=== PATIENT | female | born 1965 | race Caucasian/White ===

== ENCOUNTER → 2020-01-15 09:38 | Outpatient (BNVA) | payer MEDICAID, SELFPAY | PROVIDERS: PCP Nurse Practitioner Family; Visit Provider Internal Medicine | DX: J30.9 Allergic rhinitis, unspecified (principal); J44.9 Chronic obstructive pulmonary disease, unspecified; Z79.899 Other long term (current) drug therapy | CPT/HCPCS: 99212 ==

== ENCOUNTER 2020-02-03 15:28 | Emergency (ER) | payer MEDICAID, SELFPAY ==
[2020-02-03 15:50] VITALS: BP 129/84; PULSE 96; RESP 20; TEMP 35.9; O2SAT 96; BMI 24.3
--- NOTE | 2020-02-03 16:52 | ED_ITS ---
HPI - Female Genitourinary General Chief complaint: Urogenital-Female Stated complaint: blood in urine Time Seen by Provider: 02/03/20 16:34 Source: patient Mode of arrival: ambulatory Limitations: no limitations History of Present Illness HPI Narrative: patient comes to the emergency room of hematuria. Patient ates she is taking Macrobid to prevent UTIs, it has been over a year since she started prophylactic treatment. Patient stopped approximately 6 days ago her antibiotic to see if she would develop a UTI or not, patient started urinating blood and having discomfort with urination 2 days ago, patient restarted her Macrobid. Patient states that this morning she woke up with bilateral back pain. Patient also complaining of a headache Related Data Home Medications Medication Instructions Recorded Confirmed aclidinium bromide 400 1 inh INHALATION BID 01/15/20 mcg/actuation breath activated powder inhaler albuterol sulfate 2.5 mg CONTINUOUS NEBULIZATION Q6H 01/15/20 albuterol sulfate 90 mcg/actuation 1 inh INHALATION QID 01/15/20 aerosol inhaler cetirizine 10 mg tablet 10 mg PO DAILY 01/15/20 epinephrine 0.3 mg/0.3 mL 0.3 mg IM Q10M PRN 01/15/20 injection, auto-injector fluticasone propionate 50 1 spray INTRANASAL DAILY 01/15/20 mcg/actuation nasal spray,suspension levothyroxine 100 mcg tablet 100 mcg PO DAILY 01/15/20 nitrofurantoin macrocrystal 100 mg 100 mg PO BEDTIME 01/15/20 capsule Previous Rx's Medication Instructions Recorded albuterol sulfate 90 mcg/actuation 2 puff INHALATION Q4-6H PRN 30 01/15/20 aerosol inhaler Days #8.5 g Allergies Allergy/AdvReac Type Severity Reaction Status Date / Time albuterol [From VENTOLIN] Allergy Unknown SHORTNESS Verified 01/15/20 10:02 OF BREATH dicyclomine [Bentyl] Allergy Unknown Unknown Verified 01/15/20 10:02 montelukast [Singulair] Allergy Unknown Unknown Verified 01/15/20 10:02 nut - unspecified [nut] Allergy Unknown SWELLING Verified 01/15/20 10:02 propofol [PROPOFOL] Allergy Unknown SWELLING Verified 01/15/20 10:02 Review of Systems Review of Systems: Constitutional : No Weight loss, No Fever, No Chills, No Night Sweats, No Fatigue, No Malaise ENT/Mouth : No Hearing loss, No Ear Pain, No Nasal Congestion, No Sinus Pain, No Hoarseness, No sore throat, No Rhinorrhea, No Swallowing Difficulty Eyes: No Eye Pain, No Swelling, No Redness, No Foreign Body, No Discharge, No Vision Changes Cardiovascular : No Chest Pain, No SOB, No Dyspnea on Exertion, No Orthopnea, No Edema, No Palpitations Respiratory : No Cough, No Sputum, No Wheezing, No Smoke Exposure, No Dyspnea Gastrointestinal : No Nausea, No Vomiting, No Diarrhea, No Constipation, No abdominal Pain, No Hematochezia, No Melena Genitourinary : Patient complaining of dysuria and hematuria Musculoskeletal : No joint pain, No Myalgias, No Joint Swelling Skin : No Skin Lesions, No rash Neuro : No Weakness, No Numbness, No Paresthesias, No Loss of Consciousness, No Dizziness, No Headache Psych : No Anxiety/Panic, No Depression, No SI/HI/AH/VH, No Social Issues, Heme/Lymph: No Bruising, No Bleeding,No Lymphadenopathy Endocrine : No Polyuria, No Polydipsia, No Temperature Intolerance FOR[facility]LY [facility] Past Medical History Medical History (Updated 02/03/20 @ 22:17 by Maribell Will MD) Allergic rhinitis Arthritis COPD (chronic obstructive pulmonary disease) Hypothyroidism UTI (urinary tract infection) Social History Social History Alcohol intake: never Smoked in Last 30 Days: No Use of substances other than those prescribed or required for medical reasons: No Advance Directives: No Advance Directives Information Provided: No Physical Exam Vital Signs: Vital Signs: Last Vital Signs Temp 96.6 F L 02/03/20 15:50 Pulse 96 02/03/20 15:50 Resp 20 02/03/20 15:50 BP 129/84 02/03/20 15:50 Pulse Ox 96 02/03/20 15:50 Body Mass Index 24.3 Appearance: Alert. Oriented X3. No acute distress. Eyes: Pupils equal, round and reactive to light. ENT: Pharynx normal. Neck: Normal inspection. Neck supple. No lymph nodes noted. No crepitus CVS: Normal heart rate and rhythm. Pulses normal. Normal S1 and S2 Respiratory: No respiratory distress. Breath sounds normal. No Wheezing. No rales Abdomen: Soft and nontender. No rigidity. No distention. good BS x4 Skin: Skin warm and dry. Normal skin color. Normal skin turgor. Extremities: No lower extremity edema. No lower extremity edema. No Lacerations. No Rash Neuro: Oriented X 3. No motor deficit. No sensory deficit. Moving all extermities. No slurred speech. Course Course Course Narrative: I discussed the labs with the patient, patient does have hem aturia but no UTI. I discussed with the patient that she will likely need a cystoscopy, it is possible that she may have cystitis, patient instructed to continue taking her prophylactic antibiotic and follow-up with urology. On discharge patient is well appearing, vitals stable. MDM - Female Genitourinary Lab Data Result diagrams: 02/03/20 17:18 02/03/20 17:18 Labs: Lab Results 02/03/20 02/03/20 02/03/20 Range/Units 17:18 17:18 17:18 WBC 5.8 (4.8-10.8) X10*3/uL RBC 4.19 L (4.20-5.50) X10*6/uL Hgb 12.4 (12.0-16.0) g/dl Hct 38.4 (37-47) % MCV 91.6 (80-98) fL MCH 29.6 (27.0-33.0) pg MCHC 32.3 (31.0-35.0) g/dl RDW 14.7 (11.0-16.0) % Plt Count 280 (160-400) X10*3/uL MPV 10.9 (9.4-12.3) fL Immature Gran % (Auto) 0.2 (0.0-0.4) % Neut % (Auto) 68.6 (45-73) % Lymph % (Auto) 23.2 (20-40) % Creek % (Auto) 7.0 (2-11) % Eos % (Auto) 0.5 (0-4) % Baso % (Auto) 0.5 (0-2) % Lymph # (Auto) 1.4 (1.2-4.9) X10*3/uL Creek # (Auto) 0.4 (0.1-1.2) X10*3/uL Eos # (Auto) 0.0 (0.0-0.4) X10*3/uL Baso # (Auto) 0.0 (0.0-0.2) X10*3/uL Abs Immat Gran (auto) 0.01 (0.00-0.03) X10*3/uL Absolute Neuts (auto) 4.0 (2.0-8.3) X10*3/uL Absolute Nucleated RBC 0.000 (0.0-0.012) X10*3/uL Nucleated RBC % (auto) 0.0 (0.0-0.2) /100WBC Sodium 140 (135-145) mmol/L Potassium 4.0 (3.3-5.1) mmol/l Chloride 105 (96-108) mmol/L Carbon Dioxide 24 (22-29) mmol/L Anion Gap 15 (12-20) BUN 15 (9-16) mg/dL Creatinine 0.66 (0.5-1.4) mg/dL Estim Creat Clear Calc 79.1 Estimated GFR > 60 Random Glucose 96 (60-115) mg/dL Calcium 8.7 (8.4-10.2) mg/dL Urine Color YELLOW Urine Appearance CLEAR Urine pH 6.0 (5.0-8.0) Ur Specific [place] 1.015 (1.005-1.025) Urine Protein NEG (NEG-TRACE) MG/DL Urine Glucose (UA) NEG (NEG) MG/DL Urine Ketones NEG (NEG) MG/DL Urine Blood NEG (NEG) Urine Nitrite NEG (NEG) Ur Leukocyte Esterase NEG (NEG) Discharge Plan Discharge Clinical Impression: Cystitis Patient Disposition: Home, Self-Care Instructions: Interstitial Cystitis (ED) Additional Instructions: please continue taking your prophylactic antibiotics for urinary tract infections. Please follow-up with your primary care physician and with Urology. Prescriptions: No Action albuterol sulfate 2.5 mg /3 mL (0.083 %) solution for nebulization 2.5 mg continuous nebulization Q6H RF: 0 fluticasone propionate [Flonase Allergy Relief] 50 mcg/actuation spray,suspension 1 spray intranasal DAILY RF: 0 cetirizine [Zyrtec] 10 mg tablet 10 mg PO DAILY RF: 0 Tudorza Pressair 400 mcg/actuation aerosol powdr breath activated 1 inh inhalation BID RF: 0 albuterol sulfate [ProAir HFA] 90 mcg/actuation HFA aerosol inhaler 1 inh inhalation QID RF: 0 levothyroxine [Synthroid] 100 mcg tablet 100 mcg PO DAILY RF: 0 epinephrine [EpiPen 2-Kehinde] 0.3 mg/0.3 mL auto-injector 0.3 mg IM Q10M PRN (Reason: Allergic Reaction) RF: 0 nitrofurantoin macrocrystal 100 mg capsule 100 mg PO BEDTIME RF: 0 albuterol sulfate [ProAir HFA] 90 mcg/actuation HFA aerosol inhaler 2 puff inhalation Q4-6H PRN (Reason: shortness of breath or wheezing) 30 Days Qty: 8.5 RF: 5 Referrals: John Brenner MD [Physician] - 2 days
[2020-02-03] MEDS: Acetaminophen 325 MG TABLET 650 MG PO (17:14)
[2020-02-03 17:25] LABS: MANUAL DIFF FLAG NO
[2020-02-03 17:43] LABS: Basophils Percent Auto 0.5 % (0-2); Eosinophils Percent Auto 0.5 % (0-4); Hematocrit 38.4 % (37-47); Hemoglobin 12.4 g/dl (12.0-16.0); Imm Gran Abs Auto 0.01 X10*3/uL (0.00-0.03); Imm Gran Pct Auto 0.2 % (0.0-0.4); Lymphocytes Absolute Auto 1.4 X10*3/uL (1.2-4.9); Lymphocytes Percent Auto 23.2 % (20-40); Mean Corpuscular HGB Conc 32.3 g/dl (31.0-35.0); Mean Corpuscular Hemoglobin 29.6 pg (27.0-33.0); Mean Corpuscular Volume 91.6 fL (80-98); Mean Platelet Volume 10.9 fL (9.4-12.3); Monocytes Absolute Auto 0.4 X10*3/uL (0.1-1.2); Neutrophils Percent Auto 68.6 % (45-73); Platelet Count 280 X10*3/uL (160-400); Red Blood Count 4.19 X10*6/uL (4.20-5.50); Red Cell Distribution Width 14.7 % (11.0-16.0); White Blood Count 5.8 X10*3/uL (4.8-10.8)
[2020-02-03 17:48] LABS: Glucose Urine UA NEG (NEG); Leukocyte Esterase Urine NEG (NEG); Nitrite Urine NEG (NEG); Specific Gravity - Urine 1.015 (1.005-1.025); Urine Blood NEG (NEG); Urine Ketones NEG (NEG); Urine Protein NEG (NEG-TRACE)
[2020-02-03 17:49] LABS: Anion Gap 15 (12-20); Blood Urea Nitrogen 15 mg/dL (9-16); Calcium 8.7 mg/dL (8.4-10.2); Carbon Dioxide 24 mmol/L (22-29); Chloride 105 mmol/L (96-108); Creatinine Clr Calc Pharmacy 79.1; Estimated Glomerular Filt Rate > 60; Glucose Random 96 mg/dL (60-115); Sodium 140 mmol/L (135-145)
[2020-02-03 17:52] LABS: Appearance Urine CLEAR; Color Urine YELLOW
[2020-02-03 22:42] VITALS: BP 119/78; PULSE 98; RESP 15; TEMP 37.1; O2SAT 99
== END 2020-02-03 22:49 | disposition home or self-care (01) ==
PROVIDERS: Emergency Provider Emergency Medicine; PCP Nurse Practitioner Family
DX: N30.00 Acute cystitis without hematuria (principal); Z79.899 Other long term (current) drug therapy
CPT/HCPCS: 36415; 80048; 81003; 85025; 99283; 99284

== ENCOUNTER 2020-03-13 09:36 | Outpatient (REF) | payer MEDICAID, SELFPAY ==
--- NOTE | 2020-03-13 09:41 | MM_ITS ---
EXAMINATION: MM SCREENING DIGITAL BREAST TOMOSYNTHESIS, BILATERAL CLINICAL INFORMATION: Screening. Asymptomatic. The lifetime risk of breast cancer based on the Tyrer-Cuzick Model is 6%. COMPARISON: Mammography: 09/05/2018, 08/29/2017, 08/25/2016 TECHNIQUE: Digital breast tomosynthesis is performed in both the craniocaudal and mediolateral oblique views along with computer-aided detection (CAD). Synthesized 2D images are generated from the tomosynthesis. Additional right MLO view is provided. FINDINGS: There are scattered areas of fibroglandular density (ACR BI-RADS breast composition Category b). There are no significant masses, abnormal calcifications, or other abnormalities. Parenchymal pattern is similar to prior studies. No significant changes. MM/MM tomosynthesis screening BI IMPRESSION: No mammographic evidence of malignancy. ASSESSMENT: BI-RADS 1: Negative RECOMMENDATION: Routine annual mammography screening. This patient's information was entered into a reminder system with a target due date for their next mammogram.
== END 2020-03-13 09:37 | disposition home or self-care (01) ==
LOC: HO.MAMMO 09:36
PROVIDERS: PCP Nurse Practitioner Family; Visit Provider Nurse Practitioner Family
DX: Z12.31 Encounter for screening mammogram for malignant neoplasm of breast (principal)
CPT/HCPCS: 77063; 77067

== ENCOUNTER 2020-04-03 13:31 | Outpatient (REF) | payer MEDICAID, SELFPAY ==
[2020-04-04 14:30] LABS: Urine Cytology See Pathology rpt
== END 2020-04-03 13:32 | disposition home or self-care (01) ==
LOC: CF 13:31
PROVIDERS: PCP Nurse Practitioner Family; Visit Provider Urology
DX: R31.0 Gross hematuria (principal); E03.9 Hypothyroidism, unspecified; Z88.8 Allergy status to other drugs, medicaments and biological substances; Z88.4 Allergy status to anesthetic agent; Z91.018 Allergy to other foods
CPT/HCPCS: 81002; 88112; 99212

== ENCOUNTER 2020-05-02 08:43 | Outpatient (REF) | payer MEDICAID, SELFPAY ==
--- NOTE | ~2020-05-02 | CT_ITS ---
EXAMINATION: CT ABDOMEN AND PELVIS WITHOUT AND WITH CONTRAST CLINICAL INFORMATION: Gross hematuria. COMPARISON: 01/16/2018 TECHNIQUE: Multidetector volumetric imaging was performed of the abdomen and pelvis before and after the IV administration of 85 mL of Omnipaque 300 intravenous contrast. Sagittal and coronal reformatted images were obtained on the technologist's workstation. This CT examination was performed using dose optimization techniques as appropriate, variously including the following: *Automated exposure control. *Adjustment of mA and/or kV according to patient size (this includes techniques or standardized protocols for targeted exams where dose is matched to indication/reason for exam; i.e. extremities or head). *Use of iterative reconstruction technique. DLP: 519 mGy-cm FINDINGS: KIDNEYS AND URETERS: Right kidney measures 10.6 cm, left kidney measures 10.4 cm in craniocaudal length. No renal calculi are seen. No radiodense ureteral calculi are seen on the noncontrast CT. Mild right hydroureteronephrosis. After contrast administration, there is homogeneous enhancement of bilateral kidneys. A 5 mm hypodense lesion in the lower pole of the right kidney, too small to characterize, probable a cyst. No suspicious enhancing solid renal lesions identified. In the postcontrast CT, there is contrast opacification of bilateral collecting systems. There is a filling defect in the yeo-le-afynco right ureter, as it courses along the inferior abdomen and into the pelvis. This extends over a distance of approximately 5.1 cm craniocaudal. Images 8: 31-40; 11:58; 10:40-44. Differential consideration include neoplasm. No filling defect is identified in the left collecting system. BLADDER: Unremarkable. No calculi, urinary bladder wall thickening is seen. LUNG BASES: The visualized lung bases are unremarkable. LIVER, GALLBLADDER, AND BILIARY TREE: Hepatic steatosis. No focal lesion is seen. Of note, only portion of the liver is included in the hbijg-je-eemz in the postcontrast sequences. Gallbladder is unremarkable. PANCREAS: Unremarkable. SPLEEN: Unremarkable. ADRENAL GLANDS: Unremarkable. GASTROINTESTINAL TRACT: Scattered colonic diverticuli. No diverticulitis. Non-obstructive bowel gas. Stomach is nondistended. No dilated small bowel loops. Appendix is normal. ABDOMINAL WALL: No significant hernia is appreciated. LYMPH NODES: No adenopathy is seen. VASCULAR: No aneurysmal dilatation of the aorta. PELVIC VISCERA: Question mass-like appearance within the mid/inferior uterus. This measures approximately 3.7 cm craniocaudal. Reference image 11:57, 10:46-53. Adnexa appear unremarkable. OSSEOUS STRUCTURES: Anterolisthesis of L5 on S1. Severe L5-S1 disc degeneration. Bilateral L5 pars defect. No suspicious osseous abnormality. CT/CT abdomen pelvis wo/w con IMPRESSION: 1. Filling defect in the syy-fw-ucuqde right ureter extending over a distance of approximately 5.1 cm craniocaudal. Differential consideration include neoplasm. Recommend further evaluation. 2. A 5 mm hypodense lesion in the lower pole of the right kidney, too small to characterize, probable a cyst. 3. Question mass-like appearance in the mid/inferior uterus. Recommend further evaluation ultrasound. 4. Bilateral L5 pars defect, L5 anterolisthesis, severe L5-S1 disc degeneration.
[2020-05-02 09:28] LABS: Blood Urea Nitrogen 18 mg/dL (9-16); Estimated Glomerular Filt Rate > 60
[2020-05-02] MEDS: iohexoL 350 MG/ML 100 ML INFUS..BTL 85 ML IV (10:15)
== END 2020-05-02 08:44 | disposition home or self-care (01) ==
LOC: HO.CT 08:43
PROVIDERS: Urology; PCP Nurse Practitioner Family; Visit Provider Urology
DX: R31.0 Gross hematuria (principal)
CPT/HCPCS: 36415; 74178; 82565; 84520; Q9967

== ENCOUNTER → 2020-06-13 10:43 | Outpatient (BNVA) | payer MEDICAID, SELFPAY | PROVIDERS: PCP Nurse Practitioner Family; Visit Provider Urology | DX: R31.0 Gross hematuria (principal); R93.41 Abnormal radiologic findings on diagnostic imaging of renal pelvis, ureter, or bladder | CPT/HCPCS: 52000; 52332; 81002; 99212 ==

== ENCOUNTER 2020-06-30 05:58 | Day surgery (SDC) | payer MEDICAID, SELFPAY ==
[2020-06-25 12:05] VITALS: BMI 24.1
--- NOTE | ~2020-06-30 | FL_ITS ---
EXAMINATION: XR FLUOROSCOPY WITH IMAGES CLINICAL INFORMATION: Right retrograde exam COMPARISON: Previous CT of the abdomen and pelvis April 2020 TECHNIQUE: Fluoroscopy performed by Dr. John Brenner. Fluoroscopy time: 4870 minutes Cumulative dose: 10 mg Images: 2 FINDINGS: Initial image demonstrates contrast opacification of the right renal collecting system and proximal ureter. There is a filling defect in the right UPJ region questionable for a stone versus air bubble.. Second image demonstrates a wire in the right distal ureter. FL/FL guidance in OR IMPRESSION: Fluoroscopic guidance for right retrograde exam.
[2020-06-30 06:19] VITALS: BP 142/83; PULSE 93; RESP 16; TEMP 36.6; O2SAT 95
[2020-06-30] MEDS: Lactated Ringers 1,000 ML 20 ML IVCONT (06:25)
--- NOTE | 2020-06-30 07:30 | MHC.SHP ---
Pre-Procedural Eval Section A The patient is an INPATIENT: No Changes since office visit: No Cold of Flu in the past 2 weeks, No New Medical Problems, No Changes in Medication and No Patient answered all questions The History & Physical has been completed within 30 days and I have reviewed it.: Yes Section B Chief Complaint: Abnormal Findings Allergies: Allergies Allergy/AdvReac Type Severity Reaction Status Date / Time albuterol [From VENTOLIN] Allergy Intermediate SHORTNESS Verified 06/30/20 06:32 OF BREATH nut - unspecified [nut] Allergy Intermediate SWELLING Verified 06/24/20 15:48 propofol [PROPOFOL] Allergy Intermediate SWELLING Verified 06/24/20 15:48 dicyclomine [Bentyl] Allergy Unknown Unknown Verified 01/15/20 10:02 montelukast [Singulair] Allergy Unknown Unknown Verified 01/15/20 10:02 Plan Diagnosis/Plan: Unchanged (right retrorgade, ureteroscopy) I have reviewed the history and physical and performed a pertinent physical examination on my patient. No changes have occurred unless specified.
[2020-06-30] MEDS: levoFLOXacin 500 MG TABLET PO (07:32)
--- NOTE | 2020-06-30 08:03 | HO.ANESPROP2 ---
[facility] [place] Active Problems Active Problems: All Active Problems (Updated 06/13/20 @ 11:50 by John Brenner MD) Ureter filling defect (Acute) Dysuria (Acute) Gross hematuria (Acute) COPD (chronic obstructive pulmonary disease) (Acute) Allergic rhinitis (Acute) Past Medical History Medical History Allergic rhinitis Arthritis COPD (chronic obstructive pulmonary disease) Gross hematuria Hypothyroidism UTI (urinary tract infection) Surgical History Surgical History H/O colonoscopy History of eye surgery Social History Social History Alcohol intake: never Smoking Status: Unknown if ever smoked Advance Directives Information Provided: No Meds Allergies Allergy/AdvReac Type Severity Reaction Status Date / Time albuterol [From VENTOLIN] Allergy Intermediate SHORTNESS Verified 06/30/20 06:32 OF BREATH nut - unspecified [nut] Allergy Intermediate SWELLING Verified 06/24/20 15:48 propofol [PROPOFOL] Allergy Intermediate SWELLING Verified 06/24/20 15:48 dicyclomine [Bentyl] Allergy Unknown Unknown Verified 01/15/20 10:02 montelukast [Singulair] Allergy Unknown Unknown Verified 01/15/20 10:02 Active Medications: Current Medications Generic Name Dose Route Start Last Admin Trade Name Freq PRN Reason Stop Dose Admin Lactated Ringer's 1,000 mls @ 20 mls/hr 06/30/20 07:30 06/30/20 06:25 Lr IVCONT 20 mls/hr .Q24H PATRIC Administration Home Medications Medication Instructions Recorded Confirmed Last Taken Type aclidinium bromide 400 1 inh INHALATION BID 01/15/20 06/25/20 Unknown History mcg/actuation breath activated powder inhaler albuterol sulfate 2.5 mg CONTINUOUS NEBULIZATION Q6H 01/15/20 06/25/20 Unknown History cetirizine 10 mg tablet 10 mg PO DAILY 01/15/20 06/25/20 Unknown History epinephrine 0.3 mg/0.3 mL 0.3 mg IM Q10M PRN 01/15/20 06/25/20 Unknown History injection, auto-injector fluticasone propionate 50 1 spray INTRANASAL DAILY 01/15/20 06/25/20 Unknown History mcg/actuation nasal spray,suspension levothyroxine 100 mcg tablet 100 mcg PO DAILY 01/15/20 06/25/20 Unknown History nitrofurantoin macrocrystal 100 mg 100 mg PO BEDTIME 01/15/20 Unknown History capsule Exam Exam Date and Time: June 30, 2020 0803 Height,Weight and Vital Signs: Height 5 ft 1 in Weight 58.06 kg Last Vital Signs Temp 97.9 F 06/30/20 06:19 Pulse 93 06/30/20 06:19 Resp 16 06/30/20 06:19 BP 142/83 H 06/30/20 06:19 Pulse Ox 95 06/30/20 06:19 Airway Mallampati Class: II TM Dist: >3cm Neck ROM: Full Assessment and Plan Assessment Anesthesia Assessment: Anesthesia Plan Discussed and Chart Reviewed Final Anesthetic Review NPO: Yes ASA Class: III Final Preanesthetic Review: No Changes in Pt Med Stat, Meds/Allgs Chart Reviewed, Consent Obtained/Reviewed and Anes Risks/Benef Reviewed Patient Risk: Intermediate Procedure Risk: Low Assessment/Block/Sedation in SS: Assess/Block/Sedation-SS Anesthetic Plan Anesthetic Plan: GA Disposition: Standard PACU
--- NOTE | 2020-06-30 08:46 | P.OP_ITS ---
Operative Note Operative Note Date of Service: 06/30/20 Narrative: PreOperative Diagnosis: Distal right ureteric dilatation Post Operative Diagnosis: Narrowed urethra, distal right ureteric dilation Procedure: 1. Cystoscopy with dilatation of urethra 2. Bilateral retrogrades 3. Right ureteroscopy Surgeon: Dr John Brenner Anesthesia: General Indications for procedure: 54-year-old female on imaging was found to have dilated right distal ureter. Normal creatinine. No filling defect. Here for examination under anesthesia. Procedure: After informed consent was verified the patient was brought to the operating room and placed in a supine position. Anesthesia was administered per protocol. Patient was placed in modified dorsal lithotomy position and prepped and draped in sterile fashion. Six 4 stent was performed. Antibiotics have been given. Twenty-two Japanese cystoscope inserted per urethra. The urethra was noted to be narrowed. It was dilated using dilators up to 22 Japanese. The 22 Japanese cystoscope was placed. It appeared to be atrophic in nature and may be secondary to low estrogen. Normal bladder. Both ureteric orifices normal positions. Bilateral retrogrades were performed. Left side normal with delicate filling. Right side normal and could be seen to have mild dilatation of the distal portion of the ureter once the ureter was filled with contrast. On fluoroscopy this emptied well. Sensor guidewire placed. Shani dilator used to dilate ureteric orifice under fluoroscopy. Rigid ureteroscopy performed. No lesions noted in the bottom half of the right ureter. It appears that the dilatation is physiologic and has no contributing causation. Hopefully after the dilatation of her urethra this will not be a recurring issue. She tolerated procedure well was extubated in the operating room transferred in stable condition cover area. Estrace cream prescribed. Pathology: Drains:
[2020-06-30 08:57] VITALS: BP 141/81; PULSE 74; RESP 16; TEMP 36.4; O2SAT 98
[2020-06-30 09:02] VITALS: BP 132/79; PULSE 80; RESP 18; O2SAT 97
[2020-06-30 09:07] VITALS: BP 129/82; PULSE 84; RESP 16; O2SAT 96
[2020-06-30 09:12] VITALS: BP 131/86; PULSE 82; RESP 18; O2SAT 96
[2020-06-30 09:27] VITALS: BP 134/82; PULSE 88; RESP 20; O2SAT 96
--- NOTE | 2020-06-30 11:51 | PM.OP ---
Brief Operative Note Date of Service: 06/30/20 Pre-op diagnosis: Right distal ureteric dilatation Post-op diagnosis: same Procedure: Cystoscopy, retrograde, ureteroscopy Surgeon: John Brenner MD Anesthesia: GLMA Estimated blood loss (mL): 0 Pathology: none sent Condition: stable Disposition: same day
== END 2020-06-30 09:59 ==
LOC: HO.SSS 05:58
PROVIDERS: PCP Internal Medicine; Visit Provider Urology
PROC: 0TJ98ZZ Inspection of Ureter, Via Natural or Artificial Opening Endoscopic (ICD-10-PCS; CPT 52351; principal; 2020-06-30 08:00)
DX: N35.92 Unspecified urethral stricture, female (principal); R31.0 Gross hematuria; Z87.440 Personal history of urinary (tract) infections; J44.9 Chronic obstructive pulmonary disease, unspecified; Z79.51 Long term (current) use of inhaled steroids; Z79.899 Other long term (current) drug therapy; Z88.8 Allergy status to other drugs, medicaments and biological substances
CPT/HCPCS: 52281; C1894; J1100; J2405; J3010; Q9967

== ENCOUNTER 2020-07-05 17:54 | Emergency (ER) | payer MEDICAID, SELFPAY ==
--- NOTE | ~2020-07-05 | CT_ITS ---
EXAMINATION: CT ABDOMEN AND PELVIS WITHOUT CONTRAST CLINICAL INFORMATION: Flank pain COMPARISON: None TECHNIQUE: Multidetector volumetric imaging was performed from the superior aspect of the liver through the pubic symphysis. Sagittal and coronal reformatted images were obtained on the technologist's workstation. This CT examination was performed using dose optimization techniques as appropriate, variously including the following: *Automated exposure control *Adjustment of mA and/or kV according to patient size (this includes techniques or standardized protocols for targeted exams where dose is matched to indication/reason for exam; i.e. extremities or head) *Use of iterative reconstruction technique DLP: 378 mGy-cm FINDINGS: LUNG BASES: The visualized lung bases are unremarkable. LIVER, GALLBLADDER, AND BILIARY TREE: The liver is normal in size and shape but demonstrates significantly decreased attenuation system with hepatic steatosis. No focal hepatic lesion or biliary ductal dilatation is present. The gallbladder is unremarkable with no evidence of radiopaque gallstones, gallbladder wall thickening, or obvious pericholecystic inflammatory changes. PANCREAS: Unremarkable. SPLEEN: Unremarkable. ADRENAL GLANDS: Unremarkable. KIDNEYS AND URETERS: The kidneys are normal in size, shape, and attenuation. No hydronephrosis, hydroureter, or calculi seen. No perinephric stranding. BLADDER: Unremarkable. GASTROINTESTINAL TRACT: Colonic diverticula without diverticulitis. The small and large bowel are unremarkable. The appendix is none seen but no evidence of appendicitis.. ABDOMINAL WALL: No significant hernia is appreciated. LYMPH NODES: No retroperitoneal lymphadenopathy. VASCULAR: Unremarkable. PELVIC VISCERA: An anteverted uterus is present. An abnormal adnexal mass is not seen. No free intraperitoneal fluid is present. OSSEOUS STRUCTURES: There is grade 1-2 anterolisthesis with marked disc space narrowing at L5-S1. Bilateral pars interarticularis defects are present in L5. CT/CT abdomen pelvis wo con IMPRESSION: An etiology for the patient's flank pain is not found. Incidental note made of : 1. Hepatic steatosis 2. Colonic diverticula without diverticulitis 3. Degenerative changes L5-S1 with grade 1-2 anterolisthesis with bilateral pars defects
--- NOTE | ~2020-07-05 | XR_ITS ---
EXAMINATION: XR CHEST CLINICAL INFORMATION: Shortness of breath COMPARISON: 06/09/2013 TECHNIQUE: 2 views of the chest were obtained. FINDINGS: No significant abnormality is noted involving the heart, lungs, mediastinum, bony thorax or soft tissues. XR/XR chest 2V IMPRESSION: Unremarkable examination.
[2020-07-05 18:00] VITALS: BP 155/92; PULSE 110; RESP 20; TEMP 37; O2SAT 96; BMI 24.0
--- NOTE | 2020-07-05 18:16 | ED.SOB ---
HPI - SOB/Dyspnea General Chief Complaint: Dyspnea Stated Complaint: asthma Time Seen by Provider: 07/05/20 18:07 Source: patient Mode of arrival: ambulatory Limitations: language barrier History of Present Illness HPI Narrative: 54-year-old female with past medical history of environmental allergies, arthritis, COPD, hypothyroidism, chronic UTIs, recent fluoroscopy with right retrograde exam with Dr. Brenner on 06/30/2020 presents with shortness of breath, pain on inspiration, tachycardia, throat itching, and shortness of breath. She states that she normally has asthma exacerbations during this time of year because of environmental allergies, but states that the pain on inspiration on the right side is not something that she normally experiences. She does have history of chronic UTIs and possible right-sided renal stone. She does not describe any chest pain or pressure, palpitations, abdominal distension, fevers, chills, edema, weakness, lightheadedness, or loss of balance. MD elicited complaint: shortness of breath and pain with inspiration Pertinent past history: COPD and asthma Onset (ago): day(s) (1) Context: allergen exposure Timing: constant Severity: moderate Exacerbating factors: exertion, talking and deep breaths Relieving factors: nothing Known history of: COPD and asthma Associated symptoms: pain with inspiration and abdominal pain Treatment prior to arrival: none Related Data Home oxygen amount: none Home Medications Medication Instructions Recorded Confirmed aclidinium bromide 400 1 inh INHALATION BID 01/15/20 06/25/20 mcg/actuation breath activated powder inhaler albuterol sulfate 2.5 mg CONTINUOUS NEBULIZATION Q6H 01/15/20 06/25/20 cetirizine 10 mg tablet 10 mg PO DAILY 01/15/20 06/25/20 epinephrine 0.3 mg/0.3 mL 0.3 mg IM Q10M PRN 01/15/20 06/25/20 injection, auto-injector fluticasone propionate 50 1 spray INTRANASAL DAILY 01/15/20 06/25/20 mcg/actuation nasal spray,suspension levothyroxine 100 mcg tablet 100 mcg PO DAILY 01/15/20 06/25/20 nitrofurantoin macrocrystal 100 mg 100 mg PO BEDTIME 01/15/20 capsule Previous Rx's Medication Instructions Recorded albuterol sulfate 90 mcg/actuation 2 puff INHALATION Q4-6H PRN 30 01/15/20 aerosol inhaler Days #8.5 g phenazopyridine 100 mg tablet 100 mg PO Q8H PRN 5 Days #14 tab 06/13/20 estradiol [Estrace] See Rx Instructions .ROUTE 06/30/20 .COMPLEX #42.5 g Allergies Allergy/AdvReac Type Severity Reaction Status Date / Time albuterol [From VENTOLIN] Allergy Intermediate SHORTNESS Verified 06/30/20 06:32 OF BREATH nut - unspecified [nut] Allergy Intermediate SWELLING Verified 06/24/20 15:48 propofol [PROPOFOL] Allergy Intermediate SWELLING Verified 06/24/20 15:48 dicyclomine [Bentyl] Allergy Unknown Unknown Verified 01/15/20 10:02 montelukast [Singulair] Allergy Unknown Unknown Verified 01/15/20 10:02 Review of Systems Review of Systems: Constitutional: No Fever, No Chills ENT/Mouth: No Hoarseness, positive sore throat, No Rhinorrhea Eyes: No Redness, No Discharge, No Vision Changes Cardiovascular: No Chest Pain, positive SOB, positive Dyspnea on Exertion, No Edema Respiratory: positive Cough, No Sputum, positive Wheezing, Gastrointestinal: Positive flank pain, No Nausea, No Vomiting, No Diarrhea, No abdominal Pain Genitourinary: Positive Dysuria, No Hematuria Musculoskeletal: No joint pain, No Myalgias Skin: No rash Neuro: No Weakness, No Numbness, No Headache Psych: No anxiety, depression Heme/Lymph: No Bruising, No Bleeding Endocrine: No Polyuria, No Polydipsia Yes all other systems are reviewed and are negative PMFSH Past Medical History Attestation statement: The following information was validated with the patient. Source: old records reviewed Medical History Allergic rhinitis Arthritis COPD (chronic obstructive pulmonary disease) Gross hematuria Hypothyroidism UTI (urinary tract infection) Surgical History H/O colonoscopy History of eye surgery Social History Social History Alcohol intake: never Smoking Status: Unknown if ever smoked Smoked in Last 30 Days: No Use of substances other than those prescribed or required for medical reasons: No Advance Directives: No Advance Directives Information Provided: No Physical Exam Vital Signs: Vital Signs: Last Vital Signs Temp 98.7 F 07/05/20 20:54 Pulse 97 07/05/20 22:00 Resp 18 07/05/20 20:54 BP 138/86 07/05/20 22:00 Pulse Ox 96 07/05/20 22:00 Body Mass Index 24.0 Appearance: Alert. Oriented X3. No acute distress. Head: Normal external exam. Normocephalic. Atraumatic. No Tai signs noted. No raccoon eyes noted Eyes: PERRLA. EOMI. Conjunctiva and sclera normal. Eyelids normal. ENT: TM's Normal. Pharynx normal. Uvula midline. Moist mucous membranes. No trismus noted. No drooling noted. No muffled voice noted. Neck: Normal inspection. Neck supple. No adenopathy. Thyroid Normal. No meningeal signs. No neck mass noted. CVS: Tachycardic heart rate and rhythm. Heart sound normal. No murmurs noted. Pulses equal to all extremities. Brisk capillary refill to all extremities. Respiratory: No respiratory distress. Pain on inspiration to the right flank. Diminished lung sounds, tight, poor air flow. Chest nontender. No accessory muscle usage noted. Abdomen: Soft and nontender. Bowel sounds normal in all 4 quadrants. No distention noted. No organomegaly noted. No visible injury noted. Right-sided CVA tenderness. Back: Full range of motion noted. No vertebral tenderness noted. Skin: Skin warm and dry. Normal skin color. Normal skin turgor. No rashes/lesions/lacerations noted. Extremities: No lower extremity edema. Extremities exhibit normal range of motion. Extremities nontender. Neuro: cranial nerves 2-12 intact, no focal neural deficits, strength 5/5 to all extremities, No motor deficit. No sensory deficit. Course Course Course Narrative: 54-year-old female with past medical history of environmental allergies, arthritis, COPD, hypothyroidism, chronic UTIs, recent fluoroscopy with right retrograde exam with Dr. Brenner on 06/30/2020 presents with shortness of breath, pain on inspiration, tachycardia, throat itching, and shortness of breath. Patient does have a history of asthma, lung sounds are tight with poor air flow. Will workup for asthma, EKG and troponins pending, based on patient's recent retrograde exam, will order CT scan of the abdomen pelvis that she is describing right flank pain. 7:57 p.m[address] labs still pending. CT scan of abdomen pelvis no acute findings requiring emergent intervention, incidental findings are hepatic steatosis, lumbar disc degeneration, and diverticulosis without indication of diverticulitis. Chest x-ray is normal. EKG has no significant changes from prior, no indication of ST elevation or depression. Patient given referral to Dr. Alicia for pulmonology, she does have allergy to albuterol, will need specialist to prescribe asthma medications CT scan of the abdomen is negative for acute findings, no indication of pyelo, urinalysis is negative. Plan of care is to discharge home, patient verbalized understanding of discharge instructions and agrees to plan. 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 Lab Data Attestation: I reviewed the patient's lab results. Result diagrams: 07/05/20 19:49 07/05/20 20:26 Labs: Lab Results 07/05/20 07/05/20 07/05/20 Range/Units 19:48 19:49 19:49 WBC 7.4 (4.8-10.8) X10*3/uL RBC 4.13 L (4.20-5.50) X10*6/uL Hgb 12.9 (12.0-16.0) g/dl Hct 38.2 (37-47) % MCV 92.5 (80-98) fL MCH 31.2 (27.0-33.0) pg MCHC 33.8 (31.0-35.0) g/dl RDW 12.8 (11.0-16.0) % Plt Count 263 (160-400) X10*3/uL MPV 10.8 (9.4-12.3) fL Immature Gran % (Auto) 0.3 (0.0-0.4) % Neut % (Auto) 67.9 (45-73) % Lymph % (Auto) 23.7 (20-40) % Calvert % (Auto) 6.2 (2-11) % Eos % (Auto) 1.6 (0-4) % Baso % (Auto) 0.3 (0-2) % Lymph # (Auto) 1.8 (1.2-4.9) X10*3/uL Calvert # (Auto) 0.5 (0.1-1.2) X10*3/uL Eos # (Auto) 0.1 (0.0-0.4) X10*3/uL Baso # (Auto) 0.0 (0.0-0.2) X10*3/uL Abs Immat Gran (auto) 0.02 (0.00-0.03) X10*3/uL Absolute Neuts (auto) 5.0 (2.0-8.3) X10*3/uL Absolute Nucleated RBC 0.000 (0.0-0.012) X10*3/uL Nucleated RBC % (auto) 0.0 (0.0-0.2) /100WBC Sodium (135-145) mmol/L Potassium (3.3-5.1) mmol/L Chloride (96-108) mmol/L Carbon Dioxide (22-29) mmol/L Anion Gap (12-20) BUN (9-16) mg/dL Creatinine (0.5-1.4) mg/dL Estim Creat Clear Calc Estimated GFR Random Glucose (60-115) mg/dL Calcium (8.4-10.2) mg/dL Magnesium (1.6-2.6) mg/dL Troponin I High Sens < 3.5 (<3.5-17.0) ng/L B-Natriuretic Peptide < 10 (<100) pg/mL Urine Color YELLOW Urine Appearance CLEAR Urine pH 6.0 (5.0-8.0) Ur Specific [place] 1.025 (1.005-1.025) Urine Protein NEG (NEG-TRACE) MG/DL Urine Glucose (UA) NEG (NEG) MG/DL Urine Ketones NEG (NEG) MG/DL Urine Blood 1+ H (NEG) Urine Nitrite NEG (NEG) Ur Leukocyte Esterase NEG (NEG) Urine RBC 5-9 H (0) /HPF Urine WBC 0 (0-4) /HPF Ur Squamous Epith Cells 1+ /LPF Urine Bacteria NONE /LPF Coronavirus (PCR) (Negative) Influenza Type A (PCR) (Negative) Influenza Type B (PCR) (Negative) RSV RNA Qual (PCR) (Negative) 07/05/20 07/05/20 Range/Units 19:49 20:26 WBC (4.8-10.8) X10*3/uL RBC (4.20-5.50) X10*6/uL Hgb (12.0-16.0) g/dl Hct (37-47) % MCV (80-98) fL MCH (27.0-33.0) pg MCHC (31.0-35.0) g/dl RDW (11.0-16.0) % Plt Count (160-400) X10*3/uL MPV (9.4-12.3) fL Immature Gran % (Auto) (0.0-0.4) % Neut % (Auto) (45-73) % Lymph % (Auto) (20-40) % Calvert % (Auto) (2-11) % Eos % (Auto) (0-4) % Baso % (Auto) (0-2) % Lymph # (Auto) (1.2-4.9) X10*3/uL [place]vert # (Auto) (0.1-1.2) X10*3/uL Eos # (Auto) (0.0-0.4) X10*3/uL Baso # (Auto) (0.0-0.2) X10*3/uL Abs Immat Gran (auto) (0.00-0.03) X10*3/uL Absolute Neuts (auto) (2.0-8.3) X10*3/uL Absolute Nucleated RBC (0.0-0.012) X10*3/uL Nucleated RBC % (auto) (0.0-0.2) /100WBC Sodium 142 (135-145) mmol/L Potassium 4.4 (3.3-5.1) mmol/L Chloride 106 (96-108) mmol/L Carbon Dioxide 26 (22-29) mmol/L Anion Gap 14 (12-20) BUN 16 (9-16) mg/dL Creatinine 0.72 (0.5-1.4) mg/dL Estim Creat Clear Calc 72.1 Estimated GFR > 60 Random Glucose 83 (60-115) mg/dL Calcium 8.6 (8.4-10.2) mg/dL Magnesium 2.1 (1.6-2.6) mg/dL Troponin I High Sens (<3.5-17.0) ng/L B-Natriuretic Peptide (<100) pg/mL Urine Color Urine Appearance Urine pH (5.0-8.0) Ur Specific [place] (1.005-1.025) Urine Protein (NEG-TRACE) MG/DL Urine Glucose (UA) (NEG) MG/DL Urine Ketones (NEG) MG/DL Urine Blood (NEG) Urine Nitrite (NEG) Ur Leukocyte Esterase (NEG) Urine RBC (0) /HPF Urine WBC (0-4) /HPF Ur Squamous Epith Cells /LPF Urine Bacteria /LPF Coronavirus (PCR) NEGATIVE (Negative) Influenza Type A (PCR) NEGATIVE (Negative) Influenza Type B (PCR) NEGATIVE (Negative) RSV RNA Qual (PCR) NEGATIVE (Negative) Imaging Data Chest x-ray: Attestation: I personally reviewed and interpreted this imaging study as follows: Radiologist's impression: EXAMINATION: XR CHEST CLINICAL INFORMATION: Shortness of breath COMPARISON: 06/09/2013 TECHNIQUE: 2 views of the chest were obtained. FINDINGS: No significant abnormality is noted involving the heart, lungs, mediastinum, bony thorax or soft tissues. XR/XR chest 2V IMPRESSION: Unremarkable examination. CT scan - abdomen: Attestation: I personally reviewed and interpreted this imaging study as follows: Radiologist's impression: EXAMINATION: CT ABDOMEN AND PELVIS WITHOUT CONTRAST CLINICAL INFORMATION: Flank pain COMPARISON: None TECHNIQUE: Multidetector volumetric imaging was performed from the superior aspect of the liver through the pubic symphysis. Sagittal and coronal reformatted images were obtained on the technologist's workstation. This CT examination was performed using dose optimization techniques as appropriate, variously including the following: *Automated exposure control *Adjustment of mA and/or kV according to patient size (this includes techniques or standardized protocols for targeted exams where dose is matched to indication/reason for exam; i.e. extremities or head) *Use of iterative reconstruction technique DLP: 378 mGy-cm FINDINGS: LUNG BASES: The visualized lung bases are unremarkable. LIVER, GALLBLADDER, AND BILIARY TREE: The liver is normal in size and shape but demonstrates significantly decreased attenuation system with hepatic steatosis. No focal hepatic lesion or biliary ductal dilatation is present. The gallbladder is unremarkable with no evidence of radiopaque gallstones, gallbladder wall thickening, or obvious pericholecystic inflammatory changes. PANCREAS: Unremarkable. SPLEEN: Unremarkable. ADRENAL GLANDS: Unremarkable. KIDNEYS AND URETERS: The kidneys are normal in size, shape, and attenuation. No hydronephrosis, hydroureter, or calculi seen. No perinephric stranding. BLADDER: Unremarkable. GASTROINTESTINAL TRACT: Colonic diverticula without diverticulitis. The small and large bowel are unremarkable. The appendix is none seen but no evidence of appendicitis.. ABDOMINAL WALL: No significant hernia is appreciated. LYMPH NODES: No retroperitoneal lymphadenopathy. VASCULAR: Unremarkable. PELVIC VISCERA: An anteverted uterus is present. An abnormal adnexal mass is not seen. No free intraperitoneal fluid is present. OSSEOUS STRUCTURES: There is grade 1-2 anterolisthesis with marked disc space narrowing at L5-S1. Bilateral pars interarticularis defects are present in L5. CT/CT abdomen pelvis wo con IMPRESSION: An etiology for the patient's flank pain is not found. Incidental note made of : 1. Hepatic steatosis 2. Colonic diverticula without diverticulitis 3. Degenerative changes L5-S1 with grade 1-2 anterolisthesis with bilateral pars defects ECG Data Attestation: I personally reviewed and interpreted this ECG as follows: ECG interpretation date: 07/05/20 ECG interpretation time: 18:50 Interpretation: Vent. rate 102 BPM DE interval 162 ms QRS duration 72 ms QT/QTc 350/456 ms P-R-T axes 76 73 59 Sinus tachycardia Otherwise normal ECG When compared with ECG of 07-MAY-2019 09:40, No significant change was found Discharge Plan Discharge Clinical Impression: Asthma with exacerbation Qualifiers: Asthma severity: moderate Asthma persistence: persistent Qualified Code(s): J45.41 - Moderate persistent asthma with (acute) exacerbation Abdominal pain Qualifiers: Abdominal location: generalized Qualified Code(s): R10.84 - Generalized abdominal pain Patient Disposition: Home, Self-Care Instructions: Asthma (ED), Abdominal Pain (ED) Additional Instructions: Te evaluaron para detectar la exacerbaci?n del asma. La radiograf?a de t?rax es normal. Rodr?guez, tiene un neum?logo. Tienes sensibilidades a los medicamentos est?ndar para el asma. Hicimos ella tomograf?a computarizada del abdomen en busca de dolor abdominal. La tomograf?a computarizada es normal, no hay hallazgos agudos que requieran intervenci?n. No hay infecci?n en los ri?ones, ni c?lculos ni indicaci?n de infecci?n. Emili por elegir maribel departamento de emergencias para pathak evaluaci?n. Por favor, danisha un seguimiento con el m?dico de atenci?n primaria seg?n sea necesario. Regrese al servicio de emergencias para cualquier s?ntoma nuevo, preocupante o que empeore. You were evaluated for asthma exacerbation. Chest x-ray is normal. Please follow-up with Dr. 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 You do have sensitivities to standard asthma medications. We did a CT scan of the abdomen for abdominal pain. CT scan is normal, no acute findings requiring intervention. No infection in your kidneys, no stones or indication of infection. Thank you for choosing this emergency department for evaluation. Please follow-up with primary care physician as needed. Return to the emergency department for any new, concerning, or worsening symptoms. Prescriptions: No Action estradiol [Estrace] 0.01 % (0.1 mg/gram) cream See Rx Instructions .ROUTE .COMPLEX Qty: 42.5 RF: 0 albuterol sulfate 2.5 mg /3 mL (0.083 %) solution for nebulization 2.5 mg continuous nebulization Q6H RF: 0 fluticasone propionate [Flonase Allergy Relief] 50 mcg/actuation spray,suspension 1 spray intranasal DAILY RF: 0 cetirizine [Zyrtec] 10 mg tablet 10 mg PO DAILY RF: 0 Tudorza Pressair 400 mcg/actuation aerosol powdr breath activated 1 inh inhalation BID RF: 0 levothyroxine [Synthroid] 100 mcg tablet 100 mcg PO DAILY RF: 0 epinephrine [EpiPen 2-Kehinde] 0.3 mg/0.3 mL auto-injector 0.3 mg IM Q10M PRN (Reason: Allergic Reaction) RF: 0 nitrofurantoin macrocrystal 100 mg capsule 100 mg PO BEDTIME RF: 0 albuterol sulfate [ProAir HFA] 90 mcg/actuation HFA aerosol inhaler 2 puff inhalation Q4-6H PRN (Reason: shortness of breath or wheezing) 30 Days Qty: 8.5 RF: 5 phenazopyridine [Pyridium] 100 mg tablet 100 mg PO Q8H PRN (Reason: pain) 5 Days Qty: 14 RF: 0 Referrals: Nadir Alicia MD [Physician] - 2 days (Asthma) Interventions: ED Discharge Assessment Last Done: 07/05/20 22:45 Discharge Date/Time: 07/05/20 22:45
--- NOTE | 2020-07-05 18:28 | ECG_ITS ---
Test Reason : SHORTNESS OF BREATH Blood Pressure : / mmHG Vent. Rate : 102 BPM Atrial Rate : 102 BPM P-R Int : 162 ms QRS Dur : 072 ms QT Int : 350 ms P-R-T Axes : 076 073 059 degrees QTc Int : 456 ms Sinus tachycardia Otherwise normal ECG When compared with ECG of 07-MAY-2019 09:40, No significant change was found Referred By: Radha Kelley Electronically Signed By:CHATA KOVACS MD
[2020-07-05 19:03] VITALS: BP 127/82; PULSE 97; RESP 14; TEMP 37.1; O2SAT 95
[2020-07-05] MEDS: diphenhydrAMINE HCL 50 MG/ML VIAL 12.5 MG IVPUSH (19:56)
[2020-07-05] MEDS: methylPREDNISolone Sod Succ 125 MG/2 ML VIAL IVPUSH (19:57)
[2020-07-05 20:04] LABS: MANUAL DIFF FLAG NO
[2020-07-05] MEDS: 0.9 % Sodium Chloride 1,000 ML 999 ML IVCONT (20:05)
[2020-07-05 20:06] LABS: Basophils Percent Auto 0.3 % (0-2); Eosinophils Absolute Auto 0.1 X10*3/uL (0.0-0.4); Eosinophils Percent Auto 1.6 % (0-4); Hematocrit 38.2 % (37-47); Hemoglobin 12.9 g/dl (12.0-16.0); Imm Gran Abs Auto 0.02 X10*3/uL (0.00-0.03); Imm Gran Pct Auto 0.3 % (0.0-0.4); Lymphocytes Absolute Auto 1.8 X10*3/uL (1.2-4.9); Lymphocytes Percent Auto 23.7 % (20-40); Mean Corpuscular HGB Conc 33.8 g/dl (31.0-35.0); Mean Corpuscular Hemoglobin 31.2 pg (27.0-33.0); Mean Corpuscular Volume 92.5 fL (80-98); Mean Platelet Volume 10.8 fL (9.4-12.3); Monocytes Absolute Auto 0.5 X10*3/uL (0.1-1.2); Monocytes Percent Auto 6.2 % (2-11); Neutrophils Percent Auto 67.9 % (45-73); Platelet Count 263 X10*3/uL (160-400); Red Blood Count 4.13 X10*6/uL (4.20-5.50); Red Cell Distribution Width 12.8 % (11.0-16.0); White Blood Count 7.4 X10*3/uL (4.8-10.8)
[2020-07-05 20:08] LABS: Glucose Urine UA NEG (NEG); Leukocyte Esterase Urine NEG (NEG); Nitrite Urine NEG (NEG); Specific Gravity - Urine 1.025 (1.005-1.025); Urine Blood 1+ (NEG); Urine Ketones NEG (NEG); Urine Protein NEG (NEG-TRACE)
[2020-07-05 20:10] LABS: Appearance Urine CLEAR; Color Urine YELLOW
[2020-07-05 20:18] LABS: WBC Urine 0 /HPF (0-4)
[2020-07-05 20:19] LABS: Squamous Epithelial Cell Urine 1+ /LPF
[2020-07-05 20:29] LABS: B Type Natriuretic Peptide < 10 pg/mL (<100); Troponin-I High Sensitivity < 3.5 ng/L (<3.5-17.0)
[2020-07-05 20:45] LABS: Influenza A PCR NEGATIVE (Negative); Influenza B PCR NEGATIVE (Negative); Resp Syncy Virus RNA Qual PCR NEGATIVE (Negative); SARS COV2 PCR INHOUSE NEGATIVE (Negative)
[2020-07-05 20:54] VITALS: BP 134/83; PULSE 93; RESP 18; TEMP 37.1; O2SAT 97
[2020-07-05 21:02] LABS: Anion Gap 14 (12-20); Blood Urea Nitrogen 16 mg/dL (9-16); Calcium 8.6 mg/dL (8.4-10.2); Carbon Dioxide 26 mmol/L (22-29); Chloride 106 mmol/L (96-108); Creatinine Clr Calc Pharmacy 72.1; Estimated Glomerular Filt Rate > 60; Glucose Random 83 mg/dL (60-115); Magnesium 2.1 mg/dL (1.6-2.6); Potassium 4.4 mmol/L (3.3-5.1); Sodium 142 mmol/L (135-145)
[2020-07-05 22:00] VITALS: BP 138/86; PULSE 97; O2SAT 96
== END 2020-07-05 22:45 | disposition home or self-care (01) ==
PROVIDERS: Nurse Practitioner Family; Emergency Provider Emergency Medicine; PCP Internal Medicine
DX: J45.41 Moderate persistent asthma with (acute) exacerbation (principal); R06.00 Dyspnea, unspecified; R10.84 Generalized abdominal pain; Z20.822 Contact with and (suspected) exposure to COVID-19; Z79.899 Other long term (current) drug therapy
CPT/HCPCS: 0241U; 36415; 71046; 74176; 80048; 81001; 83735; 83880; 84484; 85025; 87071; 87880; 93005; 96365; 96375; 99285; J1200; J2930

== ENCOUNTER → 2020-07-09 13:47 | Outpatient (BNVA) | payer MEDICAID, SELFPAY | PROVIDERS: PCP Internal Medicine; Visit Provider Internal Medicine | DX: J30.9 Allergic rhinitis, unspecified (principal); J44.9 Chronic obstructive pulmonary disease, unspecified | CPT/HCPCS: 99212 ==

== ENCOUNTER → 2020-07-15 09:13 | Outpatient (BNVA) | payer MEDICAID, SELFPAY | PROVIDERS: PCP Internal Medicine; Visit Provider Urology ==

== ENCOUNTER → 2020-11-17 09:42 | Outpatient (BNVA) | payer MEDICAID, SELFPAY | PROVIDERS: PCP Internal Medicine; Visit Provider Internal Medicine | DX: J44.9 Chronic obstructive pulmonary disease, unspecified (principal); J30.9 Allergic rhinitis, unspecified | CPT/HCPCS: 99212 ==

== ENCOUNTER 2021-01-27 13:11 | Outpatient (REF) | payer MEDICAID, SELFPAY ==
--- NOTE | ~2021-01-27 | US_ITS ---
EXAMINATION: US RETROPERITONEAL LIMITED (RENAL ONLY) CLINICAL INFORMATION: Unspecified hydronephrosis. COMPARISON: CT abdomen and pelvis 07/05/2020 TECHNIQUE: Real-time imaging of the kidneys. FINDINGS: RIGHT KIDNEY: 10.9 x 4.5 x 5.0 cm (SAG x AP x TRV). The kidney is normal in size, contour, and echogenicity. Renal cortical thickness is normal. There are 2 cysts each measuring 1 cm in the upper and midpole. No renal calculi or hydronephrosis. Visualized right proximal ureter appears slightly dilated. LEFT KIDNEY: 10.8 x 5.2 x 4.8 cm (SAG x AP x TRV). The kidney is normal in size, contour, and echogenicity. Renal cortical thickness is normal. No calculi or focal parenchymal lesions. No hydronephrosis. US/US retroperitoneal limited IMPRESSION: No hydronephrosis seen. The visualized right proximal ureter appears slightly dilated. Small right renal cysts.
== END 2021-01-27 13:12 | disposition home or self-care (01) ==
LOC: HO.US 13:11
PROVIDERS: Visit Provider Urology
DX: N13.30 Unspecified hydronephrosis (principal); N20.0 Calculus of kidney
CPT/HCPCS: 76775; 99212

== ENCOUNTER → 2021-02-11 10:31 | Outpatient (BNVA) | payer MEDICAID, SELFPAY | PROVIDERS: PCP Internal Medicine ==

== ENCOUNTER 2021-02-12 10:23 | Outpatient (REF) | payer MEDICAID, SELFPAY | END 2021-02-12 10:24 | disposition home or self-care (01) | LOC: HO.LAB 10:23 | PROVIDERS: PCP Internal Medicine | DX: N39.0 Urinary tract infection, site not specified (principal) | CPT/HCPCS: 87086 ==

== ENCOUNTER 2021-03-16 09:39 | Outpatient (REF) | payer MEDICAID, SELFPAY ==
--- NOTE | ~2021-03-16 | MM_ITS ---
EXAMINATION: MM SCREENING DIGITAL BREAST TOMOSYNTHESIS, BILATERAL CLINICAL INFORMATION: Screening. Asymptomatic. The lifetime risk of breast cancer based on the Tyrer-Cuzick Model is 5%. COMPARISON: Mammography: 03/13/2020, 09/05/2018, 08/29/2017 TECHNIQUE: Digital breast tomosynthesis is performed in both the craniocaudal and mediolateral oblique views along with computer-aided detection (CAD). Synthesized 2D images are generated from the tomosynthesis. FINDINGS: There are scattered areas of fibroglandular density (ACR BI-RADS breast composition Category b). There are no significant masses, abnormal calcifications, or other abnormalities. There is some fine deodorant artifact overlying the axilla, related to skin on tomography. Parenchymal pattern is similar to prior studies. MM/MM tomosynthesis screening BI IMPRESSION: No mammographic evidence of malignancy. ASSESSMENT: BI-RADS 2: Benign RECOMMENDATION: Routine annual mammography screening. This patient's information was entered into a reminder system with a target due date for their next mammogram.
== END 2021-03-16 09:40 | disposition home or self-care (01) ==
LOC: HO.MAMMO 09:39
PROVIDERS: PCP Internal Medicine; Visit Provider Nurse Practitioner Family
DX: Z12.31 Encounter for screening mammogram for malignant neoplasm of breast (principal)
CPT/HCPCS: 77063; 77067

== ENCOUNTER → 2021-04-06 10:29 | Outpatient (BNVA) | payer MEDICAID, SELFPAY | PROVIDERS: PCP Internal Medicine; Visit Provider Internal Medicine | DX: J44.9 Chronic obstructive pulmonary disease, unspecified (principal); J30.9 Allergic rhinitis, unspecified | CPT/HCPCS: 99212 ==

== ENCOUNTER 2021-04-23 10:45 | Outpatient (REF) | payer MEDICAID, SELFPAY ==
[2021-04-23 11:58] LABS: Appearance Urine CLEAR; Color Urine YELLOW; Glucose Urine UA NEG (NEG); Leukocyte Esterase Urine NEG (NEG); Nitrite Urine NEG (NEG); PH 5.5 (5.0-8.0); Specific Gravity - Urine 1.015 (1.005-1.025); Urine Blood 2+ (NEG); Urine Ketones NEG (NEG); Urine Protein NEG (NEG-TRACE)
[2021-04-23 12:19] LABS: WBC Urine 0 /HPF (0-4)
[2021-04-23 12:20] LABS: Squamous Epithelial Cell Urine TRACE /LPF
== END 2021-04-23 10:46 | disposition home or self-care (01) ==
LOC: HO.LNP 10:45
DX: N39.0 Urinary tract infection, site not specified (principal)
CPT/HCPCS: 81001; 87086

== ENCOUNTER 2021-06-08 12:30 | Outpatient (REF) | payer MEDICAID, SELFPAY ==
--- NOTE | ~2021-06-08 | US_ITS ---
EXAMINATION: US PELVIS CLINICAL INFORMATION: Postmenopausal bleeding COMPARISON: CT 07/05/2020 TECHNIQUE: Ultrasound of the pelvis is performed using both transabdominal and transvaginal transducers along with Doppler. Transvaginal imaging is performed due to inadequate visualization transabdominally. FINDINGS: Uterus: The uterus is anteverted and measures 8.7 x 4.2 x 4.5 cm. The double wall endometrial thickness is 10 mm. The uterus is smooth in contour and has normal myometrial echogenicity. There is a posterior uterine body fibroid measuring 3.5 x 2.8 x 2.4 cm. Adnexa: Both ovaries are visualized. There is normal color flow to the adnexa. There is no ovarian torsion. There is no pelvic ascites or fluid collection. Right ovary measures 3 x 1.5 x 2 cm. Left ovary measures 2.2 x 0.8 x 1.4 cm. US/US pelvic and transvaginal IMPRESSION: There is a single myometrial fibroid of the posterior uterine body measuring 3.5 cm. There is endometrial thickening measuring 1 cm. This is atypical in a postmenopausal patient.
== END 2021-06-08 12:31 | disposition home or self-care (01) ==
LOC: HO.US 12:30
PROVIDERS: PCP Internal Medicine; Visit Provider Student in an Organized Health Care Education/Training Program
DX: N95.0 Postmenopausal bleeding (principal)
CPT/HCPCS: 76830; 76856

== ENCOUNTER 2021-07-30 10:22 | Outpatient (REF) | payer MEDICAID, SELFPAY | END 2021-07-30 10:23 | disposition home or self-care (01) | LOC: HO.LAB 10:22 | PROVIDERS: PCP Internal Medicine; Visit Provider Obstetrics & Gynecology | DX: N95.0 Postmenopausal bleeding (principal); D25.9 Leiomyoma of uterus, unspecified | CPT/HCPCS: 58100; 88305; 99202 ==

== ENCOUNTER → 2021-08-13 10:01 | Outpatient (BNVA) | payer MEDICAID, SELFPAY | PROVIDERS: PCP Internal Medicine; Visit Provider Obstetrics & Gynecology | DX: N95.0 Postmenopausal bleeding (principal) | CPT/HCPCS: 99212 ==

== ENCOUNTER → 2021-09-14 09:42 | Outpatient (BNVA) | payer MEDICAID, SELFPAY | PROVIDERS: PCP Internal Medicine; Visit Provider Internal Medicine | DX: J44.9 Chronic obstructive pulmonary disease, unspecified (principal); J30.9 Allergic rhinitis, unspecified | CPT/HCPCS: 94010; 99212 ==

== ENCOUNTER 2022-01-27 10:26 | Outpatient (REF) | payer MEDICAID, SELFPAY ==
--- NOTE | ~2022-01-27 | US_ITS ---
EXAMINATION: US RETROPERITONEAL LIMITED (RENAL ONLY) CLINICAL INFORMATION: Cystic kidney, acquired. COMPARISON: Ultrasound kidneys 01/27/2021. CT abdomen and pelvis 07/05/2020. Ultrasound abdomen complete 07/06/2017. TECHNIQUE: Real-time imaging of the kidneys. FINDINGS: RIGHT KIDNEY: 11.2 x 3.5 x 4.6 cm (SAG x AP x TRV). The kidney is normal in size, contour, and echogenicity. Renal cortical thickness is normal. There is mild fullness of the right renal pelvis. The visualized right proximal ureter is also slightly dilated. There are 2 cysts measuring 1.1 x 1.2 x 0.9 cm in the midpole and 0.7 x 0.5 x 0.7 cm in the lower pole. No renal calculi. LEFT KIDNEY: 12.2 x 5.2 x 5.1 cm (SAG x AP x TRV). The kidney is normal in size, contour, and echogenicity. Renal cortical thickness is normal. No calculi or focal parenchymal lesions. No hydronephrosis. BLADDER: Bilateral ureteral jets are demonstrated. US/US renal BI IMPRESSION: Small right renal cysts. Mild right proximal ureteral dilatation similar to previous exam.
--- NOTE | ~2022-01-27 | US_ITS ---
EXAMINATION: US PELVIC AND TRANSVAGINAL CLINICAL INFORMATION: Leiomyoma of the uterus. COMPARISON: Ultrasound pelvis 06/08/2021 TECHNIQUE: Ultrasound of the pelvis was performed using both transabdominal and transvaginal transducers along with Doppler. Transvaginal imaging was performed due to inadequate visualization transabdominally. FINDINGS: UTERUS: The uterus is anteverted, anteflexed and measures 8.6 x 3.7 x 4.9 cm. The double wall endometrial thickness is 0.4 cm and slightly distorted secondary to anterior fibroid. There is trace fluid in the endometrial canal. The uterus is smooth in contour and has normal myometrial echogenicity. There is a solitary hypoechoic lesion in the anterior upper body of the uterus measuring 2.5 x 3.6 x 2.8 cm. Previously, it measured 3.5 x 2.8 x 2.4 cm and is consistent with a fibroid. No additional lesions are seen. ADNEXA: Both ovaries are visualized. There is normal color flow to the adnexa. There is no ovarian torsion. There is no pelvic ascites or fluid collection. Right ovary is not visualized. Left ovary is visualized on transvaginal ultrasound only and measures 2.5 x 1.2 x 1.7 cm. It appears unremarkable. Previously, it measured 2.2 x 0.8 x 1.4 cm. US/US pelvic and transvaginal IMPRESSION: 1. Solitary uterine fibroid measuring 2.8 cm, stable 2. Trace fluid in the endometrial canal. 3. The left ovary is unremarkable. The right ovary is not seen. 4. There is no free fluid in the cul-de-sac.
== END 2022-01-27 10:27 | disposition home or self-care (01) ==
LOC: HO.US 10:26
PROVIDERS: Absent Provider Urology; Visit Provider Obstetrics & Gynecology
DX: D25.9 Leiomyoma of uterus, unspecified (principal); N28.1 Cyst of kidney, acquired
CPT/HCPCS: 76775; 76830; 76856

== ENCOUNTER → 2022-02-10 10:07 | Outpatient (BNVA) | payer MEDICAID, SELFPAY | PROVIDERS: PCP Internal Medicine; Visit Provider Obstetrics & Gynecology | DX: N95.0 Postmenopausal bleeding (principal); D25.9 Leiomyoma of uterus, unspecified | CPT/HCPCS: 99212 ==

== ENCOUNTER → 2022-02-22 11:09 | Outpatient (BNVA) | payer MEDICAID, SELFPAY | PROVIDERS: PCP Internal Medicine; Visit Provider Nurse Practitioner Family | DX: N39.0 Urinary tract infection, site not specified (principal); N28.1 Cyst of kidney, acquired; N13.30 Unspecified hydronephrosis | CPT/HCPCS: 51798; 99212 ==

== ENCOUNTER → 2022-03-16 09:36 | Outpatient (BNVA) | payer MEDICAID, SELFPAY | PROVIDERS: PCP Internal Medicine; Visit Provider Internal Medicine | DX: J44.9 Chronic obstructive pulmonary disease, unspecified (principal); J30.9 Allergic rhinitis, unspecified | CPT/HCPCS: 99212 ==

== ENCOUNTER 2022-03-17 11:35 | Outpatient (REF) | payer MEDICAID, SELFPAY ==
--- NOTE | ~2022-03-17 | MM_ITS ---
EXAMINATION: MM SCREENING DIGITAL BREAST TOMOSYNTHESIS, BILATERAL CLINICAL INFORMATION: Screening. Asymptomatic. The lifetime risk of breast cancer based on the Tyrer-Cuzick Model is 5%. COMPARISON: Mammography: 03/16/2021, 03/13/2020, 09/05/2018 TECHNIQUE: Digital breast tomosynthesis is performed in both the craniocaudal and mediolateral oblique views along with computer-aided detection (CAD). Synthesized 2D images are generated from the tomosynthesis. FINDINGS: There are scattered areas of fibroglandular density (ACR BI-RADS breast composition Category b). There are no significant masses, abnormal calcifications, or other abnormalities. Parenchymal pattern is similar to prior studies. There is no developing density or architectural abnormality. The axilla and skin contours are unremarkable. No significant changes. MM/MM tomosynthesis screening BI IMPRESSION: No mammographic evidence of malignancy. ASSESSMENT: BI-RADS 1: Negative RECOMMENDATION: Routine annual mammography screening. This patient's information was entered into a reminder system with a target due date for their next mammogram.
== END 2022-03-17 11:36 | disposition home or self-care (01) ==
LOC: HO.MAMMO 11:35
PROVIDERS: PCP Internal Medicine; Visit Provider Internal Medicine
DX: Z12.31 Encounter for screening mammogram for malignant neoplasm of breast (principal)
CPT/HCPCS: 77063; 77067

== ENCOUNTER 2022-07-05 12:58 | Outpatient (REF) | payer MEDICAID, SELFPAY ==
--- NOTE | ~2022-07-05 | US_ITS ---
EXAMINATION: US PELVIS COMPLETE CLINICAL INFORMATION: Postmenopausal bleeding COMPARISON: Pelvic ultrasound 01/27/2022 TECHNIQUE: Transabdominal and transvaginal imaging was performed. FINDINGS: The uterus is of normal size measuring 8.5 x 3.3 x 4.4 cm. A 2.6 x 3.6 x 2.6 cm transmural fundal myoma, previously 2.5 x 3.6 x 2.8 cm which obscures evaluation of the endometrium. The right ovary was not identified sonographically. The left measures 1.3 x 0.6 x 1.2 cm for a volume of 0.5 mL with a questionable tiny dystrophic calcification. No suspicious adnexal mass. There is no pelvic free fluid. US/US pelvic and transvaginal IMPRESSION: 1. A 3.6 cm transmural myoma which obscures evaluation of the endometrium, therefore given history of postmenopausal bleeding recommend continued gynecologic evaluation and management. 2. The right ovary was not identified sonographically. The left ovary is remarkable for a questionable tiny dystrophic calcification. No suspicious adnexal mass.
== END 2022-07-05 12:59 | disposition home or self-care (01) ==
LOC: HO.US 12:58
PROVIDERS: PCP Internal Medicine; Visit Provider Advanced Practice Midwife
DX: N95.0 Postmenopausal bleeding (principal)
CPT/HCPCS: 76830; 76856

== ENCOUNTER 2022-08-23 11:47 | Outpatient (REF) | payer MEDICAID, SELFPAY | END 2022-08-23 11:48 | disposition home or self-care (01) | LOC: HO.LNP 11:47 | PROVIDERS: PCP Internal Medicine; Visit Provider Obstetrics & Gynecology | DX: N95.0 Postmenopausal bleeding (principal); D25.9 Leiomyoma of uterus, unspecified | CPT/HCPCS: 58100; 88305; 99212 ==

== ENCOUNTER 2022-09-13 10:31 | Outpatient (AMB) | payer MEDICAID, SELFPAY ==
[2022-09-13 10:54] VITALS: BP 114/66; BMI 23.4
--- NOTE | 2022-09-13 10:54 | MHC.OFFVIS ---
Intake Vital Signs 09/13/22 10:54 Height 5 ft 1 in Weight 124 lb BMI 23.4 BP 114/66 Intake Visit Reasons: EMB Follow Up Gate Operator Required: Yes Gate Operator Language: Market Specialist Name: Maddison Information Interpreted: non-clinical & clinical Neonatal Surgeon: Neonatal Surgeon Present (Maddison) Allergies albuterol [From VENTOLIN] Allergy (Intermediate, Verified 09/13/22 10:54) SHORTNESS OF BREATH nut - unspecified [nut] Allergy (Intermediate, Verified 09/13/22 10:54) SWELLING propofol [PROPOFOL] Allergy (Intermediate, Verified 09/13/22 10:54) SWELLING dicyclomine [Bentyl] Allergy (Unknown, Verified 09/13/22 10:54) Unknown montelukast [Singulair] Allergy (Unknown, Verified 09/13/22 10:54) Unknown Is last menstrual period known: No Post menopausal: Yes Patient : No Do you need a note to return to daycare/school/sports/work: Yes (for surgery on tuesday) HPI HPI Comments History of Present Illness Details Presenting post EMB follow-up doing well with no complaints. The pathology showed the following: Endometrium, biopsy:? Superficial fragments of inactive endometrium with breakdown, small fragment with features of endometrial polyp; few strips of endocervical epithelium within normal limits and abundant blood. [facility] Medical History Allergic rhinitis Arthritis COPD (chronic obstructive pulmonary disease) Gross hematuria Hypothyroidism Recurrent UTI Renal cysts, acquired, bilateral UTI (urinary tract infection) Surgical History H/O colonoscopy H/O tubal ligation History of eye surgery Social History Household Members: None Housing: Apartment Alcohol intake: never Patient Tobacco Use Status: Never used Tobacco Sexual orientation: Straight/Heterosexual Gender identity: Female Female Reproductive History Menstrual Age of Menarche: 11 Date of last menstrual period: 01/03/20 control method: permanent sterilization Total pregnancies: 2 Full term: 2 Date of last pap smear: 04/19/18 (negative) Date of Mammogram: 03/17/22 Review of Systems Card Reports as per HPI and Reports no additional complaints Resp Reports as per HPI and Reports no additional complaints GI Reports as per HPI and Reports no additional complaints Reports as per HPI Physical Exam Vital Signs: Last Vital Signs BP 114/66 09/13/22 10:54 BMI result Body Mass Index 23.4 Const General: cooperative, healthy appearing and comfortable Chest Chest palpation & inspection: normal inspection of the chest and normal palpation of entire chest wall Breast/axilla inspection: normal inspection of the breasts and normal inspection of the axillae Breast/axilla palpation: normal palpation of the breasts, normal palpation of the axillae and no axillary lymphadenopathy Resp Effort & Inspection: normal respiratory effort Auscultation: clear to auscultation bilaterally Percussion: percussion normal Cardio Palpation: normal PMI Rate: regular rate Rhythm: regular rhythm Heart sounds: no murmurs and no rubs Peripheral pulses: Peripheral pulses 2+ throughout GI Inspection: Yes normal to inspection Palpation (GI): Soft to palpation, nontender, no guarding, not rigid and No hepatosplenomegaly present Percussion: Yes normal to percussion Auscultation: normal bowel sounds Rectal Exam - Female: deferred Assessment & Plan Assessment & Plan (1) Postmenopausal bleeding: Comment: Endometrial polyp on pathology Code(s): N95.0 - Postmenopausal bleeding Plan: Discussed with the patient the results the pathology showing features of endometrial polyp, recommended hysteroscopy D&C possible polypectomy/myomectomy. Discussed with the patient the procedure , all benefits and risks including but not limited to inability to complete the procedure , bleeding, infection, possible need for blood transfusion with all its risk ( HIV,syphilis, Hepatitis, anaphylaxis shock, others..), injury to bladder, rectum, possible need for laparoscopy/laparotomy or hysterectomy. The patient verbalized understanding and signed the consent. Instructions given the patient to schedule a 2 week postoperative appointment Coding Level of Care Code Est Pt Level 3 (59059) Diagnoses Postmenopausal bleeding N95.0
== END 2022-09-13 13:34 | disposition home or self-care (01) ==
LOC: HO.HWS 10:31
PROVIDERS: PCP Internal Medicine; Visit Provider Obstetrics & Gynecology
DX: N95.0 Postmenopausal bleeding (principal); Z32.02 Encounter for pregnancy test, result negative
CPT/HCPCS: 99213

== ENCOUNTER → 2022-09-13 10:31 | Outpatient (BNVA) | payer MEDICAID, SELFPAY | PROVIDERS: PCP Internal Medicine; Visit Provider Obstetrics & Gynecology | DX: N95.0 Postmenopausal bleeding (principal) | CPT/HCPCS: 81025; 99212 ==

== ENCOUNTER 2022-09-14 08:36 | Outpatient (REF) | payer MEDICAID, SELFPAY ==
[2022-09-14 15:24] LABS: TSH reflex Free T4 1.99 uIU/mL (0.32-4.0)
== END 2022-09-14 08:37 | disposition home or self-care (01) ==
LOC: HO.CHCLDS 08:36
PROVIDERS: Visit Provider Internal Medicine
DX: E03.9 Hypothyroidism, unspecified (principal)
CPT/HCPCS: 36415; 84443

== ENCOUNTER 2022-09-17 08:03 | Day surgery (SDC) | payer MEDICAID, SELFPAY ==
[2022-09-17 09:37] VITALS: BMI 23.6
--- NOTE | 2022-09-17 09:38 | MHC.SHP ---
Pre-Procedural Eval Section A Date of Service: 09/17/22 The patient is an INPATIENT: No Changes since office visit: No Cold of Flu in the past 2 weeks, No New Medical Problems, No Changes in Medication and No Patient answered all questions The History & Physical has been completed within 30 days and I have reviewed it.: Yes Section B Chief Complaint: Postmenopausal bleeding Allergies: Allergies Allergy/AdvReac Type Severity Reaction Status Date / Time albuterol [From VENTOLIN] Allergy Intermediate SHORTNESS Verified 09/13/22 10:54 OF BREATH nut - unspecified [nut] Allergy Intermediate SWELLING Verified 09/13/22 10:54 dicyclomine [Bentyl] Allergy Unknown Unknown Verified 09/13/22 10:54 montelukast [Singulair] Allergy Unknown Unknown Verified 09/13/22 10:54 Plan Diagnosis/Plan: Unchanged I have reviewed the history and physical and performed a pertinent physical examination on my patient. No changes have occurred unless specified. Time Spent With Patient Time: Total time managing care of this patient today ____ minutes.
[2022-09-17 09:40] VITALS: BP 141/77; PULSE 91; RESP 18; TEMP 36.7; O2SAT 97
--- NOTE | 2022-09-17 09:45 | HO.ANESPROP2 ---
[facility] Active Problems Active Problems: All Active Problems (Updated 09/13/22 @ 10:57 by Jagjit Forbes MD) Recurrent UTI (Acute) Postmenopausal bleeding (Acute) Uterine myoma (Acute) Renal cysts, acquired, bilateral (Acute) UTI (urinary tract infection) (Acute) Hydroureteronephrosis (Acute) Vaginal atrophy (Acute) Ureter filling defect (Acute) Dysuria (Acute) Gross hematuria (Acute) COPD (chronic obstructive pulmonary disease) (Acute) Allergic rhinitis (Acute) Past Medical History Medical History Allergic rhinitis Arthritis COPD (chronic obstructive pulmonary disease) Gross hematuria Hypothyroidism Recurrent UTI Renal cysts, acquired, bilateral UTI (urinary tract infection) Family History Family history of problems with anesthesia: No Surgical History Surgical History H/O colonoscopy H/O tubal ligation History of eye surgery History of Problems with Anesthesia: No Social History Social History Household Members: None Housing: Apartment Alcohol intake: never Patient Tobacco Use Status: Never used Tobacco Use of substances other than those prescribed or required for medical reasons: No Are you DNR?: No Advance Directives: No Advance Directives Information Provided: Yes Sexual orientation: Straight/Heterosexual Gender identity: Female Meds Allergies Allergy/AdvReac Type Severity Reaction Status Date / Time albuterol [From VENTOLIN] Allergy Intermediate SHORTNESS Verified 09/13/22 10:54 OF BREATH nut - unspecified [nut] Allergy Intermediate SWELLING Verified 09/13/22 10:54 dicyclomine [Bentyl] Allergy Unknown Unknown Verified 09/13/22 10:54 montelukast [Singulair] Allergy Unknown Unknown Verified 09/13/22 10:54 Home Medications Medication Instructions Recorded Confirmed Last Taken Type aclidinium bromide 400 1 inh inhalation BID 01/15/20 09/17/22 Unknown History mcg/actuation breath activated powder inhaler (Tudorza Pressair) cetirizine 10 mg tablet (Zyrtec) 10 mg PO DAILY 01/15/20 09/17/22 Unknown History epinephrine 0.3 mg/0.3 mL 0.3 mg IM Q10M PRN Allergic 01/15/20 09/17/22 Unknown History injection, auto-injector (EpiPen Reaction 2-Kehinde) fluticasone propionate 50 1 spray intranasal DAILY 01/15/20 09/17/22 Unknown History mcg/actuation nasal spray,suspension (Flonase Allergy Relief) ketotifen fumarate 0.025 % (0.035 1 drp ophthalmic (eye) DAILY 02/11/21 09/17/22 Unknown History %) eye drops (Alaway) loratadine 10 mg disintegrating 10 mg PO DAILY 02/11/21 09/17/22 Unknown History tablet (Alavert) fluticasone furoate 100 1 inh inhalation DAILY 02/22/22 09/17/22 Unknown History mcg-vilanterol 25 mcg/dose inhalation powder (Breo Ellipta) Exam Exam Date and Time: September 17, 2022 0945 Height,Weight and Vital Signs: Height 5 ft 1 in Weight 56.699 kg Last Vital Signs Temp 98.0 F 09/17/22 09:40 Pulse 91 09/17/22 09:40 Resp 18 09/17/22 09:40 BP 141/77 H 09/17/22 09:40 Pulse Ox 97 09/17/22 09:40 O2 Del Method Room Air 09/17/22 09:40 Airway Mallampati Class: I TM Dist: >3cm Neck ROM: Full Assessment and Plan Assessment Anesthesia Assessment: Anesthesia Plan Discussed and Chart Reviewed Final Anesthetic Review Family History of Problems with Anesthesia: No History of Problems with Anesthesia: No NPO: Yes ASA Class: II Final Preanesthetic Review: No Changes in Pt Med Stat, Meds/Allgs Chart Reviewed, Consent Obtained/Reviewed and Anes Risks/Benef Reviewed Patient Risk: Low Procedure Risk: Low Anesthetic Plan Anesthetic Plan: GA Disposition: Standard PACU
[2022-09-17] MEDS: Lactated Ringers 1,000 ML 50 ML IVCONT (09:57)
[2022-09-17 11:44] VITALS: BP 119/79; PULSE 77; RESP 16; TEMP 36.1; O2SAT 99
--- NOTE | 2022-09-17 11:44 | PM.OP ---
Brief Operative Note Date of Service: 09/17/22 Pre-op diagnosis: Postmenopausal bleeding with endometrial polyp by EMB pathology Post-op diagnosis: same Procedure: Hysteroscopy D&C, Polypectomy Surgeon: Jagjit Forbes MD Anesthesia: GLMA Was an Catapult And Arresting Gear Officer used for this Procedure?: No Estimated blood loss (mL): 0 Pathology: other (Endometrial Scrapping. Polyp) Condition: stable Disposition: PACU
--- NOTE | 2022-09-17 11:45 | W.PM.OPN ---
Operative Note Operative Note Date of Service: 09/17/22 Narrative: Preop Diagnosis: Postmenopausal bleeding and Endometrial polyp by EMB pathology Operation: Diagnostic Hysteroscopy, Dilataion & Curettage and polypectomy Post Op Diagnosis: Endometrial Polyp QBL: Minimal Anesthesia: GLMA Surgeon: Jagjit Forbes MD Communication Specialist: None Complication: None Pathology: Endometrial Scrapings, Endometrial polyp Procedure: The patient was put in the dorsal lithotomy position, scrubbed, and draped in the usual manner. A sterile speculum was inserted in the patient's vagina. The anterior lip of the cervix was grasped with a single tooth tenaculum. The cervix was dilated up to 5 mm, then the scope was inserted in the patient's uterus. Inspection revealed endometrial polyp. The Myosure Reach device was used; it was introduced through the operative channel and polypectomy done with no complications. The scope was then taken out from the uterine cavity, sharp curettings was carried on with minimal to moderate amount of tissues retrieved. At the end of the procedure, all instruments were taken out of the patient uterine and vaginal cavity. The single tooth tenaculum was removed and homeostasis was assured using pressure,. The patient tolerated the procedure well and was transferred to the PACU in a stable condition.
[2022-09-17 11:49] VITALS: BP 133/80; PULSE 65; RESP 14; O2SAT 97
[2022-09-17 11:54] VITALS: BP 137/77; PULSE 65; RESP 14; O2SAT 97
[2022-09-17 11:59] VITALS: BP 133/78; PULSE 110; RESP 14; O2SAT 99
[2022-09-17 12:13] VITALS: BP 139/78; PULSE 86; RESP 16; TEMP 36.2; O2SAT 99
== END 2022-09-17 13:38 | disposition home or self-care (01) ==
PROVIDERS: PCP Internal Medicine; Visit Provider Obstetrics & Gynecology
PROC: 0UDB8ZZ Extraction of Endometrium, Via Natural or Artificial Opening Endoscopic (ICD-10-PCS; CPT 58558; principal; 2022-09-17 11:10)
DX: N95.0 Postmenopausal bleeding (principal); N84.0 Polyp of corpus uteri; N28.1 Cyst of kidney, acquired; J44.9 Chronic obstructive pulmonary disease, unspecified; E03.9 Hypothyroidism, unspecified; Z87.440 Personal history of urinary (tract) infections; Z98.51 Tubal ligation status; Z79.51 Long term (current) use of inhaled steroids; Z79.899 Other long term (current) drug therapy; Z88.8 Allergy status to other drugs, medicaments and biological substances
CPT/HCPCS: 58558; 88305; J1100; J1885; J2250; J2405

== ENCOUNTER → 2022-09-17 08:03 | Outpatient (BNV) | payer MEDICAID, SELFPAY | PROVIDERS: PCP Internal Medicine; Visit Provider Obstetrics & Gynecology | DX: N84.0 Polyp of corpus uteri (principal); N95.0 Postmenopausal bleeding | CPT/HCPCS: 58558 ==

== ENCOUNTER 2022-09-28 09:57 | Outpatient (AMB) | payer MEDICAID, SELFPAY ==
[2022-09-28 10:04] VITALS: BP 126/70; PULSE 91; O2SAT 96; BMI 23.7
--- NOTE | 2022-09-28 10:04 | MHC.OFFVIS ---
Intake Vital Signs 09/28/22 10:04 Height 5 ft 1 in Weight 125 lb 10.616 oz BMI 23.7 BP 126/70 Blood Pressure Location Lt brachial Position Sitting Pulse 91 Pulse Source Pulse Oximeter Pulse Oximetry (%) 96 Oxygen Delivery Method Room Air Intake Visit Reasons: COPD Intake Note: Pt presents today for a f/u and reports no concerns but is looking for refills. Allergies albuterol [From VENTOLIN] Allergy (Intermediate, Verified 09/28/22 10:23) SHORTNESS OF BREATH nut - unspecified [nut] Allergy (Intermediate, Verified 09/28/22 10:23) SWELLING dicyclomine [Bentyl] Allergy (Unknown, Verified 09/28/22 10:23) Unknown montelukast [Singulair] Allergy (Unknown, Verified 09/28/22 10:23) Unknown Medication List - Last Reconciled 09/28/22 by Carlos Borrero MD aclidinium bromide 400 mcg/actuation (Tudorza Pressair) 1 inh inhalation BID albuterol sulfate 90 mcg/actuation (ProAir HFA) 2 puffs inhalation Q4-6H PRN 30 days albuterol sulfate 2.5 mg (3 mL) inhalation Q4-6H PRN 30 days cetirizine (Zyrtec) 10 mg PO DAILY epinephrine (EpiPen 2-Kehinde) 0.3 mg IM Q10M PRN fluticasone furoate-vilanterol 100-25 mcg/dose (Breo Ellipta) 1 inh inhalation DAILY fluticasone propionate 50 mcg/actuation (Flonase Allergy Relief) 1 spray intranasal DAILY ketotifen fumarate 0.025%(0.035%) (Alaway) 1 drp ophthalmic (eye) DAILY loratadine (Alavert) 10 mg PO DAILY Do you need a note to return to daycare/school/sports/work: No HPI COPD HPI Details 56 years old female with chronic allergic rhinitis, bronchial asthma and advanced chronic obstructive pulmonary disease comes after 6 months for her routine follow-up. Her pulmonary status has remained very stable without any acute exacerbations. However she continues to have nasal congestion with intermittent postnasal drip and also intermittent cough. She gets short of breath on minimal exertion but remains comfortable at rest. She is totally non smoker. Has upper airway allergies, and remains on immunotherapy. [facility] Medical History Allergic rhinitis Arthritis COPD (chronic obstructive pulmonary disease) Gross hematuria Hypothyroidism Recurrent UTI Renal cysts, acquired, bilateral UTI (urinary tract infection) Surgical History H/O colonoscopy H/O tubal ligation History of eye surgery Social History Household Members: None Housing: Apartment Alcohol intake: never Patient Tobacco Use Status: Never used Tobacco Sexual orientation: Straight/Heterosexual Gender identity: Female Female Reproductive History Menstrual Age of Menarche: 11 Review of Systems Const All systems reviewed & are unremarkable except as noted in HPI and below Eyes Reports no additional complaints ENT Reports nasal congestion (MILD TO MODERATE ALMOST DAILY.) Card Reports no additional complaints Resp Reports as per HPI GI Reports no additional complaints Reports no additional complaints Musc Reports no additional complaints Skin/Breast Reports system reviewed and no additional complaints, except as documented Neuro Reports no additional complaints Psych Reports anxiety (MILD CONTROLLED) Endo Reports no additional complaints Steve/Lymph Reports no additional complaints Physical Exam Vital Signs: Last Vital Signs Pulse 91 09/28/22 10:04 BP 126/70 09/28/22 10:04 Pulse Ox 96 09/28/22 10:04 Oxygen Delivery Method Room Air 09/28/22 10:04 BMI result Body Mass Index 23.7 Const General: comfortable, no acute distress, alert and awake Orientation/consciousness: patient oriented x3 HEENT Head: Yes normal to inspection General nose exam: No nasal polyps present, No nasal discharge present and Other nasal findings present (BILATERAL NASAL CONGESTION) Face and sinus: Yes sinuses nontender Mouth: oropharynx normal Throat: Yes posterior oropharynx normal Eyes General: appearance normal, both eyes and all related structures Neck Neck: Yes normal visual inspection, Yes no lymphadenopathy, Yes trachea midline and Yes no JVD Thyroid: Thyroid normal Chest Chest palpation & inspection: normal inspection of the chest, normal palpation of entire chest wall and no tenderness Resp Other: PERCUSSION NOTE RESONANT, BREATH SOUNDS ARE EQUAL ON BOTH SIDES WITH SLIGHTLY PROLONGED EXPIRATORY PHASE. NO WHEEZES, RHONCHI OR CREPS ARE HEARD. Cardio Palpation: normal PMI Rate: regular rate Rhythm: regular rhythm Heart sounds: no gallops and no murmurs Peripheral pulses: Peripheral pulses 2+ throughout GI Palpation (GI): Soft to palpation, Tenderness to palpation present (GI), No hepatosplenomegaly present and Palpable mass present Auscultation: normal bowel sounds Back/Spine/Pelvis Thoracic/Lumbar Spine: thoracic and lumbar spine normal to inspection Skin General skin exam: no rashes or lesions noted Neuro General: patient oriented x3 and no focal motor deficits Cranial nerves: Yes CN's II-XII intact bilaterally Extrem General: Yes normal to inspection, Yes no clubbing, cyanosis or edema and Yes no calf tenderness Psych Appearance: grossly normal and well kempt Speech and movement: Normal speech and movement present Office Procedures Spirometry Testing Spirometry Comments: Spirometry done in the office, [place] [address]- Spirometry Results Reviewed Results Reviewed: SPIROMETRY 09/14/21 FVC' 76 % FEV1 53 % FEF 25-75 28 % 09/28/22 67 % 53 % 33 % c/w severe COPD , but stable Assessment & Plan Assessment & Plan (1) Allergic rhinitis: Comment: CHRONIC, CONTROLLED WITH : FLONASE NASAL SPRAY 2 SPRAYS IN EACH NARE DAILY AND ZYRTEC 10 MG PER DAY P.R.N.. * STOPPED ALLERGY SHOTS , SINCE LAST YEAR SHE WAS GETTING LOCAL REACTION FROM THE SHOTS . Code(s): J30.9 - Allergic rhinitis, unspecified (2) COPD (chronic obstructive pulmonary disease): Comment: MODERTAELY SEVERE ,, STABLE . TX: CONT. TUDORZA PRESSAIR ONE INH BID ( ADVISED TO RINSE MOUTH THOROUGHLY AFTER USING TUDORZA WELL ADVAIR ) CONT. ADVAIR 250-50 ONE INH BID . PRO AIR 2 PUFFS Q 4-6 HRS PRN , SHE TO USE MOSTLY WHEN SHE IS OUTDOORS. ALSO PRESCRIBED TO HAVE A NEBULIZER, AND MAY USE ALBUTEROL SOLUTION Q 4-6 HOURS P.R.N. All scripts are renewed . REVISIT EVERY 6 MONTHS AND ALSO NEEDED. Code(s): J44.9 - Chronic obstructive pulmonary disease, unspecified Orders: Orders AMB Spirometry Testing Today J44.9 - Chronic obstructive pulmonary disease, unspecified Medications: Changed From fluticasone furoate-vilanterol 100-25 mcg/dose (Breo Ellipta) 1 inh inhalation DAILY To fluticasone furoate-vilanterol 100-25 mcg/dose (Breo Ellipta) 1 inh inhalation DAILY 30 days 1 ea 5RF COPD Coding Level of Care Code Est Pt Level 3 (23043) Diagnoses Allergic rhinitis J30.9 COPD (chronic obstructive pulmonary disease) J44.9 CPT Codes Spirometry - CPT: 67708- Spirometry ([id number])
== END 2022-09-28 10:34 | disposition home or self-care (01) ==
PROVIDERS: PCP Internal Medicine; Visit Provider Internal Medicine
DX: J44.9 Chronic obstructive pulmonary disease, unspecified (principal)
CPT/HCPCS: 94010; 99213

== ENCOUNTER → 2022-09-28 09:57 | Outpatient (BNVA) | payer MEDICAID, SELFPAY | PROVIDERS: PCP Internal Medicine; Visit Provider Internal Medicine | DX: J44.9 Chronic obstructive pulmonary disease, unspecified (principal); J30.9 Allergic rhinitis, unspecified; Z79.899 Other long term (current) drug therapy | CPT/HCPCS: 94010; 99212 ==

== ENCOUNTER → 2022-10-19 15:28 | Outpatient (BNVA) | payer MEDICAID, SELFPAY | PROVIDERS: PCP Internal Medicine; Visit Provider Obstetrics & Gynecology ==

== ENCOUNTER 2022-12-03 17:45 | Outpatient (REF) | payer MEDICAID, SELFPAY ==
[2022-12-03 18:38] LABS: Influenza A PCR NEGATIVE (Negative); Influenza B PCR NEGATIVE (Negative); Resp Syncy Virus RNA Qual PCR NEGATIVE (Negative); SARS COV2 PCR INHOUSE NEGATIVE (Negative)
== END 2022-12-03 17:46 | disposition home or self-care (01) ==
LOC: HO.LNP 17:45
PROVIDERS: Visit Provider Internal Medicine
DX: Z20.822 Contact with and (suspected) exposure to COVID-19 (principal); J06.9 Acute upper respiratory infection, unspecified
CPT/HCPCS: 0241U

== ENCOUNTER 2022-12-09 12:52 | Outpatient (AMB) | payer MEDICAID, SELFPAY ==
--- NOTE | 2022-12-09 13:01 | MHC.OFFVIS ---
Intake Vital Signs 12/09/22 13:05 Height 5 ft 1 in Weight 125 lb 10.616 oz BMI 23.7 BP 112/64 Intake Visit Reasons: vaginal bleeding Environmental Technology Professor Required: Yes Environmental Technology Professor Language: Paint Coating Machine Operator Name: Maddison CASTELLANOS Information Interpreted: non-clinical & clinical Label Tacker: Label Tacker Present (Maddison CASTELLANOS) Accompanied by: Self / Same As Patient Allergies albuterol [From VENTOLIN] Allergy (Intermediate, Verified 12/09/22 13:06) SHORTNESS OF BREATH nut - unspecified [nut] Allergy (Intermediate, Verified 12/09/22 13:06) SWELLING dicyclomine [Bentyl] Allergy (Unknown, Verified 12/09/22 13:06) Unknown montelukast [Singulair] Allergy (Unknown, Verified 12/09/22 13:06) Unknown Post menopausal: Yes HPI HPI Comments History of Present Illness Details Presenting with the recurrence of an episode of postmenopausal bleeding that occurred last Tuesday followed by another stick episode 3 days afterward no other associated symptoms. Last co testing was in 05/26 at [facility] was negative Ultrasound done in 07/27 showed the following: IMPRESSION: 1. A 3.6 cm transmural myoma which obscures evaluation of the endometrium, therefore given history of postmenopausal bleeding recommend continued gynecologic evaluation and management. 2. The right ovary was not identified sonographically. The left ovary is remarkable for a questionable tiny dystrophic calcification. No suspicious adnexal mass. EMB done in the office in 07/27 was negative for endometrial hyperplasia and/or malignancy Repeat EMB in 08/27 was negative for endometrial hyperplasia and/or malignancy but showed features of a polyp, the patient underwent hysteroscopy D&C in 09/26 intraoperative findings showed a submucosal myoma, pathology was benign for the myoma and endometrial scraping with no evidence of endometrial hyperplasia and/or malignancy. [facility] Medical History Recurrent UTI Renal cysts, acquired, bilateral Gross hematuria Arthritis Hypothyroidism UTI (urinary tract infection) COPD (chronic obstructive pulmonary disease) Allergic rhinitis Surgical History Hx of dilation and curettage History of hysteroscopy H/O tubal ligation H/O colonoscopy History of eye surgery Social History Household Members: None Housing: Apartment Alcohol intake: never Patient Tobacco Use Status: Never used Tobacco Sexual orientation: Straight/Heterosexual Gender identity: Female Female Reproductive History Menstrual Age of Menarche: 11 Review of Systems Const All systems reviewed & are unremarkable except as noted in HPI and below Physical Exam Vital Signs: Last Vital Signs BP 112/64 12/09/22 13:05 BMI result Body Mass Index 23.7 General: Yes no CVA tenderness External Female Exam: normal external appearance and normal appearance of the urethra Speculum Exam - Vagina: normal appearance of the vagina, normal palpation, no lesions and no masses Speculum Exam - Cervix: normal appearance of the cervix, normal palpation, no lesions, no masses and nontender Bimanual exam- vagina & uterus: normal bimanual exam, normal palpation, uterine size normal, normal palpation, uterine shape normal, No Cervical tenderness present and non-tender Bimanual Exam- Adnexa, other: normal adnexae Back/Spine/Pelvis Back: no CVA tenderness Office Procedures Endometrial Biopsy Details: The patient was counseled regarding the indication and benefits of endometrial sampling to rule out endometrial pathology including not limited to endometrial hyperplasia or endometrial cancer and others; The alternatives (Either do nothing vs. hysteroscopy D&C) & the risks were discussed with the patient including but not limited: pain, uterine perforation, bleeding, infection, possible injury to bladder, bowel, ureter, possible need for blood transfusion with all its possible risks. The patient verbalized understanding all questions answered and signed consent. The patient was placed into the dorsal lithotomy position; a speculum was inserted in the vagina. Using aseptic technique for the procedure, the cervix was cleansed with Betadine. The anterior lip of the cervix was grasped with a single tooth tenaculum. The uterus was sounded to 7 cm with a 4 mm Pipelle was used. Tissues samples were obtained and placed in formalin, in a patient labeled container and sent to the pathology department. At the end of the procedure, there was minimal bleeding noted The patient tolerated the procedure well and was discharged in good condition with the following instructions: Nothing in the vagina until the bleeding stops. No sex until the bleeding stops, to call if any of the following occurs: fever (>100.4), flu-like symptoms, abdominal pain, heavy bleeding, four smelling vaginal discharge. The patient was instructed to schedule a Follow up appointment in 2 weeks to discuss pathology results of the biopsy and treatment options. This note was generated with a voice recognition program. Some errors may have been overlooked during the review of this note. Sometimes these errors may affect the content or meaning of a given sentence. [id number] Biopsy Results AMB Urinalysis Dipstick UR Leukocytes Negative Last Edit by Maddison Sal CMA on 12/09/22 13:12 UR Nitrite Negative Last Edit by Maddison Sal, IT TECHNICAL SPECIALIST on 12/09/22 13:12 UR Urobilinogen Normal Last Edit by Maddison Sal, IT TECHNICAL SPECIALIST on 12/09/22 13:12 UR Protein Negative Last Edit by Maddison Sal, IT TECHNICAL SPECIALIST on 12/09/22 13:12 UR Ph 6.0 Last Edit by Maddison Sal, IT TECHNICAL SPECIALIST on 12/09/22 13:12 UR Blood Small Last Edit by Maddison Sal, IT TECHNICAL SPECIALIST on 12/09/22 13:12 UR Specific Bud 1.015 Last Edit by Maddison Sal, IT TECHNICAL SPECIALIST on 12/09/22 13:12 UR Ketone Negative Last Edit by Maddison Sal, IT TECHNICAL SPECIALIST on 12/09/22 13:12 UR Bilirubin Negative Last Edit by Maddison Sal, IT TECHNICAL SPECIALIST on 12/09/22 13:12 UR Glucose Negative Last Edit by Maddison Sal [facility] on 12/09/22 13:12 Results Reviewed Results Reviewed: Laboratory Last Values Urine pH (Clinic) 6.0 12/09/22 13:11 Specific Bud (Clinic) 1.015 12/09/22 13:11 Ur Protein (Clinic) Negative 12/09/22 13:11 Ur Ketones (Clinic) Negative 12/09/22 13:11 Urine Blood (Clinic) Small 12/09/22 13:11 Urine Nitrite Negative 12/09/22 13:11 Urine Bilirubin (Clinic) Negative 12/09/22 13:11 Urobilinogen (Clinic) Normal 12/09/22 13:11 Leukocyte Esterase (Clinic) Negative 12/09/22 13:11 Urine Glucose (Clinic) Negative 12/09/22 13:11 Assessment & Plan Assessment & Plan (1) Postmenopausal bleeding: Code(s): N95.0 - Postmenopausal bleeding Plan: Discussed with the patient the differential diagnosis of post menopausal bleeding with normal pelvic exam including but not limited to, endometrial hyperplasia, cancer, polyps and other causes; co testing done recently and negative, recommended to proceed with endometrial sampling via EMB on the office versus hysteroscopy D&C polypectomy, all pros and cons risks and benefits of each procedure were discussed with the patient, the patient decided to proceed with an office EMB. EMB done in the office see procedure note. (2) Uterine myoma: Code(s): D25.9 - Leiomyoma of uterus, unspecified Plan: Repeat ultrasound to compare the size of previous myoma and will treat accordingly. Instructions given the patient to schedule a 2 week ultrasound follow-up appointment. Orders: Orders AMB Endometrial Biopsy Today N95.0 - Postmenopausal bleeding AMB Urinalysis Dipstick Today N93.9 - Abnormal uterine and vaginal bleeding, unspecified US pelvic and transvaginal Today D25.9 - Leiomyoma of uterus, unspecified, N95.0 - Postmenopausal bleeding Coding Level of Care Code Est Pt Level 3 (10570) Procedure Only Diagnoses Postmenopausal bleeding N95.0 Uterine myoma D25.9 CPT Codes Endometrial Biopsy - CPT: 58754-[id number] Biopsy ([id number])
[2022-12-09 13:05] VITALS: BP 112/64; BMI 23.7
== END 2022-12-09 15:16 | disposition home or self-care (01) ==
PROVIDERS: PCP Internal Medicine; Visit Provider Obstetrics & Gynecology
DX: N95.0 Postmenopausal bleeding (principal); D25.9 Leiomyoma of uterus, unspecified; N93.9 Abnormal uterine and vaginal bleeding, unspecified
CPT/HCPCS: 58100; 99213

== ENCOUNTER 2022-12-09 12:52 | Outpatient (REF) | payer MEDICAID, SELFPAY | END 2022-12-09 12:53 | disposition home or self-care (01) | LOC: HO.LNP 12:52 | PROVIDERS: PCP Internal Medicine; Visit Provider Obstetrics & Gynecology | DX: N95.0 Postmenopausal bleeding (principal); D25.9 Leiomyoma of uterus, unspecified | CPT/HCPCS: 58100; 81002; 88305; 99212 ==

== ENCOUNTER 2023-01-26 10:28 | Outpatient (REF) | payer MEDICAID, SELFPAY ==
--- NOTE | ~2023-01-26 | US_ITS ---
EXAMINATION: US PELVIS CLINICAL INFORMATION: Postmenopausal bleeding. COMPARISON: None available. TECHNIQUE: Ultrasound of the pelvis is performed using both transabdominal and transvaginal transducers along with Doppler. Transvaginal imaging is performed due to inadequate visualization transabdominally. FINDINGS: Uterus: The uterus is anteverted and measures 7.8 x 3.7 x 4.0 cm. The double wall endometrial thickness is markedly increased measuring 2.9 cm. Some of this measurement may include a uterine fibroid or large endometrial polyp. A 2.7 x 3.1 x 2.4 cm subserosal mass is present near the fundus (previously measuring 3.9 x 2.8 x 2.9 cm). This could represent a submucosal fibroid or possibly a large endometrial polypoid mass. Adnexa: Both ovaries are visualized. There is normal color flow to the adnexa. There is no ovarian torsion. There is no pelvic ascites or fluid collection. Right ovary measures 0.8 x 1.6 x 0.9 cm. Left ovary measures 1.6 x 1.5 x 1.1 cm. US/US pelvic and transvaginal IMPRESSION: 1. Markedly abnormal endometrium with subserosal mass versus polypoid endometrial mass. Further evaluation is recommended. 2. The ovaries are normal in appearance. 3. Hysterosonography or an MRI of the pelvis with and without contrast is recommended for further evaluation of the above findings.
== END 2023-01-26 10:29 | disposition home or self-care (01) ==
LOC: HO.US 10:28
PROVIDERS: PCP Internal Medicine; Visit Provider Obstetrics & Gynecology
DX: N95.0 Postmenopausal bleeding (principal); D25.9 Leiomyoma of uterus, unspecified
CPT/HCPCS: 76830; 76856

== ENCOUNTER 2023-02-01 08:09 | Outpatient (AMB) | payer MEDICAID, SELFPAY ==
--- NOTE | 2023-02-01 08:36 | A.OFFVIS_ITS ---
Intake Vital Signs 02/01/23 08:37 Height 5 ft 1 in Weight 125 lb 10.616 oz BMI 23.7 BP 114/68 Intake Visit Reasons: Ultrasound follow up/EMB Results Tank Farm Attendant Required: Yes Tank Farm Attendant Language: Media Executive Name: Maddison CASTELLANOS Information Interpreted: non-clinical & clinical Change Management Manager: Change Management Manager Present Accompanied by: Self / Same As Patient Allergies albuterol [From VENTOLIN] Allergy (Intermediate, Verified 02/01/23 08:38) SHORTNESS OF BREATH nut - unspecified [nut] Allergy (Intermediate, Verified 02/01/23 08:38) SWELLING dicyclomine [Bentyl] Allergy (Unknown, Verified 02/01/23 08:38) Unknown montelukast [Singulair] Allergy (Unknown, Verified 02/01/23 08:38) Unknown Is last menstrual period known: Yes Last menstrual period: 01/03/20 Post menopausal: Yes Patient : No Do you need a note to return to daycare/school/sports/work: Yes (for surgery on tuesday) HPI HPI Comments History of Present Illness Details Presenting for follow-up. Endometrial biopsy pathology showed the following: Endometrium, biopsy: Superficial fragments of benign endometrium with focal breakdown; abundant blood; no atypia or hyperplasia identified Pelvic ultrasound showed the following: Uterus: The uterus is anteverted and measures 7.8 x 3.7 x 4.0 cm. The double wall endometrial thickness is markedly increased measuring 2.9 cm. Some of this measurement may inc lude a uterine fibroid or large endometrial polyp. A 2.7 x 3.1 x 2.4 cm subserosal mass is present near the fundus (previously measuring 3.9 x 2.8 x 2.9 cm ). This could represent a submucosal fibroid or possibly a large endometrial polypoid mass. Adnexa: Both ovaries are visualized. There is normal color flow to the adnexa. There is no ovarian torsion. There is no pelvic ascites or fluid collection. Right ovary measures 0.8 x 1.6 x 0.9 cm. Left ovary measures 1.6 x 1.5 x 1.1 cm. [facility] Medical History Recurrent UTI Renal cysts, acquired, bilateral Gross hematuria Arthritis Hypothyroidism UTI (urinary tract infection) COPD (chronic obstructive pulmonary disease) Allergic rhinitis Surgical History Hx of dilation and curettage History of hysteroscopy H/O tubal ligation H/O colonoscopy History of eye surgery Household Members: None Housing: Apartment Alcohol intake: never Patient Tobacco Use Status: Never used Tobacco Sexual orientation: Straight/Heterosexual Gender identity: Female Female Reproductive History Menstrual Age of Menarche: 11 Date of last menstrual period: 01/03/20 Total pregnancies: 2 Full term: 2 Review of Systems Card Reports as per HPI and Reports no additional complaints Resp Reports as per HPI and Reports no additional complaints GI Reports as per HPI and Reports no additional complaints Reports as per HPI Physical Exam Vital Signs: Last Vital Signs BP 114/68 02/01/23 08:37 BMI result Body Mass Index 23.7 Const General: cooperative, healthy appearing and comfortable Chest Chest palpation & inspection: normal inspection of the chest and normal palpation of entire chest wall Breast/axilla inspection: normal inspection of the breasts and normal inspection of the axillae Breast/axilla palpation: normal palpation of the breasts, normal palpation of the axillae and no axillary lymphadenopathy Resp Effort & Inspection: normal respiratory effort Auscultation: clear to auscultation bilaterally Percussion: percussion normal Cardio Palpation: normal PMI Rate: regular rate Rhythm: regular rhythm Heart sounds: no murmurs and no rubs Peripheral pulses: Peripheral pulses 2+ throughout GI Inspection: Yes normal to inspection Palpation (GI): Soft to palpation, nontender, no guarding, not rigid and No hepatosplenomegaly present Percussion: Yes normal to percussion Auscultation: normal bowel sounds Rectal Exam - Female: deferred Assessment & Plan Assessment & Plan (1) Postmenopausal bleeding: Comment: abn endometrium by us myoma vs polyp Code(s): N95.0 - Postmenopausal bleeding Plan: Discussed with the patient the results of the ultrasound and endometrial pathology results, recommended hysteroscopy D&C possible polypectomy myomectomy. Discussed with the patient the procedure , all benefits and risks including but not limited to inability to complete the procedure , bleeding, infection, possible need for blood transfusion with all its risk ( HIV,syphilis, Hepatitis, anaphylaxis shock, others..), injury to bladder, rectum, possible need for laparoscopy/laparotomy or hysterectomy. The patient verbalized understanding and signed the consent. Instructions given the patient to schedule a 2 week postoperative appointment Coding Level of Care Code Est Pt Level 3 (30919) Diagnoses Postmenopausal bleeding N95.0
[2023-02-01 08:37] VITALS: BP 114/68; BMI 23.7
== END 2023-02-01 08:52 | disposition home or self-care (01) ==
LOC: HO.HWS 08:09
PROVIDERS: PCP Internal Medicine; Visit Provider Obstetrics & Gynecology
DX: N95.0 Postmenopausal bleeding (principal)
CPT/HCPCS: 99213

== ENCOUNTER → 2023-02-01 08:09 | Outpatient (BNVA) | payer MEDICAID, SELFPAY | PROVIDERS: PCP Internal Medicine; Visit Provider Obstetrics & Gynecology | DX: N95.0 Postmenopausal bleeding (principal) | CPT/HCPCS: 99212 ==

== ENCOUNTER 2023-02-07 10:51 | Outpatient (REF) | payer MEDICAID, SELFPAY ==
--- NOTE | ~2023-02-07 | US_ITS ---
EXAMINATION: US RETROPERITONEAL LIMITED (RENAL ONLY) CLINICAL INFORMATION: Cyst of kidney, acquired. COMPARISON: Ultrasound kidneys and bladder 01/27/2022. Ultrasound kidneys 01/27/2021. CT abdomen and pelvis without contrast 07/05/2020. TECHNIQUE: Real-time imaging of the kidneys. FINDINGS: RIGHT KIDNEY: 11.6 x 5.4 x 4.5 cm (SAG x AP x TRV). The kidney is normal in size, contour, and echogenicity. Renal cortical thickness is normal. No renal calculi or hydronephrosis. 1.3 x 1.1 x 1.4 cm mid pole and 0.7 x 0.6 x 0.7 cm lower pole cysts are seen. Extrarenal pelvis is noted. LEFT KIDNEY: 11.0 x 5.2 x 4.3 cm (SAG x AP x TRV). The kidney is normal in size, contour, and echogenicity. Renal cortical thickness is normal. No calculi or focal parenchymal lesions. No hydronephrosis. US/US renal BI IMPRESSION: Right renal cysts.
== END 2023-02-07 10:52 | disposition home or self-care (01) ==
LOC: HO.US 10:51
PROVIDERS: PCP Internal Medicine; Visit Provider Nurse Practitioner Family
DX: N28.1 Cyst of kidney, acquired (principal); N13.30 Unspecified hydronephrosis
CPT/HCPCS: 76775

== ENCOUNTER 2023-02-21 09:06 | Outpatient (AMB) | payer MEDICAID, SELFPAY ==
--- NOTE | 2023-02-21 09:13 | A.OFFVIS_ITS ---
Intake Intake Visit Reasons: 1yr follow up/US/PVR(set) Intake Note: Patient is present for ULTRASOUND/UTI Follow up (imaging 02/07/23) Urology Medication: Estradiol Cream Blood Thinner: None PVR: 0ml's Clothes Marker Required: Yes Clothes Marker Name: LYNNE GODFREY-LIDIA Accompanied by: Self / Same As Patient Allergies albuterol [From VENTOLIN] Allergy (Intermediate, Verified 02/21/23 09:43) SHORTNESS OF BREATH nut - unspecified [nut] Allergy (Intermediate, Verified 02/21/23 09:43) SWELLING dicyclomine [Bentyl] Allergy (Unknown, Verified 02/21/23 09:43) Unknown montelukast [Singulair] Allergy (Unknown, Verified 02/21/23 09:43) Unknown Medication List - Last Reconciled 02/21/23 by CROW Josue-OSKAR aclidinium bromide 400 mcg/actuation (Tudorza Pressair) 1 inh inhalation BID albuterol sulfate 90 mcg/actuation (ProAir HFA) 2 puffs inhalation Q4-6H PRN 30 days albuterol sulfate 2.5 mg (3 mL) inhalation Q4-6H PRN 30 days cetirizine (Zyrtec) 10 mg PO DAILY epinephrine (EpiPen 2-Kehinde) 0.3 mg IM Q10M PRN fluticasone furoate-vilanterol 100-25 mcg/dose (Breo Ellipta) 1 inh inhalation DAILY 30 days fluticasone propionate 50 mcg/actuation (Flonase Allergy Relief) 1 spray intranasal DAILY ketotifen fumarate 0.025%(0.035%) (Alaway) 1 drp ophthalmic (eye) DAILY loratadine (Alavert) 10 mg PO DAILY HPI HPI Comments History of Present Illness Details Uyen is a pleasant 57 year old Vietnamese speaking female who is a patient of Dr. Adorno. She has a past medical history of recurrent urinary tract infections, renal cysts, hematuria, arthritis, hypothyroidism, allergic rhinitis and COPD. She is being seen today for her annual follow up of her right renal cysts and recurrent UTI's. Patient states her UTI's have been well controlled utilizing estrace cream as prescribed. She denies having had any urinary tract infections or UTI like symptoms since her last office visit here approximately 1 year ago. Recent renal imaging results reviewed with the patient today. Right kidney with no calculi or hydronephrosis. 1.3 x 1.1 x 1.4 mid pole and 0.7 x 0.6 x 0.7 cm lower pole cysts are seen. Left kidney with no calculi, lesions, and or hydronephrosis. When asked patient denies any bothersome urinary issues or concerns at this time. She reports to be following up with forest fire fighter regarding her recent transvaginal ultrasound noting abnormal endometrium. In office urinalysis results reviewed with the patient today. PVR 0 mL. When asked she reports be happy with current voiding parameters. When asked she denies urinary urgency, urinary frequency, incontinence, nocturia, hematuria, dysuria, foul smelling urine, changes to urinary stream, flank pain, fever, and or chills. She otherwise offers no issues or concerns at this time. [facility] Medical History Recurrent UTI Renal cysts, acquired, bilateral Gross hematuria Arthritis Hypothyroidism UTI (urinary tract infection) COPD (chronic obstructive pulmonary disease) Allergic rhinitis Surgical History Hx of dilation and curettage History of hysteroscopy H/O tubal ligation H/O colonoscopy History of eye surgery Social History Household Members: None Housing: Apartment Alcohol intake: never Patient Tobacco Use Status: Never used Tobacco Sexual orientation: Straight/Heterosexual Gender identity: Female Female Reproductive History Menstrual Age of Menarche: 11 Review of Systems Const Reports as per HPI Eyes Reports no additional complaints ENT Reports no additional complaints Card Reports no additional complaints Resp Reports as per HPI GI Reports no additional complaints Reports as per HPI Musc Reports no additional complaints Neuro Reports no additional complaints Psych Reports no additional complaints Endo Reports no additional complaints Steve/Lymph Reports no additional complaints Aller/Immun Reports no additional complaints Physical Exam Const General: cooperative, healthy appearing, comfortable, no acute distress, well developed, alert and awake Orientation/consciousness: patient oriented x3 Limitations: no limitations HEENT Head: Yes normal to inspection, Yes normocephalic and Yes atraumatic Ears: hearing grossly normal bilaterally Eyes General: appearance normal, both eyes and all related structures Neck Neck: Yes normal visual inspection and Yes trachea midline Chest Chest palpation & inspection: normal inspection of the chest Resp Effort & Inspection: normal respiratory effort and able to speak in complete sentences Cardio Rate: regular rate GI Inspection: Yes normal to inspection General: Yes no CVA tenderness Back/Spine/Pelvis Back: no CVA tenderness Skin General skin exam: no rashes or lesions noted Neuro General: patient oriented x3 Extrem General: Yes normal to inspection Psych Appearance: grossly normal and well kempt Mental Status: mental status grossly normal Speech and movement: Normal speech and movement present and Clear speech present Affect: normal affect Attitude: cooperative Thought process: Normal thought process present Thought content: Normal thought content present Insight: Good insight present (Psych) Judgement: Good judgement present (Psych) Office Procedures Post Void Residual Post Residual Void Post Void Residual (PVR): 0 [id number] Void Residual by ultrasound Results AMB Urinalysis, Automated UA Leukoctes 0 Funmi/uL Last Edit by [employer] on 02/21/23 09:37 UA Nitrite Negative Last Edit by [employer] on 02/21/23 09:37 UA Urobilinogen 0.2 mg/dL Last Edit by [employer] on 02/21/23 09:37 UA Protein 0 mg/dL Last Edit by [employer] on 02/21/23 09:37 UA pH 6.5 Last Edit by [employer] on 02/21/23 09:37 UA Blood 10 Miller/uL Last Edit by [employer] on 02/21/23 09:37 UA Specific [place] 1.005 Last Edit by [employer] on 02/21/23 09:37 UA Ketone Negative Last Edit by [employer] on 02/21/23 09:37 UA Bilirubin 0 mg/dL Last Edit by [employer] on 02/21/23 09:37 UA Glucose 0 mg/dL Last Edit by [employer] on 02/21/23 09:37 Results Reviewed Results Reviewed: Date of Service: 02/07/23 EXAMINATION: US RETROPERITONEAL LIMITED (RENAL ONLY) CLINICAL INFORMATION: Cyst of kidney, acquired. COMPARISON: Ultrasound kidneys and bladder 01/27/2022. Ultrasound kidneys 01/27/2021. CT abdomen and pelvis without contrast 07/05/2020. TECHNIQUE: Real-time imaging of the kidneys. FINDINGS: RIGHT KIDNEY: 11.6 x 5.4 x 4.5 cm (SAG x AP x TRV). The kidney is normal in size, contour, and echogenicity. Renal cortical thickness is normal. No renal calculi or hydronephrosis. 1.3 x 1.1 x 1.4 cm mid pole and 0.7 x 0.6 x 0.7 cm lower pole cysts are seen. Extrarenal pelvis is noted. LEFT KIDNEY: 11.0 x 5.2 x 4.3 cm (SAG x AP x TRV). The kidney is normal in size, contour, and echogenicity. Renal cortical thickness is normal. No calculi or focal parenchymal lesions. No hydronephrosis. IMPRESSION: Right renal cysts. Assessment & Plan Assessment & Plan (1) Renal cysts, acquired, bilateral: Code(s): N28.1 - Cyst of kidney, acquired (2) Hydroureteronephrosis: Code(s): N13.30 - Unspecified hydronephrosis (3) Recurrent UTI: Code(s): N39.0 - Urinary tract infection, site not specified Plan In office urinalysis results reviewed with the patient today; as noted above. PVR 0 mL. Recent renal ultrasound results reviewed with the patient today; as noted above. Continue Estrace cream as discussed and prescribed. Discussed UTI prevention with D mannose supplement, vitamin-C, increasing fluid intake, behavioral therapy with timed voiding, perineal hygiene and postcoital voiding, and management of constipation with stool softeners and increased fiber intake. Patient denies any bothersome urinary issues or concerns at this time. Continue to follow up with forest fire fighter as planned. Patient reports be happy with current voiding parameters. Renal ultrasound in 1 year Follow-up in 1 year with renal bladder ultrasound prior; or sooner with any issues, concerns, and or questions. Orders: Orders AMB Urinalysis Automated Today Z13.9 - Encounter for screening, unspecified AMB Post Void Residual by ultrasound Today N39.0 - Urinary tract infection, site not specified US renal BI 364 Days N28.1 - Cyst of kidney, acquired Patient Instructions: The patient had an opportunity to ask questions regarding the treatment plan. All questions were answered. Physical exam, labs, and imaging were discussed and reviewed in detail. As well as risks, benefits, and discussion of treatment choices. No major barriers to understanding were identified. The patient expressed understanding and agreement with the above treatment plan. The patient was made aware they should contact our office by phone for worsening of their current condition, the appearance of new symptoms, or with any questions or concerns. Compliance is encouraged with any medications and follow up testing that is ordered. It is a privilege to be allowed the opportunity to participate in? your urological care.? Again, if you have any questions or concerns If you have any questions or concerns please do not hesitate to contact me. The office is [phone]. This note is constructed using voice recognition software. While every effort has been made to ensure accuracy flame channeler errors may have been included. Yours sincerely, CONNIE Josue Coding Level of Care Code Est Pt Level 3 (17396) Diagnoses Renal cysts, acquired, bilateral N28.1 Hydroureteronephrosis N13.30 Recurrent UTI N39.0 CPT Codes Post Residual Void - PVR CPT Code: 61797-Guwt Void Residual by ultrasound ([id number])
== END 2023-02-21 09:44 | disposition home or self-care (01) ==
PROVIDERS: Visit Provider Nurse Practitioner Family
DX: N28.1 Cyst of kidney, acquired (principal); N13.30 Unspecified hydronephrosis; N39.0 Urinary tract infection, site not specified; Z13.9 Encounter for screening, unspecified
CPT/HCPCS: 99213

== ENCOUNTER → 2023-02-21 09:06 | Outpatient (BNVA) | payer MEDICAID, SELFPAY | PROVIDERS: Visit Provider Nurse Practitioner Family | DX: N28.1 Cyst of kidney, acquired (principal); N13.30 Unspecified hydronephrosis; N39.0 Urinary tract infection, site not specified | CPT/HCPCS: 51798; 81003; 99212 ==

== ENCOUNTER 2023-03-21 08:37 | Outpatient (AMB) | payer MEDICAID, SELFPAY ==
[2023-03-21 08:51] VITALS: BP 102/66
--- NOTE | 2023-03-21 08:51 | MHC.OFFVIS ---
Intake Vital Signs 03/21/23 08:51 BP 102/66 Intake Visit Reasons: pre op Peoplesoft Programmer Required: Yes Peoplesoft Programmer Language: Cytology Supervisor Name: Jones Information Interpreted: non-clinical & clinical Loss Control Consultant: Loss Control Consultant Present Allergies albuterol [From VENTOLIN] Allergy (Intermediate, Verified 02/21/23 09:43) SHORTNESS OF BREATH nut - unspecified [nut] Allergy (Intermediate, Verified 02/21/23 09:43) SWELLING dicyclomine [Bentyl] Allergy (Unknown, Verified 02/21/23 09:43) Unknown montelukast [Singulair] Allergy (Unknown, Verified 02/21/23 09:43) Unknown Is last menstrual period known: Yes Last menstrual period: 01/03/20 Post menopausal: No Patient : No Do you need a note to return to daycare/school/sports/work: Yes (for surgery on tuesday) HPI HPI Comments History of Present Illness Details Presenting for follow-up pelvic ultrasound which showed the following: Uterus: The uterus is anteverted and measures 7.8 x 3.7 x 4.0 cm. The double wall endometrial thickness is markedly increased measuring 2.9 cm. Some of this measurement may include a uterine fibroid or large endometrial polyp. A 2.7 x 3.1 x 2.4 cm subserosal mass is present near the fundus (previously measuring 3.9 x 2.8 x 2.9 cm). This could represent a submucosal fibroid or possibly a large endometrial polypoid mass. Adnexa: Both ovaries are visualized. There is normal color flow to the adnexa. There is no ovarian torsion. There is no pelvic ascites or fluid collection. Right ovary measures 0.8 x 1.6 x 0.9 cm. Left ovary measures 1.6 x 1.5 x 1.1 cm. [facility] Medical History Recurrent UTI Renal cysts, acquired, bilateral Gross hematuria Arthritis Hypothyroidism UTI (urinary tract infection) COPD (chronic obstructive pulmonary disease) Allergic rhinitis Surgical History Hx of dilation and curettage History of hysteroscopy H/O tubal ligation H/O colonoscopy History of eye surgery Social History Household Members: None Housing: Apartment Alcohol intake: never Patient Tobacco Use Status: Never used Tobacco Sexual orientation: Straight/Heterosexual Gender identity: Female Female Reproductive History Menstrual Age of Menarche: 11 Date of last menstrual period: 01/03/20 Total pregnancies: 2 Full term: 2 Review of Systems Card Reports as per HPI and Reports no additional complaints Resp Reports as per HPI and Reports no additional complaints GI Reports as per HPI and Reports no additional complaints Reports as per HPI Physical Exam Vital Signs: Last Vital Signs BP 102/66 03/21/23 08:51 Const General: cooperative, healthy appearing and comfortable Chest Chest palpation & inspection: normal inspection of the chest and normal palpation of entire chest wall Breast/axilla inspection: normal inspection of the breasts and normal inspection of the axillae Breast/axilla palpation: normal palpation of the breasts, normal palpation of the axillae and no axillary lymphadenopathy Resp Effort & Inspection: normal respiratory effort Auscultation: clear to auscultation bilaterally Percussion: percussion normal Cardio Palpation: normal PMI Rate: regular rate Rhythm: regular rhythm Heart sounds: no murmurs and no rubs Peripheral pulses: Peripheral pulses 2+ throughout GI Inspection: Yes normal to inspection Palpation (GI): Soft to palpation, nontender, no guarding, not rigid and No hepatosplenomegaly present Percussion: Yes normal to percussion Auscultation: normal bowel sounds Rectal Exam - Female: deferred Assessment & Plan Assessment & Plan (1) Postmenopausal bleeding: Comment: abn endometrium by us myoma vs polyp Code(s): N95.0 - Postmenopausal bleeding Plan: Discussed with the patient the results the ultrasound showing abnormal endometrial thickness possible submucosal myoma versus endometrial polyp. Recommended hysteroscopy D&C possible polypectomy/myomectomy. Discussed with the patient the procedure , all benefits and risks including but not limited to inability to complete the procedure , insufficient endometrial tissue for a complete evaluation of the endometrial cavity , bleeding, infection, possible need for blood transfusion with all its risk ( HIV,syphilis, Hepatitis, anaphylaxis shock, others..), injury to bladder, rectum, possible need for laparoscopy/laparotomy or hysterectomy. The patient verbalized understanding and signed the consent. Instructions given the patient to schedule a 2 week postoperative appointment Coding Level of Care Code Est Pt Level 3 (65704) Diagnoses Postmenopausal bleeding N95.0
== END 2023-03-21 09:18 | disposition home or self-care (01) ==
LOC: HO.HWS 08:37
PROVIDERS: PCP Internal Medicine; Referring Provider Internal Medicine; Visit Provider Obstetrics & Gynecology
DX: N95.0 Postmenopausal bleeding (principal)
CPT/HCPCS: 99213

== ENCOUNTER → 2023-03-21 08:37 | Outpatient (BNVA) | payer MEDICAID, SELFPAY | PROVIDERS: PCP Internal Medicine; Visit Provider Obstetrics & Gynecology | DX: N95.0 Postmenopausal bleeding (principal) | CPT/HCPCS: 99212 ==

== ENCOUNTER 2023-03-25 08:05 | Day surgery (SDC) | payer MEDICAID, SELFPAY ==
[2023-02-16 10:59] VITALS: BMI 23.6
--- NOTE | 2023-02-17 09:03 | P.CONAN_ITS ---
Documented by User: Kaitlynn Bourne NP 03/14/23 09:20 HPI - Anesthesia Eval Consult details Narrative: 57yo F for D&C Hysteroscopy, possible myomectomy/polypectomy, 03/25/23 [facility] Active Problems Active Problems: All Active Problems (Updated 02/01/23 @ 08:45 by Jagjit Forbes MD) Recurrent UTI (Acute) Postmenopausal bleeding (Acute) Uterine myoma (Acute) Renal cysts, acquired, bilateral (Acute) UTI (urinary tract infection) (Acute) Hydroureteronephrosis (Acute) Vaginal atrophy (Acute) Ureter filling defect (Acute) Dysuria (Acute) Gross hematuria (Acute) COPD (chronic obstructive pulmonary disease) (Acute) Allergic rhinitis (Acute) Past Medical History Medical History Recurrent UTI Renal cysts, acquired, bilateral Gross hematuria Arthritis Hypothyroidism UTI (urinary tract infection) COPD (chronic obstructive pulmonary disease) Allergic rhinitis Family History Family history of problems with anesthesia: No Surgical History Surgical History Hx of dilation and curettage History of hysteroscopy H/O tubal ligation H/O colonoscopy History of eye surgery History of Problems with Anesthesia: No Social History Social History Household Members: None Housing: Apartment Alcohol intake: never Patient Tobacco Use Status: Never used Tobacco Use of substances other than those prescribed or required for medical reasons: No Are you DNR?: No Advance Directives: No Advance Directives Information Provided: Yes Sexual orientation: Straight/Heterosexual Gender identity: Female Meds Allergies Allergy/AdvReac Type Severity Reaction Status Date / Time albuterol [From VENTOLIN] Allergy Intermediate SHORTNESS Verified 02/21/23 09:43 OF BREATH nut - unspecified [nut] Allergy Intermediate SWELLING Verified 02/21/23 09:43 dicyclomine [Bentyl] Allergy Unknown Unknown Verified 02/21/23 09:43 montelukast [Singulair] Allergy Unknown Unknown Verified 02/21/23 09:43 Home Medications Medication Instructions Recorded Confirmed Last Taken Type aclidinium bromide 400 1 inh inhalation BID 01/15/20 09/17/22 Unknown History mcg/actuation breath activated powder inhaler (Richarddorza Pressair) cetirizine 10 mg tablet (Zyrtec) 10 mg PO DAILY 01/15/20 09/17/22 Unknown History epinephrine 0.3 mg/0.3 mL 0.3 mg IM Q10M PRN Allergic 01/15/20 09/17/22 Unknown History injection, auto-injector (EpiPen Reaction 2-Kehinde) fluticasone propionate 50 1 spray intranasal DAILY ALLERGIC 01/15/20 09/28/22 Unknown History mcg/actuation nasal rHINITIS spray,suspension (Flonase Allergy Relief) ketotifen fumarate 0.025 % (0.035 1 drp ophthalmic (eye) DAILY 02/11/21 09/17/22 Unknown History %) eye drops (Alaway) loratadine 10 mg disintegrating 10 mg PO DAILY 02/11/21 09/17/22 Unknown History tablet (Alavert) Exam Height,Weight and Vital Signs: Height 5 ft 1 in Weight 56.699 kg Assessment and Plan Assessment Anesthesia Assessment: Chart Reviewed Final Anesthetic Review Family History of Problems with Anesthesia: No History of Problems with Anesthesia: No Documented by User: Graham Watt MD 03/25/23 09:40 [facility] Past Medical History Medical History Recurrent UTI Renal cysts, acquired, bilateral Gross hematuria Arthritis Hypothyroidism UTI (urinary tract infection) COPD (chronic obstructive pulmonary disease) Allergic rhinitis Family History Family history of problems with anesthesia: No Surgical History Surgical History Hx of dilation and curettage History of hysteroscopy H/O tubal ligation H/O colonoscopy History of eye surgery History of Problems with Anesthesia: No Social History Social History Household Members: None Housing: Apartment Alcohol intake: never Patient Tobacco Use Status: Never used Tobacco Use of substances other than those prescribed or required for medical reasons: No Are you DNR?: No Advance Directives: No Advance Directives Information Provided: Yes Sexual orientation: Straight/Heterosexual Gender identity: Female Meds Allergies Allergy/AdvReac Type Severity Reaction Status Date / Time albuterol [From VENTOLIN] Allergy Intermediate SHORTNESS Verified 02/21/23 09:43 OF BREATH nut - unspecified [nut] Allergy Intermediate SWELLING Verified 02/21/23 09:43 dicyclomine [Bentyl] Allergy Unknown Unknown Verified 02/21/23 09:43 montelukast [Singulair] Allergy Unknown Unknown Verified 02/21/23 09:43 Home Medications Medication Instructions Recorded Confirmed Last Taken Type aclidinium bromide 400 1 inh inhalation BID 01/15/20 09/17/22 Unknown History mcg/actuation breath activated powder inhaler (Tudorza Pressair) cetirizine 10 mg tablet (Zyrtec) 10 mg PO DAILY 01/15/20 09/17/22 Unknown History epinephrine 0.3 mg/0.3 mL 0.3 mg IM Q10M PRN Allergic 01/15/20 09/17/22 Unknown History injection, auto-injector (EpiPen Reaction 2-Kehinde) fluticasone propionate 50 1 spray intranasal DAILY ALLERGIC 01/15/20 09/28/22 Unknown History mcg/actuation nasal rHINITIS spray,suspension (Flonase Allergy Relief) ketotifen fumarate 0.025 % (0.035 1 drp ophthalmic (eye) DAILY 02/11/21 09/17/22 Unknown History %) eye drops (Alaway) loratadine 10 mg disintegrating 10 mg PO DAILY 02/11/21 09/17/22 Unknown History tablet (Alavert) Exam Airway Mallampati Class: II TM Dist: >3cm Neck ROM: Full Loose/Missing/Broken Teeth: No Heart: [id number] Lungs: cta b/l Assessment and Plan Assessment Anesthesia Assessment: Anesthesia Plan Discussed Final Anesthetic Review Family History of Problems with Anesthesia: No History of Problems with Anesthesia: No NPO: Yes ASA Class: III Final Preanesthetic Review: No Changes in Pt Med Stat, Meds/Allgs Chart Reviewed, Consent Obtained/Reviewed and Anes Risks/Benef Reviewed Patient Risk: Intermediate Procedure Risk: Intermediate Assessment/Block/Sedation in SS: Assess/Block/Sedation- Anesthetic Plan Anesthetic Plan: GA Disposition: Standard PACU
[2023-03-25 08:38] VITALS: BP 122/81; PULSE 87; RESP 16; TEMP 37.1; O2SAT 96; BMI 24.5
--- NOTE | 2023-03-25 09:06 | MHC.SHP ---
Pre-Procedural Eval Section A Date of Service: 03/25/23 The patient is an INPATIENT: No Changes since office visit: No Cold of Flu in the past 2 weeks, No New Medical Problems, No Changes in Medication and No Patient answered all questions The History & Physical has been completed within 30 days and I have reviewed it.: Yes Section B Chief Complaint: Postmenopausal bleeding Allergies: Allergies Allergy/AdvReac Type Severity Reaction Status Date / Time albuterol [From VENTOLIN] Allergy Intermediate SHORTNESS Verified 02/21/23 09:43 OF BREATH nut - unspecified [nut] Allergy Intermediate SWELLING Verified 02/21/23 09:43 dicyclomine [Bentyl] Allergy Unknown Unknown Verified 02/21/23 09:43 montelukast [Singulair] Allergy Unknown Unknown Verified 02/21/23 09:43 Plan Diagnosis/Plan: Unchanged I have reviewed the history and physical and performed a pertinent physical examination on my patient. No changes have occurred unless specified. Time Spent With Patient Time: Total time managing care of this patient today ____ minutes.
--- NOTE | 2023-03-25 10:32 | P.BOP_ITS ---
Brief Operative Note Date of Service: 03/25/23 Pre-op diagnosis: Postmenopausal bleeding with abnormal endometrial by ultrasound Post-op diagnosis: same (Normal endometrial cavity) Procedure: Hysteroscopy D&C Surgeon: Jagjit Forbes MD Anesthesia: GLMA Was an Education And Development Manager used for this Procedure?: No Estimated blood loss (mL): 0 Pathology: other (Endometrial Scrapping) Condition: stable Disposition: PACU
--- NOTE | 2023-03-25 10:33 | P.OP_ITS ---
Operative Note Operative Note Date of Service: 03/25/23 Narrative: Preop Diagnosis: Post Menopausal bleeding Operation: Diagnostic Hysteroscopy, Dilataion & Curettage Post Op Diagnosis: Normal endometrial cavity QBL: Minimal Anesthesia: GLMA Surgeon: Jagjit Forbes MD Centrifugal Drier Operator: None Complication: None Pathology: Endometrial Scrapings Procedure: The patient was put in the dorsal lithotomy position, scrubbed, and draped in the usual manner. A sterile speculum was inserted in the patient's vagina. The anterior lip of the cervix was grasped with a single tooth tenaculum. The cervix was dilated up to 5 mm, then the scope was inserted in the patient's uterus. Inspection revealed Normal endometrial cavity. The Myosure Reach device was used; the scope was removed from the endometrial cavity , sharp curettings was carried on with minimal to moderate amount of tissues retrieved. At the end of the procedure, all instruments were taken out of the patient uterine and vaginal cavity. The single tooth tenaculum was removed and homeostasis was assured using pressure,. The patient tolerated the procedure well and was transferred to the PACU in a stable condition.
[2023-03-25 10:38] VITALS: BP 128/54; PULSE 77; RESP 14; TEMP 36.8; O2SAT 97
[2023-03-25 10:43] VITALS: BP 119/83; PULSE 79; RESP 16; O2SAT 97
[2023-03-25 10:48] VITALS: BP 111/67; PULSE 89; RESP 16; O2SAT 98
[2023-03-25 10:53] VITALS: BP 105/69; PULSE 75; RESP 16; O2SAT 98
[2023-03-25 11:08] VITALS: BP 112/73; PULSE 72; RESP 16; TEMP 36.7; O2SAT 97
== END 2023-03-25 11:45 | disposition home or self-care (01) ==
PROVIDERS: PCP Internal Medicine; Visit Provider Obstetrics & Gynecology
PROC: 0UDB8ZZ Extraction of Endometrium, Via Natural or Artificial Opening Endoscopic (ICD-10-PCS; CPT 58558; principal; 2023-03-25 10:00)
DX: N95.0 Postmenopausal bleeding (principal); J44.9 Chronic obstructive pulmonary disease, unspecified
CPT/HCPCS: 58558; 88305; J1885; J2405; J2704; J3010

== ENCOUNTER → 2023-03-25 08:05 | Outpatient (BNV) | payer MEDICAID, SELFPAY | PROVIDERS: PCP Internal Medicine; Visit Provider Obstetrics & Gynecology | DX: N95.0 Postmenopausal bleeding (principal) | CPT/HCPCS: 58558 ==

== ENCOUNTER 2023-04-07 10:10 | Outpatient (REF) | payer MEDICAID, SELFPAY ==
[2023-04-07 14:49] LABS: TSH reflex Free T4 10.72 uIU/mL (0.32-4.0)
[2023-04-07 15:20] LABS: Free T4 (Free Thyroxine) 0.94 ng/dL (0.71-1.85)
== END 2023-04-07 10:11 | disposition home or self-care (01) ==
LOC: HO.CHCLDS 10:10
PROVIDERS: Visit Provider Internal Medicine
DX: E03.9 Hypothyroidism, unspecified (principal)
CPT/HCPCS: 36415; 84439; 84443

== ENCOUNTER 2023-04-12 09:42 | Outpatient (AMB) | payer MEDICAID, SELFPAY ==
[2023-04-12 10:05] VITALS: BP 110/72; BMI 24.4
--- NOTE | 2023-04-12 10:05 | A.OFFVIS_ITS ---
Intake Vital Signs 04/12/23 10:05 Height 5 ft 1 in Weight 129 lb BMI 24.4 BP 110/72 Intake Visit Reasons: post op Professor Of Literature Required: Yes Professor Of Literature Language: Building Architectural Designer Name: Maddison Sal Allergies albuterol [From VENTOLIN] Allergy (Intermediate, Verified 04/12/23 10:06) SHORTNESS OF BREATH nut - unspecified [nut] Allergy (Intermediate, Verified 04/12/23 10:06) SWELLING dicyclomine [Bentyl] Allergy (Unknown, Verified 04/12/23 10:06) Unknown montelukast [Singulair] Allergy (Unknown, Verified 04/12/23 10:06) Unknown Is last menstrual period known: No Post menopausal: Yes Patient : No HPI HPI Comments History of Present Illness Details The patient is presenting post hysteroscopy D&C no complaints minimal vaginal bleeding no feverishness chills or abdominal pain. The pathology showed the following: Endometrium, curettage: Superficial fragments of benign endometrium; organizing blood clot; detached fragments of benign squamous epithelium; no atypia or hyperplasia identified. PFSH Medical History Recurrent UTI Renal cysts, acquired, bilateral Gross hematuria Arthritis Hypothyroidism UTI (urinary tract infection) COPD (chronic obstructive pulmonary disease) Allergic rhinitis Surgical History Hx of dilation and curettage History of hysteroscopy H/O tubal ligation H/O colonoscopy History of eye surgery Social History Household Members: None Housing: Apartment Alcohol intake: never Patient Tobacco Use Status: Never used Tobacco Patient : No Sexual orientation: Straight/Heterosexual Gender identity: Female Female Reproductive History Menstrual Age of Menarche: 11 control method: permanent sterilization Review of Systems Const All systems reviewed & are unremarkable except as noted in HPI and below Reports as per HPI and Reports no additional complaints GI Reports no additional complaints Reports no additional complaints Physical Exam Vital Signs: Last Vital Signs BP 110/72 04/12/23 10:05 BMI result Body Mass Index 24.4 Assessment & Plan Assessment & Plan (1) Postmenopausal bleeding: Code(s): N95.0 - Postmenopausal bleeding Plan: Discussed with the patient the intraoperative findings and the results of the D and C pathology showing benign endometrium. Discussed with the patient the sensitivity, specificity, positive and negative predictive value, of endometrial biopsy in detecting endometrial pathology including but not limited to endometrial hyperplasia, cancer and other pathology; instructed the patient to call in case is vaginal bleeding bleeding recurs, the next step will be to proceed with further endometrial sampling evaluation to rule out endometrial pathology. All questions answered and the patient verbalized understanding and agreed with the plan. Coding Level of Care Code Est Pt Level 3 (09873) Diagnoses Postmenopausal bleeding N95.0
== END 2023-04-12 12:14 | disposition home or self-care (01) ==
LOC: HO.HWS 09:43
PROVIDERS: PCP Internal Medicine; Visit Provider Obstetrics & Gynecology
DX: N95.0 Postmenopausal bleeding (principal)
CPT/HCPCS: 99213

== ENCOUNTER → 2023-04-12 09:42 | Outpatient (BNVA) | payer MEDICAID, SELFPAY | PROVIDERS: PCP Internal Medicine; Visit Provider Obstetrics & Gynecology | DX: N95.0 Postmenopausal bleeding (principal) | CPT/HCPCS: 99212 ==

== ENCOUNTER 2023-04-15 11:20 | Outpatient (REF) | payer MEDICAID, SELFPAY | END 2023-04-15 11:21 | disposition home or self-care (01) | LOC: HO.MAMMO 11:20 | PROVIDERS: PCP Internal Medicine; Visit Provider Internal Medicine | DX: Z12.31 Encounter for screening mammogram for malignant neoplasm of breast (principal) | CPT/HCPCS: 77063; 77067 ==

== ENCOUNTER → 2023-04-15 13:00 | Outpatient (BNV) | payer MEDICAID, SELFPAY | PROVIDERS: PCP Internal Medicine; Visit Provider Radiology Diagnostic Radiology | DX: Z12.31 Encounter for screening mammogram for malignant neoplasm of breast (principal) | CPT/HCPCS: 77063; 77067 ==

== ENCOUNTER 2023-05-03 09:51 | Outpatient (AMB) | payer MEDICAID, SELFPAY ==
--- NOTE | 2023-05-03 10:17 | A.OFFVIS_ITS ---
Intake Vital Signs 05/03/23 10:18 Height 5 ft 1 in Weight 126 lb 12.253 oz BMI 23.9 BP 110/52 L Blood Pressure Location Lt brachial Position Sitting Pulse 77 Pulse Source Pulse Oximeter Pulse Oximetry (%) 95 Oxygen Delivery Method Room Air Intake Visit Reasons: copd Intake Note: pt is here for follow up and states she is feeling better, the pharmacy is stating that they are not receiving our scripts, pt needs Turdoza today. Licensed Mortician Required: No Allergies albuterol [From VENTOLIN] Allergy (Intermediate, Verified 05/03/23 10:43) SHORTNESS OF BREATH nut - unspecified [nut] Allergy (Intermediate, Verified 05/03/23 10:43) SWELLING dicyclomine [Bentyl] Allergy (Unknown, Verified 05/03/23 10:43) Unknown montelukast [Singulair] Allergy (Unknown, Verified 05/03/23 10:43) Unknown Medication List - Last Reconciled 05/03/23 by Carols Borrero MD aclidinium bromide 400 mcg/actuation (Tudorza Pressair) 1 inh inhalation BID albuterol sulfate 90 mcg/actuation (ProAir HFA) 2 puffs inhalation Q4-6H PRN 30 days albuterol sulfate 2.5 mg (3 mL) inhalation Q4-6H PRN 30 days cetirizine (Zyrtec) 10 mg PO DAILY epinephrine (EpiPen 2-Kehinde) 0.3 mg IM Q10M PRN fluticasone furoate-vilanterol 100-25 mcg/dose (Breo Ellipta) 1 inh inhalation DAILY 30 days fluticasone propionate 50 mcg/actuation (Flonase Allergy Relief) 1 spray intranasal DAILY ketotifen fumarate 0.025%(0.035%) (Alaway) 1 drp ophthalmic (eye) DAILY loratadine (Alavert) 10 mg PO DAILY Do you need a note to return to daycare/school/sports/work: No HPI copd HPI Details 57 years old female with longstanding hi story of allergic rhinitis and chronic obstructive pulmonary disease. She has been fairly stable in the last 6 months without any acute exacerbation She continues to have mild nasal congestion. Cough is minimal. Shortness of breath only if she walks up hill or climbs stairs. She has had no respiratory infection. [facility] Medical History Recurrent UTI Renal cysts, acquired, bilateral Gross hematuria Arthritis Hypothyroidism UTI (urinary tract infection) COPD (chronic obstructive pulmonary disease) Allergic rhinitis Surgical History Hx of dilation and curettage History of hysteroscopy H/O tubal ligation H/O colonoscopy History of eye surgery Social History Household Members: None Housing: Apartment Alcohol intake: never Patient Tobacco Use Status: Never used Tobacco Sexual orientation: Straight/Heterosexual Gender identity: Female Female Reproductive History Menstrual Age of Menarche: 11 Review of Systems Const All systems reviewed & are unremarkable except as noted in HPI and below Eyes Reports no additional complaints ENT Reports nasal congestion (MILD TO MODERATE ALMOST DAILY.) Card Reports no additional complaints Resp Reports as per HPI GI Reports no additional complaints Reports no additional complaints Musc Reports no additional complaints Skin/Breast Reports system reviewed and no additional complaints, except as documented Neuro Reports no additional complaints Psych Reports anxiety (MILD CONTROLLED) Endo Reports no additional complaints Steve/Lymph Reports no additional complaints Physical Exam Vital Signs: Last Vital Signs Pulse 77 05/03/23 10:18 BP 110/52 L 05/03/23 10:18 Pulse Ox 95 05/03/23 10:18 Oxygen Delivery Method Room Air 05/03/23 10:18 BMI result Body Mass Index 23.9 Const General: comfortable, no acute distress, alert and awake Orientation/consciousness: patient oriented x3 HEENT Head: Yes normal to inspection General nose exam: No nasal polyps present, Normal septum present (mild DNS to the left), No nasal discharge present and Other nasal findings present (BILATERAL NASAL CONGESTION) Face and sinus: Yes sinuses nontender Mouth: oropharynx normal Throat: Yes posterior oropharynx normal Eyes General: appearance normal, both eyes and all related structures Neck Neck: Yes normal visual inspection, Yes no lymphadenopathy, Yes trachea midline and Yes no JVD Thyroid: Thyroid normal Chest Chest palpation & inspection: normal inspection of the chest, normal palpation of entire chest wall and no tenderness Resp Other: PERCUSSION NOTE RESONANT, BREATH SOUNDS ARE EQUAL ON BOTH SIDES WITH SLIGHTLY PROLONGED EXPIRATORY PHASE. NO WHEEZES, RHONCHI OR CREPS ARE HEARD. Cardio Palpation: normal PMI Rate: regular rate Rhythm: regular rhythm Heart sounds: no gallops and no murmurs Peripheral pulses: Peripheral pulses 2+ throughout GI Palpation (GI): Soft to palpation, Tenderness to palpation present (GI), No hepatosplenomegaly present and Palpable mass present Auscultation: normal bowel sounds Back/Spine/Pelvis Thoracic/Lumbar Spine: thoracic and lumbar spine normal to inspection Skin General skin exam: no rashes or lesions noted Neuro General: patient oriented x3 and no focal motor deficits Cranial nerves: Yes CN's II-XII intact bilaterally Extrem General: Yes normal to inspection, Yes no clubbing, cyanosis or edema and Yes no calf tenderness Psych Appearance: grossly normal and well kempt Speech and movement: Normal speech and movement present Assessment & Plan Assessment & Plan (1) COPD (chronic obstructive pulmonary disease): Comment: MODERTAELY SEVERE ,REMAINING STABLE .TX: REVISIT EVERY 6 MONTHS AND ALSO NEEDED. Code(s): J44.9 - Chronic obstructive pulmonary disease, unspecified Plan: CONT. TUDORZA PRESSAIR ONE INH BID BREO 100-251 INHALATION DAILY PRO AIR 2 PUFFS Q 4-6 HRS PRN , SHE TO USE MOSTLY WHEN SHE IS OUTDOORS. ALSO PRESCRIBED TO HAVE A NEBULIZER, AND MAY USE ALBUTEROL SOLUTION Q 4-6 HOURS P.R.N. All scripts are renewed . (2) Allergic rhinitis: Comment: CHRONIC, CONTROLLED WITH PRESENT REGIMEN. * STOPPED ALLERGY SHOTS , SINCE LAST YEAR SHE WAS GETTING LOCAL REACTION FROM THE SHOTS . Code(s): J30.9 - Allergic rhinitis, unspecified Plan: FLONASE NASAL SPRAY 2 SPRAYS IN EACH NARE DAILY AND ZYRTEC 10 MG PER DAY P.R.N.. Medications: Changed From aclidinium bromide 400 mcg/actuation (Tudorza Pressair) 1 inh inhalation BID To aclidinium bromide 400 mcg/actuation (Tudorza Pressair) 1 inh inhalation BID 1 ea 5RF COPD 30 days Coding Level of Care Code Est Pt Level 3 (84492) Diagnoses COPD (chronic obstructive pulmonary disease) J44.9 Allergic rhinitis J30.9
[2023-05-03 10:18] VITALS: BP 110/52; PULSE 77; O2SAT 95; BMI 23.9
== END 2023-05-03 10:47 | disposition home or self-care (01) ==
PROVIDERS: PCP Internal Medicine; Visit Provider Internal Medicine
DX: J44.9 Chronic obstructive pulmonary disease, unspecified (principal); J30.9 Allergic rhinitis, unspecified
CPT/HCPCS: 99213

== ENCOUNTER → 2023-05-03 09:51 | Outpatient (BNVA) | payer MEDICAID, SELFPAY | PROVIDERS: PCP Internal Medicine; Visit Provider Internal Medicine | DX: J44.9 Chronic obstructive pulmonary disease, unspecified (principal); J30.9 Allergic rhinitis, unspecified | CPT/HCPCS: 99212 ==

== ENCOUNTER 2023-05-25 11:18 | Outpatient (REF) | payer MEDICAID, SELFPAY ==
[2023-05-25 13:59] LABS: TSH reflex Free T4 0.09 uIU/mL (0.32-4.0)
[2023-05-25 14:36] LABS: Free T4 (Free Thyroxine) 1.47 ng/dL (0.71-1.85)
== END 2023-05-25 11:19 | disposition home or self-care (01) ==
LOC: HO.CHCLDS 11:18
PROVIDERS: Visit Provider Internal Medicine
DX: E03.9 Hypothyroidism, unspecified (principal)
CPT/HCPCS: 36415; 84439; 84443

== ENCOUNTER 2023-07-01 19:27 | Outpatient (REF) | payer MEDICAID, SELFPAY | END 2023-07-01 19:28 | disposition home or self-care (01) | LOC: HO.HHCLNP 19:27 | PROVIDERS: Visit Provider Family Medicine | DX: J44.9 Chronic obstructive pulmonary disease, unspecified (principal) | CPT/HCPCS: 87070 ==

== ENCOUNTER 2023-07-26 08:44 | Outpatient (REF) | payer MEDICAID, SELFPAY ==
[2023-07-26 17:48] LABS: Free T4 (Free Thyroxine) 1.06 ng/dL (0.71-1.85)
== END 2023-07-26 08:45 | disposition home or self-care (01) ==
LOC: HO.CHCLDS 08:44
PROVIDERS: Visit Provider Internal Medicine
DX: E03.9 Hypothyroidism, unspecified (principal)
CPT/HCPCS: 36415; 84439; 84443

== ENCOUNTER 2023-11-01 09:37 | Outpatient (AMB) | payer MEDICAID, SELFPAY ==
[2023-11-01 10:06] VITALS: BP 110/58; PULSE 90; O2SAT 96; BMI 23.3
--- NOTE | 2023-11-01 10:06 | A.OFFVIS_ITS ---
Vital Signs 11/01/23 10:06 Height 5 ft 1 in Weight 123 lb 7.342 oz BMI 23.3 BP 110/58 L Blood Pressure Location Lt brachial Position Sitting Pulse 90 Pulse Source Pulse Oximeter Pulse Oximetry (%) 96 Oxygen Delivery Method Room Air Intake Visit Reasons: copd Intake Note: pt is here for follow up and states she is feeling good. Distributor Advertising Material Required: No Allergies albuterol [From VENTOLIN] Allergy (Intermediate, Verified 11/01/23 10:30) SHORTNESS OF BREATH nut - unspecified [nut] Allergy (Intermediate, Verified 11/01/23 10:30) SWELLING dicyclomine [Bentyl] Allergy (Unknown, Verified 11/01/23 10:30) Unknown montelukast [Singulair] Allergy (Unknown, Verified 11/01/23 10:30) Unknown Medication List - Last Reconciled 11/01/23 by Carlos Borrero MD aclidinium bromide 400 mcg/actuation (Tudorza Pressair) 1 inh inhalation BID 30 days albuterol sulfate 90 mcg/actuation (ProAir HFA) 2 puffs inhalation Q4-6H PRN 30 days albuterol sulfate 2.5 mg (3 mL) inhalation Q4-6H PRN 30 days cetirizine (Zyrtec) 10 mg PO DAILY epinephrine (EpiPen 2-Kehinde) 0.3 mg IM Q10M PRN fluticasone furoate-vilanterol 100-25 mcg/dose (Breo Ellipta) 1 inh inhalation DAILY 30 days fluticasone propionate 50 mcg/actuation (Flonase Allergy Relief) 1 spray intranasal DAILY ketotifen fumarate 0.025%(0.035%) (Alaway) 1 drp ophthalmic (eye) DAILY loratadine (Alavert) 10 mg PO DAILY Do you need a note to return to daycare/school/sports/work: No HPI HPI copd: Details: 57 years old very pleasant Citizen Of [place]-speaking female, is here for 6 months follow- up. She has longstanding history of allergic rhinitis and COPD. At present doing very well with her current medical regimen. She has had no acute spells during the past 6 months. Uses her inhalers regularly. She is a nonsmoker, and denies using any illicit drugs. [facility] Medical History Recurrent UTI Renal cysts, acquired, bilateral Gross hematuria Arthritis Hypothyroidism UTI (urinary tract infection) COPD (chronic obstructive pulmonary disease) Allergic rhinitis Surgical History Hx of dilation and curettage History of hysteroscopy H/O tubal ligation H/O colonoscopy History of eye surgery Social History Household Members: None Housing: Apartment Alcohol intake: never Patient Tobacco Use Status: Never used Tobacco Sexual orientation: Straight/Heterosexual Gender identity: Female Female Reproductive History Menstrual Age of Menarche: 11 Review of Systems Const All systems reviewed & are unremarkable except as noted in HPI and below Eyes Reports no additional complaints ENT Reports nasal congestion (MILD TO MODERATE ALMOST DAILY.) Card Reports no additional complaints Resp Reports as per HPI GI Reports no additional complaints Reports no additional complaints Musc Reports no additional complaints Skin/Breast Reports system reviewed and no additional complaints, except as documented Neuro Reports no additional complaints Psych Reports anxiety (MILD CONTROLLED) Endo Reports no additional complaints Steve/Lymph Reports no additional complaints Physical Exam Vital Signs: Last Vital Signs Pulse 90 11/01/23 10:06 BP 110/58 L 11/01/23 10:06 Pulse Ox 96 11/01/23 10:06 Oxygen Delivery Method Room Air 11/01/23 10:06 BMI result Body Mass Index 23.3 Const General: comfortable, no acute distress, alert and awake Orientation/consciousness: patient oriented x3 HEENT Head: Yes normal to inspection General nose exam: No nasal polyps present, Normal septum present (mild DNS to the left), No nasal discharge present and Other nasal findings present (no active congestion ) Face and sinus: Yes sinuses nontender Mouth: oropharynx normal Throat: Yes posterior oropharynx normal Eyes General: appearance normal, both eyes and all related structures Neck Neck: Yes normal visual inspection, Yes no lymphadenopathy, Yes trachea midline and Yes no JVD Thyroid: Thyroid normal Chest Chest palpation & inspection: normal inspection of the chest, normal palpation of entire chest wall and no tenderness Resp Other: PERCUSSION NOTE RESONANT, BREATH SOUNDS ARE EQUAL ON BOTH SIDES WITH SLIGHTLY PROLONGED EXPIRATORY PHASE. NO WHEEZES, RHONCHI OR CREPS ARE HEARD. Cardio Palpation: normal PMI Rate: regular rate Rhythm: regular rhythm Heart sounds: no gallops and no murmurs Peripheral pulses: Peripheral pulses 2+ throughout GI Palpation (GI): Soft to palpation, Tenderness to palpation present (GI), No hepatosplenomegaly present and Palpable mass present Auscultation: normal bowel sounds Back/Spine/Pelvis Thoracic/Lumbar Spine: thoracic and lumbar spine normal to inspection Skin General skin exam: no rashes or lesions noted Neuro General: patient oriented x3 and no focal motor deficits Cranial nerves: Yes CN's II-XII intact bilaterally Extrem General: Yes normal to inspection, Yes no clubbing, cyanosis or edema and Yes no calf tenderness Psych Appearance: grossly normal and well kempt Speech and movement: Normal speech and movement present Assessment & Plan Assessment & Plan (1) COPD (chronic obstructive pulmonary disease): Comment: MODERTAELY SEVERE ,REMAINING STABLE . HAS HAD NO ACUTE EXACERBATION IN THE LAST 6 MONTHS. Code(s): J44.9 - Chronic obstructive pulmonary disease, unspecified Category: Medical Plan: CONTINUE TO USE PRESENT REGIMEN WHICH IS FOLLOWS : TUDORZA PRESSAIR 1 INHALATION B.I.D. BREO 100-251 INHALATION DAILY. ALBUTEROL HFA 2 PUFFS Q 6 HOURS ONLY P.R.N. OR ALBUTEROL 2.5 MG (3ML ) IN THE NEBULIZER Q 6 HOURS P.R.N. (2) Allergic rhinitis: Comment: CHRONIC, CONTROLLED WITH PRESENT REGIMEN. * STOPPED ALLERGY SHOTS , SINCE LAST YEAR SHE WAS GETTING LOCAL REACTION FROM THE SHOTS . Code(s): J30.9 - Allergic rhinitis, unspecified Category: Medical Plan: FLONASE-52 SPRAY EACH NOSTRIL DAILY CETIRIZINE 10 MG ONCE A DAY P.R.N. Coding Level of Care Code Est Pt Level 3 (72542) Diagnoses COPD (chronic obstructive pulmonary disease) J44.9 Allergic rhinitis J30.9
== END 2023-11-01 10:31 | disposition home or self-care (01) ==
PROVIDERS: PCP Internal Medicine; Visit Provider Internal Medicine
DX: J44.9 Chronic obstructive pulmonary disease, unspecified (principal); J30.9 Allergic rhinitis, unspecified
CPT/HCPCS: 99213

== ENCOUNTER → 2023-11-01 09:37 | Outpatient (BNVA) | payer MEDICAID, SELFPAY | PROVIDERS: PCP Internal Medicine; Visit Provider Internal Medicine | DX: J44.9 Chronic obstructive pulmonary disease, unspecified (principal); J30.9 Allergic rhinitis, unspecified | CPT/HCPCS: 99212 ==

== ENCOUNTER 2023-12-03 13:40 | Outpatient (REF) | payer MEDICAID, SELFPAY | END 2023-12-03 13:41 | disposition home or self-care (01) | LOC: HO.HHCLNP 13:40 | PROVIDERS: Visit Provider General Practice | DX: R30.0 Dysuria (principal) | CPT/HCPCS: 87086 ==

== ENCOUNTER 2024-01-02 09:19 | Outpatient (AMB) | payer MEDICAID, SELFPAY ==
[2024-01-02 09:24] VITALS: BP 104/64; BMI 23.6
--- NOTE | 2024-01-02 09:24 | MHC.OFFVIS ---
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 No complaints. Last Pap/HPV was negative in 04/25 Last Mammogram was BI-RADS 1 in 04/30 Last Colonoscopy was in 07/20, the recommendation according to the patient was to repeat 10 years [facility] Medical History Recurrent UTI Renal cysts, acquired, bilateral Gross hematuria Arthritis Hypothyroidism UTI (urinary tract infection) COPD (chronic obstructive pulmonary disease) Allergic rhinitis Surgical History Hx of dilation and curettage History of hysteroscopy H/O tubal ligation H/O colonoscopy History of eye surgery Social History Household Members: None Housing: Apartment Alcohol intake: never Patient Tobacco Use Status: Never used Tobacco Sexual orientation: Straight/Heterosexual Gender identity: Female Female Reproductive History Menstrual Age of Menarche: 11 Total pregnancies: 4 Number of Living Children: 4 History of STI: No Date of Mammogram: 04/15/23 History of abnormal mammogram: No Review of Systems Const All systems reviewed & are unremarkable except as noted in HPI and below Card Reports as per HPI Resp Reports as per HPI GI Reports as per HPI and Reports no additional complaints Reports as per HPI Physical Exam Vital Signs: Last Vital Signs BP 104/64 01/02/24 09:24 BMI result Body Mass Index 23.6 Const General: cooperative, healthy appearing and comfortable Chest Chest palpation & inspection: normal inspection of the chest and normal palpation of entire chest wall Breast/axilla inspection: normal inspection of the breasts and normal inspection of the axillae Breast/axilla palpation: normal palpation of the breasts, normal palpation of the axillae and no axillary lymphadenopathy Resp Effort & Inspection: normal respiratory effort Auscultation: clear to auscultation bilaterally Percussion: percussion normal Cardio Palpation: normal PMI Rate: regular rate Rhythm: regular rhythm Heart sounds: no murmurs and no rubs Peripheral pulses: Peripheral pulses 2+ throughout GI Inspection: Yes normal to inspection Palpation (GI): Soft to palpation, nontender, no guarding, not rigid and No hepatosplenomegaly present Percussion: Yes normal to percussion Auscultation: normal bowel sounds Rectal Exam - Female: deferred General: Yes bladder normal to palpation External Female Exam: No lesion Speculum Exam - Vagina: normal appearance of the vagina, normal palpation, normal vaginal discharge and not erythematous Speculum Exam - Cervix: normal appearance of the cervix and normal palpation Bimanual exam- vagina & uterus: normal bimanual exam, normal palpation, uterine size normal, bladder normal to palpation, consistency normal and normal palpation Bimanual Exam- Adnexa, other: normal adnexae, no masses and no tenderness Assessment & Plan Assessment & Plan (1) Well woman exam: Code(s): Z01.419 - Encounter for gynecological examination (general) (routine) without abnormal findings Category: Medical Plan: Co testing done. Counseled the patient about the recommended dietary allowance of 1200 mg of Calcium & 600 IU of vitamin D. Instructions given the patient to schedule next screening Mammogram in 04/30. The patient was instructed to perform monthly self-breast exams and schedule annual exam in a year. All questions answered and the patient verbalized understanding. Coding Level of Care Code Est Pt Prev Care 40-64y(05385) Diagnoses Well woman exam Z01.419
== END 2024-01-02 10:22 | disposition home or self-care (01) ==
PROVIDERS: PCP Internal Medicine; Visit Provider Obstetrics & Gynecology
DX: Z01.419 Encounter for gynecological examination (general) (routine) without abnormal findings (principal)
CPT/HCPCS: 99396

== ENCOUNTER 2024-01-02 09:19 | Outpatient (REF) | payer MEDICAID, SELFPAY ==
[2024-01-05 15:57] LABS: HPV mRNA E6/E7 Not Detected (Not Detected)
== END 2024-01-02 09:20 | disposition home or self-care (01) ==
LOC: HO.LNP 09:19
PROVIDERS: PCP Internal Medicine; Visit Provider Obstetrics & Gynecology
DX: Z01.419 Encounter for gynecological examination (general) (routine) without abnormal findings (principal)
CPT/HCPCS: 87624; 88175; 99396

== ENCOUNTER 2024-01-13 15:18 | Outpatient (REF) | payer MEDICAID, SELFPAY ==
[2024-01-13 18:12] LABS: MANUAL DIFF FLAG NO
[2024-01-13 18:19] LABS: Basophils Percent Auto 0.5 % (0-2); Eosinophils Absolute Auto 0.1 X10*3/uL (0.0-0.4); Eosinophils Percent Auto 1.1 % (0-4); Hematocrit 37.6 % (37.0-47.0); Hemoglobin 12.7 g/dl (12.0-16.0); Imm Gran Abs Auto 0.01 X10*3/uL (0.00-0.03); Imm Gran Pct Auto 0.2 % (0.0-0.4); Lymphocytes Absolute Auto 1.6 X10*3/uL (1.2-4.9); Lymphocytes Percent Auto 29.1 % (20-40); Mean Corpuscular HGB Conc 33.8 g/dl (31.0-35.0); Mean Corpuscular Hemoglobin 31.4 pg (27.0-33.0); Mean Corpuscular Volume 92.8 fL (80.0-98.0); Mean Platelet Volume 11.2 fL (9.4-12.3); Monocytes Absolute Auto 0.5 X10*3/uL (0.1-1.2); Monocytes Percent Auto 8.4 % (2-11); Neutrophils Absolute Auto 3.3 x10*3/uL (2.0-8.3); Neutrophils Percent Auto 60.7 % (45-73); Platelet Count 244 X10*3/uL (160-400); Red Blood Count 4.05 X10*6/uL (4.20-5.50); Red Cell Distribution Width 12.8 % (11.0-16.0); White Blood Count 5.5 X10*3/uL (4.8-10.8)
[2024-01-13 18:34] LABS: Anion Gap 13 (12-20); Blood Urea Nitrogen 16 mg/dL (9-16); Calcium 9.2 mg/dL (8.4-10.2); Carbon Dioxide 26 mmol/L (22-29); Chloride 107 mmol/L (96-108); Estimated Glomerular Filt Rate > 60; Glucose Random 129 mg/dL (60-115); Potassium 3.8 mmol/L (3.3-5.1); Sodium 142 mmol/L (135-145)
[2024-01-13 18:53] LABS: TSH reflex Free T4 0.43 uIU/mL (0.32-4.0)
== END 2024-01-13 15:19 | disposition home or self-care (01) ==
LOC: HO.CHCLDS 15:18
PROVIDERS: Visit Provider Internal Medicine
DX: R42 Dizziness and giddiness (principal)
CPT/HCPCS: 36415; 80048; 84443; 85025

== ENCOUNTER 2024-02-06 09:06 | Outpatient (REF) | payer MEDICAID, SELFPAY | END 2024-02-06 09:07 | disposition home or self-care (01) | LOC: HO.US 09:06 | PROVIDERS: PCP Internal Medicine; Visit Provider Nurse Practitioner Family | DX: N28.1 Cyst of kidney, acquired (principal) | CPT/HCPCS: 76775 ==

== ENCOUNTER 2024-02-21 09:13 | Outpatient (AMB) | payer MEDICAID, SELFPAY ==
--- NOTE | 2024-02-21 09:53 | A.OFFVIS_ITS ---
Intake Visit Reasons: 1y/US(set) Intake Note: Patient presents today for follow up on: hydroureteronephrosis, renal cyst, recurrent uti Urology Medication: Estradiol Cream Blood Thinner: None Web Development Consultant Required: Yes Web Development Consultant Name: Milton [id number] Accompanied by: Self / Same As Patient Allergies albuterol [From VENTOLIN] Allergy (Intermediate, Verified 02/21/24 10:10) SHORTNESS OF BREATH nut - unspecified [nut] Allergy (Intermediate, Verified 02/21/24 10:10) SWELLING dicyclomine [Bentyl] Allergy (Unknown, Verified 02/21/24 10:10) Unknown montelukast [Singulair] Allergy (Unknown, Verified 02/21/24 10:10) Unknown Medication List - Last Reconciled 02/21/24 by RCOW Josue-OSKAR aclidinium bromide 400 mcg/actuation (Tudorza Pressair) 1 inh inhalation BID 30 days albuterol sulfate 90 mcg/actuation (ProAir HFA) 2 puffs inhalation Q4-6H PRN 30 days albuterol sulfate 2.5 mg (3 mL) inhalation Q4-6H PRN 30 days cetirizine (Zyrtec) 10 mg PO DAILY epinephrine (EpiPen 2-Kehinde) 0.3 mg IM Q10M PRN fluticasone furoate-vilanterol 100-25 mcg/dose (Breo Ellipta) 1 inh inhalation DAILY 30 days fluticasone propionate 50 mcg/actuation (Flonase Allergy Relief) 1 spray intranasal DAILY ketotifen fumarate 0.025%(0.035%) (Alaway) 1 drp ophthalmic (eye) DAILY loratadine (Alavert) 10 mg PO DAILY HPI Comments Details: Uyen is a pleasant 58 year old Hebrew speaking female who is a patient of Dr. Adorno. She has a past medical history of recurrent urinary tract i nfections, renal cysts, hematuria, arthritis, hypothyroidism, allergic rhinitis and COPD. She is being seen today for her annual follow up of her right renal cysts and recurrent UTI's. In discussion with the patient today she reports to be doing and feeling well. Recent renal imaging results reviewed with the patient today..... She reports since her last office visit here she has followed up with her PCP for UTI like symptoms however urine culture did not note bacteria. She reports symptoms had subsided thereafter. She currently denies any UTI like symptoms and or bothersome urinary issues. In office urinalysis results reviewed with the patient today. When asked she reports be happy with current voiding parameters. When asked she denies urinary urgency, urinary frequency, incontinence, nocturia, hematuria, dysuria, foul smelling urine, changes to urinary stream, flank pain, fever, and or chills. She otherwise offers no issues or concerns at this time. [facility] Medical History Recurrent UTI Renal cysts, acquired, bilateral Gross hematuria Arthritis Hypothyroidism UTI (urinary tract infection) COPD (chronic obstructive pulmonary disease) Allergic rhinitis Surgical History Hx of dilation and curettage History of hysteroscopy H/O tubal ligation H/O colonoscopy History of eye surgery Social History Household Members: None Housing: Apartment Alcohol intake: never Patient Tobacco Use Status: Never used Tobacco Sexual orientation: Straight/Heterosexual Gender identity: Female Female Reproductive History Menstrual Age of Menarche: 11 Review of Systems Const Reports as per HPI Eyes Reports no additional complaints ENT Reports no additional complaints Card Reports no additional complaints Resp Reports as per HPI GI Reports no additional complaints Reports as per HPI Musc Reports no additional complaints Neuro Reports no additional complaints Psych Reports no additional complaints Endo Reports no additional complaints Steve/Lymph Reports no additional complaints Aller/Immun Reports no additional complaints Physical Exam Const General: cooperative, healthy appearing, comfortable, no acute distress, well developed, alert and awake Orientation/consciousness: patient oriented x3 Limitations: no limitations HEENT Head: Yes normal to inspection, Yes normocephalic and Yes atraumatic Ears: hearing grossly normal bilaterally Eyes General: appearance normal, both eyes and all related structures Neck Neck: Yes normal visual inspection and Yes trachea midline Chest Chest palpation & inspection: normal inspection of the chest Resp Effort & Inspection: normal respiratory effort and able to speak in complete sentences Cardio Rate: regular rate GI Inspection: Yes normal to inspection General: Yes no CVA tenderness Back/Spine/Pelvis Back: no CVA tenderness Skin General skin exam: no rashes or lesions noted Neuro General: patient oriented x3 Extrem General: Yes normal to inspection Psych Appearance: grossly normal and well kempt Mental Status: mental status grossly normal Speech and movement: Normal speech and movement present and Clear speech present Affect: normal affect Attitude: cooperative Thought process: Normal thought process present Thought content: Normal thought content present Insight: Fair insight present (Psych) Judgement: Fair judgement present (Psych) Results AMB Urinalysis, Automated UA Leukoctes 0 Funmi/uL Last Edit by [employer] on 02/21/24 10:15 UA Nitrite Last Edit by [employer] on 02/21/24 10:15 UA Urobilinogen 0.2 mg/dL Last Edit by [employer] on 02/21/24 10:15 UA Protein 0 mg/dL Last Edit by [employer] on 02/21/24 10:15 UA pH 6.0 Last Edit by [employer] on 02/21/24 10:15 UA Blood 0 Miller/uL Last Edit by [employer] on 02/21/24 10:15 UA Specific Troy 1.015 Last Edit by [employer] on 02/21/24 10:15 UA Ketone Last Edit by [employer] on 02/21/24 10:15 UA Bilirubin 0 mg/dL Last Edit by [employer] on 02/21/24 10:15 UA Glucose 0 mg/dL Last Edit by [employer] on 02/21/24 10:15 Assessment & Plan Assessment & Plan (1) Renal cysts, acquired, bilateral: Code(s): N28.1 - Cyst of kidney, acquired Category: Medical (2) Recurrent UTI: Code(s): N39.0 - Urinary tract infection, site not specified Category: Medical Plan In office urinalysis results reviewed with the patient today; as noted above. Recent renal ultrasound results reviewed with the patient today; as noted above. Continue Estrace cream as discussed and prescribed. Discussed UTI prevention with D mannose supplement, vitamin-C, increasing fluid intake, behavioral therapy with timed voiding, perineal hygiene and postcoital voiding, and management of constipation with stool softeners and increased fiber intake. Patient denies any bothersome urinary issues or concerns at this time. Patient reports be happy with current voiding parameters. Renal ultrasound in 1 year Follow-up in 1 year with PVR and renal bladder ultrasound prior; or sooner with any issues, concerns, and or questions. Orders: Orders US renal BI 1 Year N28.1 - Cyst of kidney, acquired AMB Urinalysis Automated Today Z13.9 - Encounter for screening, unspecified Patient Instructions: The patient had an opportunity to ask questions regarding the treatment plan. All questions were answered. Physical exam, labs, and imaging were discussed and reviewed in detail. As well as risks, benefits, and discussion of treatment choices. No major barriers to understanding were identified. The patient expressed understanding and agreement with the above treatment plan. The patient was made aware they should contact our office by phone for worsening of their current condition, the appearance of new symptoms, or with any questions or concerns. Compliance is encouraged with any medications and follow up testing that is ordered. It is a privilege to be allowed the opportunity to participate in? your urological care.? Again, if you have any questions or concerns If you have any questions or concerns please do not hesitate to contact me. The office is [phone]. This note is constructed using voice recognition software. While every effort has been made to ensure accuracy dye range operator errors may have been included. Yours sincerely, CONNIE Josue Coding Level of Care Code Est Pt Level 3 (49732) Complex EM visit Add On G2211 Diagnoses Renal cysts, acquired, bilateral N28.1 Recurrent UTI N39.0
== END 2024-02-21 10:11 | disposition home or self-care (01) ==
PROVIDERS: PCP Internal Medicine; Visit Provider Nurse Practitioner Family
DX: Z13.9 Encounter for screening, unspecified (principal)

== ENCOUNTER → 2024-02-21 09:13 | Outpatient (BNVA) | payer MEDICAID, SELFPAY | PROVIDERS: PCP Internal Medicine; Visit Provider Nurse Practitioner Family | DX: N28.1 Cyst of kidney, acquired (principal); N39.0 Urinary tract infection, site not specified | CPT/HCPCS: 81003; 99212 ==

== ENCOUNTER 2024-03-20 08:53 | Outpatient (REF) | payer MEDICAID, SELFPAY ==
[2024-03-20 14:41] LABS: Alanine Aminotransferase 26 U/L (0-31); Albumin Level 4.3 g/dL (3.5-5.0); Alkaline Phosphatase 74 U/L (39-117); Anion Gap 9 (12-20); Aspartate Amino Transferase 30 U/L (5-31); Bilirubin Total 0.5 mg/dL (0.0-1.0); Blood Urea Nitrogen 17 mg/dL (9-16); Calcium 9.1 mg/dL (8.4-10.2); Carbon Dioxide 29 mmol/L (22-29); Chloride 106 mmol/L (96-108); Estimated Glomerular Filt Rate > 60; Glucose Random 96 mg/dL (60-115); Potassium 3.9 mmol/L (3.3-5.1); Sodium 140 mmol/L (135-145); Total Protein 7.1 g/dL (6.5-8.0)
[2024-03-20 14:59] LABS: TSH reflex Free T4 0.16 uIU/mL (0.32-4.0); Vitamin D 25-OH Total 55.5 ng/mL (>30)
[2024-03-20 15:30] LABS: Free T4 (Free Thyroxine) 1.22 ng/dL (0.71-1.85)
== END 2024-03-20 08:54 | disposition home or self-care (01) ==
LOC: HO.CHCLDS 08:53
PROVIDERS: Visit Provider Internal Medicine
DX: E03.9 Hypothyroidism, unspecified (principal); R79.89 Other specified abnormal findings of blood chemistry
CPT/HCPCS: 36415; 80053; 82306; 84439; 84443

== ENCOUNTER 2024-04-19 09:46 | Outpatient (REF) | payer MEDICAID, SELFPAY ==
--- OUTSIDE RECORDS SUMMARY | 2024-04-19 10:16 | XMS_ITS | Encounter Summary ---
Author Organization [employer] Address [address] [place] [address] Care Team Providers Care Training And Development Coordinator Name Role Phone Eusebio Portillo MD Primary Care Prov ider Reason for Visit * Reason Onset Date Comments ER Follow-up 07/01/2023 Encounter Details Date Type Department Care Team ([facility] st Contact Info) Description 07/01/2023 Telephone [facility] [address], [place] [phone] Eusebio Portillo MD [address] [place], [place] [phone] ER Follow-up Social History Tobacco Use Types Packs/Day Years Used Date Smoking Tobacco: Never Smokeless Tobacco: Never Depression Answer Date Recorded Patient Health Questionnaire-9 Score 0 07/19/2022 Housing Stability Answer Date Recorded What is your housing situation today? I have harshakelli gonzalez 12/22/[address] you li ve. Do you have problems with any of the following? None of the above 12/22/2022 Food Insecurity Answer Date Recorded Within the past 12 months, y ou worried that your food would run out before you got money to buy more: Never True 12/22/2022 Within the past 12 months,th e food you bought just didn't last and you didn't have enough money to get more: Never True Transportation Answer Date Recorded In the past 12 months, has l ack of transportation kept you from medical appts, meetings, work or from getting things needed for daily living? No 12/22/2022 Utilities Answer Date Recorded In the past 12 months, has t he electric, gas, oil or water company threatened to shut off services in your home? No 12/22/2022 Depression Answer Date Recorded Patient Health Questionnaire-2 Score 0 07/19/2022 Comments No Sex and Gender Information Value Date Recorded Sex Assigned at Female 01/04/2022 10:14 AM EDT Legal Sex Female 10:14 AM EDT Gender Identity Female 01/04/2022 10:14 AM EDT Sexual Orientation Straight 01/04/2022 10 :14 AM EDT documented as of this encounter Miscellaneous Notes * Telephone Encounter - Junie Chu RN - 07/01/2023 1:07 PM EDT Pt was seen in [facility] today not ED. Pt advised to return call to office if symptoms persist or worsen.Pt had ED precautions reviewed. * Telephone Encounter - Hubert Zhou - 07/01/2023 11:34 AM EDT Patient calling to report ED visit on : Date: 06/29 Hospital: [facility] Seen for: Breathing troubles and was diagnosed with asthma Patient advised will forward to team nurse for follow up documented in this encounter Plan of Treatment Upcoming Encounters Date Type Department Care Team (Late st Contact Info) Description 05/18/2024 10:15 AM EDT Telemedicine [facility] PEDS [address] [place] [address] Eusebio Portillo MD [address] [place] [address] documented as of this encounter Visit Diagnoses Not on filedocumented in this encounter Additional Health Concerns Assessment Noted Time PHQ-9 Depression Total Score: 0 07/20/19 23 2:03 PM EDT documented as of this encounter Care Teams Training And Development Coordinator Relationship Specialty Start Date End Date Eusebio Portillo MD [address] [place] [address] PCP - General Internal Medicine 05/21/20 documented as of this encounter
--- OUTSIDE RECORDS SUMMARY | 2024-04-19 10:16 | XMS_ITS | Encounter Summary ---
Author Organization [employer] Address [address] [place] [address] Care Team Providers Care Soaker Name Role Phone Eusebio Portillo MD Primary Care Prov ider Reason for Visit * Reason Onset Date Comments Nurse Triage 01/13/2024 Encounter Details Date Type Department Care Team (Late st Contact Info) Description 01/13/2024 Telephone [facility] [address] [place], [place] [phone] Eusebio Portillo MD [address] [place], [place] [phone] Nurse Triage Social History Tobacco Use Types Packs/Day Years Used Date Smoking Tobacco: Never Smokeless Tobacco: Never Depression Answer Date Recorded Patient Health Questionnaire-9 Score 0 07/19/2022 Housing Stability Answer Date Recorded What is your housing situation today? I have harsha gonzalez 09/16/[address] you li ve. Do you have problems with any of the following? None of the above 09/16/2023 Food Insecurity Answer Date Recorded Within the past 12 months, y ou worried that your food would run out before you got money to buy more: Never True 09/16/2023 Within the past 12 months,th e food you bought just didn't last and you didn't have enough money to get more: Never True 02/2024 Transportation Answer Date Recorded In the past 12 months, has l ack of transportation kept you from medical appts, meetings, work or from getting things needed for daily living? No 09/16/2023 Utilities Answer Date Recorded In the past 12 months, has t he electric, gas, oil or water company threatened to shut off services in your home? No 09/16/2023 Depression Answer Date Recorded Patient Health Questionnaire-2 Score 0 09/16/2023 Internet Access Answer Date Recorded Internet Access Q1 Yes 11/07/2023 Internet Access Q2 Not on file 11/07/2023 Comments No Sex and Gender Information Value Date Recorded Sex Assigned at Female 01/04/2022 10:14 AM EDT Legal Sex Female 10:14 AM EDT Gender Identity Female 01/04/2022 10:14 AM EDT Sexual Orientation Straight 01/04/2022 10 :14 AM EDT documented as of this encounter Miscellaneous Notes * Telephone Encounter - Lucina Sprague RN - 01/13/2024 10:39 AM EST Triage call with [employer] grey cloth tender ID [id number] Pt reports dizziness for a three days now which has increased. Pt does have dx of vertigo. Pt denies fever, vomiting. Pt does report a headache, drinks adequate liquids but, is having balance difficulty. Pt is advised to get up slowly from sitting or lying down and obtain balance prior to ambulation to prevent falls. Pt agrees with this home care advice and disposition. ASK apt in [facility] today at 320pm. Insurance is verified as active prior to booking. Protocol Used: Dizziness (Adult) Protocol-Based Disposition: See in Office or Video Visit Today Video visit not offered Positive Triage Questions: * Moderate dizziness (e.g., interferes with normal activities) (Exception: Dizziness caused by heatexposure, sudden standing, or poor fluid intake.) * Patient wants to be seen * All higher-acuity triage questions were negative Care Advice Discussed: * Drink Fluids * Lie Down and Rest * Reasons To Call Back - After 2 hours of rest and fluids and you are still feeling dizzy - You pass out (faint) or are too weak to stand - You become worse * Sit Up Slowly Before Standing * Telephone Encounter - Reji Fall - 01/13/2024 9:40 AM EST Symptom: Dizziness Outcome: Talk to a nurse or provider within 15 minutes Reason: Trouble walking The caller accepted this outcome. Duration 3x days documented in this encounter Plan of Treatment Upcoming Encounters Date Type Department Care Team (Late st Contact Info) Description 05/18/2024 10:15 AM EDT Telemedicine [facility] [address] [place] [address] Eusebio Portillo MD [address] [place] [address] documented as of this encounter Visit Diagnoses Not on filedocumented in this encounter Additional Health Concerns Assessment Noted Time PHQ-9 Depression Total Score: 0 07/20/19 23 2:03 PM EDT documented as of this encounter Care Teams Soaker Relationship Specialty Start Date End Date Eusebio Portillo MD [address] [place] [address] PCP - General Internal Medicine 05/21/20 documented as of this encounter
--- OUTSIDE RECORDS SUMMARY | 2024-04-19 10:16 | XMS_ITS | Encounter Summary ---
Author Organization [employer] Address [address] [place] [address] Care Team Providers Care Perennial House Manager Name Role Phone Eusebio Portillo MD Primary Care Prov ider Encounter Details Date Type Department Care Team ([facility] st Contact Info) Description 03/20/2024 Orders Only [facility] & PEDS [address] [place], [place] [phone] Eusebio Portillo MD [address] [place], [place] [phone] Social History Tobacco Use Types Packs/Day Years [...] AM EDT documented as of this encounter Plan of Treatment Upcoming Encounters Date Type Department Care Team (Late st Contact Info) Description 05/18/2024 10:15 AM EDT Telemedicine [facility] [address] [place], [place] [phone] Eusebio Portillo MD [address] [place] [address] documented as of this encounter Procedures Procedure Name Priority Date/Time Associated Diagnosis Comments T4, FREE Routine 03/20/2024 8:54 AM EST documented in this encounter Results * T4, Free (03/20/2024 8:54 AM EST) Free T4 (Free Thyroxine) 1.22 0.71 - 1.85 ng/dL [facility] 03/20/2024 8:54 AM EST 03/20/2024 2:00 PM EST us Eusebio Connors MD LAB BLOOD ORDERABL ES Final Result [facility] [address] [place] [address] [phone] documented in this encounter Visit Diagnoses Not on filedocumented in this encounter Additional Health Concerns Assessment Noted Time PHQ-9 Depression Total Score: 0 07/20/19 23 2:03 PM EDT documented as of this encounter Care Teams Perennial House Manager Relationship Specialty Start Date End Date Eusebio Portillo MD [address] [place] [address] PCP - General Internal Medicine 05/21/20 documented as of this encounter
--- OUTSIDE RECORDS SUMMARY | 2024-04-19 10:16 | XMS_ITS | Encounter Summary ---
Author Organization [employer] Address [address] [place] [address] Care Team Providers Care Clinical Trial Coordinator Name Role Phone Eusebio Portillo MD Primary Care Prov ider Reason for Visit * Reason Comments Med Refill Encounter Details Date Type Department Care Team ([facility] st Contact Info) Description 08/29/2023 Refill [facility] MED [facility] PEDS [address] [place], [place] [phone] Eusebio Portillo MD [address] [place], [place] [phone] Social History Tobacco Use Types Packs/Day Years Used Date Smoking Tobacco: Never Smokeless Tobacco: Never Depression Answer Date Recorded Patient Health Questionnaire-9 Score 0 07/19/2022 Housing Stability Answer Date Recorded What is your housing situation today? I have harsha gonzalez 12/22/[address] you [...] Info) Description 05/18/2024 10:15 AM EDT Telemedicine [facility] PEDS [address] [place] [address] Eusebio Portillo MD [address] [place] [address] documented as of this encounter Visit Diagnoses Not on filedocumented in this encounter Additional Health Concerns Assessment Noted Time PHQ-9 Depression Total Score: 0 07/20/19 23 2:03 PM EDT documented as of this encounter Care Teams Clinical Trial Coordinator Relationship Specialty Start Date End Date Eusebio Portillo MD [address] [place] [address] PCP - General Internal Medicine 05/21/20 documented as of this encounter
--- OUTSIDE RECORDS SUMMARY | 2024-04-19 10:16 | XMS_ITS | Encounter Summary ---
Author Organization [employer] Address [address] [place] [address] Care Team Providers Care Snowsport Instructor Name Role Phone Eusebio Portillo MD Primary Care Prov ider Encounter Details Date Type Department Care Team (Late st Contact Info) Description 06/27/2023 Orders Only [facility] [address] [place], [place] [phone] ProviderLinnea MD Social History Tobacco Use Types Packs/Day Years Used Date Smoking Tobacco: Never Smokeless Tobacco: Never Depression Answer Date Recorded Patient Health Questionnaire-9 Score 0 07/19/2022 Housing Stability Answer Date Recorded What is your housing situation today? I have harsha sing 12/22/[address] you li [...] Info) Description 05/18/2024 10:15 AM EDT Telemedicine [facility] MED & PEDS [address] [place] [address] Eusebio Portillo MD [address] [place] [address] documented as of this encounter Procedures Procedure Name Priority Date/Time Associated Diagnosis Comments HM COLONOSCOPY Routine 07/16/2015 8:12 AM EDT documented in this encounter Results * Hm Colonoscopy (07/16/2015 8:12 AM EDT) us Historical Provider HEALTH MAINTENANCE Final Result documented in this encounter Visit Diagnoses Not on filedocumented in this encounter Additional Health Concerns Assessment Noted Time PHQ-9 Depression Total Score: 0 07/20/19 23 2:03 PM EDT documented as of this encounter Care Teams Snowsport Instructor Relationship Specialty Start Date End Date Eusebio Portillo MD [address] [place] [address] PCP - General Internal Medicine 05/21/20 documented as of this encounter
--- OUTSIDE RECORDS SUMMARY | 2024-04-19 10:16 | XMS_ITS | Encounter Summary ---
Author Organization [employer] Address [address] [place] [address] Care Team Providers Care Hereditary Cancer Program Coordinator Name Role Phone Eusebio Portillo MD Primary Care Prov ider Reason for Visit * Reason Comments Med Refill Encounter Details Date Type Department Care Team ([facility] st Contact Info) Description 03/27/2024 Refill [facility] PEDS [address] [place], [place] [phone] Eusebio Portillo MD [address] [place], [place] [phone] Acquired hypothyroidism Social History Tobacco Use Types Packs/Day Years [...] Description 05/18/2024 10:15 AM EDT Telemedicine [facility] [address] [place] [address] Eusebio Portillo MD [address] [place] [address] documented as of this encounter Visit Diagnoses Diagnosis Acquired hypothyroidism Unspecified hypothyroidism documented in this encounter Additional Health Concerns Assessment Noted Time PHQ-9 Depression Total Score: 0 07/20/19 23 2:03 PM EDT documented as of this encounter Care Teams Hereditary Cancer Program Coordinator Relationship Specialty Start Date End Date Eusebio Portillo MD [address] [place] [address] PCP - General Internal Medicine 05/21/20 documented as of this encounter
--- OUTSIDE RECORDS SUMMARY | 2024-04-19 10:16 | XMS_ITS | Clinical Summary ---
Author Organization [employer] Address [address] [facility] [address] [place] [address] Care Team Providers Care Purchase Analyst Name Role Phone Eusebio Portillo MD Primary Care Prov ider Allergies Active Allergy Reactions Criticality Noted Date Comments Crosby Oil Swelling High 09/13/2022 Montelukast Headache,Unknown 05/26/2010 Propofol Hives 07/01/2023 Zafirlukast Headache 05/26/2010 Medications Blood Pressure Monitor kitIndications:Aminta vated blood pressure reading Use as directed 3x/week 1 kit 12/04/19 23 Active fluticasone-salmet han (Advair) 115-21 MCG/ACT inhaler Inhale 2 puffs in the morning and at bedtime. Rinse mouth with water after use to reduce aftertaste and incidence of candidiasis. Do not swallow. Active albuterol (2.5 MG/3ML) 0.083% nebulizer solutionIndication s:Moderate persistent asthma with acute exacerbation Take 3 mL (2.5 mg) by nebulization every 6 (six) hours if needed for wheezing. 25 mL 1 07/01/19 24 Active loratadine (Claritin) 10 MG tablet Take 10 mg by mouth Once per day. Active EPINEPHrine (Epipen) 0.3 MG/0.3ML injection syringe Inject 0.3 mL (0.3 mg) as directed 1 (one) time for 1 dose. use as directed for allergic reaction and then call 911 0.3 mL 09/16/19 24 Active Tudorza Pressair 400 MCG/ACT inhaler TAKE 1 PUFF INHALED 2 TIMES A DAY FOR COPD FOR 30 DAYS Active fluticasone (Flonase) 50 MCG/ACT nasal spray USE 1 SPRAY IN EACH NOSTRIL IN THE MORNING. SHAKE GENTLY. BEFORE FIRST USE, PRIME PUMP. AFTER USE, CLEAN TIP AND REPLACE CAP. 48 mL 01/31/20 24 Active albuterol (Ventolin HFA) 108 (90 Base) MCG/ACT inhaler INHALE 2 PUFFS EVERY 6 HOURS IF NEEDED FOR WHEEZING. 18 g 1 03/05/20 24 Active levothyroxine (Synthroid) 50 MCG tabletIndications: Acquired hypothyroidism Take 1 tablet (50 mcg) by mouth before breakfast. 30 tablet 11 03/19/19 25 026 Active docusate sodium (Colace) 100 MG capsule TOME 1 CAPSULA POR VIA ORAL EN LA MANANA AND AL ACOSTARSE CUANDO SEA NECESARIO PARA EL ESTRENIMIENTO 60 capsule 1 03/20/19 25 Active Active Problems Problem Noted Date Diagnosed Date Bilateral central hearing loss 10/27/2023 Assessment & Plan (10/27/2023 9:51 PM EDT): Will refer to audiology for hearing test Gross hematuria 06/07/2023 Hydroureteronephrosis 06/07/2023 Postmenopausal bleeding 06/07/2023 Renal cysts, acquired, bilateral 06/07/2023 Ureter filling defect 06/07/2023 Recurrent UTI 06/07/2023 Vaginal atrophy 06/07/2023 Uterine myoma 06/07/2023 Acute otitis media 12/03/2022 Assessment & Plan (10/27/2023 9:49 PM EDT): Will prescribe augmentin, call back if not improving Vertigo 12/03/2022 Assessment & Plan (12/03/2022 1:38 PM EDT): Avoid sudden movements Maintain hydration Elevated blood pressure reading 12/03/2022 Assessment & Plan (10/27/2023 9:48 PM EDT): Controlled, continue low sodium diet and exercise as tolerated, keep bp log Assessment & Plan (07/04/2023 2:01 PM EDT): Has remained stable, continue monitoring, low sodium diet and exercise as tolerated, call back if Bp reading >140/90 Assessment & Plan (04/19/2023 11:19 PM EST): Controlled, continue low sodium diet, continue bp monitoring target <140/90 Assessment & Plan (03/31/2023 2:04 PM EST): Controlled, continue daily monitoring, no changes will be made Assessment & Plan (12/03/2022 1:38 PM EDT): I advise low Na diet and exercise, it is likely isolated elevated episode I prescribed BP monitor recommended to monitor BP at home if recurrent >140/90mmhg I advise to contact us back COPD (chronic obstructive pulmonary disease) Assessment & Plan (07/04/2023 2:07 PM EDT): Continue advair and albuterol for rescue, seen recently due to exacerbation due to URI Intramural leiomyoma of uterus 07/19/2022 Assessment & Plan (07/19/2022 3:41 PM EDT): Discussed ultrasound findings, follow up with ob-regional education manager Acquired hypothyroidism 04/28/2022 Assessment & Plan (03/19/2024 7:49 PM EST): Will decrease dose to 50mcg, new labs will be ordered, follow up in 2 months Assessment & Plan (07/04/2023 2:06 PM EDT): Told to get new labs on mid july, continue current dose. Assessment & Plan (03/31/2023 2:06 PM EST): Clinically euthyroid, will place tsh orders for guidance of therapy Assessment & Plan (07/19/2022 3:40 PM EDT): Will order new tsh fr gidance of therapy, she is taking 75mcg, no side effect reported. Assessment & Plan (04/28/2022 2:30 PM EST): Patient on levothyroxine 88mcg, will place order for new labs including liver/lipid panel for guidance of therapy Screening for cervical cancer 04/28/2022 Assessment & Plan (04/28/2022 2:31 PM EST): Patient had pap smear on 05/26, due in 5 years Screening for colon cancer 04/28/2022 Assessment & Plan (04/28/2022 2:32 PM EST): Colonoscopy done on 2015, next due in 10 years, no warning signs currently Hypercholesterolemia 05/24/2018 Steatosis of liver 07/14/2017 Allergic rhinitis 05/05/2015 Dysuria 05/05/2015 Moderate persistent asthma 05/05/2015 Postablative hypothyroidism 05/05/2015 Resolved Problems Problem Noted Date Diagnosed Date Resolved Date UTI (urinary tract infection) 06/07/2023 12/03/2023 Bilateral impacted cerumen 12/03/2022 0 12/03/2023 Dizziness 05/05/2015 12/03/2023 Encounters Date Type Department Care Team Description 03/27/2024 Refill [facility] [address] [place] [address] Eusebio Portillo MD Acquired hypothyroidism 03/20/2024 Orders Only [facility] [address] [facility] [place] [address] Eusebio Portillo MD 03/20/2024 Travel 03/19/2024 9:30 AM EST Office Visit [facility] [address] [facility] [place] [address] Eusebio Portillo MD Low vitamin D level (Primary Dx); Acquired hypothyroidism 03/19/2024 Refill [facility] [address] [facility] [place] [address] Eusebio Portillo MD 03/19/2024 Travel 03/05/2024 Refill [facility] [address] [facility] [place] [address] Eusebio Portillo MD 02/06/2024 Orders Only [facility] External Provider, [facility] 01/29/2024 Refill [facility] [address] [place] [address] Eusebio Portillo MD from Last 3 Months Immunizations Name Administration Dates Next Due Hep A, Adult 10/21/2015 Hep B, adult 12/21/2016,06/18/2016,05/13/2016 Influenza Injectable Quadriv alant Preservative Free IIV4 MDCK 11/26/2022 Influenza injectable quadriv alent IIV4 with preservative 11/23/2018,12/13/2017,12/31/2015,11/19 Influenza injectable quadriv alent preservative free 11/20/2021,12/17/2020,12/03/2019,12/21 Influenza, IIV3, injectable 12/31/2013,0 12/01/2010,01/06/2010,12/04,12/14/2006 Influenza, Injectable, MDCK, preservative free 11/18/2023 Influenza, Split (incl. ekaterina fied surface antigen) 11/14/2012,01/11/2012 Pneumococcal Polysaccharide PPSV23 06/09/2011 TD (adult), 2 Lf tetanus tox oid, preservative free, adsorbed 05/18/2006,04/18/1996 Tdap 11/20/2021,06/09/2011 Zoster, Recombinant 11/24/2018,08/18/2018 Family History Medical History Relation Name Comments Breast cancer Father's Sister Uterine cancer Maternal Grandmother Uterine cancer Paternal Grandmother Relation Name Status Comments Father's Sister Maternal Grandmother Paternal Grandmother Social History Tobacco Use Types Packs/Day Years Used Date Smoking Tobacco: Never Smokeless Tobacco: Never Tobacco Cessation:Counseling Given: Not Answered Depression Answer Date Recorded Patient Health Questionnaire-9 [...] Orientation Straight 01/04/2022 10 :14 AM EDT Last Filed Vital Signs Vital Sign Reading Time Taken Comments Blood Pressure 138/83 03/19/2024 9:32 AM EST Pulse 92 03/19/2024 9:32 AM EST Temperature 36.7 ??C (98.1 ??F) 03/19/2024 9:32 AM ES T Respiratory Rate 20 03/19/2024 9:32 AM EST Oxygen Saturation 96% 03/19/2024 9:32 AM EST Inhaled Oxygen Concentration - - Weight 56.7 kg (125 lb) 03/19/2024 9:32 AM EST Height 154.9 cm (5' 1 ) 03/19/2024 9:32 AM EST Body Mass Index 23.62 03/19/2024 9:32 AM EST Plan of Treatment Upcoming Encounters Date Type Department Care Team (Late st Contact Info) Description 05/18/2024 10:15 AM EDT Telemedicine [facility] [address] [place], [place] [phone] Eusebio Portillo MD [address] [place], [place] [phone] Health Maintenance Due Date Last Done Comments CT Colonography 1965 FIT DNA/Cologuard 1965 FIT 1965 FOBT 1965 Sigmoidoscopy 1965 Alcohol/Substance Use Screening 1976 Pneumococcal Vaccine: 50+ Years (2 of 2 - PCV) 06/08/2012 06/09/2011 Hepatitis A Vaccines (2 of 2 - Risk 2-dose series) 04/22/2016 10/21/2015 COVID-19 Vaccine ( season) 2023 06/29/2021, 07/10/2020, 06/12/2020 Depression Screening 09/15/2024 09/16/2023, 07/20/19 23 SDOH Screening 09/15/2024 09/16/2023 Tobacco Screening 01/12/2025 01/13/2024 Mammogram 04/15/2025 04/15/2023, 03/07, 03/16/2021, Additional history exists Colonoscopy 07/15/2025 07/16/2015 Colorectal Cancer Screening 07/15/2025 Cervical Cancer Screening 05/26/2026 HPV/Cotest 05/26/2026 05/26/2021, 04/18/2018 Pap Smear 05/26/2026 05/26/2021 DTaP/Tdap/Td Vaccines (3 - Td or Tdap) 11/21/2031 11/20/2021, 06/09/2011, 05/18/2006, Additional history exists RSV Patients and Patients Aged 60 years or older (1 - 1-dose 75+ series) 12/16/2039 Hepatitis B Vaccines Completed 12/21/2016, 06/18/2016, 05/13/2016 Zoster Vaccines Completed 11/24/2018, 08/18/2018 HIV Screening Completed 05/03/2022 Hepatitis C Screening Completed 05/03/2022 Influenza Vaccine Completed 11/18/2023, , 11/20/2021, Additional history exists HIB Vaccines Aged Out No longer eligi ble based on patient's age to complete this topic HPV Vaccines Aged Out No longer eligi ble based on patient's age to complete this topic IPV Vaccines Aged Out No longer eligi ble based on patient's age to complete this topic Meningococcal Vaccine Aged Out No filemon karen eligible based on patient's age to complete this topic RSV under 20 months Aged Out No longe r eligible based on patient's age to complete this topic Rotavirus Vaccines Aged Out No longer eligible based on patient's age to complete this topic Procedures Procedure Name Priority Date/Time Associated Diagnosis Comments T4, FREE Routine 03/20/2024 8:54 AM EST TSH W/REFLEX TO FT4 Routine 03/20/2024 8 :54 AM EST Acquired hypothyroidism VITAMIN D,25-OH,TOTAL,IA Routine 03/20/2024 8:54 AM EST Low vitamin D level COMPREHENSIVE METABOLIC PANEL Routine 03/20/2024 8:54 AM EST Low vitamin D level AMB REFERRAL TO UROLOGY Routine 02/21/2024 Dysuria Hydroureteronephrosis Ureter filling defect Recurrent UTI US RENAL BI Routine 02/06/2024 9:16 AM EST BI MAMMOGRAM SCREENING TOMOSYNTHESIS BILATERAL Routine 04/15/2023 11:40 AM EST HEPATITIS C AB W/REFL TO HCV RNA, QN, PCR Routine 05/03/2022 11:10 AM EST Acquired hypothyroidism HIV 1 RNA, QN PCR W/RFL DEZ (RTI,PI,INTEGRASE) Routine 05/03/2022 11:10 AM EST Acquired hypothyroidism THINPREP IMAGING PAP AND HPV MRNA E6/E7 WITH REFLEX TO HPV 16,18/45 Routine 05/26/2021 1:00 PM EDT HM COLONOSCOPY Routine 07/16/2015 8:12 AM EDT from Last 3 Months or Most Recently Relevant to Health Maintenance Results * Vitamin D, 25-Hydroxy, Total, Immunoassay (03/20/2024 8:54 AM EST) Vitamin D 25-OH Total 55.5 >30 ng/mL [facility] Comment:Health Based Referen ce Values*< 20 ng/mL Ghldoyyjk48-27 ng/mL Insufficient> 30 ng/mL Sufficient*Holick MF. N Engl J Med. 2007;357:266-280Care must be taken in interpreting Vitamin D results fromdifferent laboratories and methodologies. Published datademonstrated that results from patients undergoinghemodialysis may show a negative bias when tested withvarious automated 25-OH vitamin D assays when compared toLC-MS/MS.When testing samples from patients whose predominant form ofVitamin D is Vitamin D2, such as patients receiving VitaminD2 supplementation, results that are subtherapeutic shouldbe confirmed with another method such as LC-MS/MS. Blood Venous blood specimen / Unknown 03/20/2024 8:54 AM EST 03/20/2024 2:00 PM EST Eusebio Connors MD LAB BLOOD ORDERABL ES Final Result Performing Organization Address [facility] de Phone Number [facility] [address] [place] [phone] * (ABNORMAL) TSH W/Reflex to FT4 (03/20/2024 8:54 AM EST) TSH reflex Free T4 0.16(L) 0.32 - 4.0 uIU/mL [facility] Blood Venous blood specimen / Unknown 03/20/2024 8:54 AM EST 03/20/2024 2:00 PM EST Eusebio Connors MD LAB BLOOD ORDERABL ES Final Result Performing Organization Address City/[facility] Co de Phone Number [facility] [address] [place] [phone] * T4, Free (03/20/2024 8:54 AM EST) Free T4 (Free Thyroxine) 1.22 0.71 - 1.85 ng/dL [facility] 03/20/2024 8:54 AM EST 03/20/2024 2:00 PM EST Eusebio Connors MD LAB BLOOD ORDERABL ES Final Result [facility] [address] [place] [address] [phone] * (ABNORMAL) Comprehensive Metabolic Panel (03/20/2024 8:54 AM EST) Sodium 140 135 - 145 mmol/L [facility] Potassium 3.9 3.3 - 5.1 mmol/L [facility] Chloride 106 96 - 108 mmol/L [facility] Carbon Dioxide 29 22 - 29 mmol/L [facility] Anion Gap 9(L) 12 - 20 [facility] Urea Nitrogen (BUN) 17(H) 9 - 16 mg/dL [facility] Creatinine, Serum 0.64 0.5 - 1.4 mg/dL [facility] Estimated Glomerular Filt Rate >60 [facility] Comment:Chronic Kidney Disea se: Estimated GFR < 60 mL/min/1.17j2Athtqd Kidney Disease: Estimated GFR < 15 mL/min/1.73m2 Glucose 96 60 - 115 mg/dL [facility] Calcium 9.1 8.4 - 10.2 mg/dL [facility] Bilirubin, Total 0.5 0.0 - 1.0 mg/dL [facility] Aspartate Amino Transferase 30 5 - 31 U/L [facility] Alanine Aminotransferase 26 0 - 31 U/L [facility] Total Protein 7.1 6.5 - 8.0 g/dL [facility] Albumin Level 4.3 3.5 - 5.0 g/dL [facility] Alkaline Phosphatase 74 39 - 117 U/L [facility] Blood Venous blood specimen / Unknown 03/20/2024 8:54 AM EST 03/20/2024 2:00 PM EST Eusebio Connors MD LAB BLOOD ORDERABL ES Final Result Performing Organization Address City/[facility]/ZIP Co de Phone Number [facility] [address] [place] [address] [phone] * Referral to Urology (02/21/2024) us Catia Long MD OUTPATIENT REFERRAL ORDERABLES Final Result * US RENAL BI (02/06/2024 9:16 AM EST) Anatomical Region Laterality Modality Abdomen Ultrasound 02/06/2024 9:16 AM EST Narrative 03/24/2024 3:10 PM EST ? [facility] ?[address] ?[place] [address] ? Ultrasound Report ? Signed ? Patient: Maciel,Uyen ?MR#: [id number] ?? 2 ? : 1965 ?Acct:[id number] ? Age/Sex: 58 / F ?ADM Date: 02/06/24 ? Loc: HO.US ? Attending Dr: Indiana ROSALES ? Ordering Physician: Indiana Turner ?? Date of Service: 02/06/24 ?? Procedure(s): US renal BI ?? Accession Number(s): [id number] ? cc: Eusebio Portillo MD; Indiana Turner ? EXAMINATION: ?? US RETROPERITONEAL LIMITED (RENAL ONLY) ? CLINICAL INFORMATION: ?? Cyst of kidney, acquired. ? COMPARISON: ?? Renal ultrasound 02/07/2023 and 01/27/2022. CT abdomen and pelvis ?? 07/05/2020. ? TECHNIQUE: ?? Real-time imaging of the kidneys. ? FINDINGS: ? RIGHT KIDNEY: 11.1 x 4.2 x 3.7 cm (SAG x AP x TRV). No hydronephrosis. ?? No renal calculi. Renal cortical thickness is normal. Limited ?? visualization. Limited visualization due to bowel gas. ?? 0.7 cm lower pole cyst and 1.5 cm mid pole cyst. There is no specific ?? indication for additional imaging. ? LEFT KIDNEY: 11.5 x 5.5 x 5.0 cm (SAG x AP x TRV). No hydronephrosis. ?? No renal calculi. Renal cortical thickness is normal. Limited ?? visualization. ? US/US renal BI ?? IMPRESSION: ?? No hydronephrosis. No renal calculi. ? Electronically signed by: ??Pat Bennett MD ??03/24/2024 03:07 PM EST ? Dictated By: ?Pat eBnnett MD ? Signed By: ?<Electronically signed by Pat Bennett MD in OV> ? 03/24/241506 ? DD/ 5 ? TD/TT: 02/06/24 0928 ? School Fundraising Director: ? Procedure Note Donotuseinterpreter, Image - 03/24/[address] [address] Ultrasound Report Signed Patient: Grant Maciel#: [id number] 2 : 1965Acct:[id number] Age/Sex: 58 / FADM Date: 02/06/24 Loc: HO.US Attending Dr: Indiana ROSALES Ordering Physician: Indiana Turner Date of Service: 02/06/24 Procedure(s): US renal BI Accession Number(s): [id number] cc: Eusebio Portillo MD; Indiana Turner EXAMINATION: US RETROPERITONEAL LIMITED (RENAL ONLY) CLINICAL INFORMATION: Cyst of kidney, acquired. COMPARISON: Renal ultrasound 02/07/2023 and 01/27/2022. CT abdomen and pelvis 07/05/2020. TECHNIQUE: Real-time imaging of the kidneys. FINDINGS: RIGHT KIDNEY: 11.1 x 4.2 x 3.7 cm (SAG x AP x TRV). No hydronephrosis. No renal calculi. Renal cortical thickness is normal. Limited visualization. Limited visualization due to bowel gas. 0.7 cm lower pole cyst and 1.5 cm mid pole cyst. There is no specific indication for additional imaging. LEFT KIDNEY: 11.5 x 5.5 x 5.0 cm (SAG x AP x TRV). No hydronephrosis. No renal calculi. Renal cortical thickness is normal. Limited visualization. US/US renal BI IMPRESSION: No hydronephrosis. No renal calculi. Electronically signed by: Pat Bennett MD 03/24/2024 03:07 PM EST RP Dictated By: Pat Bennett MD Signed By: <Electronically signed by Pat Bennett MD in OV> 03/24/24 1507 DD/ 5 TD/TT: 02/06/24927 School Fundraising Director: [facility] External Provider IMG US PROCEDURES Edited Result - Final * BI Mammogram Screening Tomosynthesis Bilateral (04/15/2023 11:40 AM EST) Anatomical Region Laterality Modality Breast Bilateral Mammography 04/15/2023 11:4 0 AM EST Narrative 05/09/2023 3:43 PM EST ? [facility] ? [address] ?[place], [place] [address] ? Mammography Report ? Signed ? Patient: Maciel,Uyen ?MR#: [id number] ?? 2 ? : 1965 ?Acct:[id number] ? Age/Sex: 57 / F ?ADM Date: 04/15/23 ? Loc: HO.MAMMO ? Attending Dr: Eusebio Connors MD ? Ordering Physician: Eusebio Portillo MD ?Res ?? ults: 1Negative ? Date of Service: 04/15/23 ?Follow Up: 1 Year From Orig ?? inal Mammogram ? Procedure(s): MM tomosynthesis screening BI ?? Accession Number(s): [id number] ? cc: Eusebio Portillo MD ? EXAMINATION: ?? MM SCREENING DIGITAL BREAST TOMOSYNTHESIS, BILATERAL ? CLINICAL INFORMATION: ? Screening. Asymptomatic. ? COMPARISON: ?? Mammography: This study is compared with prior exams dating back to ?? 2018. ? TECHNIQUE: ?? Digital breast tomosynthesis is performed in both the craniocaudal and ?? mediolateral oblique views along with computer-aided detection (CAD). ?? Synthesized 2D images are generated from the tomosynthesis. ? FINDINGS: ?? There are scattered areas of fibroglandular density (ACR BI-RADS breast ?? composition Category b). ? There are no significant masses, abnormal calcifications, or other ?? abnormalities. ? MM/MM tomosynthesis screening BI ?? IMPRESSION: ?? No mammographic evidence of malignancy. ? ASSESSMENT: ? BI-RADS BI-RADS 1 - Negative ? RECOMMENDATION: ?? Routine annual mammography screening. ? 1 year F/U ? This examination should not preclude the clinical evaluation of a ?? suspicious palpable abnormality. ? This patient's information was entered into a reminder system with a ?? target due date for their next mammogram. ? Dictated By: ?Carol Cueva MD ? Signed By: ?<Electronically signed by Carol Cueva MD in OV> ? 05/09/23 1539 ? DD/ 1140 ? TD/TT: ? School Fundraising Director: ? Procedure Note Sheng, Image - 05/09/2023 [facility] [address] [place] [address] [address]. [place], [place] [address] Mammography Report Signed Patient: Grant Maciel#: [id number] 2 : 1965Acct:[id number] Age/Sex: 57 / FADM Date: 04/15/23 Loc: HO.MAMMO Attending Dr: Eusebio Connors MD Ordering Physician: Eusebio Portillo ults: 1Negative Date of Service: 04/15/23Follow Up: 1 Year From Orig ina Mammogram Procedure(s): MM tomosynthesis screening BI Accession Number(s): [id number] cc: Eusebio Portillo MD EXAMINATION: MM SCREENING DIGITAL BREAST TOMOSYNTHESIS, BILATERAL CLINICAL INFORMATION: Screening. Asymptomatic. COMPARISON: Mammography: This study is compared with prior exams dating back to 2018. TECHNIQUE: Digital breast tomosynthesis is performed in both the craniocaudal and mediolateral oblique views along with computer-aided detection (CAD). Synthesized 2D images are generated from the tomosynthesis. FINDINGS: There are scattered areas of fibroglandular density (ACR BI-RADS breast composition Category b). There are no significant masses, abnormal calcifications, or other abnormalities. MM/MM tomosynthesis screening BI IMPRESSION: No mammographic evidence of malignancy. ASSESSMENT: BI-RADS BI-RADS 1 - Negative RECOMMENDATION: Routine annual mammography screening. 1 year F/U This examination should not preclude the clinical evaluation of a suspicious palpable abnormality. This patient's information was entered into a reminder system with a target due date for their next mammogram. Dictated By: Carol Cueva MD Signed By: <Electronically signed by Carol Cuvea MD in OV> 05/09/23 1539 DD/ 1140 TD/TT: School Fundraising Director: Eusebio Connors MD IM BI PROCEDURES Final Result * HIV-1 RNA, Quantitative, Real-Time PCR with Reflex to Genotype (RTI, PI, Integrase) (05/03/2022 11:10 AM EST) HIV 1 RNA, QN PCR NOT DETECTED copies/mL [facility] [email or web address] [facility], HIV 1 RNA, QN PCR NOT DETECTED Log copies/mL [facility] [email or web address] [facility], Comment: REFERENCE RANGE: NOT DETECTED copies/mL ?NOT DETECTED ??Log copies/mL This test was performed using Real-Time Polymerase Chain Reaction. Reportable range is 20 to 10,000,000 copies/mL (1.30-7.00 Log copies/mL). 05/03/2022 11:1 0 AM EST 05/03/2022 11:11 AM EST Narrative [facility] - 05/06/2022 12:22 AM EST FASTING:YES FASTING: YES Eusebio Connors MD LAB BLOOD ORDERABL ES Final Result Performing Organization Address [facility]/ZIP Co de Phone Number [address], [place] [address] [employer]/[facility], [address] [place] [address] * Hepatitis C Antibody with Reflex to HCV, RNA, Quantitative, Real-Time PCR (05/03/2022 11:10 AM EST) Hepatitis C Antibody NON-REACT SADIE NON-REACT SADIE [employer] Index 0.03 <1.00 [employer] [facility] Comment: HCV antibody was non-reactive. There is no laboratory evidence of HCV infection. In most cases, no further action is required. However, if recent HCV exposure is suspected, a test for HCV RNA (test code 83678) is suggested. For additional information please refer to http://education.[employer]/faq/CWN47k6 (This link is being provided for informational/ educational purposes only.) Blood Venous blood specimen / Unknown 05/03/2022 11:10 AM EST 05/03/2022 11:11 AM EST Narrative [facility] - 05/06/2022 12:22 AM EST FASTING:YES FASTING: YES Eusebio Connors MD LAB BLOOD ORDERABL ES Final Result Performing Organization Address [facility]/ZIP Co de Phone Number [address], [place] [address] [employer] [facility] [address] [place] [address], (N[address]) [place] [address] * THINPREP TIS PAP AND HPV mRNA E6/E7 WITH REFLEX TO HPV 16,18/45 (05/26/2021 1:00 PM EDT) Clinical Information: None given [facility] COMMENT SEE COMMENT [facility] Comment: EXPLANATORY NOTE: ? The Pap is a screening test for cervical cancer. It is ?? not a diagnostic test and is subject to false negative ?? and false positive results. It is most reliable when a ?? satisfactory sample, regularly obtained, is submitted ?? with relevant clinical findings and history, and when ?? the Pap result is evaluated along with historic and ?? current clinical information. ?? COMMENT: SEE COMMENT [facility] Comment: This case could not be evaluated with computer assisted technology. The slide was manually screened according to routine procedures. [facility] Lab Technician: [facility] Comment: KN, CT(ASCP) CT screening location: [address] ??[id number] HPV nRNA E6/E7 Not Detected Not Detected [facility] Comment: Methodology: Plain Clothes Police Officer-Mediated Amplification This assay detects E6/E7 viral messenger RNA (mRNA) from 14 high-risk HPV types (16,18,31,33,35,39,45,51,52,56,58,59,66,68). ? The analytical performance characteristics of this assay have been determined by [employer]. The modifications have not been cleared or approved by the FDA. This assay has been validated pursuant to the CLIA regulations and is used for clinical purposes. ?? For additional information, please refer to [email or web address]/faq/MRD561m6 (This link if provided for information/ educational purposes only.) Interpretation/Res ult: [facility] Comment: Negative for intraepithelial lesion or malignancy. Atrophic pattern; predominantly parabasal cells LMP: IRREGULAR [facility] Prev. BX: NONE GIVEN [facility] Prev. PAP: 04/2018 [facility] SOURCE: None given [facility] Statement Of Adequacy: SATISFACTORY FOR EVALUATION Age and/or menstrual status not provided [facility] 05/26/2021 1:00 PM EDT Keeley Fregoso CNM LAB PATHOLOGY ORDERABLES Final Result [facility] [address] [place] [address], * Hm Colonoscopy (07/16/2015 8:12 AM EDT) us Historical Provider HEALTH MAINTENANCE Final Result from Last 3 Months or Most Recently Relevant to Health Maintenance [facility] Care Teams Purchase Analyst Relationship Specialty Start Date End Date Eusebio Portillo MD [address] [place] [address] PCP - General Internal Medicine 05/21/20
--- OUTSIDE RECORDS SUMMARY | 2024-04-19 10:16 | XMS_ITS | Encounter Summary ---
Author Organization [employer] Address [address] [facility] 7t [place] [address] Care Team Providers Care Channel Marketing Program Manager Name Role Phone Eusebio Portillo MD Primary Care Prov ider Reason for Visit * Reason Comments Med Change Request Encounter Details Date Type Department Care Team ([facility] st Contact Info) Description 03/19/2024 Refill [facility]S [address] [place], [place] [phone] Eusebio Portillo MD [address] [place], [place] [phone] Social History Tobacco Use Types Packs/Day Years [...] Info) Description 05/18/2024 10:15 AM EDT Telemedicine [facility] MED & PEDS [address] [place] [address] Eusebio Portillo MD [address] [place] [address] documented as of this encounter Visit Diagnoses Not on filedocumented in this encounter Additional Health Concerns Assessment Noted Time PHQ-9 Depression Total Score: 0 07/20/19 23 2:03 PM EDT documented as of this encounter Care Teams Channel Marketing Program Manager Relationship Specialty Start Date End Date Eusebio Portillo MD [address] [place] [address] PCP - General Internal Medicine 05/21/20 documented as of this encounter
--- OUTSIDE RECORDS SUMMARY | 2024-04-19 10:16 | XMS_ITS | Clinical Summary ---
Author Organization [facility] Address [address] [place] [address] Care Team Providers Care Low Vision Therapist Name Role Phone Unavailable Primary Care Provider Unavailabl e Social History Tobacco Use Types Packs/Day Years Used Date Smoking Tobacco: Never Assessed Comments Unknown Sex and Gender Information Value Date Recorded Sex Assigned at Not on file Legal Sex Female 4:37 AM EST Gender Identity Not on file Sexual Orientation Not on file Plan of Treatment Health Maintenance Due Date Last Done Comments Breast Cancer Screening 1965 DTaP,Tdap,and Td Vaccines (1 - Tdap) 12/16/1983 Hepatitis B Vaccines (1 of 3 - 19+ 3-dose series) 12/16/1983 Cervical Cancer Screening: P ap Smear 1985 Pneumococcal Vaccine: 50+ Ye ars (1 of 1 - PCV) 2014 Zoster Vaccines (1 of 2) 2014 COVID-19 Vaccine ( - 2023-2 5 season) 2023 Influenza Vaccine (#1) 2023 RSV Immunization Patients 60 + Years Old (1 - 1-dose 75+ series) 12/16/2039 HIB Vaccines Aged Out No longer eligi ble based on patient's age to complete this topic HPV Vaccines Aged Out No longer eligi ble based on patient's age to complete this topic Hepatitis A Vaccines Aged Out No long er eligible based on patient's age to complete this topic IPV Vaccines Aged Out No longer eligi ble based on patient's age to complete this topic MMR Vaccines Aged Out No longer eligi ble based on patient's age to complete this topic Meningococcal ACWY Vaccine Aged Out N o longer eligible based on patient's age to complete this topic Meningococcal B Vacine Aged Out No lo nger eligible based on patient's age to complete this topic Pneumococcal Vaccine: Pediat rics (0 to 5 Years) and At-Risk Patients (6 to 64 Years) Aged Out No longer eligible b ased on patient's age to complete this topic RSV Immunization Patients Un feliciano 20 months Aged Out No longer eligible b ased on patient's age to complete this topic Varicella Vaccines Aged Out No longer eligible based on patient's age to complete this topic
--- OUTSIDE RECORDS SUMMARY | 2024-04-19 10:16 | XMS_ITS | Encounter Summary ---
Author Organization [employer] Address [address] [facility] [address] [facility] [address] 7[address] [place] [address] Care Team Providers Care Email Campaign Manager Name Role Phone Eusebio Portillo MD Primary Care Prov ider Encounter Details Date Type Department Care Team (Latest Contact Info) Description 03/20/2024 Travel Social History Tobacco Use Types Packs/Day Years [...] 05/18/2024 10:15 AM EDT Telemedicine [facility] MED & PEDS [address] [place] [address] Eusebio Portillo MD [address] [place] [address] documented as of this encounter Visit Diagnoses Not on filedocumented in this encounter Additional Health Concerns Assessment Noted Time PHQ-9 Depression Total Score: 0 07/20/19 23 2:03 PM EDT documented as of this encounter Care Teams Email Campaign Manager Relationship Specialty Start Date End Date Eusebio Portillo MD [address] [place] [address] PCP - General Internal Medicine 05/21/20 documented as of this encounter
--- OUTSIDE RECORDS SUMMARY | 2024-04-19 10:16 | XMS_ITS | Encounter Summary ---
Author Organization [employer] Address [address] [facility] [address] 7t [place] [address] Care Team Providers Care Manager Packaging Name Role Phone Eusebio Portillo MD Primary Care Prov ider Encounter Details Date Type Department Care Team (Late st Contact Info) Description 02/06/2024 Orders Only [facility] External Provider, [facility] Social History Tobacco Use Types Packs/Day Years Used Date Smoking Tobacco: Never Smokeless Tobacco: Never Depression Answer Date Recorded Patient Health Questionnaire-9 Score 0 07/19/2022 Housing Stability Answer Date Recorded What is your housing situation today? I have harshakelli gonzalez 09/16/[address] you [...] Info) Description 05/18/2024 10:15 AM EDT Telemedicine [facility] CHC MED & PEDS [address] [place] [address] AdornoEusebio Ortiz MD [address] [place] [address] documented as of this encounter Procedures Procedure Name Priority Date/Time Associated Diagnosis Comments US RENAL BI Routine 02/06/2024 9:16 AM EST documented in this encounter Results * US RENAL BI (02/06/2024 9:16 AM EST) Anatomical Region Laterality Modality Abdomen Ultrasound 02/06/2024 9:16 AM EST Narrative 03/24/2024 3:10 PM EST ? [facility] ?[address] ?[place] [address] ? Ultrasound Report ? Signed ? Patient: Uyen Maciel ?MR#: [id number] ?? 2 ? : 1965 ?Acct:[id number] ? Age/Sex: 58 / F ?ADM Date: 02/06/24 ? Loc: HO.US ? Attending Dr: Indiana HOUSTONBC ? Ordering Physician: Indiana Turner ?? Date of Service: 02/06/24 ?? Procedure(s): US renal BI ?? Accession Number(s): [id number] ? cc: Eusebio Portillo MD; Indiana Turner [facility]- ? EXAMINATION: ?? US RETROPERITONEAL LIMITED (RENAL [...] 03:07 PM EST ? Dictated By: ?Pat Bennett MD ? Signed By: ?<Electronically signed by Pat Bennett MD in OV> ? 03/24/24 1507 ? DD/ ? TD/TT: 02/06/24927 ? Data Operations Manager: ? Procedure Note Sheng, Image - 03/24/2024 [place] [id number] Ultrasound Report Signed Patient: Grant Maciel#: [id number] 2 : 1965Acct:[id number] Age/Sex: 58 / FADM Date: 02/06/24 Loc: HO.US Attending Dr: Indiana ROSALES Ordering Physician: Indiana Turner Date of Service: 02/06/24 Procedure(s): US renal BI Accession Number(s): [id number] cc: Eusebio Portillo MD; Indiana Turner EXAMINATION: [...] by: Pat Bennett MD 03/24/2024 03:07 PM [facility] Dictated By: Pat Bennett MD Signed By: <Electronically signed by Pat Bennett MD in OV> 03/24/24 1507 DD/ 5 TD/TT: 02/06/24927 Data Operations Manager: [facility] External Provider IMG US PROCEDURES Edited Result - Final documented in this encounter Visit Diagnoses Not on filedocumented in this encounter Additional Health Concerns Assessment Noted Time PHQ-9 Depression Total Score: 0 07/20/19 23 2:03 PM EDT documented as of this encounter Care Teams Manager Packaging Relationship Specialty Start Date End Date Eusebio Portillo MD [address] [place] [address] PCP - General Internal Medicine 05/21/20 documented as of this encounter
--- OUTSIDE RECORDS SUMMARY | 2024-04-19 10:16 | XMS_ITS | Encounter Summary ---
Author Organization [employer] Address [address] [facility] [facility] [address] 7[address] [place] [address] Care Team Providers Care Sweet Dough Mixer Name Role Phone Eusebio Portillo MD Primary Care Prov ider Reason for Visit * Reason Comments Med Refill Encounter Details Date Type Department Care Team ([facility] st Contact Info) Description 07/20/2023 Refill [facility] MED & PEDS [address] [place], [place] [phone] Eusebio Portillo MD [address] [place], [place] [phone] Acquired hypothyroidism Social History Tobacco Use Types [...] 05/18/2024 10:15 AM EDT Telemedicine [facility] MED & PEDS [address] [place] [address] Eusebio Portillo MD [address] [place] [address] documented as of this encounter Visit Diagnoses Diagnosis Acquired hypothyroidism Unspecified hypothyroidism documented in this encounter Additional Health Concerns Assessment Noted Time PHQ-9 Depression Total Score: 0 07/20/19 23 2:03 PM EDT documented as of this encounter Care Teams Sweet Dough Mixer Relationship Specialty Start Date End Date Eusebio Portillo MD [address] [place] [address] PCP - General Internal Medicine 05/21/20 documented as of this encounter
--- OUTSIDE RECORDS SUMMARY | 2024-04-19 10:16 | XMS_ITS | Encounter Summary ---
Author Organization [employer] Address [address] [facility] 7t [place] [address] Care Team Providers Care Assessment Services Manager Name Role Phone Eusebio Portillo MD Primary Care Prov ider Encounter Details Date Type Department Care Team ([facility] Contact Info) Description 04/20/2022 Orders Only [facility] MEDICINE [address] [place] [address] Eusebio Portillo MD [address] [place] [address] Acquired hypothyroidism Social History Tobacco Use Types [...] Encounters Date Type Department Care Team (Late Contact Info) Description 05/18/2024 10:15 AM EDT Telemedicine [facility] CH[facility] MED & PEDS [address] [place] [address] Eusebio Portillo MD [address] [place] [address] documented as of this encounter Visit Diagnoses Diagnosis Acquired hypothyroidism Unspecified hypothyroidism documented in this encounter Care Teams Assessment Services Manager Relationship Specialty Start Date End Date Eusebio Portillo MD [address] [place], [place] [phone] PCP - General Internal Medicine 05/21/20 documented as of this encounter
--- OUTSIDE RECORDS SUMMARY | 2024-04-19 10:16 | XMS_ITS | Encounter Summary ---
Author Organization [employer] Address [address] [facility] [address] 7[address] [place] [address] Care Team Providers Care Television Audio Engineer Name Role Phone Eusebio Portillo MD Primary Care Prov ider Encounter Details Date Type Department Care Team ([facility] st Contact Info) Description 04/08/2023 Orders Only [facility] CHC MED & PEDS [address] [place], [place] [phone] Eusebio Portillo MD [address] [place], [place] [phone] Social History Tobacco Use Types Packs/Day Years [...] 05/18/2024 10:15 AM EDT Telemedicine [facility] MED & PEDS [address] [place] [address] Eusebio Portillo MD [address] [place] [address] documented as of this encounter Visit Diagnoses Not on filedocumented in this encounter Additional Health Concerns Assessment Noted Time PHQ-9 Depression Total Score: 0 07/20/19 23 2:03 PM EDT documented as of this encounter Care Teams Television Audio Engineer Relationship Specialty Start Date End Date Eusebio Portillo MD [address] [place] [address] PCP - General Internal Medicine 05/21/20 documented as of this encounter
== END 2024-04-19 09:47 | disposition home or self-care (01) ==
LOC: HO.MAMMO 09:46
PROVIDERS: PCP Internal Medicine; Visit Provider Internal Medicine
DX: Z12.31 Encounter for screening mammogram for malignant neoplasm of breast (principal)
CPT/HCPCS: 77063; 77067

== ENCOUNTER → 2024-04-19 10:15 | Outpatient (BNV) | payer MEDICAID, SELFPAY | PROVIDERS: PCP Internal Medicine; Visit Provider Internal Medicine | DX: Z12.31 Encounter for screening mammogram for malignant neoplasm of breast (principal) | CPT/HCPCS: 77063; 77067 ==

== ENCOUNTER 2024-04-30 09:38 | Outpatient (AMB) | payer MEDICAID, SELFPAY ==
[2024-04-30 09:52] VITALS: BP 120/52; PULSE 87; O2SAT 97; BMI 23.9
--- NOTE | 2024-04-30 09:52 | A.OFFVIS_ITS ---
Vital Signs 04/30/24 09:52 Height 5 ft 1 in Weight 126 lb 12.253 oz BMI 23.9 BP 120/52 L Blood Pressure Location Lt brachial Position Sitting Pulse 87 Pulse Source Pulse Oximeter Pulse Oximetry (%) 97 Oxygen Delivery Method Room Air Intake Visit Reasons: COPD Intake Note: pt is here for follow up and states she has a sore throat, ear ache right side and some coughing Maid Housekeeper Required: No Allergies albuterol [From VENTOLIN] Allergy (Intermediate, Verified 04/30/24 10:29) SHORTNESS OF BREATH nut - unspecified [nut] Allergy (Intermediate, Verified 04/30/24 10:29) SWELLING dicyclomine [Bentyl] Allergy (Unknown, Verified 04/30/24 10:29) Unknown montelukast [Singulair] Allergy (Unknown, Verified 04/30/24 10:29) Unknown Medication List - Last Reconciled 04/30/24 by Carlos Borrero MD aclidinium bromide 400 mcg/actuation (Tudorza Pressair) 1 inh inhalation BID 30 days albuterol sulfate 90 mcg/actuation (ProAir HFA) 2 puffs inhalation Q4-6H PRN 30 days albuterol sulfate 2.5 mg (3 mL) inhalation Q4-6H PRN 30 days cetirizine (Zyrtec) 10 mg PO DAILY epinephrine (EpiPen 2-Kehinde) 0.3 mg IM Q10M PRN fluticasone propionate 50 mcg/actuation (Flonase Allergy Relief) 1 spray intranasal DAILY ketotifen fumarate 0.025%(0.035%) (Alaway) 1 drp ophthalmic (eye) DAILY loratadine (Alavert) 10 mg PO DAILY Do you need a note to return to daycare/school/sports/work: No HPI HPI COPD: Details: TO 8 YEARS OLD FEMALE GERMAN-SPEAKING, . COMES FOR 6 MONTHS FOLLOW-UP HER MAIN ISSUE IS CHRONIC ALLERGIC RHINITIS AND COPD. SHE CLAIMS THAT SHE HAS BEEN DOING WELL, EXCEPT SINCE ABOUT 2 OR 3 DAYS AGO SHE IS HAVING MILD SORE THROAT AND LEFT EARACHE. SHE HAS NO FEVER OR CHILLS. SHE HAS BEEN USING ANORO ELLIPTA ONCE A DAY AND ALBUTEROL JUST NEEDED. ALLERGIC RHINITIS REMAINS UNDER CONTROL AND SHE DOES USE FLONASE 1 SPRAY IN EACH NOSTRIL DAILY. SHE IS NONSMOKER. [facility] Medical History (Updated 04/30/24 @ 10:38 by Carlos Borrero MD) Pharyngitis Recurrent UTI Renal cysts, acquired, bilateral Gross hematuria Arthritis Hypothyroidism UTI (urinary tract infection) COPD (chronic obstructive pulmonary disease) Allergic rhinitis Surgical History Hx of dilation and curettage History of hysteroscopy H/O tubal ligation H/O colonoscopy History of eye surgery Social History Household Members: None Housing: Apartment Alcohol intake: never Patient Tobacco Use Status: Never used Tobacco Sexual orientation: Straight/Heterosexual Gender identity: Female Female Reproductive History Menstrual Age of Menarche: 11 Review of Systems Const All systems reviewed & are unremarkable except as noted in HPI and below Eyes Reports no additional complaints ENT Reports nasal congestion (MILD TO MODERATE ALMOST DAILY.) Card Reports no additional complaints Resp Reports as per HPI GI Reports no additional complaints Reports no additional complaints Musc Reports no additional complaints Skin/Breast Reports system reviewed and no additional complaints, except as documented Neuro Reports no additional complaints Psych Reports anxiety (MILD CONTROLLED) Endo Reports no additional complaints Steve/Lymph Reports no additional complaints Physical Exam Vital Signs: Last Vital Signs Pulse 87 04/30/24 09:52 BP 120/52 L 04/30/24 09:52 Pulse Ox 97 04/30/24 09:52 Oxygen Delivery Method Room Air 04/30/24 09:52 BMI result Body Mass Index 23.9 Const General: comfortable, no acute distress, alert and awake Orientation/consciousness: patient oriented x3 HEENT Head: Yes normal to inspection Ears: other (THE EAR CANALS ARE NORMAL) General nose exam: No nasal polyps present, Normal septum present (mild DNS to the left), No nasal discharge present and Other nasal findings present (no active congestion ) Face and sinus: Yes sinuses nontender Mouth: oropharynx abnormals (THERE IS MILD ERYTHEMA OF THE UVULA AND SOFT PALATE, NO ULCERATION,) Throat: Yes posterior oropharynx normal Eyes General: appearance normal, both eyes and all related structures Neck Neck: Yes normal visual inspection, Yes no lymphadenopathy, Yes trachea midline and Yes no JVD Thyroid: Thyroid normal Chest Chest palpation & inspection: normal inspection of the chest, normal palpation of entire chest wall and no tenderness Resp Other: PERCUSSION NOTE RESONANT, BREATH SOUNDS ARE EQUAL ON BOTH SIDES WITH SLIGHTLY PROLONGED EXPIRATORY PHASE. NO WHEEZES, RHONCHI OR CREPS ARE HEARD. Cardio Palpation: normal PMI Rate: regular rate Rhythm: regular rhythm Heart sounds: no gallops and no murmurs Peripheral pulses: Peripheral pulses 2+ throughout GI Palpation (GI): Soft to palpation, Tenderness to palpation present (GI), No hepatosplenomegaly present and Palpable mass present Auscultation: normal bowel sounds Back/Spine/Pelvis Thoracic/Lumbar Spine: thoracic and lumbar spine normal to inspection Skin General skin exam: no rashes or lesions noted Neuro General: patient oriented x3 and no focal motor deficits Cranial nerves: Yes CN's II-XII intact bilaterally Extrem General: Yes normal to inspection, Yes no clubbing, cyanosis or edema and Yes no calf tenderness Psych Appearance: grossly normal and well kempt Speech and movement: Normal speech and movement present Assessment & Plan Assessment & Plan (1) Allergic rhinitis: Comment: CHRONIC, CONTROLLED WITH PRESENT REGIMEN. * STOPPED ALLERGY SHOTS , SINCE 2 YEARS AGO . SHE WAS GETTING LOCAL REACTION FROM THE SHOTS . Code(s): J30.9 - Allergic rhinitis, unspecified Category: Medical Plan: SHE IS DOING OKAY WITHOUT ANY ACUTE SYMPTOMS. ADVISED TO CONTINUE USING FLONASE 1 SPRAY EACH NOSTRIL B.I.D.. MAY USE ZYRTEC 10 MG ONCE A DAY P.R.N. (2) COPD (chronic obstructive pulmonary disease): Comment: MODERTAELY SEVERE ,REMAINING STABLE . HAS HAD NO ACUTE EXACERBATION IN THE LAST 6 MONTHS. Code(s): J44.9 - Chronic obstructive pulmonary disease, unspecified Category: Medical Plan: CONTINUE USING ANORO ELLIPTA 1 INHALATION B.I.D.. ALBUTEROL HFA 2 PUFFS. Q 6 HOURS P.R.N. WHEN OUTDOORS AT HOME SHE CAN USE ALBUTEROL SOLUTION IN THE NEBULIZER Q.4-6 HOURS P.R.N.. (3) Pharyngitis: Comment: SHE HAS COMPLAINT OF MILD SORE THROAT FOR THE LAST FEW DAYS, ALONG WITH MILD EARACHE LEFT SIDE. ON EXAMINATION THERE IS EVIDENCE OF VERY MILD ERYTHEMA OF THE UVULA AND SOFT PALATE, LEFT EAR CANAL IS NORMAL. THIS SEEMS TO LIKE A MILD VIRAL PHARYNGITIS. Code(s): J02.9 - Acute pharyngitis, unspecified Category: Medical Plan: PATIENT EXPLAINED AND REASSURED. ADVISED TO DO WARM WATER AND SALT GARGLES 2 OR 3 TIMES A DAY. Coding Level of Care Code Est Pt Level 3 (39567) Diagnoses Allergic rhinitis J30.9 COPD (chronic obstructive pulmonary disease) J44.9 Pharyngitis J02.9
--- OUTSIDE RECORDS SUMMARY | 2024-04-30 10:30 | XMS_ITS | Encounter Summary ---
Author Organization [employer] Address [address] [facility] 7t [place] [address] Care Team Providers Care Video Systems Engineer Name Role Phone Eusebio Portillo MD Primary Care Prov ider Reason for Visit * Reason Comments Med Refill Encounter Details Date Type Department Care Team ([facility] st Contact Info) Description 08/29/[address] [facility] MED & PEDS [address] [place], [place] [phone] Eusebio Portillo MD [address] [place], [place] [phone] Social History Tobacco Use Types Packs/Day Years [...] Info) Description 05/18/2024 10:15 AM EDT Telemedicine [facility] MED & PEDS [address] [place] [address] Eusebio Portillo MD [address] [place] [address] documented as of this encounter Visit Diagnoses Not on filedocumented in this encounter Additional Health Concerns Assessment Noted Time PHQ-9 Depression Total Score: 0 07/20/19 23 2:03 PM EDT documented as of this encounter Care Teams Video Systems Engineer Relationship Specialty Start Date End Date Eusebio Portillo MD [address] [place] [address] PCP - General Internal Medicine 05/21/20 documented as of this encounter
--- OUTSIDE RECORDS SUMMARY | 2024-04-30 10:30 | XMS_ITS | Encounter Summary ---
Author Organization [employer] Address [address] [facility] [address] [place] [address] Care Team Providers Care Insurance Policy Issue Clerk Name Role Phone Eusebio Portillo MD Primary Care Prov ider Reason for Visit * Reason Onset Date Comments Nurse Triage 01/13/2024 Encounter Details Date Type Department Care Team (Late st Contact Info) Description 01/13/2024 Telephone [facility] MEDICINE [address] [place], [place] [phone] Eusebio Portillo MD [address] [place], [place] [phone] Nurse Triage Social History Tobacco Use Types [...] AM EST Triage call with [employer] industrial engineer [place] [id number] Pt reports dizziness for a three days [...] care advice and disposition. ASK apt in [facility] today at 320pm. Insurance is [...] [facility] [address] [place] [address] Eusebio Portillo MD [address] [place] [address] documented as of this encounter Visit Diagnoses Not on filedocumented in this encounter Additional Health Concerns Assessment Noted Time PHQ-9 Depression Total Score: 0 07/20/19 23 2:03 PM EDT documented as of this encounter Care Teams Insurance Policy Issue Clerk Relationship Specialty Start Date End Date Eusebio Portillo MD [address] [place] [address] PCP - General Internal Medicine 05/21/20 documented as of this encounter
--- OUTSIDE RECORDS SUMMARY | 2024-04-30 10:30 | XMS_ITS | Clinical Summary ---
Author Organization [employer] Address [address] [facility] 7t [place] [address] Care Team Providers Care Plaster Maker Name Role Phone Eusebio Portillo MD Primary Care Prov ider Allergies Active Allergy Reactions Criticality Noted Date Comments [place] Oil Swelling High 09/13/2022 Montelukast Headache,Unknown 05/26/2010 Propofol Hives 07/01/2023 Zafirlukast Headache 05/26/2010 Medications Blood Pressure Monitor kitIndications:El evated blood pressure reading Use as directed 3x/week 1 kit 023 Active fluticasone-salme terol (Advair) 115-21 MCG/ACT inhaler Inhale 2 puffs in the morning and at bedtime. Rinse mouth with water after use to reduce aftertaste and incidence of candidiasis. Do not swallow. Active albuterol (2.5 MG/3ML) 0.083% nebulizer solutionIndicatio ns:Moderate persistent asthma with acute exacerbation Take 3 mL (2.5 mg) by nebulization every 6 (six) hours if needed for wheezing. 25 mL 1 024 Active loratadine (Claritin) 10 MG tablet Take 10 mg by mouth Once per day. Active EPINEPHrine (Epipen) 0.3 MG/0.3ML injection syringe Inject 0.3 mL (0.3 mg) as directed 1 (one) time for 1 dose. use as directed for allergic reaction and then call 911 0.3 mL 024 Active Tudorza Pressair 400 MCG/ACT inhaler TAKE 1 PUFF INHALED 2 TIMES A DAY FOR COPD FOR 30 DAYS Active fluticasone (Flonase) 50 MCG/ACT nasal spray USE 1 SPRAY IN EACH NOSTRIL IN THE MORNING. SHAKE GENTLY. BEFORE FIRST USE, PRIME PUMP. AFTER USE, CLEAN TIP AND REPLACE CAP. 48 mL Active levothyroxine (Synthroid) 50 MCG tabletIndications :Acquired hypothyroidism Take 1 tablet (50 mcg) by mouth before breakfast. 30 tablet 11 025 2025 Active docusate sodium (Colace) 100 MG capsule TOME 1 CAPSULA POR VIA ORAL EN LA MANANA AND AL ACOSTARSE CUANDO SEA NECESARIO PARA EL ESTRENIMIENTO 60 capsule 1 025 Active albuterol (Ventolin HFA) 108 (90 Base) MCG/ACT inhaler INHALE DANDO DOS SOPLIDOS POR VIA ORAL CADA SEIS HORAS CUANDO SEA NECESARIO WHEEZE 18 g 1 025 Active albuterol (Ventolin HFA) 108 (90 Base) MCG/ACT inhaler INHALE 2 PUFFS EVERY 6 HOURS IF NEEDED FOR WHEEZING. 18 g 1 024 2024 Discontinued Active Problems Problem Noted Date Diagnosed Date [...] EDT): Discussed ultrasound findings, follow up with ob-tug boat engineer Acquired hypothyroidism 04/28/2022 Assessment & Plan (03/19/2024 [...] Encounters Date Type Department Care Team Description 04/23/2024 Refill [facility] PEDS [address] [place] [address] Jennifer Fu FNP 03/27/2024 Refill [facility] [address] [place] [address] Eusebio Portillo MD Acquired hypothyroidism 03/20/2024 Orders Only [facility] [address] [place] [address] Eusebio Portillo MD 03/20/2024 Travel 03/19/2024 9:30 AM EST Office Visit [facility] [address] [place] [address] Eusebio Portillo MD Low vitamin D level (Primary Dx); Acquired hypothyroidism 03/19/2024 Refill [facility] [address] [place] [address] Eusebio Portillo MD 03/19/2024 Travel 03/05/2024 Refill [facility] [address] [place] [address] Eusebio Portillo MD 02/06/2024 Orders Only [facility] External Provider, [facility] 01/29/2024 Refill [facility] 505 [facility] [place] [address] Eusebio Portillo MD from Last 3 Months [...] Info) Description 05/18/2024 10:15 AM EDT Telemedicine [facility] [address] [place] [address] Eusebio Portillo MD [address] [place] [address] Health Maintenance Due Date Last Done Comments [...] Screening 09/15/2024 09/16/2023 Tobacco Screening 01/12/2025 01/13/2024 Colonoscopy 07/15/2025 07/16/2015 Colorectal Cancer Screening 07/15/2025 Mammogram 04/19/2026 04/19/2024, 0211/2023, 03/17/2022, Additional history exists Cervical Cancer Screening 05/26/2026 HPV/Cotest 05/26/2026 05/26/2021, [...] Procedure Name Priority Date/Time Associated Diagnosis Comments BI MAMMOGRAM SCREENING TOMOSYNTHESIS BILATERAL Routine 04/19/2024 10:35 AM EST T4, FREE Routine 03/20/2024 8:54 AM EST TSH W/REFLEX TO FT4 Routine 03/20/2024 8 :54 AM EST Acquired hypothyroidism VITAMIN D,25-OH,TOTAL,IA Routine 03/20/2024 8:54 AM EST Low vitamin D level COMPREHENSIVE METABOLIC PANEL Routine 03/20/2024 8:54 AM EST Low vitamin D level AMB REFERRAL TO UROLOGY Routine 02/21/2024 Dysuria Hydroureteronephrosis Ureter filling defect Recurrent UTI US RENAL BI Routine 02/06/2024 9:16 AM EST HEPATITIS C AB W/REFL TO [...] Recently Relevant to Health Maintenance Results * BI Mammogram Screening Tomosynthesis Bilateral (04/19/2024 10:35 AM EST) Anatomical Region Laterality Modality Breast Bilateral Mammography 04/19/2024 10:3 5 AM EST Narrative 04/27/2024 5:05 PM EST ? [facility] ? [address] ?[place] [address] ? Mammography Report ? Signed ? Patient: Maciel,Uyen ?MR#: [id number] ?? 2 ? : 1965 ?Acct:[id number] ? Age/Sex: 58 / F ?ADM Date: 04/19/24 ? Loc: HO.MAMMO ? Attending Dr: Eusebio Connors MD ? Ordering Physician: Eusebio Portillo MD ?Res ?? ults: 1Negative ? Date of Service: 04/19/24 ?Follow Up: 1 Year From Orig ?? inal Mammogram ? Procedure(s): MM tomosynthesis screening BI ?? Accession Number(s): [id number] ? cc: Eusebio Portillo MD ? EXAMINATION: ?? MM SCREENING DIGITAL BREAST TOMOSYNTHESIS, BILATERAL ? CLINICAL INFORMATION: ? Screening. Asymptomatic. ? COMPARISON: ?? Mammography: Comparison is made with available priors ? TECHNIQUE: ?? Digital breast mammography with tomosynthesis is performed in both the ?? craniocaudal and mediolateral oblique views along with computer-aided ?? detection (CAD). ? FINDINGS: ?? There are scattered areas [...] due date for their next mammogram. ? Electronically signed by: ??Heather Morris DO ??04/27/2024 05:02 PM EST ? Dictated By: ?Heather Morris DO ? Signed By: ?<Electronically signed by Heather Morris, DO in OV> ? 04/27/24 1702 ? DD/ 1035 ? TD/TT: 04/19/24 1044 ? Director State Pharmacy: ? Procedure Note Sheng, Image - 04/27/2024 [facility] [address] [place] [address] Mammography Report Signed Patient: Grant Maciel#: [id number] 2 : 1965Acct:[id number] Age/Sex: 58 / FADM Date: 04/19/24 Loc: HO.MAMMO Attending Dr: Eusebio Connors MD Ordering Physician: Eusebio Portillo ults: 1Negative Date of Service: 04/19/24Follow Up: 1 Year From Orig inal Mammogram Procedure(s): MM tomosynthesis screening BI Accession Number(s): [id number] cc: Eusebio Portillo MD EXAMINATION: MM SCREENING DIGITAL BREAST TOMOSYNTHESIS, BILATERAL CLINICAL INFORMATION: Screening. Asymptomatic. COMPARISON: Mammography: Comparison is made with available priors TECHNIQUE: Digital breast mammography with tomosynthesis is performed in both the craniocaudal and mediolateral oblique views along with computer-aided detection (CAD). FINDINGS: There are scattered areas of fibroglandular [...] target due date for their next mammogram. Electronically signed by: Heather Morris DO 04/27/2024 05:02 PM EST RP Dictated By: Heather Morris DO Signed By: <Electronically signed by Heather Morris DO in OV> 04/27/24 1702 DD/ 1035 TD/TT: 04/19/24 1044 Director State Pharmacy: Eusebio Connors MD IM BI PROCEDURES Final Result * Vitamin D, 25-Hydroxy, Total, Immunoassay (03/20/2024 8:54 AM EST) Vitamin D 25-OH Total 55.5 >30 ng/mL [facility] Comment:Health Based Referen ce Values*< 20 ng/mL [id number] ng/mL Insufficient> 30 ng/mL Sufficient*Luma OSBORNE. N Engl J Med. 2007;357:266-280Care must be [...] ORDERABL ES Final Result Performing Organization Address [facility] Phone Number [facility] [address] [place] [phone] * (ABNORMAL) TSH W/Reflex to FT4 (03/20/2024 8:54 AM EST) TSH reflex Free T4 0.16(L) 0.32 - 4.0 uIU/mL [facility] Blood Venous blood specimen / Unknown 03/20/2024 8:54 AM EST 03/20/2024 2:00 PM EST Eusebio Connors MD LAB BLOOD ORDERABL ES Final Result Performing Organization Address [facility] Phone Number [facility] [address] [place] [phone] * T4, Free (03/20/2024 8:54 AM EST) Pathologist [facility] Free T4 (Free Thyroxine) 1.22 0.71 - 1.85 ng/dL [facility] 03/20/2024 8:54 AM EST 03/20/2024 2:00 PM EST Eusebio Connors MD LAB BLOOD ORDERABL ES Final Result Performing Organization Address [facility] Phone Number [facility] [address] [place] [phone] * (ABNORMAL) Comprehensive Metabolic Panel (03/20/2024 8:54 AM EST) Sodium 140 135 - 145 mmol/L [facility] Potassium 3.9 3.3 - 5.1 mmol/L [facility] Chloride 106 96 - 108 mmol/L [facility] Carbon Dioxide 29 22 - 29 mmol/L [facility] Anion Gap 9(L) 12 - 20 [facility] Urea Nitrogen (BUN) 17(H) 9 - 16 mg/dL [facility] Creatinine, Serum 0.64 0.5 - 1.4 mg/dL [facility] Estimated Glomerular Filt Rate >60 [facility] Comment:Chronic Kidney Disea se: Estimated GFR < 60 mL/min/1.99f0Ergrzp Kidney Disease: Estimated GFR < 15 mL/min/1.73m2 Glucose 96 60 - 115 mg/dL [facility] Calcium 9.1 8.4 - 10.2 mg/dL [facility] Bilirubin, Total 0.5 0.0 - 1.0 mg/dL [facility] Aspartate Amino Transferase 30 5 - 31 U/L [facility] Alanine Aminotransferase 26 0 - 31 U/L [facility] Total Protein 7.1 6.5 - 8.0 g/dL [facility] Albumin Level 4.3 3.5 - 5.0 g/dL [facility] Alkaline Phosphatase 74 39 - 117 U/L [facility] Blood Venous blood specimen / Unknown 03/20/2024 8:54 AM EST 03/20/2024 2:00 PM EST us Eusebio Connors MD LAB BLOOD ORDERABL ES Final Result [facility] [address] [place], [place] [phone] * Referral to Urology (02/21/2024) us Catia Long MD OUTPATIENT REFERRAL ORDERABLES Final Result * US RENAL BI (02/06/2024 9:16 AM EST) Anatomical Region Laterality Modality Abdomen Ultrasound 02/06/2024 9:16 AM EST Narrative 03/24/2024 3:10 PM EST ? [facility] ?[address] ?[place] [address] ? Ultrasound Report ? Signed ? Patient: Maciel,Uyen ?MR#: [id number] ?? 2 ? : 1965 ?Acct:[id number] ? Age/Sex: 58 / F ?ADM Date: 02/06/24 ? Loc: HO.US ? Attending Dr: Indiana ROSALES ? Ordering Physician: Indiana Turner ?? Date of Service: 02/06/24 ?? Procedure(s): US renal BI ?? Accession Number(s): [id number] ? cc: Eusebio Portillo MD; Indiana Turner [...] ??Pat Bennett MD ??03/24/2024 03:07 PM EST ?? RP ? Dictated By: ?Pat Bennett MD ? Signed By: ?<Electronically signed by Pat Bennett MD in OV> ? 03/24/24 1507 ? DD/ 0916 ? TD/TT: 02/06/24 09 ? Director State Pharmacy: ? Procedure Note Sheng, Image - 03/24/[address] [address] Ultrasound Report Signed Patient: Grant Maciel#: [id number] 2 : 1965Acct:[id number] Age/Sex: 58 / FADM Date: 02/06/24 Loc: HO.US Attending Dr: Indiana ROSALES Ordering Physician: Indiana Turner Date of Service: 02/06/24 Procedure(s): US renal BI Accession Number(s): [id number] cc: Eusebio Portillo MD; Indiana Turner EXAMINATION: [...] Pat Bennett MD 03/24/2024 03:07 PM EST Dictated By: Pat Bennett MD Signed By: <Electronically signed by Pat Bennett MD in OV> 03/24/24 1507 DD/ 0916 TD/TT: 02/06/24 09 Director State Pharmacy: [facility] External Provider IMG US PROCEDURES Edited Result - Final * HIV-1 RNA, Quantitative, Real-Time PCR with Reflex to Genotype (RTI, PI, Integrase) (05/03/2022 11:10 AM EST) HIV 1 RNA, QN PCR NOT DETECTED copies/mL [facility], HIV 1 RNA, QN PCR NOT DETECTED Log copies/mL [facility], Comment: REFERENCE RANGE: NOT DETECTED copies/mL ?NOT DETECTED ??Log copies/mL This test was performed using Real-Time Polymerase Chain Reaction. Reportable range is 20 to 10,000,000 copies/mL (1.30-7.00 Log copies/mL). 05/03/2022 11:1 0 AM EST 05/03/2022 11:11 AM EST Narrative [facility] - 05/06/2022 12:22 AM EST FASTING:YES FASTING: YES Eusebio Connors MD LAB BLOOD ORDERABL ES Final Result [facility] [address], [place] [address] [facility], [address] [place] [address] * Hepatitis C Antibody with Reflex to HCV, RNA, Quantitative, Real-Time PCR (05/03/2022 11:10 AM EST) Pathologist [facility] Hepatitis C Antibody NON-REACT SADIE NON-REACT SADIE [facility] [place] [employer] Index 0.03 <1.00 [facility] Comment: HCV antibody was non-reactive. There is no laboratory evidence of HCV infection. In most cases, no further action is required. However, if recent HCV exposure is suspected, a test for HCV RNA (test code 78898) is suggested. For additional information please refer to http://education.[employer]/faq/JQE58y9 (This link is being provided for informational/ educational purposes only.) Blood Venous blood specimen / Unknown 05/03/2022 11:10 AM EST 05/03/2022 11:11 AM EST Narrative [facility] - 05/06/2022 12:22 AM EST FASTING:YES FASTING: YES us Eusebio Connors MD LAB BLOOD ORDERABL ES Final Result [facility] [address] [facility] [place] [address] [facility] [address] [facility], ([address]) [place] [address] * THINPREP TIS PAP AND HPV mRNA E6/E7 WITH REFLEX TO HPV 16,18/45 (05/26/2021 1:00 PM EDT) Clinical Information: None given [facility] COMMENT SEE COMMENT [facility] ON [...] was manually screened according to routine procedures. School Social Worker: SEE COMMENT [facility] Comment: KN, CT(ASCP) CT screening location: [address] ??[address] HPV nRNA E6/E7 Not Detected Not Detected [facility] [address] Comment: Methodology: Catalogue Maker-Mediated Amplification This assay detects E6/E7 viral messenger RNA (mRNA) from 14 high-risk HPV types (16,18,31,33,35,39,45,51,52,56,58,59,66,68). ? The analytical performance characteristics of this assay have been determined by [employer]. The modifications have not been cleared or approved by the FDA. This assay has been validated pursuant to the CLIA regulations and is used for clinical purposes. ?? For additional information, please refer to http://education.[employer].fishfishme/faq/EGB188v1 (This link if provided for information/ educational [...] EVALUATION Age and/or menstrual status not provided [facility] 05/26/2021 1:00 PM EDT Keeley Fregoso CNM LAB PATHOLOGY ORDERABLES Final Result [facility] [address] [place] [address], * Hm Colonoscopy (07/16/2015 8:12 AM EDT) us Historical Provider MD HEALTH MAINTENANCE Final Result from Last 3 Months or Most Recently Relevant to Health Maintenance [facility] Care Teams Plaster Maker Relationship Specialty Start Date End Date AdornoEusebio Vargas MD [address] [place] [address] [place] [address] PCP - General Internal Medicine 05/21/20
--- OUTSIDE RECORDS SUMMARY | 2024-04-30 10:30 | XMS_ITS | Clinical Summary ---
Author Organization [facility] Address [address] [place] [address] Care Team Providers Care Machine Operator Replanter Name Role Phone Unavailable Primary Care Provider [...]
--- OUTSIDE RECORDS SUMMARY | 2024-04-30 10:30 | XMS_ITS | Encounter Summary ---
Author Organization [employer] Address [address] [facility] 7t [place] [address] Care Team Providers Care Sales Order Processor Name Role Phone Eusebio Portillo MD Primary Care Prov ider Reason for Visit * Reason Comments Med Refill Encounter Details Date Type Department Care Team ([facility] st Contact Info) Description 03/27/2024 Refill [facility] MED & PEDS [address] [place], [place] [phone] Eusebio Portillo MD [address] [place], [place] [phone] Acquired hypothyroidism Social History Tobacco Use Types [...] Info) Description 05/18/2024 10:15 AM EDT Telemedicine [facility] MED & PEDS [address] [place] [address] Eusebio Portillo MD [address] [place] [address] documented as of this encounter Visit Diagnoses Diagnosis Acquired hypothyroidism Unspecified hypothyroidism documented in this encounter Additional Health Concerns Assessment Noted Time PHQ-9 Depression Total Score: 0 07/20/19 23 2:03 PM EDT documented as of this encounter Care Teams Sales Order Processor Relationship Specialty Start Date End Date Eusebio Portillo MD [address] [place] [address] PCP - General Internal Medicine 05/21/20 documented as of this encounter
--- OUTSIDE RECORDS SUMMARY | 2024-04-30 10:31 | XMS_ITS | Encounter Summary ---
Author Organization [employer] Address [address] [facility] [address] 7t [place] [address] Care Team Providers Care Dictating Machine Transcriber Name Role Phone Eusebio Portillo MD Primary Care Prov ider Reason for Visit * Reason Comments Med Refill Encounter Details Date Type Department Care Team ([facility] st Contact Info) Description 04/23/2024 Refill [facility] CHC MED & PEDS [address] [place], [place] [phone] Jennifer Fu FNP [address] [place], [place] [phone] Social History Tobacco Use Types Packs/Day Years Used Date Smoking Tobacco: Never Smokeless Tobacco: Never Depression Answer Date Recorded Patient Health Questionnaire-9 Score 0 07/19/2022 Housing Stability Answer Date Recorded What is your housing situation today? I have harsha gnozalez 09/16/[address] you li [...] Info) Description 05/18/2024 10:15 AM EDT Telemedicine [facility] CHC MED & PEDS [address] [place] [address] Eusebio Portillo MD [address] [place] [address] documented as of this encounter Visit Diagnoses Not on filedocumented in this encounter Additional Health Concerns Assessment Noted Time PHQ-9 Depression Total Score: 0 07/20/19 23 2:03 PM EDT documented as of this encounter Care Teams Dictating Machine Transcriber Relationship Specialty Start Date End Date Eusebio Portillo MD [address] [place] [address] PCP - General Internal Medicine 05/21/20 documented as of this encounter
--- OUTSIDE RECORDS SUMMARY | 2024-04-30 10:31 | XMS_ITS | Encounter Summary ---
Author Organization [employer] Address [address] [facility] [address] 7[address] [place] [address] Care Team Providers Care [place] [employer] Group Leader Name Role Phone Eusebio Portillo MD Primary Care Prov ider Reason for Visit * Reason Onset Date Comments ER Follow-up 07/01/2023 Encounter Details Date Type Department Care Team ([facility] st Contact Info) Description 07/01/2023 Telephone [facility] MEDICINE [address] [place], [place] [phone] Eusebio Portillo MD [address] [place], [place] [phone] ER Follow-up Social History Tobacco Use Types [...] 1:07 PM EDT Pt was seen in [facility] today not ED. Pt advised to return call to office if symptoms persist or worsen.Pt had ED precautions reviewed. * Telephone Encounter - Hubert Zhou - 07/01/2023 11:34 AM EDT Patient calling to report ED visit on : Date: 06/29 Hospital: [facility] Seen for: Breathing troubles and was diagnosed with asthma Patient advised will forward to team nurse for follow up documented in this encounter Plan of Treatment Upcoming Encounters Date Type Department Care Team (Late st Contact Info) Description 05/18/2024 10:15 AM EDT Telemedicine [facility] CHC MED & PEDS [address] [place] [address] Eusebio Portillo MD [address] [place] [address] documented as of this encounter Visit Diagnoses Not on filedocumented in this encounter Additional Health Concerns Assessment Noted Time PHQ-9 Depression Total Score: 0 07/20/19 23 2:03 PM EDT documented as of this encounter Care Teams [place] [employer] Group Leader Relationship Specialty Start Date End Date Eusebio Portillo MD [address] [place] [address] PCP - General Internal Medicine 05/21/20 documented as of this encounter
--- OUTSIDE RECORDS SUMMARY | 2024-04-30 10:31 | XMS_ITS | Encounter Summary ---
Author Organization [employer] Address [address] [facility] 7t [place] [address] Care Team Providers Care Corporate General Manager Name Role Phone Eusebio Portillo MD Primary Care Prov ider Encounter Details Date Type Department Care Team ([facility] Contact Info) Description 04/20/2022 Orders Only [facility] MEDICINE [address] [place] [address] Eusebio Portillo MD [address] [place] [address] Acquired hypothyroidism Social History Tobacco Use Types [...] Info) Description 05/18/2024 10:15 AM EDT Telemedicine [facility] CHC MED & PEDS [address] [place] [address] Eusebio Portillo MD [address] [place] [address] documented as of this encounter Visit Diagnoses Diagnosis Acquired hypothyroidism Unspecified hypothyroidism documented in this encounter Care Teams Corporate General Manager Relationship Specialty Start Date End Date Eusebio Portillo MD [address] [place], [place] [phone] PCP - General Internal Medicine 05/21/20 documented as of this encounter
--- OUTSIDE RECORDS SUMMARY | 2024-04-30 10:31 | XMS_ITS | Encounter Summary ---
Author Organization [employer] Address [address] [facility] [address] 7[address] [place] [address] Care Team Providers Care Heel Edge Inker Machine Name Role Phone Eusebio Portillo MD Primary Care Prov ider Encounter Details Date Type Department Care Team (Late st Contact Info) Description 06/27/2023 Orders Only [facility] MEDICINE [address] [place], [place] [phone] ProviderLinnea MD Social History Tobacco Use Types [...] [facility] [address] [place] [address] Eusebio Portillo MD [address] [place] [address] documented as of this encounter Procedures Procedure [...] documented as of this encounter Care Teams Heel Edge Inker Machine Relationship Specialty Start Date End Date Eusebio Portillo MD [address] [place] [address] PCP - General Internal Medicine 05/21/20 documented as of this encounter
--- OUTSIDE RECORDS SUMMARY | 2024-04-30 10:31 | XMS_ITS | Encounter Summary ---
Author Organization [employer] Address [address] [facility] [address] [place] [address] Care Team Providers Care Gauge Inspector Name Role Phone Eusebio Portillo MD Primary Care Prov ider Encounter Details Date Type Department Care Team ([facility] st Contact Info) Description 04/08/2023 Orders Only [facility] CHC MED & PEDS [address] [place], [place] [phone] Eusebio Portillo MD [address] [place], [place] [phone] Social History Tobacco Use Types Packs/Day Years [...] AM EDT Telemedicine [facility] MED & PEDS [address] [place] [address] Eusebio Portillo MD [address] [place] [address] documented as of this encounter Visit Diagnoses Not on filedocumented in this encounter Additional Health Concerns Assessment Noted Time PHQ-9 Depression Total Score: 0 07/20/19 23 2:03 PM EDT documented as of this encounter Care Teams Gauge Inspector Relationship Specialty Start Date End Date Eusebio Portillo MD [address] [place] [address] PCP - General Internal Medicine 05/21/20 documented as of this encounter
--- OUTSIDE RECORDS SUMMARY | 2024-04-30 10:31 | XMS_ITS | Encounter Summary ---
Author Organization [employer] Address [address] 7t [place] [address] Care Team Providers Care Wind Turbine Mechanical Engineer Name Role Phone Eusebio Portillo MD Primary Care Prov ider Reason for Visit * Reason Comments Med Refill Encounter Details Date Type Department Care Team ([facility] st Contact Info) Description 07/20/2023 Refill [facility] CHC MED & PEDS [address] [place], [place] [phone] Eusebio Portillo MD 505 [place], [place] [phone] Acquired hypothyroidism Social History Tobacco Use Types [...] Info) Description 05/18/2024 10:15 AM EDT Telemedicine [facility] MED & PEDS [address] [place] [address] Eusebio Portillo MD 505 [place] [address] documented as of this encounter Visit Diagnoses Diagnosis Acquired hypothyroidism Unspecified hypothyroidism documented in this encounter Additional Health Concerns Assessment Noted Time PHQ-9 Depression Total Score: 0 07/20/19 23 2:03 PM EDT documented as of this encounter Care Teams Wind Turbine Mechanical Engineer Relationship Specialty Start Date End Date Eusebio Portillo MD 505 [place] [address] PCP - General Internal Medicine 05/21/20 documented as of this encounter
== END 2024-04-30 10:30 | disposition home or self-care (01) ==
PROVIDERS: PCP Internal Medicine; Visit Provider Internal Medicine
DX: J30.9 Allergic rhinitis, unspecified (principal); J44.9 Chronic obstructive pulmonary disease, unspecified; J02.9 Acute pharyngitis, unspecified
CPT/HCPCS: 99213

== ENCOUNTER → 2024-04-30 09:38 | Outpatient (BNVA) | payer MEDICAID, SELFPAY | PROVIDERS: PCP Internal Medicine; Visit Provider Internal Medicine | DX: J44.9 Chronic obstructive pulmonary disease, unspecified (principal); J30.9 Allergic rhinitis, unspecified; J02.9 Acute pharyngitis, unspecified | CPT/HCPCS: 99212 ==

== ENCOUNTER 2024-06-18 13:45 | Outpatient (REF) | payer MEDICAID, SELFPAY ==
--- NOTE | ~2024-06-18 | US_ITS ---
EXAMINATION: US THYROID HISTORY: goiter TECHNIQUE: Real-time grayscale ultrasound imaging was performed and images were reviewed. COMPARISON: There are no prior studies for comparison. FINDINGS: SIZE: The right thyroid lobe measures 1.2 x 0.4 x 0.6 cm. The left thyroid lobe measures 1.6 x 0.7 x 0.4 cm. The isthmus measures 1 mm. FLOW: Flow to the gland is normal. ECHOGENICITY: The echotexture of the gland is homogeneous. NODULES: No nodules are identified. US/US thyroid IMPRESSION: Atrophic thyroid gland. No discrete nodules are identified. ACR TI-RADS Guidelines TR1 (0 points): Benign, No follow-up or biopsy required TR2 (2 points): Not Suspicious, No biopsy or follow up indicated TR3 (3 points): Mildly Suspicious, FNA if >= 2.5 cm, Follow if >= 1.5 cm TR4 (4-6 points): Moderately Suspicious, FNA if >= 1.5 cm, Follow if >= 1.0 cm TR5 (>=7 points): Highly Suspicious, FNA if >= 1.0 cm, Follow if >= 0.5 cm Electronically signed by: Edd Dale MD 06/19/2024 07:22 AM EDT
--- OUTSIDE RECORDS SUMMARY | 2024-06-18 15:57 | XMS_ITS | Encounter Summary ---
Author Organization [employer] Address [address] 7t [place] [address] Care Team Providers Care Byproducts Pump Operator Name Role Phone Eusebio Portillo MD Primary Care Prov ider Encounter Details Date Type Department Care Team ([facility] st Contact Info) Description 04/08/2023 Orders Only [facility] CHC MED & PEDS [address] [place], [place] [phone] Eusebio Portillo MD 505 [place], [place] [phone] Social History Tobacco Use Types Packs/Day Years [...] Care Team (Late st Contact Info) Description 08/20/2024 10:15 AM EDT Telemedicine [facility] MED & PEDS 505 [place] [address] Eusebio Portillo MD 505 [place] [address] documented as of this encounter Visit Diagnoses Not on filedocumented in this encounter Additional Health Concerns Assessment Noted Time PHQ-9 Depression Total Score: 0 07/20/19 23 2:03 PM EDT documented as of this encounter Care Teams Byproducts Pump Operator Relationship Specialty Start Date End Date Eusebio Portillo MD 505 [place] [address] PCP - General Internal Medicine 05/21/20 documented as of this encounter
--- OUTSIDE RECORDS SUMMARY | 2024-06-18 15:57 | XMS_ITS | Encounter Summary ---
Author Organization [employer] Address [address] [facility] [address] [facility] 7t [place] [address] Care Team Providers Care Boilermaker Apprentice Name Role Phone Eusebio Portillo MD Primary Care Prov ider Encounter Details Date Type Department Care Team ([facility] Contact Info) Description 04/20/2022 Orders Only [facility] MEDICINE [address] [place] [address] Eusebio Portillo MD 505 [place] [address] Acquired hypothyroidism Social History Tobacco Use Types [...] Department Care Team (Late Contact Info) Description 08/20/2024 10:15 AM EDT Telemedicine [facility] CHC MED & PEDS 505 [place] [address] Eusebio Portillo MD 505 [place] [address] documented as of this encounter Visit Diagnoses Diagnosis Acquired hypothyroidism Unspecified hypothyroidism documented in this encounter Care Teams Boilermaker Apprentice Relationship Specialty Start Date End Date Eusebio Portillo MD 505 [place], [place] [phone] PCP - General Internal Medicine 05/21/20 documented as of this encounter
--- OUTSIDE RECORDS SUMMARY | 2024-06-18 15:57 | XMS_ITS | Encounter Summary ---
Author Organization [employer] Address [address] [facility] 7t [place] [address] Care Team Providers Care Pet Care Associate Name Role Phone Eusebio Portillo MD Primary Care Prov ider Reason for Visit * Reason Comments Med Refill Encounter Details Date Type Department Care Team ([facility] st Contact Info) Description 08/29/2023 Refill [facility] CHC MED & PEDS 505 [place], [place] [phone] Eusebio Portillo MD 505 [place], [place] [phone] Social History Tobacco Use Types Packs/Day Years [...] Info) Description 08/20/2024 10:15 AM EDT Telemedicine [facility] MED & PEDS 505 [place] [address] Eusebio Portillo MD 505 [place] [address] documented as of this encounter Visit Diagnoses Not on filedocumented in this encounter Additional Health Concerns Assessment Noted Time PHQ-9 Depression Total Score: 0 07/20/19 23 2:03 PM EDT documented as of this encounter Care Teams Pet Care Associate Relationship Specialty Start Date End Date Eusebio Portillo MD 505 [place] [address] PCP - General Internal Medicine 05/21/20 documented as of this encounter
--- OUTSIDE RECORDS SUMMARY | 2024-06-18 15:57 | XMS_ITS | Encounter Summary ---
Author Organization [employer] Address [address] 7t [place] [address] Care Team Providers Care Clam Digger Name Role Phone Eusebio Portillo MD Primary Care Prov ider Reason for Visit * Reason Comments Med Refill Encounter Details Date Type Department Care Team ([facility] st Contact Info) Description 07/20/2023 Refill [facility] CHC MED & PEDS 505 [place], [place] [phone] Eusebio Portillo MD 505 [place], [place] [phone] Acquired hypothyroidism Social History Tobacco Use Types [...] Info) Description 08/20/2024 10:15 AM EDT Telemedicine [facility] MED & PEDS [address] [place] [address] Eusebio Portillo MD [address] [place] [address] documented as of this encounter Visit Diagnoses Diagnosis Acquired hypothyroidism Unspecified hypothyroidism documented in this encounter Additional Health Concerns Assessment Noted Time PHQ-9 Depression Total Score: 0 07/20/19 23 2:03 PM EDT documented as of this encounter Care Teams Clam Digger Relationship Specialty Start Date End Date Eusebio Portillo MD 505 [place] [address] PCP - General Internal Medicine 05/21/20 documented as of this encounter
--- OUTSIDE RECORDS SUMMARY | 2024-06-18 15:57 | XMS_ITS | Encounter Summary ---
Author Organization [employer] Address [address] [facility] 7t [place] [address] Care Team Providers Care Photographic Reproduction Technician Name Role Phone Eusebio Portillo MD Primary Care Prov ider Reason for Visit * Reason Comments Med Refill Encounter Details Date Type Department Care Team ([facility] st Contact Info) Description 03/27/2024 Refill [facility] CHC MED & PEDS 505 [place], [place] [phone] Eusebio Portillo MD 505 [place], [place] [phone] Acquired hypothyroidism Social History Tobacco Use Types [...] Info) Description 08/20/2024 10:15 AM EDT Telemedicine [facility] MED & PEDS 505 [place] [address] Eusebio Portillo MD 505 [place] [address] documented as of this encounter Visit Diagnoses Diagnosis Acquired hypothyroidism Unspecified hypothyroidism documented in this encounter Additional Health Concerns Assessment Noted Time PHQ-9 Depression Total Score: 0 07/20/19 23 2:03 PM EDT documented as of this encounter Care Teams Photographic Reproduction Technician Relationship Specialty Start Date End Date Eusebio Portillo MD 505 [place] [address] PCP - General Internal Medicine 05/21/20 documented as of this encounter
--- OUTSIDE RECORDS SUMMARY | 2024-06-18 15:57 | XMS_ITS | Clinical Summary ---
Author Organization [facility] Address [address] [place] [address] Care Team Providers Care Baseball Umpire For Little League Name Role Phone Unavailable Primary Care Provider [...] - 2023-2 5 season) 2023 Influenza Vaccine (Season Ended) 2024 RSV Immunization Adult Patie nts (1 - 1-dose 75+ series) 12/16/2039 HIB [...] age to complete this topic Meningococcal B Vaccine Aged Out No l onger eligible based on patient's age to complete [...]
--- OUTSIDE RECORDS SUMMARY | 2024-06-18 15:57 | XMS_ITS | Encounter Summary ---
Author Organization [employer] Address [address] 7[address] [place] [address] Care Team Providers Care Die Attacher Name Role Phone Eusebio Portillo MD Primary Care Prov ider Reason for Visit * Reason Onset Date Comments Nurse Triage 01/13/2024 Encounter Details Date Type Department Care Team (Late st Contact Info) Description 01/13/2024 Telephone [facility] MEDICINE [address] [place], [place] [phone] Eusebio Portillo MD [address] [place], [place] [phone] Nurse Triage Social History Tobacco Use Types [...] AM EST Triage call with [employer] posting clerk ID [id number] Pt reports dizziness for a three days [...] care advice and disposition. ASK apt in [facility] today at 320pm. Insurance is verified [...] Info) Description 08/20/2024 10:15 AM EDT Telemedicine [facility] MED & PEDS [address] [place] [address] Eusebio Portillo MD 505 [place] [address] documented as of this encounter Visit Diagnoses Not on filedocumented in this encounter Additional Health Concerns Assessment Noted Time PHQ-9 Depression Total Score: 0 07/20/19 23 2:03 PM EDT documented as of this encounter Care Teams Die Attacher Relationship Specialty Start Date End Date Eusebio Portillo MD 505 [place] [address] PCP - General Internal Medicine 05/21/20 documented as of this encounter
--- OUTSIDE RECORDS SUMMARY | 2024-06-18 15:57 | XMS_ITS | Clinical Summary ---
Author Organization [employer] Address [address] [facility] 7t [place] [address] Care Team Providers Care Armored Machine Operator Name Role Phone Eusebio Portillo MD Primary Care Prov ider Allergies Active Allergy Reactions Criticality Noted Date Comments [place] Oil Swelling High 09/13/2022 Montelukast Headache,Unknown 05/26/2010 [...] DAY FOR COPD FOR 30 DAYS Active levothyroxine (Synthroid) 50 MCG tabletIndications :Acquired hypothyroidism Take 1 tablet (50 mcg) by mouth before breakfast. 30 tablet 11 025 2025 Active docusate sodium (Colace) 100 MG capsule TOME 1 CAPSULA POR VIA ORAL EN LA MANANA AND AL ACOSTARSE CUANDO SEA NECESARIO PARA EL ESTRENIMIENTO 60 capsule 1 025 Active fluticasone (Flonase) 50 MCG/ACT nasal spray USE 1 SPRAY IN EACH NOSTRIL IN THE MORNING. SHAKE GENTLY. BEFORE FIRST USE, PRIME PUMP. AFTER USE, CLEAN TIP AND REPLACE CAP. 48 mL 025 Active albuterol (Ventolin HFA) 108 (90 Base) MCG/ACT inhaler INHALE DANDO DOS SOPLIDOS POR VIA ORAL CADA SEIS HORAS CUANDO SEA NECESARIO WHEEZE 18 g 1 025 Active albuterol (Ventolin HFA) 108 (90 Base) MCG/ACT inhaler INHALE DANDO DOS SOPLIDOS POR VIA ORAL CADA SEIS HORAS CUANDO SEA NECESARIO WHEEZE 18 g 1 025 2024 Discontinued Active Problems Problem Noted Date [...] EDT): Discussed ultrasound findings, follow up with ob-consumer science teacher Acquired hypothyroidism 04/28/2022 Assessment & Plan (05/18/2024 2:38 PM EDT): Will order new tsh to check current status, she is clinically euthyroid, will follow up in 3 months Assessment & Plan (03/19/2024 7:49 PM EST): [...] Encounters Date Type Department Care Team Description 06/11/2024 Refill [facility] CHC MED & PEDS [address] [place] [address] Eusebio Portillo MD 05/18/2024 10:15 AM EDT Telemedicine [facility] CHC MED & PEDS [address] [place] [address] Eusebio Portillo MD Acquired hypothyroidism (Primary Dx) 05/18/2024 Population Health Risk Score [facility] ([facility] Department [address] [phone] Provider, Population Health Generic 05/18/2024 Travel 05/16/2024 Telephone [facility] CHC MED & PEDS [address] [place] [address] Eusebio Portillo MD CHART PREP 05/02/2024 Refill [facility] CHC MED & PEDS [address] [place] [address] Eusebio Portillo MD 04/23/2024 Refill [facility] CHC MED & PEDS [address] [place] [address] Nickie Jennifer, CUSTOMER SERVICE AGENT 03/27/2024 Refill [facility] CHC MED & PEDS [address] [place] [address] Eusebio Portillo MD Acquired hypothyroidism 03/20/2024 Orders Only [facility] CHC MED & PEDS [address] [place] [address] Eusebio Portillo MD 03/20/2024 Travel from Last 3 Months Immunizations Name Administration [...] Description 08/20/2024 10:15 AM EDT Telemedicine [facility] MED & PEDS [address] [place] [address] Eusebio Portillo MD 505 [place] [address] Health Maintenance Due Date Last Done Comments [...] Colorectal Cancer Screening 07/15/2025 Mammogram 04/19/2026 04/19/2024, 02/0 11/2023, 03/17/2022, Additional history exists Cervical Cancer Screening [...] 8:54 AM EST Low vitamin D level HEPATITIS C AB W/REFL TO HCV RNA, [...] EST Narrative 04/27/2024 5:05 PM EST ? [facility] ? [address] ?[place], [place] [address] ? Mammography Report ? Signed ? Patient: Uyen Maciel ?MR#: [id number] ?? 2 ? : 1965 ?Acct:[id number] ? Age/Sex: 58 / F ?ADM Date: 04/19/24 ? Loc: HO.MAMMO ? Attending Dr: Eusebio Connors MD ? Ordering Physician: Eusebio Portillo MD ?Res ?? ults: 1Negative ? Date of Service: 04/19/24 ?Follow Up: 1 Year From Orig ?? inal Mammogram ? Procedure(s): MM tomosynthesis screening BI ?? Accession Number(s): [id number] ? cc: Eusebio Portillo MD ? EXAMINATION: [...] DD/ 1035 ? TD/TT: 04/19/24 1044 ? Tanning Drum Operator: ? Procedure Note Donwiliter, Image - 04/27/2024 [facility] [address] [place] [address] [place] [address] Mammography Report Signed Patient: Grant Maciel#: [id number] 2 : 1965Acct:[id number] Age/Sex: 58 / FADM Date: 04/19/24 Loc: [facility] Attending Dr: Eusebio Connors MD Ordering Physician: Eusebio Portillo ults: 1Negative Date of Service: 04/19/24Follow Up: 1 Year From Orig inal Mammogram Procedure(s): MM tomosynthesis screening BI Accession Number(s): [id number] cc: Eusebio Portillo MD EXAMINATION: MM SCREENING [...] Heather Morris DO 04/27/2024 05:02 PM EST Dictated By: Heather Morris DO Signed By: <Electronically signed by Heather Morris DO in OV> 04/27/24 1702 DD/ 1035 TD/TT: 04/19/24 1044 Tanning Drum Operator: Eusebio Connors MD IM BI PROCEDURES Final Result * Vitamin D, 25-Hydroxy, Total, Immunoassay (03/20/2024 8:54 AM EST) Vitamin D 25-OH Total 55.5 >30 ng/mL [facility] Comment:Health Based Referen ce Values*< 20 ng/mL [id number] ng/mL Insufficient> 30 ng/mL Sufficient*Luma OSBORNE. N [...] ORDERABL ES Final Result Performing Organization Address [facility] Co de Phone Number [facility] [address] [place] [phone] * (ABNORMAL) TSH W/Reflex to FT4 (03/20/2024 8:54 AM EST) TSH reflex Free T4 0.16(L) 0.32 - 4.0 uIU/mL [facility] Blood Venous blood specimen / Unknown 03/20/2024 8:54 AM EST 03/20/2024 2:00 PM EST Eusebio Connors MD LAB BLOOD ORDERABL ES Final Result Performing Organization Address [facility] de Phone Number [facility] [address] [place] [phone] * T4, Free (03/20/2024 8:54 AM EST) Free T4 (Free Thyroxine) 1.22 0.71 - 1.85 ng/dL [facility] 03/20/2024 8:54 AM EST 03/20/2024 2:00 PM EST Eusebio Connors MD LAB BLOOD ORDERABL ES Final Result Performing Organization Address [facility] de Phone Number [facility] [address] [place] [phone] * (ABNORMAL) Comprehensive Metabolic Panel (03/20/2024 8:54 AM EST) Sodium 140 135 - 145 mmol/L [facility] Potassium 3.9 3.3 - 5.1 mmol/L [facility] Chloride 106 96 - 108 mmol/L [facility] Carbon Dioxide 29 22 - 29 mmol/L [facility] Anion Gap 9(L) 12 - 20 [facility] Urea Nitrogen (BUN) 17(H) 9 - 16 mg/dL [facility] Creatinine, Serum 0.64 0.5 - 1.4 mg/dL [facility] Estimated Glomerular Filt Rate >60 [facility] Comment:Chronic Kidney Disea se: Estimated GFR < 60 mL/min/1.82a2Iykqtr Kidney Disease: Estimated GFR < 15 mL/min/1.73m2 Glucose 96 60 - 115 mg/dL [facility] Calcium 9.1 8.4 - 10.2 mg/dL [facility] Bilirubin, Total 0.5 0.0 - 1.0 mg/dL [facility] Aspartate Amino Transferase 30 5 - 31 U/L [facility] Alanine Aminotransferase 26 0 - 31 U/L [facility] Total Protein 7.1 6.5 - 8.0 g/dL [facility] Albumin Level 4.3 3.5 - 5.0 g/dL [facility] Alkaline Phosphatase 74 39 - 117 U/L [facility] Blood Venous blood specimen / Unknown 03/20/2024 8:54 AM EST 03/20/2024 2:00 PM EST Eusebio Connors MD LAB BLOOD ORDERABL ES Final Result [facility] [address] [place] [phone] [phone] * HIV-1 RNA, Quantitative, Real-Time PCR with Reflex to Genotype (RTI, PI, Integrase) (05/03/2022 11:10 AM EST) HIV 1 RNA, QN PCR NOT DETECTED copies/mL [facility], HIV 1 RNA, QN PCR NOT DETECTED Log copies/mL [facility], Comment: REFERENCE RANGE: NOT DETECTED copies/mL ?NOT DETECTED ??Log copies/mL This test was performed using Real-Time Polymerase Chain Reaction. Reportable range is 20 to 10,000,000 copies/mL (1.30-7.00 Log copies/mL). 05/03/2022 11:1 0 AM EST 05/03/2022 11:11 AM EST Narrative [facility] - 05/06/2022 12:22 AM EST FASTING:YES FASTING: YES Eusebio Connors MD LAB BLOOD ORDERABL ES Final Result Performing Organization Address [facility] Co de Phone Number [address], [facility] [place] [phone] [facility], [address] [place] [address] * Hepatitis C Antibody with Reflex to HCV, RNA, Quantitative, Real-Time PCR (05/03/2022 11:10 AM EST) Hepatitis C Antibody NON-REACT SADIE NON-REACT SADIE [facility] Index 0.03 <1.00 [facility] Comment: HCV antibody was non-reactive. There is no laboratory evidence of HCV infection. In most cases, no further action is required. However, if recent HCV exposure is suspected, a test for HCV RNA (test code 84366) is suggested. For additional information please refer to http://education.[employer]/faq/MDY16i8 (This link is being provided for informational/ educational purposes only.) Blood Venous blood specimen / Unknown 05/03/2022 11:10 AM EST 05/03/2022 11:11 AM EST Narrative [facility] - 05/06/2022 12:22 AM EST FASTING:YES FASTING: YES Eusebio Connors MD LAB BLOOD ORDERABL ES Final Result Performing Organization Address [facility] Co de Phone Number [address], [place] [address] [facility] [address] [facility], ([address]) [place] [address] * THINPREP TIS PAP AND HPV mRNA [...] was manually screened according to routine procedures. Pointer Machine Operator: SEE COMMENT [facility] Comment: KN, CT(ASCP) CT screening location: [address] ??[address] HPV nRNA E6/E7 Not Detected Not Detected [facility] Comment: Methodology: Donation Specialist-Mediated Amplification This assay detects E6/E7 viral messenger RNA (mRNA) from 14 high-risk HPV types (16,18,31,33,35,39,45,51,52,56,58,59,66,68). ? The analytical performance characteristics of this assay have been determined by [facility]. The modifications have not been cleared or approved by the FDA. This assay has been validated pursuant to the CLIA regulations and is used for clinical purposes. ?? For additional information, please refer to http://education.[employer]/faq/ZZO493n6 (This link if provided for information/ educational purposes only.) Interpretation/Res ult: SEE COMMENT [facility] Comment: Negative for intraepithelial lesion or malignancy. Atrophic pattern; predominantly parabasal cells LMP: IRREGULAR [facility] Prev. BX: NONE GIVEN [facility] Prev. PAP: 04/2018 [facility] SOURCE: None given [facility] Statement Of Adequacy: SATISFACTORY FOR EVALUATION Age and/or menstrual status not provided [facility] 05/26/2021 1:00 PM EDT Keeley Fregoso CNM LAB PATHOLOGY ORDERABLES Final Result [facility] [address] [place] [address], * Hm Colonoscopy (07/16/2015 8:12 AM EDT) Historical Provider HEALTH MAINTENANCE Final Result from Last 3 Months or Most Recently Relevant to Health Maintenance Insurance [id number] Care Teams Armored Machine Operator Relationship Specialty Start Date End Date Eusebio Portillo MD [address] [place] [phone] PCP - General Internal Medicine 05/21/20
--- OUTSIDE RECORDS SUMMARY | 2024-06-18 15:57 | XMS_ITS | Encounter Summary ---
Author Organization [employer] Address [address] 7t [place] [address] Care Team Providers Care Fork Lift Mechanic Name Role Phone Eusebio Portillo MD Primary Care Prov ider Reason for Visit * Reason Onset Date Comments ER Follow-up 07/01/2023 Encounter Details Date Type Department Care Team ([facility] st Contact Info) Description 07/01/2023 Telephone [facility] MEDICINE [address] [place], [place] [phone] Eusebio Portillo MD [address] [place], [place] [phone] ER Follow-up Social History Tobacco Use Types [...] 1:07 PM EDT Pt was seen in [facility] today not ED. Pt advised to return call to office if symptoms persist or worsen.Pt had ED precautions reviewed. * Telephone Encounter - Hubert Zhou - 07/01/2023 11:34 AM EDT Patient calling to report ED visit on : Date: 06/29 Hospital: [facility] Seen for: Breathing troubles and was diagnosed with asthma Patient advised will forward to team nurse for follow up documented in this encounter Plan of Treatment Upcoming Encounters Date Type Department Care Team (Late st Contact Info) Description 08/20/2024 10:15 AM EDT Telemedicine [facility] CHC MED & PEDS [address] [place] [address] Eusebio Portillo MD [address] [place] [address] documented as of this encounter Visit Diagnoses Not on filedocumented in this encounter Additional Health Concerns Assessment Noted Time PHQ-9 Depression Total Score: 0 07/20/19 23 2:03 PM EDT documented as of this encounter Care Teams Fork Lift Mechanic Relationship Specialty Start Date End Date Eusebio Portillo MD [address] [place] [address] PCP - General Internal Medicine 05/21/20 documented as of this encounter
--- OUTSIDE RECORDS SUMMARY | 2024-06-18 15:57 | XMS_ITS | Data Portability ---
Author Organization MD - [facility] Address [address] [address] Care Team Providers Care Medical Review Coordinator Name Role Phone SUSSY MAYES Primary Care Provider Assessment No assessment recorded. Plan of Treatment Reminders Order Date Submit Date Provider Last Modified By Organization Details Last Modified Time Details Appointments None recorded. Lab None recorded. Referral None recorded. Procedures None recorded. Surgeries None recorded. Imaging MRI, brain + internal auditory canal, w/wo contrast - MRI, BRAIN + INTERNAL AUDITORY CANAL, W/WO CONTRAST 2024 025 [facility] ([facility]), [address] [place], [address], 06:17:08 Medication Orders None recorded. Patient TargetsNo targets recorded. Patient InstructionsNo instructions recorded. Reason for Referral None Reported. Results Created Date Observation Date Name Description Value Unit Range Abnormal Flag Note LastModifiedBy Organization Detail LastModifiedTime 05/30/19 audio gram No observ ation record ed. BARCODE Not Available 2024 14:57:10 06/10/19 25 06/07/2024 MRI, brain + brain stem, w/wo contr ast [facility] Access ion Number : [id number] Regino t Name: Uyen Maciel Medica l Record Number : [id number] Date of : 1965 Date of Exam: 2024 Referr ing Physic jose maria: Félix lee, [facility] [place] [address] [address] Exam: MR Brain (C-/C+ ) CPT 24348 Room Descri ption: [place] Siem Espr 1.5 MRI of the brain withou t and with contra st with focus to IACs Clinic al indica tions: Right- sided hearin g loss Compar sourav: None. FINDIN GS: There is a diffus leno enhanc ing mass in the right CP angle extend ing into the right IAC measur ing approx imatel y approx imatel y 5 x 5 x 11 mm in size. This is consis tent with a vestib ular schwan noma. Please correl ate clinic ally. The left CP angle is patent . The left 7th and 8th nerve comple x appear s normal in calibe r and signal intens ities. No abnorm al enhanc ement is noted. The visual ized brain parenc hyma shows no abnorm al signal or abnorm al enhanc ement. There is no hydroc ephalu s. There are normal flow-v oids within major intrac ranial vessel s. There is minima l mucosa l thicke isidro within bilate ral ethmoi d sinuse s. IMPRES MUMTAZ: There is an approx imatel y 5 x 5 x 11 mm vestib ular schwan noma of the right IAC. Electr onical ly Signed By: Srikanth arciniega [facility] ([facility]) [address] [facility], [place], [address], 06/13/2024 11:56:50 Result Notes None recorded. Problems Name Problem SNOMED Code Status Onset Date Resolution Date Notes Provider Name and Address Organization Details Recorded Time Sensorineur al hearing loss of bilateral ears 684404152 Active 2024 Huma barrios [place] - [facility] 13:19:56 Bilateral tinnitus 8266305305507 Active 2024 ORTIZ Orosco MD [address] [facility] [address], [place], [phone], [place] - [facility] [place] 5 14:17:04 Sensorineur al hearing loss in right ear 9191177783158 0 Active 2024 ORTIZ Orosco MD 100 [facility], [address], [place], [phone], [place] - [facility] [place] 14:20:51 Problem Notes None recorded. Procedures Surgical History Date Name Laterality Status Provider Name and Address Organization Details Recorded Time 05/30/19 Tympanometry (72087) completed Huma Welch [place] [facility] 05/29/2024 13:19:37 05/30/19 [employer] (46818) completed Huma Welch [place] [facility] 05/29/2024 13:19:33 Imaging Results Imaging Date Name Status LastModified by Organiz ation Details LastModified Time 05/29/2024 audiogram completed BARCODE Information no t available 05/29/2024 14:57:10 06/07/2024 MRI, brain + brain stem, w/wo contrast completed suze [facility] ([facility]) [address] [facility], [place], [address], 06/13/2024 11:56:50 Procedure Notes None recorded. Medical Equipment None Reported. Allergies Allergen ID Allergen Name Allergen Category Reaction Reaction Severity Criticality Documentation Date Start Date Code Code System Note Provider Name and Address Organization Details Recorded Time 531128 Singulair medicatio n Not available Not available Not available 05/29/2024 37783 9 RxNorm Phan barrios [place] [facility] 12:59:28 Medications Name Sig Start Date Stop Date Status Note LastModified by Organization Details LastModified Time albuterol sulfate 2.5 mg/3 mL (0.083 %) solution for nebulization TAKE 3 ML (2.5 MG) VIA NEBULIZATIO N CADA SEIS HORAS CUANDO SEA NECESARIO PARA LA SIBILANCIA active Not Available Not Available N ot Available Stool Softener 100 mg capsule TOME 1 CAPSULA POR VIA ORAL EN LA MANANA AND AL ACOSTARSE CUANDO SEA NECESARIO PARA EL ESTRENIMIEN TO active Not Available Not Available No t Available prednisone 20 mg tablet TOME DOS TABLETAS POR V A ORAL TODOS LOS D POR 5 D active Not Available Not Available N ot Available levothyroxin e 75 mcg tablet TOME SYED TABLETA (75 MCG) POR V A ORAL ANTES DEL DESAYUNO active Not Available Not Available No t Available meclizine 25 mg tablet TOME SYED TABLETA POR V A ORAL IF NEEDED EN LA MA VIPIN AT NOON AND AL ACOSTARSE PARA EL MAREO active Not Available Not Available No t Available levothyroxin e 50 mcg tablet TOME SYED TABLETA (50 MCG) POR V A ORAL ANTES DEL DESAYUNO active Not Available Not Available No t Available epinephrine 0.3 mg/0.3 mL injection, auto-injecto r INJECT 1 PEN DIRECTED FOR ALLERGIC REACTION THEN CALL 911 active Not Available Not Available No t Available fluticasone propionate 50 mcg/actuatio n nasal spray,suspen mumtaz PLEASE SEE ATTACHED FOR DETAILED DIRECTIONS active Not Available Not Available N ot Available loratadine 10 mg tablet TOME SYED TABLETA DIARIAMENTE EN LA MA VIPIN active Not Available Not Available No t Available amoxicillin 875 mg-potassium clavulanate 125 mg tablet TOME 1 TABLETA POR V A ORAL DOS VECES AL D A POR 7 D active Not Available Not Available No t Available Ventolin HFA 90 mcg/actuatio n aerosol inhaler INHALE DANDO DOS SOPLIDOS POR VIA ORAL CADA SEIS HORAS CUANDO SEA NECESARIO WHEEZE active Not Available Not Available No t Available nitrofuranto in monohydrate/ macrocrystal s 100 mg capsule TAKE 1 CAPSULE BY MOUTH 2 TIMES DAILY FOR 5 DAYS. active Not Available Not Available Not Available Advair HFA 115 mcg-21 mcg/actuatio n aerosol inhaler INHALE 2 PUFFS BY MOUTH TWICE A DAY active Not Available Not Available No t Available Tudorza Pressair 400 mcg/actuatio n breath activated TAKE 1 PUFF INHALED 2 TIMES A DAY FOR COPD FOR 30 DAYS active Not Available Not Available Not Available Vitals Date Recorded Body weight Body mass index (BMI) Body height Provider Name and Address Organization Details Last Updated DateTime 05/29/2024 53174.05 g 23.6 kg/m2 154.94 cm Phan Gonzáles MD - [facility] 05/29/2024 13:59:41 Social History None recorded. Functional Status None recorded. Mental Status None recorded. Family History Nothing Reported. Medical History Condition Response Arthritis Y Asthma Y Gynecological HistoryNo gynecological history recorded. Obstetrics History GPAL:G 0 P 0 0 0 0 Past Encounters Encounter ID Performer Location Encounter Start Date Encounter Closed Date Diagnosis/Indication Diagnosis SNOMED-CT Code Diagnosis ICD10 Code Diagnosis Note [id number] ORTIZ DALLAS MD [facility] of [address] [address] 05/29/2024 12:32:51 05/29/2024 14:20:41 Sensorineural hearing loss of bilateral ears 020656305 H90.3 Audiologic al evaluation results: Right ear: {{Normal N ormal through 2 kHz Mild M oderate* M oderately- severe Sev ere Profou nd}} {{hearing hearing. s loping to a mild slopi ng to a moderate s loping to moderately severe slo ping to severe* sl oping to profound f lat high frequency low frequency mid frequency cookie bite queen curve}} {{with sen sorineural hearing loss with* cond uctive hearing loss with mixed hearing loss with}} {{excellen t* good fa ir poor no measurable }} word recognitio n. Left ear: {{Normal N ormal through 2 kHz Mild M oderate Mo derately-s evere Brandy re Profoun d [place] lly mild#}} {{hearing hearing. s loping to a mild slopi ng to a moderate s loping to moderately severe* sl oping to severe slo ping to profound f lat high frequency low frequency mid frequency cookie bite queen curve}} {{with sen sorineural hearing loss with* cond uctive hearing loss with mixed hearing loss with}} {{excellen t* good fa ir poor no measurable }} word recognitio n. Tympanomet ry: Right Ear:{{Type A Type A with rounded peak Type A with double peak Type As Type As with rounded peak* Type Ad Type C Type C, shallow & rounded peak Type B Type B with large volume Cou ld not maintain a hermetic seal}} Left Ear:{{Type A Type A with rounded peak Type A with double peak Type As Type As with rounded peak* Type Ad Type C Type C, shallow & rounded peak Type B Type B with large volume Cou ld not maintain a hermetic seal}} Sensorineu ral hearing loss in right ear 8423077144 9100 H90.A21 She has asymmetric hearing loss in the right ear. I will send for an MRI. She has been on the window where steroids would be beneficial . I gave medical clearance for hearing aids. Bilateral tinnitus 89244 11079 102 H93.13 Ear exam was normal. Audiogram was reviewed. We discussed the associatio n between sensorineu ral hearing loss and tinnitus. We discussed masking for tinnitus. Health Concerns Section Related Observation LastModified by Organization Detai ls LastModified Time None Recorded Concern Status LastModified by Organization Details LastModified Time None Recorded Advance Directives Directive None Recorded Payers Encounter Date Sequence Insurance Name Policy Number Policy Frazier Covered Member ID Frazier Member ID Guarantor Name 05/29/2024 1 [place] [employer] (MEDICAID) Uyen Maciel [id number] Uyen Maciel Notes Date Note Type Note Provider Name and Address Organization Details Recorded Time 05/29/2024 text/html She presents for hearing loss. She notes a couple of months ago the hearing in her right ear worsened. She says she was treated for an ear infection at the time. She had an audiogram which showed mixed HL in both ears worse AD at [facility] in November. Repeat audio today shows SNHL AU moderate AD and mild . Has tinnitus AU. ORTIZ DALLAS MD [address] [place] [address], [phone], [facility] - [facility] 05/29/2024 14:22:06 OBGyn Episode No OBEpisode recorded.
--- OUTSIDE RECORDS SUMMARY | 2024-06-18 15:57 | XMS_ITS | Encounter Summary ---
Author Organization [employer] Address [address] [facility] [address] [place] [address] Care Team Providers Care Senior Benefits Specialist Name Role Phone Eusebio Portillo MD Primary Care Prov ider Encounter Details Date Type Department Care Team (Late st Contact Info) Description 06/27/2023 Orders Only [facility] [address] [place], [place] [phone] ProviderLinnea MD Social History Tobacco Use Types [...] 08/20/2024 10:15 AM EDT Telemedicine [facility] [address] [place] [address] Eusebio Portillo MD [address] [place] [address] documented as of this encounter Procedures Procedure [...] documented as of this encounter Care Teams Senior Benefits Specialist Relationship Specialty Start Date End Date Eusebio Portillo MD [address] [place] [address] PCP - General Internal Medicine 05/21/20 documented as of this encounter
== END 2024-06-18 13:46 | disposition home or self-care (01) ==
LOC: HO.US 13:45
PROVIDERS: PCP Internal Medicine; Visit Provider Internal Medicine
DX: E03.9 Hypothyroidism, unspecified (principal)
CPT/HCPCS: 76536

== ENCOUNTER → 2024-06-18 13:48 | Outpatient (BNV) | payer MEDICAID, SELFPAY | PROVIDERS: PCP Internal Medicine; Visit Provider Radiology Diagnostic Radiology | DX: E03.4 Atrophy of thyroid (acquired) (principal) | CPT/HCPCS: 76536 ==

== ENCOUNTER 2024-07-17 09:06 | Outpatient (REF) | payer MEDICAID, SELFPAY ==
--- OUTSIDE RECORDS SUMMARY | 2024-07-17 09:32 | XMS_ITS | Encounter Summary ---
Author Organization [employer] Address [address] [facility] [address] [place] [address] Care Team Providers Care Sales And In Home Delivery Specialist Name Role Phone Eusebio Portillo MD Primary Care Prov ider Reason for Visit * Reason Comments Med Refill Encounter Details Date Type Department Care Team ([facility] st Contact Info) Description 03/27/2024 Refill [facility] [address] [place], [place] [phone] Eusebio Portillo MD [address] [place], [place] [phone] Acquired hypothyroidism Social History Tobacco Use Types [...] Info) Description 08/20/2024 10:15 AM EDT Telemedicine [facility] [address] [place] [address] Eusebio Portillo MD [address] [place] [address] documented as of this encounter Visit Diagnoses Diagnosis Acquired hypothyroidism Unspecified hypothyroidism documented in this encounter Additional Health Concerns Assessment Noted Time PHQ-9 Depression Total Score: 0 07/20/19 23 2:03 PM EDT documented as of this encounter Care Teams Sales And In Home Delivery Specialist Relationship Specialty Start Date End Date Eusebio Portillo MD [address] [place] [address] PCP - General Internal Medicine 05/21/20 documented as of this encounter
--- OUTSIDE RECORDS SUMMARY | 2024-07-17 09:32 | XMS_ITS | Clinical Summary ---
Author Organization [employer] Address [address] [place] [address] Care Team Providers Care Cmm Operator Name Role Phone Eusebio Portillo MD Primary Care Prov ider Allergies Active Allergy Reactions Criticality Noted Date Comments Florence Oil Swelling High 09/13/2022 Montelukast Headache,Unknown 05/26/2010 [...] 30 DAYS Active levothyroxine (Synthroid) 50 MCG tabletIndications: Acquired hypothyroidism Take 1 tablet (50 mcg) by mouth before breakfast. 30 tablet 11 03/19/19 25 026 Active docusate sodium (Colace) 100 MG capsule TOME 1 CAPSULA POR VIA ORAL EN LA MANANA AND AL ACOSTARSE CUANDO SEA NECESARIO PARA EL ESTRENIMIENTO 60 capsule 1 03/20/19 25 Active fluticasone (Flonase) 50 MCG/ACT nasal spray USE 1 SPRAY IN EACH NOSTRIL IN THE MORNING. SHAKE GENTLY. BEFORE FIRST USE, PRIME PUMP. AFTER USE, CLEAN TIP AND REPLACE CAP. 48 mL 05/03/19 25 Active albuterol (Ventolin HFA) 108 (90 Base) MCG/ACT inhaler INHALE DANDO DOS SOPLIDOS POR VIA ORAL CADA SEIS HORAS CUANDO SEA NECESARIO WHEEZE 18 g 1 06/12/19 25 Active benzonatate (Tessalon Perles) 100 MG capsuleIndications :Viral URI with cough Take 1 capsule (100 mg) by mouth if needed in the morning, at noon, and at bedtime for cough for up to 7 days. Do not crush or chew. 20 capsule 07/06/19 25 025 Active Problems Problem Noted Date Diagnosed Date [...] EDT): Discussed ultrasound findings, follow up with ob-senior chemical process engineer Acquired hypothyroidism 04/28/2022 Assessment & Plan (05/18/2024 [...] Encounters Date Type Department Care Team Description 07/05/2024 9:40 AM EDT Office Visit [facility] [address] [place], [place] [phone] Jorge Gomez MD Viral URI with cough 06/11/2024 Refill [facility] [address] [place] [address] AdornoEusebio Ortiz MD 05/18/2024 10:15 AM EDT Telemedicine [facility] [address] [place] [address] Eusebio Portillo MD Acquired hypothyroidism (Primary Dx) 05/18/2024 Population Health Risk Score [facility] (C3) Department [address] [place] [phone] Provider, Population Health Generic 05/18/2024 Travel 05/16/2024 Telephone [facility] [address] [place] [address] Eusebio Portillo MD CHART PREP 05/02/2024 Refill [facility] [address] [place] [address] Eusebio Portillo MD 04/23/2024 Refill [facility] [address] [place] [address] Jennifer Fu FNP from Last 3 Months Immunizations Name Administration [...] Sign Reading Time Taken Comments Blood Pressure 136/78 07/05/2024 9:41 AM EDT Pulse 95 07/05/2024 9:41 AM EDT Temperature 36.7 ??C (98.1 ??F) 07/05/2024 9:41 AM ED T Respiratory Rate 18 07/05/2024 9:41 AM EDT Oxygen Saturation 97% 07/05/2024 9:41 AM EDT Inhaled Oxygen Concentration - - Weight 56.7 kg (125 lb) 07/05/2024 9:41 AM EDT Height 154.9 cm (5' 1 ) 03/19/2024 9:32 AM EST Body Mass Index 23.62 03/19/2024 9:32 AM EST Plan of Treatment Upcoming Encounters Date Type Department Care Team ([facility] st Contact Info) Description 08/20/2024 10:15 AM EDT Telemedicine [facility] [address] [place] [address] Eusebio Portillo MD [address] [place] [address] Health Maintenance Due Date Last Done Comments [...] Procedure Name Priority Date/Time Associated Diagnosis Comments POCT INFLUENZA A (ID NOW RAPID MOLECULAR) Routine 07/05/2024 9:50 AM EDT Viral URI with cough POCT INFLUENZA B (ID NOW RAPID MOLECULAR) Routine 07/05/2024 9:50 AM EDT Viral URI with cough POCT RAPID STREP A Routine 07/05/2024 9: 50 AM EDT Viral URI with cough POCT RAPID COVID ANTIGEN Routine 07/05/2024 9:44 AM EDT Viral URI with cough US THYROID Routine 06/18/2024 2:09 PM EDT Acquired hypothyroidism BI MAMMOGRAM SCREENING TOMOSYNTHESIS BILATERAL Routine 04/19/2024 10:35 AM EST HEPATITIS C AB W/REFL TO [...] Recently Relevant to Health Maintenance Results * Influenza B (ID NOW Rapid Molecular) (07/05/2024 9:50 AM EDT) [facility] Influenza B Negative Negative, Indeterminate [facility] Swab 07/05/2024 9:50 AM EDT us Jorge Gomez MD POINT OF CARE TEST ENTER/EDIT OR DERABLES Final Result Performing Organization Address City/[facility]/ZIP Co de Phone Number [facility] [address] [place] [phone] * Influenza A (ID NOW Rapid Molecular) (07/05/2024 9:50 AM EDT) [facility] Influenza A Negative Negative, Indeterminate [facility] Swab 07/05/2024 9:50 AM EDT us Jorge Gomez MD POINT OF CARE TEST ENTER/EDIT OR DERABLES Final Result Performing Organization Address [facility] Co de Phone Number [facility] [address] [place] [phone] * POCT rapid strep A manually resulted (07/05/2024 9:50 AM EDT) [facility] Rapid Strep A Screen Negative Negative, None Detected Swab 07/05/2024 9:50 AM EDT us Jorge Gomze MD POINT OF CARE TEST ENTER/EDIT OR DERABLES Final Result * POCT Rapid COVID Ag (07/05/2024 9:44 AM EDT) [facility] Rapid COVID Ag Negative Swab 07/05/2024 9:44 AM EDT us Jorge Gomez MD POINT OF CARE TEST ENTER/EDIT OR DERABLES Edited Result - Final * US Thyroid (06/18/2024 2:09 PM EDT) Anatomical Region Laterality Modality Head, Neck Ultrasound 06/18/2024 2:09 PM EDT Narrative 06/19/2024 7:25 AM EDT ? [facility] ?[address] ?[place] [address] ? Ultrasound Report ? Signed ? Patient: Maciel,Uyen ?MR#: [id number] ?? 2 ? : 1965 ?Acct:[id number] ? Age/Sex: 58 / F ?ADM Date: 06/18/24 ? Loc: HO.US ? Attending Dr: Eusebio Connors MD ? Ordering Physician: Eusebio Portillo MD ?? Date of Service: 06/18/24 ?? Procedure(s): US thyroid ?? Accession Number(s): [id number] ? cc: Eusebio Portillo MD ? EXAMINATION: ??US THYROID ? HISTORY: goiter ? TECHNIQUE: Real-time grayscale ultrasound imaging was performed and ?? images were reviewed. ? COMPARISON: There are no prior studies for comparison. ? FINDINGS: ?? SIZE: The right thyroid lobe measures 1.2 x 0.4 x 0.6 cm. ??The left ?? thyroid lobe measures 1.6 x 0.7 x 0.4 cm. ?? The isthmus measures 1 mm. ? FLOW: ??Flow to the gland is normal. ? ECHOGENICITY: ??The echotexture of the gland is homogeneous. ? NODULES: ?? No nodules are identified. ? US/US thyroid ?? IMPRESSION: ?? Atrophic thyroid gland. No discrete nodules are identified. ? ACR TI-RADS Guidelines ? TR1 (0 points): Benign, ??No follow-up or biopsy required ?? TR2 (2 points): Not Suspicious, ??No biopsy or follow up indicated ?? TR3 (3 points): Mildly Suspicious, ??FNA if >= 2.5 cm, Follow if >= 1.5 ?? cm ?? TR4 (4-6 points): Moderately Suspicious, FNA if >= 1.5 cm, Follow if >= ?? 1.0 cm ?? TR5 (>=7 points): Highly Suspicious, ??FNA if >= 1.0 cm, Follow if >= ?? 0.5 cm ? Electronically signed by: ??Edd Dale MD ??06/19/2024 07:22 AM EDT ?? RP ? Dictated By: ?Edd Dale MD ? Signed By: ?<Electronically signed by Edd Dale MD in OV> ?06/19/24721 ? DD/ 1409 ? TD/TT: 06/18/24 1415 ? Directory Compiler: ? Procedure Note Sheng, Image - 06/19/2024 [place] [address] Ultrasound Report Signed Patient: Grant Maciel#: [id number] 2 : 1965Acct:[id number] Age/Sex: 58 / FADM Date: 06/18/24 Loc: HO.US Attending Dr: Eusebio Connors MD Ordering Physician: Eusebio Portillo MD Date of Service: 06/18/24 Procedure(s): US thyroid Accession Number(s): [id number] cc: Eusebio Portillo MD EXAMINATION: US THYROID HISTORY: goiter TECHNIQUE: Real-time grayscale ultrasound imaging was performed and images were reviewed. COMPARISON: There are no prior studies for comparison. FINDINGS: SIZE: The right thyroid lobe measures 1.2 x 0.4 x 0.6 cm. The left thyroid lobe measures 1.6 x 0.7 x 0.4 cm. The isthmus measures 1 mm. FLOW: Flow to the gland is normal. ECHOGENICITY: The echotexture of the gland is homogeneous. NODULES: No nodules are identified. US/US thyroid IMPRESSION: Atrophic thyroid gland. No discrete nodules are identified. ACR TI-RADS Guidelines TR1 (0 points): Benign, No follow-up or biopsy required TR2 (2 points): Not Suspicious, No biopsy or follow up indicated TR3 (3 points): Mildly Suspicious, FNA if >= 2.5 cm, Follow if >= 1.5 cm TR4 (4-6 points): Moderately Suspicious, FNA if >= 1.5 cm, Follow if >= 1.0 cm TR5 (>=7 points): Highly Suspicious, FNA if >= 1.0 cm, Follow if >= 0.5 cm Electronically signed by: Edd Dale MD 06/19/2024 07:22 AM EDT Dictated By: Edd Dale MD Signed By: <Electronically signed by Edd Dale MD in OV> 06/19/24 0722 DD/ 1409 TD/TT: 06/18/24 1415 Directory Compiler: Eusebio Connors MD IM US PROCEDURES Final Result * BI Mammogram Screening Tomosynthesis Bilateral (04/19/2024 10:35 AM EST) Anatomical Region Laterality Modality Breast Bilateral Mammography 04/19/2024 10:3 5 AM EST Narrative 04/27/2024 5:05 PM EST ? [facility] ? [address] ?[place] [address] ? Mammography Report ? Signed ? Patient: Maciel,Ueyn ?MR#: [id number] ?? 2 ? : 1965 ?Acct:[id number] ? Age/Sex: 58 / F ?ADM Date: 02/13/25 ? Loc: HO.MAMMO ? Attending Dr: Eusebio Connors MD ? Ordering Physician: Eusebio Portillo MD ?Res ?? ults: 1Negative ? Date of Service: 04/19/24 ?Follow Up: 1 Year From Orig ?? inal Mammogram ? Procedure(s): MM tomosynthesis screening BI ?? Accession Number(s): [id number] ? cc: Eusebio Portillo MD ? EXAMINATION: [...] ??Heather Morris DO ??04/27/2024 05:02 PM EST ?? RP ? Dictated By: ?Heather Morris DO ? Signed By: ?<Electronically signed by Heather Morris, DO in OV> ? 04/27/24 1702 ? DD/ 1035 ? TD/TT: 04/19/24 1044 ? Directory Compiler: ? Procedure Note Donotuseinterpreter, Image - 04/27/2024 [facility] [address] [place] [address] Mammography Report Signed Patient: Grant Maciel#: [id number] 2 : 1965Acct:[id number] Age/Sex: 58 / FADM Date: 04/19/24 Loc: HO.MAMMO Attending Dr: Eusebio Connors MD Ordering Physician: Eusebio Portillo ults: 1Negative Date of Service: 04/19/24Follow Up: 1 Year From Orig inal Mammogram Procedure(s): MM tomosynthesis screening BI Accession Number(s): [id number] cc: Eusebio Portillo MD EXAMINATION: MM SCREENING [...] for their next mammogram. Electronically signed by: eHather Morris DO 04/27/2024 05:02 PM [facility] Dictated By: Heather Morris DO Signed By: <Electronically signed by Heather Morris DO in OV> 04/27/24 1702 DD/ 1035 TD/TT: 04/19/24 1044 Directory Compiler: Eusebio Connors MD IMG BI PROCEDURES Final Result * HIV-1 RNA, Quantitative, Real-Time PCR with Reflex to Genotype (RTI, PI, Integrase) (05/03/2022 11:10 AM EST) Pathologist [facility] HIV 1 RNA, QN PCR NOT DETECTED copies/mL [facility], HIV 1 RNA, QN PCR NOT DETECTED Log copies/mL [facility], Comment: REFERENCE RANGE: NOT DETECTED copies/mL ?NOT DETECTED ??Log copies/mL This test was performed using Real-Time Polymerase Chain Reaction. Reportable range is 20 to 10,000,000 copies/mL (1.30-7.00 Log copies/mL). 05/03/2022 11:1 0 AM EST 05/03/2022 11:11 AM EST Narrative [facility] - 05/06/2022 12:22 AM EST FASTING:YES FASTING: YES Eusebio Connors MD LAB BLOOD ORDERABL ES Final Result [facility] [address], [place] [address] [employer], [address] [place] [address] * Hepatitis C Antibody with Reflex to HCV, RNA, Quantitative, Real-Time PCR (05/03/2022 11:10 AM EST) Pathologist [facility] Hepatitis C Antibody NON-REACT SADIE NON-REACT SADIE [facility] [place] [facility] Index 0.03 <1.00 [facility] [place] [facility] Comment: HCV antibody was non-reactive. There is no laboratory evidence of HCV infection. In most cases, no further action is required. However, if recent HCV exposure is suspected, a test for HCV RNA (test code 23677) is suggested. For additional information please refer to http://education.[employer]/faq/BSN49g7 (This link is being provided for informational/ educational purposes only.) Blood Venous blood specimen / Unknown 05/03/2022 11:10 AM EST 05/03/2022 11:11 AM EST Narrative [facility] - 05/06/2022 12:22 AM EST FASTING:YES FASTING: YES us Eusebio Connors MD LAB BLOOD ORDERABL ES Final Result [employer] [address] [place] [address], [place] [address] [employer] [facility] [address] [place] [address], (Nl2) [place] [address] * THINPREP TIS PAP AND HPV mRNA E6/E7 WITH REFLEX TO HPV 16,18/45 (05/26/2021 1:00 PM EDT) Clinical Information: None given [facility] COMMENT SEE COMMENT FOUNDATI [...] was manually screened according to routine procedures. Manager Science: SEE COMMENT [facility] Comment: KN, CT(ASCP) CT screening location: [address] ??[address] HPV nRNA E6/E7 Not Detected Not Detected [facility] Comment: Methodology: Stockkeeper-Mediated Amplification This assay detects E6/E7 viral messenger RNA (mRNA) from 14 high-risk HPV types (16,18,31,33,35,39,45,51,52,56,58,59,66,68). ? The analytical performance characteristics of this assay have been determined by [employer]. The modifications have not been cleared or approved by the FDA. This assay has been validated pursuant to the CLIA regulations and is used for clinical purposes. ?? For additional information, please refer to http://education.[employer]/faq/HJE042o3 (This link if provided for information/ educational [...] Fregoso CNM LAB PATHOLOGY ORDERABLES Final Result Performing Organization Address City/State/[facility] Co de Phone Number [facility] [address] * Hm Colonoscopy (07/16/2015 8:12 AM EDT) Historical Provider MD HEALTH MAINTENANCE Final Result from Last 3 Months or Most Recently Relevant to Health Maintenance Insurance [facility] C3 * Guarantor: Uyen Maciel Account Type Relation to Patient Date of Phone Billing Address Personal/Family Self [address] [place] Care Teams Cmm Operator Relationship Specialty Start Date End Date AdornoEusebio Ortiz MD [address] [place] [address] [place] [address] PCP - General Internal Medicine 05/21/20
--- OUTSIDE RECORDS SUMMARY | 2024-07-17 09:32 | XMS_ITS | Data Portability ---
Author Organization [place] [facility] All[facility] Address [address] [address] Care Team Providers Care Fireman Helper Name Role Phone SUSSY MAYES Primary Care [...] INTERNAL AUDITORY CANAL, W/WO CONTRAST 2024 025 [facility] ([facility]), [address] [place], [address], 06:17:08 Medication Orders None recorded. Patient TargetsNo targets recorded. Patient InstructionsNo instructions recorded. Reason for Referral None Reported. Results Created Date Observation Date Name Description Value Unit Range Abnormal Flag Note LastModifiedBy Organization Detail LastModifiedTime 05/30/19 audio gram No observ ation record ed. BARCODE Not Available 2024 14:57:10 06/10/19 25 06/07/2024 MRI, brain + brain stem, w/wo contr ast [facility] Access ion Number : [id number] Region t Name: Uyen Maciel Medica l Record Number : [id number] Date of : 1965 Date of Exam: 2024 Referr ing Physic jose maria: Félix lee, [facility] [place] [address] [address] Exam: MR Brain (C-/C+ ) CPT 53597 Room Descri ption: Garden Siem Espr 1.5 MRI of the brain [...] Electr onical ly Signed By: Srikanth arciniega [facility] ([facility]) [address] [facility], [place], [address], 06/13/2024 11:56:50 Result Notes None recorded. Problems Name Problem SNOMED Code Status Onset Date Resolution Date Notes Provider Name and Address Organization Details Recorded Time Sensorineur al hearing loss of bilateral ears 383325795 Active 2024 Huma barrios [place] - [facility] 13:19:56 Bilateral tinnitus 7270603048441 Active 2024 ORTIZ Orosco MD [address] [facility] [address], [place], [address], [place] - [facility] 5 14:17:04 Sensorineur al hearing loss in right ear 3533699859394 0 Active 2024 ORTIZ Orosco MD 100 [facility], [address], [place], [address], [place] - [facility] 14:20:51 Problem Notes None recorded. Procedures Surgical History Date Name Laterality Status Provider Name and Address Organization Details Recorded Time 05/30/19 Tympanometry - 71042 completed Huma Welch [place] [facility] 05/29/2024 13:19:37 05/30/19 Air & Bone Audio - 34123 completed Huma Welch [place] [facility] 05/29/2024 13:19:33 Imaging Results Imaging Date Name Status LastModified by Organiz ation Details LastModified Time 05/29/2024 audiogram completed BAR[facility] Information no t available 05/29/2024 14:57:10 06/07/2024 MRI, brain + brain stem, w/wo contrast completed suze [facility] ([facility]) [address] [facility], [place], [address], 06/13/2024 11:56:50 Procedure Notes None recorded. Medical Equipment None Reported. Allergies Allergen ID Allergen Name Allergen Category Reaction Reaction Severity Criticality Documentation Date Start Date Code Code System Note Provider Name and Address Organization Details Recorded Time 655225 Singulair medicatio n Not available Not available Not available 05/29/2024 63422 9 RxNorm Phan barrios [place] [facility] 12:59:28 Medications Name Sig Start Date [...] Address Organization Details Last Updated DateTime 05/29/2024 69425.05 g 23.6 kg/m2 154.94 cm Phan Gonzáles [place] - [facility] 05/29/2024 13:59:41 Social History None recorded. Functional Status None recorded. Mental Status None recorded. Family History Nothing Reported. Medical History Condition Response Arthritis Y Asthma Y Gynecological HistoryNo gynecological history recorded. Obstetrics History GPAL:G 0 P 0 0 0 0 Past Encounters Encounter ID Performer Location Encounter Start Date Encounter Closed Date Diagnosis/Indication Diagnosis SNOMED-CT Code Diagnosis ICD10 Code Diagnosis Note [id number] ORTIZ DALLAS MD [facility] [address] [address] 05/29/2024 12:32:51 05/29/2024 14:20:41 Sensorineural hearing loss of bilateral ears 214541761 H90.3 Audiologic al evaluation results: Right ear: [...] Sensorineu ral hearing loss in right ear 6478867469 9100 H90.A21 She has asymmetric hearing loss in the right ear. I will send for an MRI. She has been on the window where steroids would be beneficial . I gave medical clearance for hearing aids. Bilateral tinnitus 97207 54570 102 H93.13 Ear exam was normal. Audiogram was reviewed. We discussed the associatio n between sensorineu ral hearing loss and tinnitus. We discussed masking for tinnitus. Health Concerns Section Related Observation LastModified by Organization Detai ls LastModified Time None Recorded Concern Status LastModified by Organization Details LastModified Time None Recorded Advance Directives Directive None Recorded Payers Insurance Date Sequence Insurance Name Policy Number Policy Frazier Covered Member ID Frazier Member ID Guarantor Name 05/29/2024 1 [place] [facility] Uyen Maciel [id number] Uyen Maciel 06/13/2024 1 [place] [facility] (MEDICAID) Uyen Maciel [id number] [facility] Notes Date Note Type Note Provider Name and Address Organization Details Recorded Time 05/29/2024 text/html She presents for hearing loss. She notes a couple of months ago the hearing in her right ear worsened. She says she was treated for an ear infection at the time. She had an audiogram which showed mixed HL in both ears worse AD at [facility] in November. Repeat audio today shows SNHL AU moderate AD and mild . Has tinnitus AU. ORTIZ DALLAS MD [address] [place] [address], [place], [address], [facility] - [facility] 05/29/2024 14:22:06 OBGyn Episode No OBEpisode recorded.
--- OUTSIDE RECORDS SUMMARY | 2024-07-17 09:32 | XMS_ITS | Encounter Summary ---
Author Organization [employer] Address [address] [facility] 7[address] [place] [address] Care Team Providers Care Drywall Worker Name Role Phone Eusebio Portillo MD Primary Care Prov ider Encounter Details Date Type Department Care Team (Late Contact Info) Description 04/20/2022 Orders Only [facility] [address] [place], [place] [phone] Eusebio Portillo MD [address] [place], [place] [phone] Acquired hypothyroidism Social History Tobacco Use Types [...] Info) Description 08/20/2024 10:15 AM EDT Telemedicine [facility] [address] [place] [address] Eusebio Portillo MD [address] [place], [place] [phone] documented as of this encounter Visit Diagnoses Diagnosis Acquired hypothyroidism Unspecified hypothyroidism documented in this encounter Care Teams Drywall Worker Relationship Specialty Start Date End Date Eusebio Portillo MD [address] [place], [place] [phone] PCP - General Internal Medicine 05/21/20 documented as of this encounter
--- OUTSIDE RECORDS SUMMARY | 2024-07-17 09:32 | XMS_ITS | Encounter Summary ---
Author Organization [employer] Address [address] [facility] [address]t [address] Floor [place] [id number] Care Team Providers Care Real Estate Assistant Name Role Phone Eusebio Portillo MD Primary Care Prov ider Reason for Visit * Reason Comments Med Refill Encounter Details Date Type Department Care Team ([facility] st Contact Info) Description 08/29/2023 Refill [facility] [address] [place], [place] [phone] Eusebio Portillo MD [address] [place], [place] [phone] Social History Tobacco Use Types Packs/Day Years [...] Description 08/20/2024 10:15 AM EDT Telemedicine [facility] [address] [place] [address] Eusebio Portillo MD [address] [place] [address] documented as of this encounter Visit Diagnoses Not on filedocumented in this encounter Additional Health Concerns Assessment Noted Time PHQ-9 Depression Total Score: 0 07/20/19 23 2:03 PM EDT documented as of this encounter Care Teams Real Estate Assistant Relationship Specialty Start Date End Date Eusebio Portillo MD [address] [place] [address] PCP - General Internal Medicine 05/21/20 documented as of this encounter
--- OUTSIDE RECORDS SUMMARY | 2024-07-17 09:32 | XMS_ITS | Encounter Summary ---
Author Organization [employer] Address [address] [facility] [address]t [place] [address] Care Team Providers Care Handkerchief Sample Clerk Name Role Phone Eusebio Portillo MD Primary Care Prov ider Reason for Visit * Reason Onset Date Comments Nurse Triage 01/13/2024 Encounter Details Date Type Department Care Team ([facility] st Contact Info) Description 01/13/2024 Telephone [facility] MEDICINE [address] [place], [place] [phone] Eusebio Portillo MD [address] [place], [place] [phone] Nurse Triage Social History Tobacco Use Types [...] AM EST Triage call with [employer] [place] hot wort settler [place] [id number] Pt reports dizziness for a three days [...] care advice and disposition. ASK apt in [facility] today at 320pm. Insurance is verified as active prior to booking. Protocol Used: Dizziness (Adult) Protocol-Based Disposition: See in Office or Video Visit Today Video visit not offered Positive Triage Questions: * Moderate dizziness (e.g., interferes with normal activities) (Exception: Dizziness caused by heat exposure, sudden standing, or poor fluid intake.) * [...] [facility] [address] [place] [address] Eusebio Portillo MD [address] [place] [address] documented as of this encounter Visit Diagnoses Not on filedocumented in this encounter Additional Health Concerns Assessment Noted Time PHQ-9 Depression Total Score: 0 07/20/19 23 2:03 PM EDT documented as of this encounter Care Teams Handkerchief Sample Clerk Relationship Specialty Start Date End Date Eusebio Portillo MD [address] [place] [address] PCP - General Internal Medicine 05/21/20 documented as of this encounter
--- OUTSIDE RECORDS SUMMARY | 2024-07-17 09:33 | XMS_ITS | Clinical Summary ---
Author Organization [facility] ity Address [address] [place] [address] Care Team Providers Care Fur Cutter Name Role Phone Unavailable Primary Care Provider [...]
--- OUTSIDE RECORDS SUMMARY | 2024-07-17 09:33 | XMS_ITS | Encounter Summary ---
Author Organization [employer] Address [address] [facility] [address]t [place] [address] Care Team Providers Care Smoking Tobacco Packing Machine Hand Name Role Phone Eusebio Portillo MD Primary Care Prov ider Encounter Details Date Type Department Care Team ([facility] st Contact Info) Description 04/08/2023 Orders Only [facility] CHC MED & PEDS [address] [place], [place] [phone] Eusebio Portillo MD [address] [place], [place] [phone] Social History Tobacco Use Types Packs/Day Years [...] Info) Description 08/20/2024 10:15 AM EDT Telemedicine [facility] MED & PEDS [address] [place] [address] Eusebio Portillo MD [address] [place] [address] documented as of this encounter Visit Diagnoses Not on filedocumented in this encounter Additional Health Concerns Assessment Noted Time PHQ-9 Depression Total Score: 0 07/20/19 23 2:03 PM EDT documented as of this encounter Care Teams Smoking Tobacco Packing Machine Hand Relationship Specialty Start Date End Date Eusebio Portillo MD [address] [place] [address] PCP - General Internal Medicine 05/21/20 documented as of this encounter
--- OUTSIDE RECORDS SUMMARY | 2024-07-17 09:33 | XMS_ITS | Encounter Summary ---
Author Organization [employer] Address [address] [facility] [address] [place] [address] Care Team Providers Care Steel Wool Machine Operator Name Role Phone Eusebio Portillo MD Primary Care Prov ider Encounter Details Date Type Department Care Team (Late st Contact Info) Description 06/27/2023 Orders Only [facility] MEDICINE [address] [place], [place] [phone] ProviderLinnea MD Social History Tobacco Use Types Packs/Day Years Used Date Smoking Tobacco: Never Smokeless Tobacco: Never Depression Answer Date Recorded Patient Health Questionnaire-9 Score 0 07/19/2022 Housing Stability Answer Date Recorded What is your housing situation today? I have hasrha lisa 12/22/[address] you li [...] Info) Description 08/20/2024 10:15 AM EDT Telemedicine [facility] MED & PEDS [address] [place] [address] Eusebio Portillo MD [address] [place] [address] documented as of this encounter Procedures Procedure [...] documented as of this encounter Care Teams Steel Wool Machine Operator Relationship Specialty Start Date End Date Eusebio Portillo MD [address] [place] [address] PCP - General Internal Medicine 05/21/20 documented as of this encounter
--- OUTSIDE RECORDS SUMMARY | 2024-07-17 09:33 | XMS_ITS | Encounter Summary ---
Author Organization [employer] Address 75 [facility] [address]t h Floor [place] [phone] Care Team Providers Care Marine Electrician Apprentice Name Role Phone Eusebio Portillo MD Primary Care Prov ider Reason for Visit * Reason Comments Med Refill Encounter Details Date Type Department Care Team ([facility] st Contact Info) Description 07/20/2023 Refill [facility] CHC MED & PEDS [address] [place], [place] [phone] Eusebio Portillo MD [address] [place], [place] [phone] Acquired hypothyroidism Social History Tobacco Use Types [...] Info) Description 08/20/2024 10:15 AM EDT Telemedicine [facility] MED & PEDS [address] [place] [address] Eusebio Portillo MD [address] [place] [address] documented as of this encounter Visit Diagnoses Diagnosis Acquired hypothyroidism Unspecified hypothyroidism documented in this encounter Additional Health Concerns Assessment Noted Time PHQ-9 Depression Total Score: 0 07/20/19 23 2:03 PM EDT documented as of this encounter Care Teams Marine Electrician Apprentice Relationship Specialty Start Date End Date Eusebio Portillo MD [address] [place] [address] PCP - General Internal Medicine 05/21/20 documented as of this encounter
--- OUTSIDE RECORDS SUMMARY | 2024-07-17 09:33 | XMS_ITS | Encounter Summary ---
Author Organization [employer] Address [address] [facility] [address] 7[address] [place] [address] Care Team Providers Care Buckle Sewer Name Role Phone Eusebio Portillo MD Primary Care Prov ider Reason for Visit * Reason Onset Date Comments ER Follow-up 07/01/2023 Encounter Details Date Type Department Care Team ([facility] st Contact Info) Description 07/01/2023 Telephone [facility] MEDICINE [address] [place], [place] [phone] Eusebio Portillo MD [address] [place], [place] [phone] ER Follow-up Social History Tobacco Use Types [...] 1:07 PM EDT Pt was seen in [facility] today not ED. Pt advised to return call to office if symptoms persist or worsen.Pt had ED precautions reviewed. * Telephone Encounter - Hubert Zhou - 07/01/2023 11:34 AM EDT Patient calling to report ED visit on : Date: 06/29 Hospital: [facility] Seen for: Breathing troubles and was diagnosed with asthma Patient advised will forward to team nurse for follow up documented in this encounter Plan of Treatment Upcoming Encounters Date Type Department Care Team (Late st Contact Info) Description 08/20/2024 10:15 AM EDT Telemedicine [facility] CHC MED & PEDS [address] [place] [address] Eusebio Portillo MD [address] [place] [address] documented as of this encounter Visit Diagnoses Not on filedocumented in this encounter Additional Health Concerns Assessment Noted Time PHQ-9 Depression Total Score: 0 07/20/19 23 2:03 PM EDT documented as of this encounter Care Teams Buckle Sewer Relationship Specialty Start Date End Date Eusebio Portillo MD [address] [place] [address] PCP - General Internal Medicine 05/21/20 documented as of this encounter
[2024-07-17 15:02] LABS: TSH reflex Free T4 11.78 uIU/mL (0.32-4.0)
[2024-07-17 18:25] LABS: Free T4 (Free Thyroxine) 0.87 ng/dL (0.71-1.85)
== END 2024-07-17 09:07 | disposition home or self-care (01) ==
LOC: CF 09:06
PROVIDERS: Visit Provider Internal Medicine
DX: E03.9 Hypothyroidism, unspecified (principal)
CPT/HCPCS: 36415; 84439; 84443

== ENCOUNTER 2024-10-08 08:23 | Outpatient (REF) | payer MEDICAID, SELFPAY ==
--- OUTSIDE RECORDS SUMMARY | 2024-10-08 08:38 | XMS_ITS | Clinical Summary ---
Author Organization [facility] Address [address] [place] [address] Care Team Providers Care Banking Services Officer Name Role Phone Unavailable Primary Care Provider [...] Vaccine ( - 2023-2 5 season) 2023 Depression Screening 03/07/2024 Influenza Vaccine (#1) 2024 RSV Immunization Adult Patie nts (1 [...]
--- OUTSIDE RECORDS SUMMARY | 2024-10-08 08:38 | XMS_ITS | Encounter Summary ---
Author Organization [employer] Address 75 [facility] 7t h Floor [place] [phone] Care Team Providers Care Visitor Information Assistant Name Role Phone Eusebio Portillo MD Primary Care Prov ider Reason for Visit * Reason Comments Med Refill Encounter Details Date Type Department Care Team ([facility] st Contact Info) Description 08/29/2023 Refill [facility] CHC MED & PEDS [address] [place], [place] [phone] Eusebio Portillo MD [address] [place], [place] [phone] Social History Tobacco Use Types Packs/Day Years [...] Care Team (Late st Contact Info) Description 10/15/2024 9:30 AM EDT Telemedicine [facility] MED & PEDS [address] [place] [address] Eusebio Portillo MD [address] [place] [address] documented as of this encounter Visit Diagnoses Not on filedocumented in this encounter Additional Health Concerns Assessment Noted Time PHQ-9 Depression Total Score: 0 07/20/19 23 2:03 PM EDT documented as of this encounter Care Teams Visitor Information Assistant Relationship Specialty Start Date End Date Eusebio Portillo MD [address] [place] [address] PCP - General Internal Medicine 05/21/20 documented as of this encounter
[2024-10-08 15:26] LABS: Free T4 (Free Thyroxine) 1.21 ng/dL (0.71-1.85)
== END 2024-10-08 08:24 | disposition home or self-care (01) ==
LOC: HO.CHCLDS 08:23
PROVIDERS: Visit Provider Internal Medicine
DX: E03.9 Hypothyroidism, unspecified (principal)
CPT/HCPCS: 36415; 84439; 84443

== ENCOUNTER 2024-11-27 09:57 | Outpatient (AMB) | payer MEDICAID, SELFPAY ==
[2024-11-27 10:16] VITALS: BP 112/70; PULSE 84; O2SAT 97; BMI 23.5
--- NOTE | 2024-11-27 10:16 | MHC.OFFVIS ---
Vital Signs 11/27/24 10:16 Height 5 ft 1 in Weight 124 lb 8.979 oz BMI 23.5 BP 112/70 Blood Pressure Location Lt brachial Position Sitting Pulse 84 Pulse Source Pulse Oximeter Pulse Oximetry (%) 97 Oxygen Delivery Method Room Air Intake Visit Reasons: COPD Intake Note: pt is here for follow up and states just a stuffy noise. Assembler Sandal Parts Required: No Allergies albuterol (From VENTOLIN) Allergy (Intermediate, Verified 11/27/24 10:30) SHORTNESS OF BREATH nut - unspecified (nut) Allergy (Intermediate, Verified 11/27/24 10:30) SWELLING dicyclomine (Bentyl) Allergy (Unknown, Verified 11/27/24 10:30) Unknown montelukast (Singulair) Allergy (Unknown, Verified 11/27/24 10:30) Unknown Medication List - Last Reconciled 11/27/24 by Carlos Borrero MD aclidinium bromide 400 mcg/actuation (Tudorza Pressair) 1 inh inhalation BID 30 days albuterol sulfate 90 mcg/actuation (ProAir HFA) 2 puffs inhalation Q4-6H PRN 30 days albuterol sulfate 2.5 mg (3 mL) inhalation Q4-6H PRN 30 days cetirizine (Zyrtec) 10 mg PO DAILY epinephrine (EpiPen 2-Kehinde) 0.3 mg IM Q10M PRN fluticasone propionate 50 mcg/actuation (Flonase Allergy Relief) 1 spray intranasal DAILY ketotifen fumarate 0.025%(0.035%) (Alaway) 1 drp ophthalmic (eye) DAILY Do you need a note to return to daycare/school/sports/work: No HPI HPI COPD: Details: 58 years old Congolese-speaking very pleasant lady has longstanding history of allergic rhinitis and bronchial asthma/COPD. With her current medical regimen all her symptoms remain well controlled. She has only intermittent nasal congestion, She has intermittent cough which is nonproductive. Only mild to moderate degree of shortness of breath on exertion but it has been stable and she continues to cope with that okay. She is nonsmoker. Has had no acute exacerbations in the last 6 months. [facility] Medical History Pharyngitis Recurrent UTI Renal cysts, acquired, bilateral Gross hematuria Arthritis Hypothyroidism UTI (urinary tract infection) COPD (chronic obstructive pulmonary disease) Allergic rhinitis Surgical History Hx of dilation and curettage History of hysteroscopy H/O tubal ligation H/O colonoscopy History of eye surgery Social History Household Members: None Housing: Apartment Alcohol intake: never Patient Tobacco Use Status: Never used Tobacco Sexual orientation: Straight/Heterosexual Gender identity: Female Female Reproductive History Menstrual Age of Menarche: 11 Review of Systems Const All systems reviewed & are unremarkable except as noted in HPI and below Eyes Reports no additional complaints ENT Reports nasal congestion (MILD TO MODERATE ALMOST DAILY.) Card Reports no additional complaints Resp Reports as per HPI GI Reports no additional complaints Reports no additional complaints Musc Reports no additional complaints Skin/Breast Reports system reviewed and no additional complaints, except as documented Neuro Reports no additional complaints Psych Reports anxiety (MILD CONTROLLED) Endo Reports no additional complaints Steve/Lymph Reports no additional complaints Physical Exam Vital Signs: Last Vital Signs Pulse 84 11/27/24 10:16 BP 112/70 11/27/24 10:16 Pulse Ox 97 11/27/24 10:16 Oxygen Delivery Method Room Air 11/27/24 10:16 BMI result Body Mass Index 23.5 Const General: comfortable, no acute distress, alert and awake Orientation/consciousness: patient oriented x3 HEENT Head: Yes normal to inspection Ears: other (THE EAR CANALS ARE NORMAL) General nose exam: No nasal polyps present, Normal septum present (mild DNS to the left), No nasal discharge present and Other nasal findings present (no active congestion ) Face and sinus: Yes sinuses nontender Mouth: oropharynx abnormals (THERE IS MILD ERYTHEMA OF THE UVULA AND SOFT PALATE, NO ULCERATION,) Throat: Yes posterior oropharynx normal Eyes General: appearance normal, both eyes and all related structures Neck Neck: Yes normal visual inspection, Yes no lymphadenopathy, Yes trachea midline and Yes no JVD Thyroid: Thyroid normal Chest Chest palpation & inspection: normal inspection of the chest, normal palpation of entire chest wall and no tenderness Resp Other: PERCUSSION NOTE RESONANT, BREATH SOUNDS ARE EQUAL ON BOTH SIDES WITH SLIGHTLY PROLONGED EXPIRATORY PHASE. NO WHEEZES, RHONCHI OR CREPS ARE HEARD. Cardio Palpation: normal PMI Rate: regular rate Rhythm: regular rhythm Heart sounds: no gallops and no murmurs Peripheral pulses: Peripheral pulses 2+ throughout GI Palpation (GI): Soft to palpation, Tenderness to palpation present (GI), No hepatosplenomegaly present and Palpable mass present Auscultation: normal bowel sounds Back/Spine/Pelvis Thoracic/Lumbar Spine: thoracic and lumbar spine normal to inspection Skin General skin exam: no rashes or lesions noted Neuro General: patient oriented x3 and no focal motor deficits Cranial nerves: Yes CN's II-XII intact bilaterally Extrem General: Yes normal to inspection, Yes no clubbing, cyanosis or edema and Yes no calf tenderness Psych Appearance: grossly normal and well kempt Speech and movement: Normal speech and movement present Office Procedures Spirometry Testing Spirometry Comments: Spirometry done in the office, Dr. Borrero has the results results scanned to her chart. 28445- Spirometry Results Reviewed Results Reviewed: SPIROMETRY 09/28/2022 11/27/24 FVC= 67 % 75 % FEV1= 53 % 59 % BFV17-42 = 33 % 37 % Assessment & Plan Assessment & Plan (1) Allergic rhinitis: Comment: CHRONIC, CONTROLLED WITH PRESENT REGIMEN. * STOPPED ALLERGY SHOTS , SINCE 2 YEARS AGO . SHE WAS GETTING LOCAL REACTION FROM THE SHOTS . She did not have any increase in her symptoms after stopping the allergy shots Code(s): J30.9 - Allergic rhinitis, unspecified Category: Medical Plan: I explained to her that her allergic rhinitis remains well controlled. Continue using Flonase-50 2 spray each nostril daily Use Zyrtec 10 mg once a day p.r.n. (2) COPD (chronic obstructive pulmonary disease): Comment: MODERTAELY SEVERE ,REMAINING STABLE . SPIROMETRY TODAY SHOWS THAT FLOW VOLUMES ARE ACTUALLY SOMEWHAT IMPROVED WHEN COMPARED TO SPIROMETRY IN 2022 HAS HAD NO ACUTE EXACERBATION IN THE LAST 6 MONTHS. Code(s): J44.9 - Chronic obstructive pulmonary disease, unspecified Category: Medical Plan: CONTINUE TUDORZA PRESSAIR 1 INHALATION B.I.D. ALBUTEROL HFA 2 PUFFS Q 4-6 HOURS P.R.N. OR ALBUTEROL SOLUTION IN THE NEBULIZER Q 4-6 HOURS P.R.N.. Orders: Orders AMB Spirometry Testing Today J44.9 - Chronic obstructive pulmonary disease, unspecified Coding Level of Care Code Est Pt Level 3 (16204) Diagnoses Allergic rhinitis J30.9 COPD (chronic obstructive pulmonary disease) J44.9 CPT Codes Spirometry - CPT: 09081- Spirometry ([id number])
--- OUTSIDE RECORDS SUMMARY | 2024-11-27 12:00 | XMS_ITS | Encounter Summary ---
Author Organization [employer] Address 75 [facility] 7t [place] [address] Care Team Providers Care Care Transition Coordinator Name Role Phone Eusebio Portillo MD Primary Care Prov ider Encounter Details Date Type Department Care Team ([facility] st Contact Info) Description 04/08/2023 Orders Only [facility] CHC MED & PEDS [address] [place], [place] [phone] Eusebio Portillo MD [address] [place], [place] [phone] Social History Tobacco Use Types Packs/Day Years [...] as of this encounter Plan of Treatment Not on file documented as of this encounter Visit Diagnoses Not on filedocumented in this encounter Additional Health Concerns Assessment Noted Time PHQ-9 Depression Total Score: 0 07/20/19 23 2:03 PM EDT documented as of this encounter Care Teams Care Transition Coordinator Relationship Specialty Start Date End Date Eusebio Portillo MD [address] [place] [address] PCP - General Internal Medicine 05/21/20 documented as of this encounter
--- OUTSIDE RECORDS SUMMARY | 2024-11-27 12:00 | XMS_ITS | Encounter Summary ---
Author Organization [employer] Address 75 [facility] 7t h Floor [place] [phone] Care Team Providers Care Cable Armorer Operator Name Role Phone Eusebio Portillo MD Primary Care Prov ider Reason for Visit * Reason Comments Med Refill Encounter Details Date Type Department Care Team ([facility] st Contact Info) Description 07/20/2023 Refill [facility] CHC MED & PEDS [address] [place], [place] [phone] Eusebio Portillo MD [address] [place], [place] [phone] Acquired hypothyroidism Social History Tobacco Use Types [...] documented as of this encounter Care Teams Cable Armorer Operator Relationship Specialty Start Date End Date Eusebio Portillo MD [address] [place] [address] PCP - General Internal Medicine 05/21/20 documented as of this encounter
--- OUTSIDE RECORDS SUMMARY | 2024-11-27 12:00 | XMS_ITS | Clinical Summary ---
Author Organization [facility] Address [address] [place] [address] Care Team Providers Care Gas Specialist Name Role Phone Unavailable Primary Care Provider [...] 2014 Zoster Vaccines (1 of 2) 2014 Depression Screening 03/07/2024 COVID-19 Vaccine (1 - 2023-2 5 season) 2024 Influenza Vaccine (#1) 2024 RSV Immunization Adult [...]
--- OUTSIDE RECORDS SUMMARY | 2024-11-27 12:00 | XMS_ITS | Encounter Summary ---
Author Organization [employer] Address 75 [facility] 7t h Floor [place] [phone] Care Team Providers Care Footwear Stitcher Name Role Phone Eusebio Portillo MD Primary Care Prov ider Reason for Visit * Reason Comments Med Refill Encounter Details Date Type Department Care Team ([facility] st Contact Info) Description 03/27/2024 Refill [facility] CHC MED & PEDS [address] [place], [place] [phone] Eusebio Portillo MD [address] [place], [place] [phone] Acquired hypothyroidism Social History Tobacco Use Types [...] documented as of this encounter Care Teams Footwear Stitcher Relationship Specialty Start Date End Date Eusebio Portillo MD [address] [place] [address] PCP - General Internal Medicine 05/21/20 documented as of this encounter
--- OUTSIDE RECORDS SUMMARY | 2024-11-27 12:00 | XMS_ITS | Encounter Summary ---
Author Organization [employer] Address [address] [facility] [address] [place] [address] Care Team Providers Care Centerpuncher Name Role Phone Eusebio Portillo MD Primary Care Prov ider Encounter Details Date Type Department Care Team ([facility] st Contact Info) Description 06/27/2023 Orders Only [facility] MEDICINE [address] [place], [place] [phone] ProviderLinnea MD Social History Tobacco Use Types Packs/Day Years Used Date Smoking Tobacco: Never Smokeless Tobacco: Never Depression Answer Date Recorded Patient Health Questionnaire-9 Score 0 07/19/2022 Housing Stability Answer Date Recorded What is your housing situation today? I have harsha lisa 12/22/[address] you [...] on file documented as of this encounter Procedures Procedure Name Priority Date/Time Associated Diagnosis Comments HM COLONOSCOPY Routine 07/16/2015 8:12 AM EDT documented in this encounter Results * Hm Colonoscopy (07/16/2015 8:12 AM EDT) Historical Provider HEALTH MAINTENANCE Final Result documented in this encounter Visit Diagnoses Not on filedocumented in this encounter Additional Health Concerns Assessment Noted Time PHQ-9 Depression Total Score: 0 07/20/19 23 2:03 PM EDT documented as of this encounter Care Teams Centerpuncher Relationship Specialty Start Date End Date AdornoEusebio Ortiz MD [address] [place] [address] PCP - General Internal Medicine 05/21/20 documented as of this encounter
--- OUTSIDE RECORDS SUMMARY | 2024-11-27 12:00 | XMS_ITS | Encounter Summary ---
Author Organization [employer] Address 75 [facility] 7t [place] [address] Care Team Providers Care Machine Fixer Name Role Phone Eusebio Portillo MD Primary Care Prov ider Encounter Details Date Type Department Care Team (Late st Contact Info) Description 04/20/2022 Orders Only [facility] MEDICINE [address] [place], [place] [phone] Eusebio Portillo MD [address] [place], [place] [phone] Acquired hypothyroidism Social History Tobacco Use Types [...] hypothyroidism documented in this encounter Care Teams Machine Fixer Relationship Specialty Start Date End Date Eusebio Portillo MD [address] [place], [place] [phone] PCP - General Internal Medicine 05/21/20 documented as of this encounter
--- OUTSIDE RECORDS SUMMARY | 2024-11-27 12:00 | XMS_ITS | Clinical Summary ---
Author Organization [employer] Address 75 [facility] 7t [place] [address] Care Team Providers Care Chess Instructor Name Role Phone Eusebio Portillo MD Primary Care Prov ider Allergies Active Allergy Reactions Criticality Noted Date Comments [place] Oil Swelling High 09/13/2022 Montelukast Headache,Unknown 05/26/2010 [...] AND REPLACE CAP. 48 mL 025 Active docusate sodium (Colace) 100 MG capsule TOME 1 CAPSULA POR VIA ORAL EN LA MANANA AND AL ACOSTARSE CUANDO SEA NECESARIO PARA EL ESTRENIMIENTO 60 capsule 1 025 Active levothyroxine (Synthroid) 75 MCG tabletIndications :Acquired hypothyroidism Take 1 tablet (75 mcg) by mouth before breakfast. 30 tablet 11 025 2025 Active albuterol (Ventolin HFA) 108 (90 Base) MCG/ACT inhaler INHALE DANDO DOS SOPLIDOS POR VIA ORAL CADA SEIS HORAS CUANDO SEA NECESARIO FOR WHEZE 18 g 1 025 Active albuterol (Ventolin HFA) 108 (90 Base) MCG/ACT inhaler INHALE DANDO DOS SOPLIDOS POR VIA ORAL CADA SEIS HORAS CUANDO SEA NECESARIO FOR WHEZE 18 g 1 025 2024 Discontinued Active Problems Problem Noted Date Diagnosed Date Benign schwannoma 08/21/2024 Assessment & Plan (08/21/2024 10:07 AM EDT): Followed by ent MRI will be done every 6 months to monitor size Bilateral central hearing loss 10/27/2023 Assessment & [...] EDT): Discussed ultrasound findings, follow up with ob-evidence specialist Acquired hypothyroidism 04/28/2022 Assessment & Plan (10/15/2024 10:43 AM EDT): Controlled, clinically euthyroid, no changes will be made, continue current treatment, follow up in 4 months Assessment & Plan (08/21/2024 10:08 AM EDT): Increased levothyroxine, will follow up in 8 weeks, with new lab results Assessment & Plan (05/18/2024 2:38 PM EDT): [...] Encounters Date Type Department Care Team Description 11/10/2024 Refill [facility] [address] [place] [address] Mimi Rachel MD 10/15/2024 9:30 AM EDT Telemedicine [facility] [address] [place] [address] Eusebio Portillo MD Acquired hypothyroidism (Primary Dx) 10/15/2024 Travel 10/11/2024 Results Follow-Up [facility] [address] [place] [address] Eusebio Portillo MD TSH W/Reflex to FT4 10/08/2024 Orders Only [facility] [address] [place] [address] Eusebio Portillo MD 09/20/2024 Refill [facility] [address] [place] [address] Eusebio Portillo MD from Last 3 Months Immunizations Immunization Administration Dates Next Due Hep A, Adult [...] Answer Date Recorded Patient Health Questionnaire-9 Score 2 10/15/2024 Patient Health Questionnaire-9 Score 2 10/15/2024 Last PHQ-9: Questionnaire Data Not on file 0 10/15/2024 Housing Stability Answer Date Recorded What is your housing situation today? I have harsha gonzalez 10/15/[address] you li ve. Do you have problems with any of the following? None of the above 10/15/2024 Food Insecurity Answer Date Recorded Within the past 12 months, y ou worried that your food would run out before you got money to buy more: Never True 10/15/2024 Within the past 12 months,th e food you bought just didn't last and you didn't have enough money to get more: Never True 01/2025 Transportation Answer Date Recorded In the past 12 months, has l ack of transportation kept you from medical appts, meetings, work or from getting things needed for daily living? No 10/15/2024 Utilities Answer Date Recorded In the past 12 months, has t he electric, gas, oil or water company threatened to shut off services in your home? No 10/15/2024 Depression Answer Date Recorded Patient Health Questionnaire-2 Score 2 10/15/2024 Internet Access Answer Date Recorded Internet Access Q1 Yes 10/15/2024 Internet Access Q2 Not on file 10/15/2024 Comments No Sex and Gender Information Value Date Recorded Sex Assigned at Female 01/04/2022 10:14 AM EDT Legal Sex Female 10:14 AM EDT Gender Identity Female 01/04/2022 10:14 AM EDT Sexual Orientation Straight 01/04/2022 10 :14 AM EDT Last Filed Vital Signs Vital Sign Reading Time Taken Comments Blood Pressure 136/78 07/05/2024 9:41 AM EDT Pulse 95 07/05/2024 9:41 AM EDT Temperature 36.7 C (98.1 F) 07/05/2024 9:41 AM EDT Respiratory Rate 18 07/05/2024 9:41 AM EDT Oxygen Saturation 97% 07/05/2024 9:41 AM EDT Inhaled Oxygen Concentration - - Weight 56.7 kg (125 lb) 07/05/2024 9:41 AM EDT Height 154.9 cm (5' 1 ) 03/19/2024 9:32 AM EST Body Mass Index 23.62 03/19/2024 9:32 AM EST Plan of Treatment Health Maintenance Due Date Last Done Comments CT Colonography 1965 FIT DNA/Cologuard 1965 FIT 1965 FOBT 1965 Sigmoidoscopy 1965 Pneumococcal Vaccine: 50+ Years (2 of 2 - PCV) 06/08/2012 06/09/2011 Hepatitis A Vaccines (2 of 2 - Risk 2-dose series) 04/22/2016 10/21/2015 COVID-19 Vaccine ( season) 2024 06/29/2021, 07/10/2020, 06/12/2020 Influenza Vaccine (#1) 2024 , 11/26/2022, 11/20/2021, Additional history exists Tobacco Screening 01/12/2025 01/13/2024 Colonoscopy 07/15/2025 07/16/2015 Colorectal Cancer Screening 07/15/2025 Alcohol/Substance Use Screening 10/15/2025 10/15/2024 Depression Screening 10/15/2025 10/15/2024, 10/16/19 25 Disability Screening 10/15/2025 10/15/2024 SDOH Screening 10/15/2025 10/15/2024 Mammogram 04/19/2026 04/19/2024, 02/0 11/2023, 03/17/2022, Additional [...] Completed 05/03/2022 Hepatitis C Screening Completed 05/03/2022 HIB Vaccines Aged Out No longer eligi [...] Date/Time Associated Diagnosis Comments T4, FREE Routine 10/08/2024 8:24 AM EDT TSH W/REFLEX TO FT4 Routine 10/08/2024 8 :24 AM EDT Acquired hypothyroidism BI MAMMOGRAM SCREENING TOMOSYNTHESIS [...] Recently Relevant to Health Maintenance Results * (ABNORMAL) TSH W/Reflex to FT4 (10/08/2024 8:24 AM EDT) TSH reflex Free T4 0.20(L) 0.32 - 4.0 uIU/mL [facility] Blood Venous blood specimen / Unknown 10/08/2024 8:24 AM EDT 10/08/2024 1:54 PM EDT us Eusebio Connors MD LAB BLOOD ORDERABL ES Final Result Performing Organization Address [facility] Co de Phone Number [facility] [address] [place] [address] [phone] * T4, Free (10/08/2024 8:24 AM EDT) Free T4 (Free Thyroxine) 1.21 0.71 - 1.85 ng/dL [facility] 10/08/2024 8:24 AM EDT 10/08/2024 1:54 PM EDT us Eusebio Connors MD LAB BLOOD ORDERABL ES Final Result Performing Organization Address [facility] de Phone Number [facility] [address] [place] [phone] * BI Mammogram Screening Tomosynthesis Bilateral (04/19/2024 10:35 AM EST) Anatomical Region Laterality Modality Breast Bilateral Mammography 04/19/2024 10:3 5 AM EST Narrative 04/27/2024 5:05 PM EST [facility] [address] [place] [address] Mammography Report Signed Patient: Uyen Maciel MR#: [id number] 2 : 1965 Acct:[id number] Age/Sex: 58 / F ADM Date: 04/19/24 Loc: HO.MAMMO Attending Dr: Eusebio Connors MD Ordering Physician: Eusebio Portillo MD Res ults: 1Negative Date of Service: 04/19/24 Follow Up: 1 Year From Orig inal Mammogram Procedure(s): MM tomosynthesis screening BI Accession Number(s): [id number] cc: Eusebio Portillo MD EXAMINATION: MM SCREENING [...] by: Heather Morris DO 04/27/2024 05:02 PM [facility] Dictated By: Heather Morris DO Signed By: <Electronically signed by Heather Morris DO in OV> 04/27/24 1702 DD/ 1035 TD/TT: 04/19/24 1044 Automobile Leasing Supervisor: Procedure Note Donotuseinterpreter, Image - 04/27/2024 [facility] [address] [place] [address] Mammography Report Signed Patient: Grant Maciel#: [id number] 2 : 1965Acct:[id number] Age/Sex: 58 / FADM Date: 04/19/24 Loc: HO.MAMMO Attending Dr: Eusebio Connors MD Ordering Physician: Eusebio Portillo ults: 1Negative Date of Service: 04/19/24Follow Up: 1 Year From Orig inal Mammogram Procedure(s): MM tomosynthesis screening BI Accession Number(s): [id number] cc: Eusebio Portillo MD EXAMINATION: MM SCREENING [...] by: Heather Morris DO 04/27/2024 05:02 PM [facility] Dictated By: Heather Morris DO Signed By: <Electronically signed by Heather Morris DO in OV> 04/27/24 1702 DD/ 1035 TD/TT: 04/19/24 1044 Automobile Leasing Supervisor: Eusebio Connors MD IMG BI PROCEDURES Final Result * HIV-1 RNA, Quantitative, Real-Time PCR with Reflex to Genotype (RTI, PI, Integrase) (05/03/2022 11:10 AM EST) HIV 1 RNA, QN PCR NOT DETECTED copies/mL [facility], HIV 1 RNA, QN PCR NOT DETECTED Log copies/mL [facility], Comment: REFERENCE RANGE: NOT DETECTED copies/mL NOT DETECTED Log copies/mL This test was performed using Real-Time Polymerase Chain Reaction. Reportable range is 20 to 10,000,000 copies/mL (1.30-7.00 Log copies/mL). 05/03/2022 11:1 0 AM EST 05/03/2022 11:11 AM EST Narrative [facility] - 05/06/2022 12:22 AM EST FASTING:YES FASTING: YES Eusebio Connors MD LAB BLOOD ORDERABL ES Final Result Performing Organization Address [facility]/ZIP Co de Phone Number [address], [place] [address] [facility], [address] [place] [address] * Hepatitis C Antibody with Reflex to HCV, RNA, Quantitative, Real-Time PCR (05/03/2022 11:10 AM EST) Pathologist [facility] Hepatitis C Antibody NON-REACT SADIE NON-REACT SADIE [facility] Index 0.03 <1.00 [facility] Comment: HCV antibody was non-reactive. There is no laboratory evidence of HCV infection. In most cases, no further action is required. However, if recent HCV exposure is suspected, a test for HCV RNA (test code 79366) is suggested. For additional information please refer to http://education.91 Boyuan Wireles/faq/CGH12k6 (This link is being provided for informational/ educational purposes only.) Blood Venous blood specimen / Unknown 05/03/2022 11:10 AM EST 05/03/2022 11:11 AM EST Narrative [facility] - 05/06/2022 12:22 AM EST FASTING:YES FASTING: YES Eusebio Connors MD LAB BLOOD ORDERABL ES Final Result Performing Organization Address City/[facility]/ZIP Co de Phone Number [address], [place] [address] [facility] [place] [employer] [address] [facility], (N[address]) [place] [address] * THINPREP TIS PAP AND HPV mRNA E6/E7 WITH REFLEX TO HPV 16,18/45 (05/26/2021 1:00 PM EDT) Clinical Information: None given [facility] COMMENT SEE COMMENT [facility] Comment: EXPLANATORY NOTE: The Pap is a screening test for cervical cancer. It is not a diagnostic test and is subject to false negative and false positive results. It is most reliable when a satisfactory sample, regularly obtained, is submitted with relevant clinical findings and history, and when the Pap result is evaluated along with historic and current clinical information. COMMENT: SEE COMMENT [facility] Comment: This case could not be evaluated with computer assisted technology. The slide was manually screened according to routine procedures. Scheduler Conveyor: SEE COMMENT [facility] Comment: KN, CT(ASCP) CT screening location: [place] [address] HPV nRNA E6/E7 Not Detected Not Detected [facility] Comment: Methodology: Counter Sales Person-Mediated Amplification This assay detects E6/E7 viral messenger RNA (mRNA) from 14 high-risk HPV types (16,18,31,33,35,39,45,51,52,56,58,59,66,68). The analytical performance characteristics of this assay have been determined by [facility]. The modifications have not been cleared or approved by the FDA. This assay has been validated pursuant to the CLIA regulations and is used for clinical purposes. For additional information, please refer to http://education.91 Boyuan Wireles/faq/CNM279q6 (This link if provided for information/ educational [...] EVALUATION Age and/or menstrual status not provided [facility] 05/26/2021 1:00 PM EDT Keeley YAN LAB PATHOLOGY ORDERABLES Final Result [facility] [address] [place] [address], * Hm Colonoscopy (07/16/2015 8:12 AM EDT) us Historical Provider HEALTH MAINTENANCE Final Result from Last 3 Months or Most Recently Relevant to Health Maintenance Insurance [facility] C3 Care Teams Chess Instructor Relationship Specialty Start Date End Date Eusebio Portillo MD [address] [place] [phone] PCP - General Internal Medicine 05/21/20
--- OUTSIDE RECORDS SUMMARY | 2024-11-27 12:00 | XMS_ITS | Encounter Summary ---
Author Organization [employer] Address 75 [facility] 7t [place] [address] Care Team Providers Care Fiscal Specialist Name Role Phone Eusebio Portillo MD Primary Care Prov ider Encounter Details Date Type Department Care Team ([facility] Contact Info) Description 10/11/2024 Results Follow-Up [facility] PEDS [address] [place], [place] [phone] Eusebio Portillo MD [address] [place] [address] TSH W/Reflex to FT4 Social History Tobacco Use Types Packs/Day Years [...] documented as of this encounter Care Teams Fiscal Specialist Relationship Specialty Start Date End Date Eusebio Portillo MD [address] [place] [phone] PCP - General Internal Medicine 05/21/20 documented as of this encounter
--- OUTSIDE RECORDS SUMMARY | 2024-11-27 12:00 | XMS_ITS | Encounter Summary ---
Author Organization [employer] Address 75 [facility] 7t h Floor [place] [phone] Care Team Providers Care Ostrich Farm Worker Name Role Phone Eusebio Portillo MD Primary Care Prov ider Reason for Visit * Reason Comments Med Refill Encounter Details Date Type Department Care Team ([facility] st Contact Info) Description 08/29/2023 Refill [facility] [address] [place], [place] [phone] Eusebio Portillo MD [address] [place], [place] [phone] Social History Tobacco Use Types Packs/Day Years [...] documented as of this encounter Care Teams Ostrich Farm Worker Relationship Specialty Start Date End Date Eusebio Portillo MD [address] [place] [phone] PCP - General Internal Medicine 05/21/20 documented as of this encounter
--- OUTSIDE RECORDS SUMMARY | 2024-11-27 12:00 | XMS_ITS | Encounter Summary ---
Author Organization [employer] Address 75 [facility] 7t [place] [address] Care Team Providers Care Weblogic Developer Name Role Phone Eusebio Portillo MD Primary Care Prov ider Reason for Visit * Reason Onset Date Comments ER Follow-up 07/01/2023 Encounter Details Date Type Department Care Team ([facility] st Contact Info) Description 07/01/2023 Telephone [facility] [address] [place], [place] [phone] Eusebio Portillo MD [address] [place], [place] [phone] ER Follow-up Social History Tobacco Use Types [...] 1:07 PM EDT Pt was seen in [facility] today not ED. Pt advised to return call to office if symptoms persist or worsen.Pt had ED precautions reviewed. * Telephone Encounter - Hubert Zhou - 07/01/2023 11:34 AM EDT Patient calling to report ED visit on : Date: 06/29 Hospital: [facility] Seen for: Breathing troubles and was diagnosed with asthma Patient advised will forward to team nurse for follow up documented in this encounter Plan of Treatment Not on file documented as of this encounter Visit Diagnoses Not on filedocumented in this encounter Additional Health Concerns Assessment Noted Time PHQ-9 Depression Total Score: 0 07/20/19 23 2:03 PM EDT documented as of this encounter Care Teams Weblogic Developer Relationship Specialty Start Date End Date Eusebio Portillo MD [address] [place] [phone] PCP - General Internal Medicine 05/21/20 documented as of this encounter
== END 2024-11-27 10:49 | disposition home or self-care (01) ==
LOC: HO.HPS 09:57
PROVIDERS: PCP Internal Medicine; Visit Provider Internal Medicine
DX: J30.9 Allergic rhinitis, unspecified (principal); J44.9 Chronic obstructive pulmonary disease, unspecified
CPT/HCPCS: 94010; 99213

== ENCOUNTER → 2024-11-27 09:57 | Outpatient (BNVA) | payer MEDICAID, SELFPAY | PROVIDERS: PCP Internal Medicine; Visit Provider Internal Medicine | DX: J44.9 Chronic obstructive pulmonary disease, unspecified (principal); Z79.899 Other long term (current) drug therapy | CPT/HCPCS: 94010; 99212 ==

== ENCOUNTER 2025-01-02 10:17 | Outpatient (REF) | payer MEDICAID, SELFPAY ==
--- NOTE | ~2025-01-02 | XR_ITS ---
EXAMINATION: XR LUMBOSACRAL SPINE CLINICAL INFORMATION: right low back pain COMPARISON: None available. 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 There is decreased intervertebral disc height and endplate sclerosis at L5-S1. There is an S-shaped curvature of the lumbar spine. No lytic or blastic lesions. No acute cortical disruption. 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 Electronically signed by: Zhao Kathleen MD 01/02/2025 10:41 AM EDT
--- OUTSIDE RECORDS SUMMARY | 2025-01-02 09:40 | XMS_ITS | Encounter Summary ---
Author Organization [employer] Address [address] [facility] [address] [place] [address] Care Team Providers Care Forming Process Worker Name Role Phone Eusebio Portillo MD Primary Care Prov ider Reason for Visit * Reason Comments Back Pain Encounter Details Date Type Department Care Team (Late st Contact Info) Description 01/02/2025 9:40 AM EDT Office Visit [facility] [place] [address] [place], [place] [phone] Elevated blood pressure reading in office without diagnosis of hypertension (Primary Dx); Acute right-sided low back pain with right-sided sciatica Social History Tobacco Use Types Packs/Day Years [...] AM EDT documented as of this encounter Last Filed Vital Signs Vital Sign Reading Time Taken Comments Blood Pressure 135/85 01/02/2025 10:05 AM EDT Pulse 98 01/02/2025 9:42 AM EDT Temperature 36.9 C (98.4 F) 01/02/2025 9:42 AM EDT Respiratory Rate 18 01/02/2025 9:42 AM EDT Oxygen Saturation 98% 01/02/2025 9:42 AM EDT Inhaled Oxygen Concentration - - Weight 56.2 kg (124 lb) 01/02/2025 9:42 AM EDT Height - - Body Mass Index 23.43 03/19/2024 9:32 AM EST documented in this encounter Plan of Treatment Not on file documented as of this encounter Procedures Procedure Name Priority Date/Time Associated Diagnosis Comments XR LUMBAR SPINE 2-3 VIEWS Routine 01/02/2025 10:35 AM EDT Acute right-sided low back pain with right-sided sciatica documented in this encounter Results * XR Lumbar Spine 2-3 Views (01/02/2025 10:35 AM EDT) Anatomical Region Laterality Modality Spine, L-spine Radiographic Antonina ging 01/02/2025 10:3 5 AM EDT Narrative 01/02/2025 10:44 AM EDT [address] [address] XRay Report Signed Patient: Uyen Maciel MR#: [id number] 2 : 1965 Acct:[id number] Age/Sex: 59 / F ADM Date: 01/02/25 Loc: TRACYX Attending Dr: Anup Carlton MD Ordering Physician: ANUP CARLTON MD Date of Service: 01/02/25 Procedure(s): XR lumbar spine 2-3V Accession Number(s): [id number] cc: ANUP CARLTON MD Reason for Exam: right low back pain EXAMINATION: XR LUMBOSACRAL SPINE CLINICAL INFORMATION: right low back pain COMPARISON: None available. 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 There is decreased intervertebral disc height and endplate sclerosis at L5-S1. There is an S-shaped curvature of the lumbar spine. No lytic or blastic lesions. No acute cortical disruption. 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 Electronically signed by: Zhao Kathleen MD 01/02/2025 10:41 AM EDT Dictated By: Zhao Dixon MD Signed By: <Electronically signed by Zhao Llanes MD in OV> 01/02/25 1041 DD/ 1035 TD/TT: 01/02/25 1036 Tube Builder: Procedure Note Donotuseinterpreter, Image - 01/02/2025 [place] [address] XRay Report Signed Patient: Grant Maciel#: [id number] 2 : 1965Acct:[id number] Age/Sex: 59 / FADM Date: 01/02/25 Loc: TRACYX Attending Dr: Anup Carlton MD Ordering Physician: ANUP CARLTON MD Date of Service: 01/02/25 Procedure(s): XR lumbar spine 2-3V Accession Number(s): [id number] cc: ANUP CARLTON MD Reason for Exam: right low back pain EXAMINATION: XR LUMBOSACRAL SPINE CLINICAL INFORMATION: right low back pain COMPARISON: None available. 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 There is decreased intervertebral disc height and endplate sclerosis at L5-S1. There is an S-shaped curvature of the lumbar spine. No lytic or blastic lesions. No acute cortical disruption. 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 Electronically signed by: Zhao Kathleen MD 01/02/2025 10:41 AM EDT RP Dictated By: Zhao Dixon MD Signed By: <Electronically signed by Zhao Llanes MDin OV> 01/02/25 1041 DD/ 1035 TD/TT: 01/02/25 1036 Tube Builder: Anup Carlton MD IMG XR PROCEDURES Final Result documented in this encounter Visit Diagnoses Diagnosis Elevated blood pressure reading in office without diagnosis of hypertension- Primary Acute right-sided low back pain with right-sided sciatica documented in this encounter Additional Health Concerns Assessment Noted Time PHQ-9 Depression Total Score: 2 10/16/19 25 9:23 AM EDT documented as of this encounter Care Teams Forming Process Worker Relationship Specialty Start Date End Date Eusebio Portillo MD [address] [place] [phone] PCP - General Internal Medicine 05/21/20 documented as of this encounter
--- OUTSIDE RECORDS SUMMARY | 2025-01-02 12:43 | XMS_ITS | Encounter Summary ---
Author Organization [employer] Address [address] [facility] [address] 7[address] [place] [address] Care Team Providers Care Associate Sales Name Role Phone Eusebio Portillo MD Primary Care Prov ider Encounter Details Date Type Department Care Team ([facility] st Contact Info) Description 06/27/2023 Orders Only [facility] MEDICINE [address] [place], [place] [phone] ProviderLinnea MD Social History Tobacco Use Types [...] documented as of this encounter Care Teams Associate Sales Relationship Specialty Start Date End Date AdornoEusebio Ortiz MD [address] [place] [phone] PCP - General Internal Medicine 05/21/20 documented as of this encounter
--- OUTSIDE RECORDS SUMMARY | 2025-01-02 12:43 | XMS_ITS | Clinical Summary ---
Author Organization [employer] Address 75 [facility] 7t [place] [address] Care Team Providers Care Husker Operator Name Role Phone Eusebio Portillo MD Primary Care Prov ider Allergies Active Allergy Reactions Criticality Noted Date Comments [place] Oil Swelling High 09/13/2022 Montelukast Headache,Unknown 05/26/2010 [...] REPLACE CAP. 48 mL 05/03/19 25 Active docusate sodium (Colace) 100 MG capsule TOME 1 CAPSULA POR VIA ORAL EN LA MANANA AND AL ACOSTARSE CUANDO SEA NECESARIO PARA EL ESTRENIMIENTO 60 capsule 1 08/18/19 25 Active levothyroxine (Synthroid) 75 MCG tabletIndications: Acquired hypothyroidism Take 1 tablet (75 mcg) by mouth before breakfast. 30 tablet 11 08/18/19 25 026 Active albuterol (Ventolin HFA) 108 (90 Base) MCG/ACT inhaler INHALE DANDO DOS SOPLIDOS POR VIA ORAL CADA SEIS HORAS CUANDO SEA NECESARIO FOR WHEZE 18 g 1 11/13/19 25 Active acetaminophen (Tylenol) 500 MG tablet Take 2 tablets (1,000 mg) by mouth every 6 (six) hours if needed for moderate pain or fever for up to 25 doses. 50 tablet 01/03/20 25 Active ibuprofen 400 MG tablet Take 1 tablet (400 mg) by mouth every 6 (six) hours if needed for moderate pain or fever for up to 30 doses. 30 tablet 01/03/20 25 Active tiZANidine (Zanaflex) 2 MG tablet Take 1 tablet (2 mg) by mouth every 6 (six) hours if needed for muscle spasms for up to 10 days. 30 tablet 01/03/20 25 025 Active lidocaine (Lidoderm) 5 % patch Apply 1 patch topically Once per day. Remove & discard patch within 12 hours or as directed by MD. 30 patch 2 01/03/20 25 026 Active Active Problems Problem Noted Date Diagnosed [...] EDT): Discussed ultrasound findings, follow up with ob-assistant media planner Acquired hypothyroidism 04/28/2022 Assessment & Plan (10/15/2024 [...] Encounters Date Type Department Care Team Description 01/02/2025 9:40 AM EDT Office Visit [facility] [address] [place] [address] [phone] Elevated blood pressure reading in office without diagnosis of hypertension (Primary Dx); Acute right-sided low back pain with right-sided sciatica 01/02/2025 Travel 11/10/2024 Refill [facility] [address] [place] [address] Mimi Rachel MD 10/15/2024 9:30 AM EDT Telemedicine [facility] [address] [place] [address] Eusebio Portillo MD Acquired hypothyroidism (Primary Dx) 10/15/2024 Travel 10/11/2024 Results Follow-Up [facility] [address] [place] [address] Eusebio Portillo MD TSH W/Reflex to FT4 10/08/2024 Orders Only [facility] [address] [place] [address] Eusebio Portillo MD from Last 3 Months Immunizations Immunization Administration Dates Next Due Hep A, Adult 10/21/2015 Hep B, adult 12/21/2016,06/18/2016,05/13/2016 Influenza Injectable Quadriv alant Preservative Free IIV4 MDCK 11/26/2022 Influenza injectable quadriv alent IIV4 with preservative 11/23/2018,12/13/2017,12/31/2015,11/19 Influenza injectable quadriv alent preservative free 11/20/2021,12/17/2020,12/03/2019,12/21 Influenza, IIV3, injectable 12/31/2013,0 12/01/2010,01/06/2010,12/04,12/14/2006 Influenza, Injectable, MDCK, preservative free 12/10/2024,11/18/2023 Influenza, Split (incl. ekaterina fied surface antigen) 11/14/2012,01/11/2012 Pneumococcal Conjugate PCV 20 12/10/2024 Pneumococcal Polysaccharide PPSV23 06/09/2011 TD (adult), 2 [...] (124 lb) 01/02/2025 9:42 AM EDT Height 154.9 cm (5' 1 ) 03/19/2024 9:32 AM EST Body Mass Index 23.43 03/19/2024 9:32 AM EST Plan of Treatment Health Maintenance Due Date Last Done Comments CT Colonography 1965 FIT DNA/Cologuard 1965 FIT 1965 FOBT 1965 Sigmoidoscopy 1965 Hepatitis A Vaccines (2 of 2 - Risk 2-dose series) 04/22/2016 10/21/2015 COVID-19 Vaccine ( season) 2024 06/29/2021, 07/10/2020, 06/12/2020 RSV Patients and Patients Aged 60 years or older (1 - Risk 60-74 years 1-dose series) 2024 Colonoscopy 07/15/2025 07/16/2015 Colorectal Cancer Screening 07/15/2025 Alcohol/Substance Use Screening 10/15/2025 10/15/2024 Depression Screening 10/15/2025 10/15/2024, 10/16/19 25 Disability Screening 10/15/2025 10/15/2024 SDOH Screening 10/15/2025 10/15/2024 Tobacco Screening 01/02/2026 01/02/2025 Mammogram 04/19/2026 04/19/2024, 02/11/2023, 03/17/2022, Additional history exists Cervical Cancer Screening 05/26/2026 HPV/Cotest 05/26/2026 05/26/2021, 04/18/2018 Pap Smear 05/26/2026 05/26/2021 DTaP/Tdap/Td Vaccines (3 - Td or Tdap) 11/21/2031 11/20/2021, 06/09/2011, 05/18/2006, Additional history exists Hepatitis B Vaccines Completed 12/21/2016, 06/18/2016, 05/13/2016 Zoster Vaccines Completed 11/24/2018, 08/18/2018 HIV Screening Completed 05/03/2022 Hepatitis C Screening Completed 05/03/2022 Influenza Vaccine Completed 12/10/2024, , 11/26/2022, Additional history exists Pneumococcal Vaccine: 50+ Years Completed 12/10/2024, 06/09/2011 HIB Vaccines Aged Out No longer eligi [...] right-sided low back pain with right-sided sciatica T4, FREE Routine 10/08/2024 8:24 AM EDT [...] Recently Relevant to Health Maintenance Results * XR Lumbar Spine 2-3 Views (01/02/2025 10:35 AM EDT) Anatomical Region Laterality Modality Spine, L-spine Radiographic Antonina ging 01/02/2025 10:3 5 AM EDT Narrative 01/02/2025 10:44 [place] [address] XRay Report Signed Patient: Uyen Maciel MR#: [id number] 2 : 1965 Acct:[id number] Age/Sex: 59 / F ADM Date: 01/02/25 Loc: HO.HHCX Attending Dr: Anup Carlton MD Ordering Physician: ANUP CARLTON MD Date of Service: 01/02/25 Procedure(s): XR lumbar spine 2-3V Accession Number(s): [id number] cc: ANUP CARLTON MD Reason for Exam: [...] 01/02/25 1041 DD/ 1035 TD/TT: 01/02/25 1036 Printing Press Operator Apprentice: Procedure Note Donotuseinterpreter, Image - 01/02/2025 [place] [address] XRay Report Signed Patient: Grant Maciel#: [id number] 2 : 1965Acct:[id number] Age/Sex: 59 / FADM Date: 01/02/25 Loc: HO.HHCX Attending Dr: Anup Carlton MD Ordering Physician: ANUP CARLTON MD Date of Service: 01/02/25 Procedure(s): XR lumbar spine 2-3V Accession Number(s): [id number] cc: ANUP CARLTON MD Reason for Exam: [...] <Electronically signed by Zhao Llanes MDin OV> 10/29/25 1041 DD/ 1035 TD/TT: 01/02/25 1036 Printing Press Operator Apprentice: Anup Carlton MD IMG XR PROCEDURES Final Result * (ABNORMAL) TSH W/Reflex to FT4 (10/08/2024 8:24 AM EDT) TSH reflex Free T4 0.20(L) 0.32 - 4.0 uIU/mL [facility] Blood Venous blood specimen / Unknown 10/08/2024 8:24 AM EDT 10/08/2024 1:54 PM EDT Eusebio Connors MD LAB BLOOD ORDERABL ES Final Result Performing Organization Address [facility] Co de Phone Number [facility] [address] [place] [phone] * T4, Free (10/08/2024 8:24 AM EDT) Free T4 (Free Thyroxine) 1.21 0.71 - 1.85 ng/dL [facility] 10/08/2024 8:24 AM EDT 10/08/2024 1:54 PM EDT Eusebio Connors MD LAB BLOOD ORDERABL ES Final Result Performing Organization Address [facility] Co de Phone Number [facility] [address] [place] [address] [phone] * BI Mammogram Screening Tomosynthesis Bilateral (04/19/2024 10:35 AM EST) Anatomical Region Laterality Modality Breast Bilateral Mammography 04/19/2024 10:3 5 AM EST Narrative 04/27/2024 5:05 PM EST [facility] [address] [place] [address] Mammography Report Signed Patient: Uyen Maciel MR#: [id number] 2 : 1965 Acct:[id number] Age/Sex: 58 / F ADM Date: 04/19/24 Loc: HOBerthaMAMMO Attending Dr: Eusebio Connors MD Ordering Physician: Eusebio Portillo MD Res ults: 1Negative Date of Service: 04/19/24 Follow Up: 1 Year From Orig inal Mammogram Procedure(s): MM tomosynthesis screening BI Accession Number(s): [id number] cc: Eusebio Portillo MD EXAMINATION: MM SCREENING [...] by: Heather Morris DO 04/27/2024 05:02 PM [facility] Dictated By: Heather Morris DO Signed By: <Electronically signed by Heather Morris DO in OV> 04/27/24 1702 DD/ 1035 TD/TT: 04/19/24 1044 Printing Press Operator Apprentice: Procedure Note Donotuseinterpreter, Image - 04/27/2024 [facility] [address] [place] [address] Mammography Report Signed Patient: Grant Maciel#: [id number] 2 : 1965Acct:[id number] Age/Sex: 58 / FADM Date: 04/19/24 Loc: MAMMO Attending Dr: Eusebio Connors MD Ordering Physician: Eusebio Portillo ults: 1Negative Date of Service: 04/19/24Follow Up: 1 Year From [facility] Mammogram Procedure(s): MM tomosynthesis screening BI Accession Number(s): [id number] cc: Eusebio Portillo MD EXAMINATION: MM SCREENING [...] 04/27/24 1702 DD/ 1035 TD/TT: 04/19/24 1044 Printing Press Operator Apprentice: Eusebio Connors MD [facility] PROCEDURES Final Result * HIV-1 RNA, Quantitative, Real-Time PCR with Reflex to Genotype (RTI, PI, Integrase) (05/03/2022 11:10 AM EST) HIV 1 RNA, QN PCR NOT DETECTED copies/mL [facility], [facility] 1 RNA, QN PCR NOT DETECTED Log copies/mL [facility], Comment: REFERENCE RANGE: NOT DETECTED copies/mL NOT DETECTED Log copies/mL This test was performed using Real-Time Polymerase Chain Reaction. Reportable range is 20 to 10,000,000 copies/mL (1.30-7.00 Log copies/mL). 05/03/2022 11:1 0 AM EST 05/03/2022 11:11 AM EST Narrative [facility] - 05/06/2022 12:22 AM EST FASTING:YES FASTING: YES Eusebio Connors MD LAB BLOOD ORDERABL ES Final Result Performing Organization Address [facility]/ZIP Co de Phone Number [facility] [address] [place] [address], [place] [address] [facility], [address] [place] [address] * Hepatitis C Antibody with Reflex to HCV, RNA, Quantitative, Real-Time PCR (05/03/2022 11:10 AM EST) Hepatitis C Antibody NON-REACT SADIE NON-REACT SADIE [facility] Index 0.03 <1.00 [facility] Comment: HCV antibody was non-reactive. There is no laboratory evidence of HCV infection. In most cases, no further action is required. However, if recent HCV exposure is suspected, a test for HCV RNA (test code 48810) is suggested. For additional information please refer to http://education.Yooneed.com/faq/WTX65t1 (This link is being provided for informational/ educational purposes only.) Blood Venous blood specimen / Unknown 05/03/2022 11:10 AM EST 05/03/2022 11:11 AM EST Narrative [facility] - 05/06/2022 12:22 AM EST FASTING:YES FASTING: YES Eusebio Connors MD LAB BLOOD ORDERABL ES Final Result Performing Organization Address [facility]/ZIP Co de Phone Number [address], [place] [address] [facility] [address] [place] [address], (Nl2) [place] [address] * THINPREP TIS PAP AND HPV mRNA [...] was manually screened according to routine procedures. Brickmason Supervisor: SEE COMMENT [facility] Comment: KN CT(ASCP) CT screening location: [address] [address] HPV nRNA E6/E7 Not Detected Not Detected [facility] Comment: Methodology: Hydraulic Mechanic-Mediated Amplification This assay detects E6/E7 viral messenger RNA (mRNA) from 14 high-risk HPV types (16,18,31,33,35,39,45,51,52,56,58,59,66,68). The analytical performance characteristics of this assay have been determined by [facility]. The modifications have not been cleared or approved by the FDA. This assay has been validated pursuant to the CLIA regulations and is used for clinical purposes. For additional information, please refer to http://education.Pushpay.Sunsea/faq/LYJ033w3 (This link if provided for information/ educational purposes only.) Interpretation/Res ult: SEE COMMENT [facility] Comment: Negative for intraepithelial lesion or malignancy. Atrophic pattern; predominantly parabasal cells LMP: IRREGULAR [facility] Prev. BX: NONE GIVEN [facility] Prev. PAP: 04/2018 [facility] SOURCE: None given [facility] Statement Of Adequacy: SATISFACTORY FOR EVALUATION Age and/or menstrual status not provided [facility] 05/26/2021 1:00 PM EDT Keeley Fregoso CNM LAB PATHOLOGY ORDERABLES Final Result [facility] [address] [place] [address], * Hm Colonoscopy (07/16/2015 8:12 AM EDT) us Historical Provider HEALTH MAINTENANCE Final Result from Last 3 Months or Most Recently Relevant to Health Maintenance Insurance [employer] C3 Care Teams Husker Operator Relationship Specialty Start Date End Date Eusebio Portillo MD [address] [place] [address] PCP - General Internal Medicine 05/21/20
--- OUTSIDE RECORDS SUMMARY | 2025-01-02 12:43 | XMS_ITS | Encounter Summary ---
Author Organization [employer] Address 75 [facility] 7t h Floor [place] [phone] Care Team Providers Care Color Straining Bag Washer Name Role Phone Eusebio Portillo MD Primary Care Prov ider Reason for Visit * Reason Comments Med Refill Encounter Details Date Type Department Care Team ([facility] st Contact Info) Description 08/29/[address] [facility] & PEDS [address] [place], [place] [phone] Eusebio Portillo MD [address] [place], [place] [phone] Social History Tobacco Use Types Packs/Day Years [...] documented as of this encounter Care Teams Color Straining Bag Washer Relationship Specialty Start Date End Date Eusebio Portillo MD [address] [place] [phone] PCP - General Internal Medicine 05/21/20 documented as of this encounter
--- OUTSIDE RECORDS SUMMARY | 2025-01-02 12:43 | XMS_ITS | Encounter Summary ---
Author Organization [employer] Address [address] [facility] [address] 7t [place] [address] Care Team Providers Care Computer Art Instructor Name Role Phone Eusebio Portillo MD Primary Care Prov ider Encounter Details Date Type Department Care Team (Latest Contact Info) Description 01/02/2025 Travel Social History Tobacco Use Types Packs/Day Years Used Date Smoking Tobacco: Never Smokeless Tobacco: Never Depression Answer Date Recorded Patient Health Questionnaire-9 Score 2 10/15/2024 Patient Health Questionnaire-9 Score 2 10/15/2024 Last PHQ-9: Questionnaire Data Not on file 0 10/15/2024 Housing Stability Answer Date Recorded What is your housing situation today? I have harsha sing 10/15/[address] you li [...] documented as of this encounter Care Teams Computer Art Instructor Relationship Specialty Start Date End Date Eusebio Portillo MD [address] [place] [address] PCP - General Internal Medicine 05/21/20 documented as of this encounter
--- OUTSIDE RECORDS SUMMARY | 2025-01-02 12:43 | XMS_ITS | Encounter Summary ---
Author Organization [employer] Address 75 [facility] 7t [place] [address] Care Team Providers Care Dulser Name Role Phone Eusebio Portillo MD Primary Care Prov ider Encounter Details Date Type Department Care Team (Late st Contact Info) Description 04/20/2022 Orders Only [facility] MED[facility] [address] [place], [place] [phone] Eusebio Portillo MD [address] [place], [place] [phone] Acquired hypothyroidism Social History Tobacco Use Types [...] hypothyroidism documented in this encounter Care Teams Dulser Relationship Specialty Start Date End Date Eusebio Portillo MD [address] [place], [place] [phone] PCP - General Internal Medicine 05/21/20 documented as of this encounter
--- OUTSIDE RECORDS SUMMARY | 2025-01-02 12:43 | XMS_ITS | Encounter Summary ---
Author Organization [employer] Address 75 [facility] 7t [place] [address] Care Team Providers Care Overnight Houseperson Name Role Phone Eusebio Portillo MD Primary Care Prov ider Reason for Visit * Reason Onset Date Comments ER Follow-up 07/01/2023 Encounter Details Date Type Department Care Team ([facility] st Contact Info) Description 07/01/2023 Telephone [facility] MEDICINE [address] [place], [place] [phone] Eusebio Portillo MD [address] [place], [place] [phone] ER Follow-up Social History Tobacco Use Types [...] 1:07 PM EDT Pt was seen in [facility] today not ED. Pt advised to return call to office if symptoms persist or worsen.Pt had ED precautions reviewed. * Telephone Encounter - Hubert Zhou - 07/01/2023 11:34 AM EDT Patient calling to report ED visit on : Date: 06/29 Hospital: [facility] Seen for: Breathing troubles and was [...] documented as of this encounter Care Teams Overnight Houseperson Relationship Specialty Start Date End Date Eusebio Portillo MD [address] [place] [phone] PCP - General Internal Medicine 05/21/20 documented as of this encounter
--- OUTSIDE RECORDS SUMMARY | 2025-01-02 12:43 | XMS_ITS | Encounter Summary ---
Author Organization [employer] Address 75 [facility] 7t h Floor [place] [phone] Care Team Providers Care Paste Up Artist Apprentice Name Role Phone Eusebio Portillo MD Primary Care Prov ider Reason for Visit * Reason Comments Med Refill Encounter Details Date Type Department Care Team ([facility] st Contact Info) Description 03/27/2024 Refill [facility] MED & PEDS [address] [place], [place] [phone] Eusebio Portillo MD [address] [place], [place] [phone] Acquired hypothyroidism Social History Tobacco Use Types [...] documented as of this encounter Care Teams Paste Up Artist Apprentice Relationship Specialty Start Date End Date Eusebio Portillo MD [address] [place] [address] PCP - General Internal Medicine 05/21/20 documented as of this encounter
--- OUTSIDE RECORDS SUMMARY | 2025-01-02 12:43 | XMS_ITS | Encounter Summary ---
Author Organization [employer] Address 75 [facility] 7t h Floor [place] [phone] Care Team Providers Care Inventory Assistant Name Role Phone Eusebio Portillo MD Primary Care Prov ider Reason for Visit * Reason Comments Med Refill Encounter Details Date Type Department Care Team ([facility] st Contact Info) Description 07/20/2023 Refill [facility] MED & PEDS [address] [place], [place] [phone] Eusebio Portillo MD [address] [place], [place] [phone] Acquired hypothyroidism Social History Tobacco Use Types [...] documented as of this encounter Care Teams Inventory Assistant Relationship Specialty Start Date End Date Eusebio Portillo MD [address] [place] [address] PCP - General Internal Medicine 05/21/20 documented as of this encounter
--- OUTSIDE RECORDS SUMMARY | 2025-01-02 12:43 | XMS_ITS | Clinical Summary ---
Author Organization [facility] Address [address] [place] [address] Care Team Providers Care Engagement Executive Name Role Phone Unavailable Primary Care Provider [...] DTaP,Tdap,and Td Vaccines (1 - Tdap) 12/16/1983 Cervical Cancer Screening: P ap Smear [...] patient's age to complete this topic Hepatitis B Vaccines Aged Out No long er eligible [...]
--- OUTSIDE RECORDS SUMMARY | 2025-01-02 12:43 | XMS_ITS | Encounter Summary ---
Author Organization [employer] Address 75 [facility] 7t [place] [address] Care Team Providers Care Cardiology Coordinator Name Role Phone Eusebio Portillo MD Primary Care Prov ider Encounter Details Date Type Department Care Team ([facility] st Contact Info) Description 04/08/2023 Orders Only [facility] MED & PEDS [address] [place], [place] [phone] Eusebio Portillo MD [address] [place], [place] [phone] Social History Tobacco Use Types Packs/Day Years [...] documented as of this encounter Care Teams Cardiology Coordinator Relationship Specialty Start Date End Date Eusebio Portillo MD [address] [place] [address] PCP - General Internal Medicine 05/21/20 documented as of this encounter
== END 2025-01-02 10:18 | disposition home or self-care (01) ==
LOC: HO.HHCX 10:17
PROVIDERS: Visit Provider Emergency Medicine
DX: M54.41 Lumbago with sciatica, right side (principal)
CPT/HCPCS: 72100

== ENCOUNTER → 2025-01-02 10:17 | Outpatient (BNV) | payer MEDICAID, SELFPAY | PROVIDERS: Visit Provider Radiology Diagnostic Radiology | DX: M43.07 Spondylolysis, lumbosacral region (principal) | CPT/HCPCS: 72100 ==

== ENCOUNTER 2025-01-25 12:53 | Outpatient (REF) | payer MEDICAID, SELFPAY ==
--- OUTSIDE RECORDS SUMMARY | 2025-01-23 23:59 | XMS_ITS | Continuity of Care Document ---
Author Organization [facility] Address [address] [place] [address]- Care Team Providers Care Pie Cutter Name Role Phone Tila Connors MD, Eusebio Primary Care Phys [id number] Date(s): 12/24/24 - 01/23/[address] [address] Attending Physician: Russ Oscar Admitting Physician: AdmRuss frank Referring Physician: Admtr ArStacia Encounter Type: Triage Social History Social History Type Response Sex Sex Representation Female (finding) Patient Care team information Care Team Personnel Name: Eusebio Portillo MD Position: [facility] Outreach Member Role: PCP Address: [address] [place] [phone] Telecom: Care Team Related Persons Name: DALJIT MÁRQUEZ Name: VENTURA MÁRQUEZ Insurance Providers Guarantor name: ELPIDIO Health Plan Information #: 1 Payer: [employer] Payer Identifier: NA Member Number: [id number] Group Number: [id number] Subscriber Identifier: NA Relationship to Subscriber: self Coverage Type: MEDICAID Coverage Verification Date: ELPIDIO Telecom: ELPIDIO Address: NA
--- NOTE | ~2025-01-25 | US_ITS ---
EXAMINATION: US RETROPERITONEAL LIMITED (RENAL ONLY) CLINICAL INFORMATION: N28.1. Cyst of kidney, acquired.. COMPARISON: February 06, 2024. TECHNIQUE: Real-time ultrasound kidneys using grayscale technique. FINDINGS: RIGHT KIDNEY: 11 x 5 x 5 cm (SAG x AP x TRV). Volume: 125 cc. Normal echotexture. Renal cortical thickness is normal. No hydronephrosis. There is a well-defined 1.2 cm anechoic lesion without nodular or septal nor flow on color Doppler interrogation at the medullary/parapelvic compartment of the midportion. There is a well-defined, 0.9 cm anechoic lesion without septations or nodular component or flow on color Doppler interrogation in the lower pole. No solid lesion. LEFT KIDNEY: 11 x 6 x 4 cm (SAG x AP x TRV). Volume: 148 cc. Normal echotexture. Renal cortical thickness is normal. No hydronephrosis. No solid or cystic lesion. US/US renal BI IMPRESSION: 1.2 and 0.9 cm simple cyst, right kidney. No hydronephrosis. Overall stable... Electronically signed by: Zhao Kathleen MD 01/25/2025 01:36 PM EST
--- OUTSIDE RECORDS SUMMARY | 2025-01-25 13:13 | XMS_ITS | Data Portability ---
Author Organization [place] - [facility], Allergy Address [address] [address] Care Team Providers Care Meter/Relay Technician Name Role Phone SUGEYSUSSY Primary Care Provider [phone] Assessment No assessment recorded. Plan of Treatment Reminders Order Date Submit Date Provider Last Modified By Organization Details Last Modified Time Details Appointments None recorded. Lab None recorded. Referral None recorded. Procedures None recorded. Surgeries None recorded. Imaging MRI, brain + internal auditory canal, w/wo contrast - MRI, BRAIN + INTERNAL AUDITORY CANAL, W/WO CONTRAST 2024 025 [facility] ([facility]), [address] [place], [address], 06:17:08 Medication Orders None recorded. Patient TargetsNo targets recorded. Patient InstructionsNo instructions recorded. Reason for Referral None Reported. Results Created Date Observation Date Name Description Value Unit Range Abnormal Flag Note LastModifiedBy Organization Detail LastModifiedTime 05/30/19 audio gram No observ ation record ed. BARCODE Not Available 2024 14:57:10 06/10/1906/07/2024 MRI, brain + brain stem, w/wo contr ast [facility] Access ion Number : [id number] Regino king Name: Uyen Maciela rupa Record Number : [id number] Date of : 1965 Date of Exam: 2024 Referr ing Physic jose maria: Ortiz Sandoval [facility] [place] [address] [address] Exam: MR Brain (C-/C+ ) CPT 04975 Room Descri ption: Gifford Siem Espr 1.5 MRI of the brain [...] Electr onical ly Signed By: Srikanth arciniega [facility] ([facility]) [address] [place], [address], 06/13/2024 11:56:50 Result Notes Documentation Provider Name and Address Organization Details Recorded Time Mri, Brain + Brain Stem, W/wo Contrast : [facility] MRI- Portal Accession Number: [id number] Patient Name: Uyen Maciel Date of : 1965 Date of Exam: 06-07-2024 Referring Physician: Ortiz [place] [facility] 100 [facility] [address] [place] [address] Exam: MR Brain (C-/C+) CPT 30053 Room Description: Gifford Siem Espr 1.5 MRI of the brain without and with contrast with focus to IACs Clinical indications: Right-sided hearing loss Comparison: None. FINDINGS: There is a diffusely enhancing mass in the right CP angle extending into the right IAC measuring approximately approximately 5 x 5 x 11 mm in size. This is consistent with a vestibular schwannoma. Please correlate clinically. The left CP angle is patent. The left 7th and 8th nerve complex appears normal in caliber and signal intensities. No abnormal enhancement is noted. The visualized brain parenchyma shows no abnormal signal or abnormal enhancement. There is no hydrocephalus. There are normal flow-voids within major intracranial vessels. There is minimal mucosal thickening within bilateral ethmoid sinuses. IMPRESSION: There is an approximately 5 x 5 x 11 mm vestibular schwannoma of the right IAC. Electronically Signed By: Srikanth barrios [place] [facility] 06/13/2024 11:56:50 Problems Name Problem SNOMED Code Status Onset Date Resolution Date Notes Provider Name and Address Organization Details Recorded Time Sensorineur al hearing loss of bilateral ears 103293688 Active 2024 Huma barrios [place] [facility] 13:19:56 Bilateral tinnitus 3850885546065 Active 2024 ORTIZ Orosco MD [address] [place] [address], [place], [phone], [facility] 14:17:04 Sensorineur al hearing loss in right ear 9316612836551 0 Active 2024 ORTIZ Orosco MD [address] [place] [address], [place], [phone], [facility] 14:20:51 Problem Notes None recorded. Procedures Surgical History Date Name Laterality Status Provider Name and Address Organization Details Recorded Time 05/30/19 Tympanometry - 04226 completed Huma Welch MA [facility] 05/29/2024 13:19:37 05/30/19 Air & Bone Audio - 40993 completed Huma Welch MA [facility] 05/29/2024 13:19:33 Imaging Results None recorded. Procedure Notes None recorded. Medical Equipment None Reported. Allergies Allergen ID Allergen Name Allergen Category Reaction Reaction Severity Criticality Documentation Date Start Date Code Code System Note Provider Name and Address Organization Details Recorded Time 437514 Singulair medicatio n Not available Not available Not available 05/29/2024 14677 9 RxNorm Phan barrios [place] - [facility] 5 12:59:28 Medications Name Sig Start Date Stop [...] Address Organization Details Last Updated DateTime 05/29/2024 80983.05 g 23.6 kg/m2 154.94 cm Phan Gonzáles [place] - [facility] 05/29/2024 13:59:41 Social History None recorded. Functional Status None recorded. Mental Status None recorded. Family History Nothing Reported. Medical History Condition Response Arthritis Y Asthma Y Gynecological HistoryNo gynecological history recorded. Obstetrics History GPAL:G 0 P 0 0 0 0 Past Encounters Encounter ID Performer Location Encounter Start Date Encounter Closed Date Diagnosis/Indication Diagnosis SNOMED-CT Code Diagnosis ICD10 Code Diagnosis IMO Codes Diagnosis Note [id number] ORTIZ DALLAS MD [facility] of [address] [address] 05/29/2024 12:32:51 05/29/2024 14:20:41 Sensorineural hearing loss of bilateral ears 951628188 H90.3 Audiologic al evaluation results: Right ear: Moderate sloping to severe sensorineu ral hearing loss with excellent word recognitio n. Left ear: Essentiall y mild sloping to moderately severe sensorineu ral hearing loss with excellent word recognitio n. Tympanomet ry: Right Ear:Type As with rounded peak Left Ear:Type As with rounded peak Sensorineu ral hearing loss in right ear 2483632351 9100 H90.A21 She has asymmetric hearing loss in the right ear. I will send for an MRI. She has been on the window where steroids would be beneficial . I gave medical clearance for hearing aids. Bilateral tinnitus 28473 93376 102 H93.13 Ear exam was normal. Audiogram [...] Frazier Member ID Guarantor Name 05/29/2024 1 [place] [facility] Uyen Maciel [id number] Uyen Maciel 06/13/2024 1 [place] [facility] (MEDICAID) Uyen Maciel [id number] Uyen Maciel Notes Date Note Type Note Provider Name and Address Organization Details Recorded Time 05/29/2024 text/html ROS as noted in the HPI She presents for hearing loss. She notes a couple of months ago the hearing in her right ear worsened. She says she was treated for an ear infection at the time. She had an audiogram which showed mixed HL in both ears worse AD at [facility] in November. Repeat audio today shows SNHL AU moderate AD and mild . Has tinnitus AU. ORTIZ DALLAS MD [address] [place] [address], [phone], [facility] - [facility] 05/29/2024 14:22:06 OBGyn Episode No OBEpisode recorded.
--- OUTSIDE RECORDS SUMMARY | 2025-01-25 13:13 | XMS_ITS | Encounter Summary ---
Author Organization [employer] Address 75 [facility] 7t h Floor [place] [phone] Care Team Providers Care Piano Regulator Name Role Phone Eusebio Portillo MD Primary Care Prov ider Reason for Visit * Reason Comments Med Refill Encounter Details Date Type Department Care Team ([facility] st Contact Info) Description 08/29/2023 Refill [facility] CHC MED & PEDS [address] [place], [place] [phone] Eusebio Portillo MD [address] [place], [place] [phone] Social History Tobacco Use Types Packs/Day Years [...] documented as of this encounter Care Teams Piano Regulator Relationship Specialty Start Date End Date Eusebio Portillo MD [address] [place] [address] PCP - General Internal Medicine 05/21/20 documented as of this encounter
--- OUTSIDE RECORDS SUMMARY | 2025-01-25 13:14 | XMS_ITS | Encounter Summary ---
Author Organization [employer] Address 75 [facility] 7t [place] [address] Care Team Providers Care Software Developer Consultant Name Role Phone Eusebio Portillo MD Primary Care Prov ider Reason for Visit * Reason Onset Date Comments ER Follow-up 07/01/2023 Encounter Details Date Type Department Care Team ([facility] st Contact Info) Description 07/01/2023 Telephone [facility] MEDICINE [address] [place], [place] [phone] Eusebio Portillo MD [address] [place], [place] [phone] ER Follow-up Social History Tobacco Use Types [...] 1:07 PM EDT Pt was seen in [facility] today not ED. Pt advised to return call to office if symptoms persist or worsen.Pt had ED precautions reviewed. * Telephone Encounter - Hubert Zhou - 07/01/2023 11:34 AM EDT Patient calling to report ED visit on : Date: 06/29 Hospital: [facility] Seen for: Breathing troubles and was [...] documented as of this encounter Care Teams Software Developer Consultant Relationship Specialty Start Date End Date Eusebio Portillo MD [address] [place] [address] PCP - General Internal Medicine 05/21/20 documented as of this encounter
--- OUTSIDE RECORDS SUMMARY | 2025-01-25 13:14 | XMS_ITS | Encounter Summary ---
Author Organization [employer] Address 75 [facility] 7t h Floor [place] [phone] Care Team Providers Care Sharepoint Admin Name Role Phone Eusebio Portillo MD Primary Care Prov ider Reason for Visit * Reason Comments Med Refill Encounter Details Date Type Department Care Team ([facility] st Contact Info) Description 07/20/2023 Refill [facility] CHC MED & PEDS [address] [place], [place] [phone] Eusebio Portillo MD 505 [place], [place] [phone] Acquired hypothyroidism Social History Tobacco Use Types [...] documented as of this encounter Care Teams Sharepoint Admin Relationship Specialty Start Date End Date Eusebio Portillo MD [address] [place] [address] PCP - General Internal Medicine 05/21/20 documented as of this encounter
--- OUTSIDE RECORDS SUMMARY | 2025-01-25 13:14 | XMS_ITS | Clinical Summary ---
Author Organization [facility] Address [address] [place] [address] Care Team Providers Care Dynamite Reclaimer Name Role Phone Unavailable Primary Care Provider [...] Depression Screening 03/07/2024 COVID-19 Vaccine (1 - 2024-2 6 season) 2024 Influenza Vaccine (#1) 2024 RSV [...]
--- OUTSIDE RECORDS SUMMARY | 2025-01-25 13:14 | XMS_ITS | Encounter Summary ---
Author Organization [employer] Address 75 [facility] 7t [place] [address] Care Team Providers Care Carpentry Foreman Name Role Phone Eusebio Portillo MD Primary Care Prov ider Encounter Details Date Type Department Care Team ([facility] st Contact Info) Description 04/08/2023 Orders Only [facility] CHC MED & PEDS [address] [place], [place] [phone] Eusebio Portillo MD 505 [place], [place] [phone] Social History Tobacco Use Types Packs/Day Years [...] documented as of this encounter Care Teams Carpentry Foreman Relationship Specialty Start Date End Date Eusebio Portillo MD [address] [place] [address] PCP - General Internal Medicine 05/21/20 documented as of this encounter
--- OUTSIDE RECORDS SUMMARY | 2025-01-25 13:14 | XMS_ITS | Encounter Summary ---
Author Organization [employer] Address 75 [facility] 7t [place] [address] Care Team Providers Care Mold Mechanic Name Role Phone Eusebio Portillo MD Primary Care Prov ider Reason for Visit * Reason Comments Med Refill Encounter Details Date Type Department Care Team ([facility] st Contact Info) Description 01/20/2025 Refill [facility] CHC MED & PEDS [address] [place], [place] [phone] Bri Roca MD 505 [place], [place] [phone] Social History Tobacco Use Types Packs/Day Years [...] documented as of this encounter Care Teams Mold Mechanic Relationship Specialty Start Date End Date Eusebio Portillo MD [address] [place] [address] PCP - General Internal Medicine 05/21/20 documented as of this encounter
--- OUTSIDE RECORDS SUMMARY | 2025-01-25 13:14 | XMS_ITS | Encounter Summary ---
Author Organization [employer] Address [address] [facility] [address] 7t [place] [address] Care Team Providers Care Trim Master Operator Name Role Phone Eusebio Portillo MD Primary Care Prov ider Encounter Details Date Type Department Care Team ([facility] st Contact Info) Description 06/27/2023 Orders Only [facility] MEDICINE [address] [place], [place] [phone] ProviderLinnea MD Social History Tobacco Use Types [...] documented as of this encounter Care Teams Trim Master Operator Relationship Specialty Start Date End Date AdornoEusebio Ortiz MD [address] [place] [address] PCP - General Internal Medicine 05/21/20 documented as of this encounter
--- OUTSIDE RECORDS SUMMARY | 2025-01-25 13:14 | XMS_ITS | Clinical Summary ---
Author Organization [employer] Address 75 [facility] 7t [place] [address] Care Team Providers Care Iap Displays Analyst Name Role Phone Eusebio Portillo MD Primary Care Prov ider Allergies Active Allergy Reactions Criticality Noted Date Comments Media Oil Swelling High 09/13/2022 Montelukast Headache,Unknown 05/26/2010 Propofol Hives 07/01/2023 Zafirlukast Headache 05/26/2010 Medications Blood Pressure Monitor kitIndications:El evated blood pressure reading Use as directed 3x/week 1 kit 023 Active fluticasone-salme terol (Advair) 115-21 MCG/ACT inhaler Inhale 2 puffs in the morning and at bedtime. Rinse mouth with water after use to reduce aftertaste and incidence of candidiasis. Do not swallow. Active loratadine (Claritin) 10 MG tablet Take [...] NECESARIO PARA EL ESTRENIMIENTO 60 capsule 1 Active levothyroxine (Synthroid) 75 MCG tabletIndications :Acquired hypothyroidism Take 1 tablet (75 mcg) by mouth before breakfast. 30 tablet 11 025 2025 Active acetaminophen (Tylenol) 500 MG tablet Take 2 tablets (1,000 mg) by mouth every 6 (six) hours if needed for moderate pain or fever for up to 25 doses. 50 tablet Active ibuprofen 400 MG tablet Take 1 tablet (400 mg) by mouth every 6 (six) hours if needed for moderate pain or fever for up to 30 doses. 30 tablet Active tiZANidine (Zanaflex) 2 MG tablet Take 1 tablet (2 mg) by mouth every 6 (six) hours if needed for muscle spasms for up to 10 days. 30 tablet Active lidocaine (Lidoderm) 5 % patch Apply 1 patch topically Once per day. Remove & discard patch within 12 hours or as directed by MD. 30 patch 2 025 2025 Active albuterol (Ventolin HFA) 108 (90 Base) MCG/ACT inhaler INHALE DANDO DOS SOPLIDOS POR VIA ORAL CADA SEIS HORAS CUANDO SEA NECESARIO FOR WHEZE 18 g 1 Active albuterol (Ventolin HFA) 108 (90 Base) [...] EDT): Discussed ultrasound findings, follow up with ob-smasher Acquired hypothyroidism 04/28/2022 Assessment & Plan (10/15/2024 [...] Encounters Date Type Department Care Team Description 01/20/2025 Refill [facility] MED & PEDS [address] [place] [address] Bri Roca MD 01/02/2025 9:40 AM EDT Office Visit [facility] [address] [place], [place] [phone] Anup Carlton MD Acute right-sided low back pain with right-sided sciatica (Primary Dx); Elevated blood pressure reading in office without diagnosis of hypertension 01/02/2025 Travel 11/10/2024 Refill [facility] MED & PEDS [address] [place] [address] Mimi Rachel MD from Last 3 Months Immunizations Immunization [...] 1965 FIT 1965 FOBT 1965 Sigmoidoscopy 1965 RSV Patients and Patients Aged 60 years or older (1 - Risk 50-74 years 1-dose series) 2014 Hepatitis A Vaccines (2 of 2 - Risk 2-dose series) 04/22/2016 10/21/2015 COVID-19 Vaccine ( season) 2024 06/29/2021, 07/10/2020, 06/12/2020 Colonoscopy 07/15/2025 07/16/2015 Colorectal Cancer Screening 07/15/2025 Alcohol/Substance Use Screening 10/15/2025 10/15/2024 Depression Screening 10/15/2025 10/15/2024, 10/16/19 25 Disability Screening 10/15/2025 10/15/2024 SDOH Screening 10/15/2025 10/15/2024 Tobacco Screening 01/02/2026 01/02/2025 Mammogram 04/19/2026 04/19/2024, 11/2023, 03/17/2022, Additional history exists Cervical Cancer [...] right-sided low back pain with right-sided sciatica BI MAMMOGRAM SCREENING TOMOSYNTHESIS BILATERAL Routine 04/19/2024 [...] AM EDT Narrative 01/02/2025 10:44 AM EDT [address] [address] XRay Report Signed Patient: Uyen Maciel MR#: [id number] 2 : 1965 Acct:[id number] Age/Sex: 59 / F ADM Date: 01/02/25 Loc: HO.HHCX Attending Dr: Anup Carlton MD Ordering Physician: ANUP CARLTON MD Date of Service: 01/02/25 Procedure(s): XR lumbar spine 2-3V Accession Number(s): [id number] cc: ANUP CARLTON MD Reason for Exam: [...] 01/02/25 1041 DD/ 1035 TD/TT: 01/02/25 1036 Remarketing Rep: Procedure Note Donotuseinterpreter, Image - 01/02/[address] [place] [address] XRay Report Signed Patient: Tiana MacielR#: [id number] 2 : 1965Acct:[id number] Age/Sex: 59 / FADM Date: 01/02/25 Loc: HO.HHCX Attending Dr: Anup Carlton MD Ordering Physician: ANUP CARLTON MD Date of Service: 01/02/25 Procedure(s): XR lumbar spine 2-3V Accession Number(s): [id number] cc: ANUP CARLTON MD Reason for Exam: [...] 01/02/25 1041 DD/ 1035 TD/TT: 01/02/25 1036 Remarketing Rep: Anup Carlton MD IMG XR PROCEDURES Final Result * BI Mammogram Screening Tomosynthesis Bilateral (04/19/2024 10:35 AM EST) Anatomical Region Laterality Modality Breast Bilateral Mammography 04/19/2024 10:3 5 AM EST Narrative 04/27/2024 5:05 PM EST [address] [address] Mammography Report Signed Patient: Uyen Maciel MR#: [id number] 2 : 1965 Acct:[id number] Age/Sex: 58 / F ADM Date: 04/19/24 Loc: MAMMO Attending Dr: Eusebio Connors MD Ordering Physician: Eusebio Portillo MD Res ults: 1Negative Date of Service: 04/19/24 Follow Up: 1 Year From Orig inal Mammogram Procedure(s): MM tomosynthesis screening BI Accession Number(s): [id number] cc: Eusebio Portillo MD EXAMINATION: MM SCREENING [...] by: Heather Morris DO 04/27/2024 05:02 PM [facility] Dictated By: Heather Morris DO Signed By: <Electronically signed by Heather Morris DO in OV> 04/27/24 1702 DD/ 1035 TD/TT: 04/19/24 1044 Remarketing Rep: Procedure Note Donotuseinterpreter, Image - 04/27/2024 Jose Alejandro [facility]'s [address] [place] [address] Mammography Report Signed Patient: Grant Maciel#: [id number] 2 : 1965Acct:[id number] Age/Sex: 58 / FADM Date: 04/19/24 Loc: MAMMO Attending Dr: Eusebio Connors MD Ordering Physician: Eusebio Portillo ults: 1Negative Date of Service: 04/19/24Follow Up: 1 Year From [facility] Mammogram Procedure(s): MM tomosynthesis screening BI Accession Number(s): [id number] cc: Eusebio Portillo MD EXAMINATION: MM SCREENING [...] Morris DO Signed By: <Electronically signed by Heahter Morris DO in OV> 04/27/24 1702 DD/ 1035 TD/TT: 04/19/24 1044 Remarketing Rep: Eusebio Connors MD [facility] BI PROCEDURES Final Result * HIV-1 RNA, Quantitative, Real-Time PCR with Reflex to Genotype (RTI, PI, Integrase) (05/03/2022 11:10 AM EST) HIV 1 RNA, QN PCR NOT DETECTED copies/mL [facility], HIV 1 RNA, QN PCR NOT DETECTED Log copies/mL [facility], Comment: REFERENCE RANGE: NOT DETECTED copies/mL NOT DETECTED Log copies/mL This test was performed using Real-Time Polymerase Chain Reaction. Reportable range is 20 to 10,000,000 copies/mL (1.30-7.00 Log copies/mL). 05/03/2022 11:1 0 AM EST 05/03/2022 11:11 AM EST Narrative [facility] - 05/06/2022 12:22 AM EST FASTING:YES FASTING: YES Eusebio Connors MD LAB BLOOD ORDERABL ES Final Result Performing Organization Address [facility] Co de Phone Number SET [address] [place] [address], [place] [address] [facility], [id number] [place] [phone] * Hepatitis C Antibody with Reflex to HCV, RNA, Quantitative, Real-Time PCR (05/03/2022 11:10 AM EST) Hepatitis C Antibody NON-REACT SADIE NON-REACT SADIE [facility] [employer] Index 0.03 <1.00 [facility] [employer] Comment: HCV antibody was non-reactive. There is no laboratory evidence of HCV infection. In most cases, no further action is required. However, if recent HCV exposure is suspected, a test for HCV RNA (test code 91041) is suggested. For additional information please refer to http://education.AptDeco/faq/FDT69o3 (This link is being provided for informational/ educational purposes only.) Blood Venous blood specimen / Unknown 05/03/2022 11:10 AM EST 05/03/2022 11:11 AM EST Narrative [facility] - 05/06/2022 12:22 AM EST FASTING:YES FASTING: YES Eusebio Connors MD LAB BLOOD ORDERABL ES Final Result Performing Organization Address [facility]/ZIP Co de Phone Number SET [address] [place] [address], [place] [address] [facility] [place] [employer] [address] [place] [address], (Nl2) [place] [address] * THINPREP TIS PAP AND HPV mRNA [...] was manually screened according to routine procedures. Grounds Manager: SEE COMMENT [facility] Comment: KNJOAN(ASCP) CT screening location: [address] [address] HPV nRNA E6/E7 Not Detected Not Detected [facility] Comment: Methodology: Emergency Response Coordinator-Mediated Amplification This assay detects E6/E7 viral messenger RNA (mRNA) from 14 high-risk HPV types (16,18,31,33,35,39,45,51,52,56,58,59,66,68). The analytical performance characteristics of this assay have been determined by [facility]. The modifications have not been cleared or approved by the FDA. This assay has been validated pursuant to the CLIA regulations and is used for clinical purposes. For additional information, please refer to http://education.[employer]ius.[employer]/faq/WYR594a0 (This link if provided for information/ educational [...] EVALUATION Age and/or menstrual status not provided [facility] 05/26/2021 1:00 PM EDT eKeley Fregoso CNM LAB PATHOLOGY ORDERABLES Final Result [facility] [address] [place] [address], * Hm Colonoscopy (07/16/2015 8:12 AM EDT) us Historical Provider HEALTH MAINTENANCE Final Result from Last 3 Months or Most Recently Relevant to Health Maintenance [facility] Care Teams Iap Displays Analyst Relationship Specialty Start Date End Date Eusebio Portillo MD [address] [place] [address] PCP - General Internal Medicine 05/21/20
--- OUTSIDE RECORDS SUMMARY | 2025-01-25 13:14 | XMS_ITS | Encounter Summary ---
Author Organization [employer] Address 75 [facility] 7t h Floor [place] [phone] Care Team Providers Care Pot Firer Name Role Phone Eusebio Portillo MD Primary Care Prov ider Reason for Visit * Reason Comments Med Refill Encounter Details Date Type Department Care Team ([facility] st Contact Info) Description 03/27/2024 Refill [facility] CHC MED & PEDS [address] [place], [place] [phone] Eusebio Portillo MD [address] [place], [place] [phone] Acquired hypothyroidism Social History Tobacco Use Types [...] documented as of this encounter Care Teams Pot Firer Relationship Specialty Start Date End Date Eusebio Portillo MD [address] [place] [address] PCP - General Internal Medicine 05/21/20 documented as of this encounter
--- OUTSIDE RECORDS SUMMARY | 2025-01-25 13:14 | XMS_ITS | Encounter Summary ---
Author Organization [employer] Address [address] [place] [address] Care Team Providers Care Timber Bucker Name Role Phone Eusebio Portillo MD Primary Care Prov ider Encounter Details Date Type Department Care Team (Late st Contact Info) Description 04/20/2022 Orders Only [facility] [address], [place] [phone] Eusebio Portillo MD [address], [place] [phone] Acquired hypothyroidism Social History Tobacco Use Types [...] hypothyroidism documented in this encounter Care Teams Timber Bucker Relationship Specialty Start Date End Date Eusebio Portillo MD [address], [place] [phone] PCP - General Internal Medicine 05/21/20 documented as of this encounter
== END 2025-01-25 12:54 | disposition home or self-care (01) ==
LOC: HO.US 12:53
PROVIDERS: PCP Internal Medicine; Visit Provider Nurse Practitioner Family
DX: N28.1 Cyst of kidney, acquired (principal)
CPT/HCPCS: 76775

== ENCOUNTER → 2025-01-25 12:54 | Outpatient (BNV) | payer MEDICAID, SELFPAY | PROVIDERS: PCP Internal Medicine; Visit Provider Radiology Diagnostic Radiology | DX: N28.1 Cyst of kidney, acquired (principal) | CPT/HCPCS: 76775 ==

== ENCOUNTER 2025-02-18 09:05 | Outpatient (AMB) | payer MEDICAID, SELFPAY ==
--- NOTE | 2025-02-18 09:32 | MHC.OFFVIS ---
Intake Visit Reasons: 1Y/US/UA Intake Note: Reason for Visit: 1 Year US/UA/PVR Follow Up Urology Medication: None Blood Thinners: None Imaging: Ultrasound 01/25/2025 Labs: None Last Cuture: 2023 Last Cytology: 04/07/2020 Last PVR: 0ml PVR: Phosphatic Fertilizer Supervisor Required: Yes Phosphatic Fertilizer Supervisor Language: Lead Sql Developer Services: Phosphatic Fertilizer Supervisor Present Phosphatic Fertilizer Supervisor Name: Ac Ramirez Accompanied by: Self / Same As Patient Allergies albuterol (From VENTOLIN) Allergy (Intermediate, Verified 02/18/25 10:06) SHORTNESS OF BREATH nut - unspecified (nut) Allergy (Intermediate, Verified 02/18/25 10:06) SWELLING dicyclomine (Bentyl) Allergy (Unknown, Verified 02/18/25 10:06) Unknown montelukast (Singulair) Allergy (Unknown, Verified 02/18/25 10:06) Unknown Medication List - Last Reconciled 02/18/25 by CONNIE Josue aclidinium bromide 400 mcg/actuation (Tudorza Pressair) 1 inh inhalation BID 30 days albuterol sulfate 90 mcg/actuation (ProAir HFA) 2 puffs inhalation Q4-6H PRN 30 days albuterol sulfate 2.5 mg (3 mL) inhalation Q4-6H PRN 30 days cetirizine (Zyrtec) 10 mg PO DAILY epinephrine (EpiPen 2-Kehinde) 0.3 mg IM Q10M PRN fluticasone propionate 50 mcg/actuation (Flonase Allergy Relief) 1 spray intranasal DAILY ketotifen fumarate 0.025%(0.035%) (Alaway) 1 drp ophthalmic (eye) DAILY lidocaine 5% 1 patch topical DAILY HPI Comments Details: Uyen is a pleasant 59 year old Algerian speaking female who is a patient of Dr. Adorno. She has a past medical history of recurrent urinary tract infections, renal cysts, hematuria, arthritis, hypothyroidism, allergic rhinitis and COPD. She is being seen today for her annual follow up of her right renal cysts and recurrent UTI's. In discussion with the patient today she reports to be doing and feeling well. She denies having had any bothersome urinary issues or concerns since her last office visit here. Most recent renal imaging results reviewed with the patient today. 01/29 1.2 and 0.9 cm simple cysts right kidney. No hydronephrosis or renal calculi noted bilaterally. Overall stable imaging per radiology report. She currently denies any UTI like symptoms and or bothersome urinary issues. In office urinalysis results reviewed with the patient today. PVR 0 mL. When asked she reports be happy with current voiding parameters. When asked she denies urinary urgency, urinary frequency, incontinence, nocturia, hematuria, dysuria, foul smelling urine, changes to urinary stream, flank pain, fever, and or chills. She otherwise offers no issues or concerns at this time. [facility] Medical History Pharyngitis Recurrent UTI Renal cysts, acquired, bilateral Gross hematuria Arthritis Hypothyroidism UTI (urinary tract infection) COPD (chronic obstructive pulmonary disease) Allergic rhinitis Surgical History Hx of dilation and curettage History of hysteroscopy H/O tubal ligation H/O colonoscopy History of eye surgery Social History Household Members: None Housing: Apartment Alcohol intake: never Patient Tobacco Use Status: Never used Tobacco Sexual orientation: Straight/Heterosexual Gender identity: Female Female Reproductive History Menstrual Age of Menarche: 11 Review of Systems Const All systems reviewed & are unremarkable except as noted in HPI and below Physical Exam Const General: cooperative, healthy appearing, comfortable, no acute distress, well developed, alert and awake Orientation/consciousness: patient oriented x3 Limitations: no limitations HEENT Head: Yes normal to inspection, Yes normocephalic and Yes atraumatic Ears: hearing grossly normal bilaterally Eyes General: appearance normal, both eyes and all related structures Neck Neck: Yes normal visual inspection and Yes trachea midline Chest Chest palpation & inspection: normal inspection of the chest Resp Effort & Inspection: normal respiratory effort and able to speak in complete sentences Cardio Rate: regular rate GI Inspection: Yes normal to inspection General: Yes no CVA tenderness Back/Spine/Pelvis Back: no CVA tenderness Skin General skin exam: no rashes or lesions noted Neuro General: patient oriented x3 Extrem General: Yes normal to inspection Psych Appearance: grossly normal and well kempt Mental Status: mental status grossly normal Speech and movement: Normal speech and movement present and Clear speech present Affect: normal affect Attitude: cooperative Thought process: Normal thought process present Thought content: Normal thought content present Insight: Fair insight present (Psych) Judgement: Fair judgement present (Psych) Office Procedures Post Void Residual Post Residual Void Post Void Residual (PVR): 0 [id number]-[id number] Void Residual by ultrasound Results AMB Urinalysis, Automated UA Leukoctes 0 Funmi/uL Last Edit by Tanna Doyle [facility] on 02/18/25 09:54 UA Nitrite Negative Last Edit by Tanna Doyle A on 02/18/25 09:54 UA Urobilinogen 0.2 mg/dL Last Edit by Tanna Doyle A on 02/18/25 09:54 UA Protein 0 mg/dL Last Edit by Tanna Doyle A on 02/18/25 09:54 UA pH 6.0 Last Edit by Tanna Doyle A on 02/18/25 09:54 UA Blood 0 Miller/uL Last Edit by Tanna Doyle [facility] on 02/18/25 09:54 UA Specific [place] 1.010 Last Edit by Tanna Doyle A on 02/18/25 09:54 UA Ketone Negative Last Edit by Tanna Doyle [facility] on 02/18/25 09:54 UA Bilirubin 0 mg/dL Last Edit by Tanna Doyle A on 02/18/25 09:54 UA Glucose 0 mg/dL Last Edit by Tanna Doyle [facility] on 02/18/25 09:54 Results Reviewed Results Reviewed: Laboratory Last Values Urine pH (Auto) 6.0 02/18/25 09:53 Specific [place] (Auto) 1.010 02/18/25 09:53 Urine Protein (Auto) 0 mg/dL 02/18/25 09:53 Glucose (UA)(Auto) 0 mg/dL 02/18/25 09:53 Urine Ketones (Auto) Negative 02/18/25 09:53 Urine Blood (Auto) 0 Miller/uL 02/18/25 09:53 Urine Nitrite (Auto) Negative 02/18/25 09:53 Urine Bilirubin (Auto) 0 mg/dL 02/18/25 09:53 Urine Urobilinogen (Auto) 0.2 mg/dL 02/18/25 09:53 Leukocyte Esterase (Auto) 0 Funmi/uL 02/18/25 09:53 Date of Service: 01/25/25 Procedure(s): US renal BI FINDINGS: RIGHT KIDNEY: 11 x 5 x 5 cm (SAG x AP x TRV). Volume: 125 cc. Normal echotexture. Renal cortical thickness is normal. No hydronephrosis. There is a well-defined 1.2 cm anechoic lesion without nodular or septal nor flow on color Doppler interrogation at the medullary/parapelvic compartment of the midportion. There is a well-defined, 0.9 cm anechoic lesion without septations or nodular component or flow on color Doppler interrogation in the lower pole. No solid lesion. LEFT KIDNEY: 11 x 6 x 4 cm (SAG x AP x TRV). Volume: 148 cc. Normal echotexture. Renal cortical thickness is normal. No hydronephrosis. No solid or cystic lesion. IMPRESSION: 1.2 and 0.9 cm simple cyst, right kidney. No hydronephrosis. Overall stable... Assessment & Plan Assessment & Plan (1) Renal cysts, acquired, bilateral: Code(s): N28.1 - Cyst of kidney, acquired Category: Medical (2) Recurrent UTI: Code(s): N39.0 - Urinary tract infection, site not specified Category: Medical Plan In office urinalysis results reviewed with the patient today; as noted above. PVR 0 mL. Most recent renal imaging results reviewed with the patient today; as noted above. She currently denies any bothersome urinary issues or concerns. She reports be happy with current voiding parameters. Will continue with surveillance monitoring. We did discuss classifications of renal cysts. Will obtain renal ultrasound in 1 year. Follow-up in 1 year with imaging and PVR; or sooner with any issues, concerns, and or questions. Orders: Orders AMB Post Void Residual by ultrasound Today N39.0 - Urinary tract infection, site not specified AMB Urinalysis Automated Today N39.0 - Urinary tract infection, site not specified, Z13.9 - Encounter for screening, unspecified US renal BI 1 Year N28.1 - Cyst of kidney, acquired Patient Instructions: The patient had an opportunity to ask questions regarding the treatment plan. All questions were answered. Physical exam, labs, and imaging were discussed and reviewed in detail. As well as risks, benefits, and discussion of treatment choices. No major barriers to understanding were identified. The patient expressed understanding and agreement with the above treatment plan. The patient was made aware they should contact our office by phone for worsening of their current condition, the appearance of new symptoms, or with any questions or concerns. Compliance is encouraged with any medications and follow up testing that is ordered. It is a privilege to be allowed the opportunity to participate in? your urological care.? Again, if you have any questions or concerns If you have any questions or concerns please do not hesitate to contact me. The office is [phone]. This note is constructed using voice recognition software. While every effort has been made to ensure accuracy computed tomography technologist errors may have been included. Yours sincerely, CONNIE Josue Coding Level of Care Code Est Pt Level 3 (57172) Add On Problem Visit Only Diagnoses Renal cysts, acquired, bilateral N28.1 Recurrent UTI N39.0 CPT Codes Post Residual Void - PVR CPT Code: 72436-Gesk Void Residual by ultrasound ([id number])
== END 2025-02-18 10:14 | disposition home or self-care (01) ==
LOC: HO.HUSH 09:05
PROVIDERS: PCP Internal Medicine; Visit Provider Nurse Practitioner Family
DX: N28.1 Cyst of kidney, acquired (principal); N39.0 Urinary tract infection, site not specified; Z13.9 Encounter for screening, unspecified
CPT/HCPCS: 99213

== ENCOUNTER → 2025-02-18 09:05 | Outpatient (BNVA) | payer MEDICAID, SELFPAY | PROVIDERS: PCP Internal Medicine; Visit Provider Nurse Practitioner Family | DX: N28.1 Cyst of kidney, acquired (principal); N39.0 Urinary tract infection, site not specified | CPT/HCPCS: 51798; 81003; 99212 ==